=== PATIENT | male | born 1950 | race Caucasian/White ===

== ENCOUNTER 2021-10-27 07:47 | Outpatient (REF) | payer MEDICARE, SELFPAY ==
[2021-10-27 10:14] LABS: MANUAL DIFF FLAG NO
[2021-10-27 10:22] LABS: Basophils Percent Auto 0.7 % (0-2); Eosinophils Absolute Auto 0.3 X10*3/uL (0.0-0.4); Eosinophils Percent Auto 4.6 % (0-4); Hematocrit 43.5 % (42.0-52.0); Hemoglobin 14.7 g/dl (14.0-18.0); Imm Gran Abs Auto 0.02 X10*3/uL (0.00-0.03); Imm Gran Pct Auto 0.3 % (0.0-0.4); Lymphocytes Absolute Auto 2.2 X10*3/uL (1.2-4.9); Lymphocytes Percent Auto 37.7 % (20-40); Mean Corpuscular HGB Conc 33.8 g/dl (31.0-36.0); Mean Corpuscular Hemoglobin 32.2 pg (27.0-33.0); Mean Corpuscular Volume 95.4 fL (80.0-98.0); Mean Platelet Volume 9.1 fL (9.4-12.4); Monocytes Absolute Auto 0.6 X10*3/uL (0.1-1.2); Monocytes Percent Auto 9.5 % (2-11); Neutrophils Absolute Auto 2.8 x10*3/uL (2.0-8.3); Neutrophils Percent Auto 47.2 % (45-73); Platelet Count 215 X10*3/uL (160-400); Red Blood Count 4.56 X10*6/uL (4.60-5.80); Red Cell Distribution Width 12.5 % (11.0-16.0); White Blood Count 5.9 X10*3/uL (4.8-10.8)
[2021-10-27 10:26] LABS: Appearance Urine CLEAR; Color Urine YELLOW; Glucose Urine UA NEG (NEG); Leukocyte Esterase Urine NEG (NEG); Nitrite Urine NEG (NEG); Urine Blood 2+ (NEG); Urine Ketones NEG (NEG); Urine Protein TRACE MG/DL (NEG-TRACE)
[2021-10-27 11:01] LABS: WBC Urine 0-2 /HPF (0-4)
[2021-10-27 11:05] LABS: Alanine Aminotransferase 56 U/L (0-40); Alkaline Phosphatase 104 U/L (39-117); Anion Gap 11 (12-20); Aspartate Amino Transferase 33 U/L (5-37); Blood Urea Nitrogen 13 mg/dL (9-16); Calcium 9.2 mg/dL (8.4-10.2); Carbon Dioxide 26 mmol/L (22-29); Chloride 103 mmol/L (96-108); Cholesterol 181 mg/dL; Estimated Glomerular Filt Rate 50; Glucose Fasting 129 mg/dL (60-99); HDL Cholesterol 40 mg/dL; LDL Cholesterol Calculated 110 mg/dl; Potassium 4.4 mmol/L (3.3-5.1); Sodium 136 mmol/L (135-145); Total Protein 7.1 g/dL (6.5-8.0); Triglycerides 158 mg/dL
[2021-10-27 11:10] LABS: Vitamin D 25-OH Total 21.7 ng/mL (>30)
[2021-10-27 11:46] LABS: Prostate Specific Antigen Scr 4.31 ng/mL (<0.05-4.0)
== END 2021-10-27 07:48 | disposition home or self-care (01) ==
LOC: HO.10HDL 07:47
PROVIDERS: Visit Provider Internal Medicine
DX: Z00.00 Encounter for general adult medical examination without abnormal findings (principal); I10 Essential (primary) hypertension; N40.0 Benign prostatic hyperplasia without lower urinary tract symptoms; G47.33 Obstructive sleep apnea (adult) (pediatric); Z13.220 Encounter for screening for lipoid disorders; Z12.5 Encounter for screening for malignant neoplasm of prostate; Z87.891 Personal history of nicotine dependence
CPT/HCPCS: 36415; 80053; 80061; 81001; 82306; 84153; 85025

== ENCOUNTER 2021-11-03 10:47 | Outpatient (REF) | payer MEDICARE, SELFPAY ==
--- NOTE | ~2021-11-03 | XR_ITS ---
EXAMINATION: XR CHEST CLINICAL INFORMATION: Covid positive COMPARISON: None TECHNIQUE: 2 views of the chest were obtained. FINDINGS: The lungs are well expanded. Linear marking at the left base favors atelectasis. Mild central vascular prominence. No overt edema. No dense consolidation. No effusion. No pneumothorax. The cardiomediastinal silhouette is within normal limits. No acute osseous abnormality. Degenerative changes of the spine. XR/XR chest 2V IMPRESSION: Minimal linear left basilar atelectasis. No consolidation. Central vascular prominence without overt edema.
== END 2021-11-03 10:48 | disposition home or self-care (01) ==
LOC: HO.XRAY 10:47
PROVIDERS: PCP Internal Medicine; Visit Provider Internal Medicine
DX: U07.1 COVID-19 (principal)
CPT/HCPCS: 71046

== ENCOUNTER 2021-11-07 18:36 | Inpatient (IN) | payer MEDICARE, SELFPAY ==
[2021-11-07] VITALS (11 sets, daily range): BP systolic 135–209; BP diastolic 69–121; PULSE 74–89; RESP 20–34; TEMP 36.3–38.3; O2SAT 94–99; BMI 29.5
--- NOTE | ~2021-11-07 | CT_ITS ---
EXAMINATION: CT HEAD WITHOUT CONTRAST CLINICAL INFORMATION: Altered mental status COMPARISON: None TECHNIQUE: Contiguous axial imaging was performed from the skull base to vertex without intravenous administration of contrast. This CT examination was performed using dose optimization techniques as appropriate, variously including the following: *Automated exposure control *Adjustment of mA and/or kV according to patient size (this includes techniques or standardized protocols for targeted exams where dose is matched to indication/reason for exam; i.e. extremities or head) *Use of iterative reconstruction technique DLP: 831 mGy-cm FINDINGS: There is loss of jacob-white differentiation throughout the posterior LEFT temporal lobe, and LEFT occipital lobe. There is encephalomalacia within the right posterior parietal lobe. Patchy subcortical and periventricular white matter low-attenuation changes are present. Multiple infarcts present within the bilateral cerebellum, most which appear chronic, however some are age indeterminant. Ventricular system normal in size and configuration. No acute intracranial hemorrhage. No extra-axial collection. The osseous structures and soft tissues are normal. The mastoid air cells and visualized portions of the paranasal sinuses are well aerated. CT/CT head/brain wo con IMPRESSION: * Large acute to subacute infarct involving the left temporal parietal lobe. * Chronic appearing smaller infarct involving the right parietal lobe. * Multiple bilateral cerebellar lacunar infarcts, most of which appear chronic however some are age indeterminate * Mild white matter small vessel ischemic changes.
--- NOTE | ~2021-11-07 | MR_ITS ---
EXAMINATION: MRI BRAIN WITHOUT CONTRAST CLINICAL INFORMATION: Persistent encephalopathy. COMPARISON: CT scan of the head 11/17/2021. TECHNIQUE: Multiplanar MR imaging of the brain was performed without contrast. FINDINGS: There is an evolving acute to subacute cortical infarct involving left occipital lobe. There are smaller cortical infarcts within the right parietal lobe, right occipital lobe, cerebellar infarcts, and numerous foci of restricted diffusion primarily distributed between the major vascular territories of both cerebral hemispheres. The gradient recalled echo sequence demonstrates multiple small foci of susceptibility artifact within the right parietal lobe and the left occipital lobe consistent with hemorrhage. Intracranial vascular flow voids are grossly maintained. Mass effect related to cytotoxic edema causes regional sulcal effacement within the left occipital lobe. No midline shift or hydrocephalus. No abnormal extra-axial collection. Midline structures including the cervicomedullary junction are normal. No acute bone marrow signal changes. There are bilateral mastoid effusions. Mild/moderate paranasal sinus mucosal disease. Globes and orbits are symmetric. MR/MR head/brain wo con IMPRESSION: There is an evolving cortical infarcts within the vascular territory of left posterior cerebral artery and a few smaller cortical infarcts within the right parietal lobe, right occipital lobe, and cerebellum. There are also multiple tiny watershed infarcts within both cerebral hemispheres. No clear evidence of new or worsening infarct. Multiple tiny intraparenchymal hemorrhages are demonstrated within the left occipital lobe and the right parietal lobe. Cytotoxic edema causes regional mass effect within the left supratentorial compartment causing subtle sulcal effacement. No midline shift or uncal herniation.
--- NOTE | ~2021-11-07 | XR_ITS ---
EXAMINATION: XR CHEST CLINICAL INFORMATION: Hypoxia COMPARISON: 11/07/2021 TECHNIQUE: Frontal view of the chest was obtained. FINDINGS: Continued bilateral opacities. There is certainly no worsening in the left there may be some mild peripheral clearing but this is equivocal and could be projectional in nature. There is some increasing density in the right mid and lower lung zone and again this could be projectional as the patient's body habitus limits exam. Worsening here cannot be excluded The cardiac silhouette is felt to be unchanged. XR/XR chest 1V IMPRESSION: Continued bilateral opacities. Cannot exclude some increase on the right mid to lower lung field. Some possible mild clearing on the left. Attention to follow-up
--- NOTE | ~2021-11-07 | XR_ITS ---
EXAMINATION: XR CHEST CLINICAL INFORMATION: Respiratory distress. COMPARISON: Prior radiographs, the most recent on 11/13/2021. TECHNIQUE: Frontal view of the chest was obtained. FINDINGS: An endotracheal tube terminates approximately 5.6 cm above the lyric. A left internal jugular approach central venous catheter terminates in the proximal SVC as before. An enteric tube descends below the [id number]. Bilateral patchy pulmonary opacities are redemonstrated. No large effusions. No pneumothorax. XR/XR chest 1V IMPRESSION: ET tube terminates approximately 5.6 cm above the lyric. Persistent bilateral pulmonary opacities.
--- NOTE | ~2021-11-07 | XR_ITS ---
EXAMINATION: XR chest 1V CLINICAL INFORMATION: Reason for Exam NG t place COMPARISON: Chest radiograph 11/13/2021 TECHNIQUE: One view of the chest XR/XR chest 1V FINDINGS/IMPRESSION: Improved aeration with persistent patchy parenchymal airspace opacities which may reflect reflect sequelae of multifocal infection and/or edema. No pneumothorax. Possible trace right pleural effusion. Unchanged cardiomediastinal silhouette. Enteric tube tip terminating in the proximal stomach. Sidehole is difficult to visualize however is likely in the region of the gastroesophageal junction. Otherwise unchanged position of lines and tubes.
--- NOTE | ~2021-11-07 | US_ITS ---
EXAMINATION: US VENOUS ULTRASOUND WITH DOPPLER LOWER EXTREMITY, BILATERAL CLINICAL INFORMATION: Elevated d-dimer COMPARISON: None TECHNIQUE: Ultrasound of the deep veins is performed from the hip to the calf with compression sonography and color and pulse Doppler assessment. Spectral analysis with color-flow imaging is performed. FINDINGS: There is acute appearing thrombus in the bilateral posterior tibial veins. The bilateral common femoral, superficial femoral, popliteal and peroneal veins are patent. There is no Hernández's cyst.. US/US venous duplex LE BI IMPRESSION: Bilateral posterior tibial vein calf DVT.
--- NOTE | ~2021-11-07 | XR_ITS ---
EXAMINATION: XR chest 1V CLINICAL INFORMATION: Reason for Exam covid+ COMPARISON: None TECHNIQUE: XR chest 1V Tubes and lines: None Lungs and pleura: Interstitial opacification involving the lungs diffusely especially the left although nonspecific however compatible with patient history of atypical viral pneumonia. There is no pleural effusion. Heart and mediastinum: The mediastinum is within normal limits.. Bones/soft tissue: Skeletal structures included are normal for patient's age. XR/XR chest 1V IMPRESSION: Moderate diffuse interstitial opacification nonspecific however compatible with patient history of viral pneumonia. No pleural effusion.
--- NOTE | ~2021-11-07 | XR_ITS ---
EXAMINATION: XR CHEST CLINICAL INFORMATION: ETT placement COMPARISON: Chest 11/12/2021 TECHNIQUE: Frontal view of the chest was obtained. FINDINGS: The lungs are expanded with extensive bilateral opacities. The heart size and pulmonary vascularity is normal. The left central venous catheter tip is in proximal SVC. New endotracheal tube tip is about 4.7 cm above the lyric. Tip of endotracheal tube is in proximal esophagus. Gross bony abnormality seen. XR/XR chest 1V IMPRESSION: Diffuse bilateral infiltrates. Position of new enteric tube tip is in proximal esophagus and needs to be advanced significantly. Tip of new endotracheal tube and new left central venous catheter are in satisfactory position.
--- NOTE | ~2021-11-07 | CT_ITS ---
EXAMINATION: CT HEAD WITHOUT CONTRAST CLINICAL INFORMATION: New onset seizure COMPARISON: Previous head CT 11/13/2020 TECHNIQUE: Contiguous axial imaging was performed from the skull base to vertex without intravenous administration of contrast. This CT examination was performed using dose optimization techniques as appropriate, variously including the following: *Automated exposure control *Adjustment of mA and/or kV according to patient size (this includes techniques or standardized protocols for targeted exams where dose is matched to indication/reason for exam; i.e. extremities or head) *Use of iterative reconstruction technique DLP: 972 mGy-cm FINDINGS: There is no evidence of an extra-axial collection. There is no evidence of intra-axial or extra-axial hemorrhage. There is a large left parietal occipital infarct. This is recent appearing and does not appear appreciably changed. There is a smaller right posterior parietal infarct. This is recent appearing and does not appear appreciably changed. There is a smaller right occipital infarct. This is recent appearing and does not appear appreciably changed. There are multiple bilateral small cerebellar infarcts of uncertain age. There is a left basal ganglia lacunar infarct. There is nonspecific periventricular white matter disease. There is low-attenuation seen in the left side of the midbrain and medulla. This is questionable for infarct as well. There is no evidence of intra or extra-axial hemorrhage. There is slight mass effect on the posterior horn of the left lateral ventricle from the large left occipital parietal infarct. No other mass effect is seen. Review at bone windows demonstrates no skull fracture. There is soft tissue opacification of the bilateral mastoid air cells and middle ears questionable for otomastoiditis. The visualized paranasal sinuses are clear. CT/CT head/brain wo con IMPRESSION: Large recent appearing left occipital parietal infarct and smaller recent-appearing right posterior parietal and occipital infarcts. Left basal ganglia lacunar infarct and bilateral cerebellar infarcts of uncertain age. Low-attenuation in the left medulla and midbrain questionable for infarct versus artifact. No hemorrhage seen.
--- NOTE | 2021-11-07 18:49 | ECG_ITS ---
Test Reason : SOB Blood Pressure : / mmHG Vent. Rate : 089 BPM Atrial Rate : 089 BPM P-R Int : 152 ms QRS Dur : 104 ms QT Int : 374 ms P-R-T Axes : 050 009 038 degrees QTc Int : 455 ms Normal sinus rhythm Normal ECG When compared with ECG of 27-JUL-2017 06:29, No significant change was found Referred By: Gio Chiang Electronically Signed By:Andrew Alvarez
--- NOTE | 2021-11-07 18:49 | ED.SOB ---
HPI - SOB/Dyspnea General Chief Complaint: Upper Respiratory Symptoms Stated Complaint: COVID EXARCEBATION Time Seen by Provider: 11/07/21 18:49 Source: patient and EMS Mode of arrival: EMS Limitations: no limitations History of Present Illness HPI Narrative: Patient not vaccinated against COVID been symptomatic with COVID symptoms for last 1 week after 10/26 getting worse for last 2 days today was very short of breath when EMS reached was saturating in 60% placed on CPAP. Patient denies any chest pain complaining of body aches fever for poor oral intake MD elicited complaint: shortness of breath Related Data Allergies Allergy/AdvReac Type Severity Reaction Status Date / Time No Known Allergies Allergy Unverified 08/15/20 15:58 [No Known Allergies*] Review of Systems Review of Systems: Yes all other systems are reviewed and are negative [facility] Social History Social History Alcohol intake: current Patient Tobacco Use Status: Former Tobacco user Use of substances other than those prescribed or required for medical reasons: No Advance Directives: No Advance Directives Information Provided: Yes Physical Exam Vital Signs: Vital Signs: Last Vital Signs Temp 97.4 F 11/07/21 21:57 Pulse 75 11/07/21 23:31 Resp 20 11/07/21 23:36 BP 135/69 11/07/21 22:46 Pulse Ox 99 11/07/21 23:31 BMI result Body Mass Index 29.5 Appearance: Alert. Oriented X3. Severe respiratory distress on CPAP, obese patient Eyes: No pallor or icterus ENT: Pharynx normal. Oral Mucosa moist Neck: Normal inspection. Neck supple. CVS: Normal heart rate and rhythm. Pulses normal. Respiratory: No respiratory distress. Equal air entry bilateral, prolonged expiration with crackles bilateral diffuse Abdomen: Soft and nontender. Bowel sounds are present, no mass palpable, no CVA tenderness Skin: Skin warm and dry. Normal skin color. Normal skin turgor. Extremities: No lower extremity edema. No calf tenderness Neuro: Oriented X 3. MDM - SOB/Dyspnea MDM Narrative Medical decision making narrative: Patient with acute respiratory hypoxic failure with COVID 19 on CPAP now 65 % saturating 98% will give albuterol nebulizing treatment along with Decadron less likely to be responsive to any other management at this time 2200: Patient is placed on high-flow oxygen saturating 93 94%. Will admit to medical floor for oxygen supportive treatment patient alert oriented x3 ambulatory otherwise had dark urine in the ER with CKs high likely rhabdomyolysis secondary to COVID patient was given IV fluids in the ER. Patient does have elevated lactic acid 2.2 which is not for bacterial infection is from hypoxia type B. Lab Data Attestation: I reviewed the patient's lab results. Result diagrams: 11/07/21 19:18 11/07/21 19:19 Labs: Lab Results 11/07/21 11/07/21 11/07/21 Range/Units 19:18 19:18 19:19 WBC 5.4 (4.8-10.8) X10*3/uL RBC 4.14 L (4.60-5.80) X10*6/uL Hgb 13.7 L (14.0-18.0) g/dl Hct 36.6 L (42.0-52.0) % MCV 88.4 (80.0-98.0) fL MCH 33.1 H (27.0-33.0) pg MCHC 37.4 H (31.0-36.0) g/dl RDW 11.5 (11.0-16.0) % Plt Count 168 (160-400) X10*3/uL MPV 9.3 L (9.4-12.4) fL Immature Gran % (Auto) 0.4 (0.0-0.4) % Neut % (Auto) 83.7 H (45-73) % Lymph % (Auto) 8.3 L (20-40) % Dickenson % (Auto) 7.6 (2-11) % Eos % (Auto) 0.0 (0-4) % Baso % (Auto) 0.0 (0-2) % Lymph # (Auto) 0.5 L (1.2-4.9) X10*3/uL Dickenson # (Auto) 0.4 (0.1-1.2) X10*3/uL Eos # (Auto) 0.0 (0.0-0.4) X10*3/uL Baso # (Auto) 0.0 (0.0-0.2) X10*3/uL Abs Immat Gran (auto) 0.02 (0.00-0.03) X10*3/uL Absolute Neuts (auto) 4.5 (2.0-8.3) x10*3/uL Absolute Nucleated RBC 0.000 (0.0-0.012) X10*3/uL Nucleated RBC % (auto) 0.0 (0.0-0.2) /100WBC PT 13.5 H (9.9-13.0) SEC INR 1.2 H (0.9-1.1) APTT 28.9 (24.1-38.0) SEC D-Dimer High Sensitivty 595 NG/ML VBG pH (7.32-7.43) VBG pCO2 mmHg VBG pO2 mmHg VBG HCO3 (22-26) mmol/L VBG O2 Saturation % VBG Base Excess mmol/L Sodium (135-145) mmol/L Potassium (3.3-5.1) mmol/L Chloride (96-108) mmol/L Carbon Dioxide (22-29) mmol/L Anion Gap (12-20) BUN (9-16) mg/dL Creatinine (0.5-1.4) mg/dL Estim Creat Clear Calc Estimated GFR Random Glucose (60-115) mg/dL Lactic Acid 2.2 H* (0.5-2.0) mmol/L Calcium (8.4-10.2) mg/dL Total Bilirubin (0.0-1.0) mg/dL AST (5-37) U/L ALT (0-40) U/L Alkaline Phosphatase (39-117) U/L Total Creatine Kinase (38-174) U/L Total Protein (6.5-8.0) g/dL Albumin (3.5-5.0) g/dL Urine Color Urine Appearance Urine pH (5.0-8.0) Ur Specific [place] (1.005-1.025) Urine Protein (NEG-TRACE) MG/DL Urine Glucose (UA) (NEG) MG/DL Urine Ketones (NEG) MG/DL Urine Blood (NEG) Urine Nitrite (NEG) Ur Leukocyte Esterase (NEG) Urine RBC (0) /HPF Urine WBC (0-4) /HPF Ur Squamous Epith Cells /LPF Urine Bacteria /LPF 11/07/21 11/07/21 11/07/21 Range/Units 19:19 19:36 23:58 WBC (4.8-10.8) X10*3/uL RBC (4.60-5.80) X10*6/uL Hgb (14.0-18.0) g/dl Hct (42.0-52.0) % MCV (80.0-98.0) fL MCH (27.0-33.0) pg MCHC (31.0-36.0) g/dl RDW (11.0-16.0) % Plt Count (160-400) X10*3/uL MPV (9.4-12.4) fL Immature Gran % (Auto) (0.0-0.4) % Neut % (Auto) (45-73) % Lymph % (Auto) (20-40) % Dickenson % (Auto) (2-11) % Eos % (Auto) (0-4) % Baso % (Auto) (0-2) % Lymph # (Auto) (1.2-4.9) X10*3/uL [place]enson # (Auto) (0.1-1.2) X10*3/uL Eos # (Auto) (0.0-0.4) X10*3/uL Baso # (Auto) (0.0-0.2) X10*3/uL Abs Immat Gran (auto) (0.00-0.03) X10*3/uL Absolute Neuts (auto) (2.0-8.3) x10*3/uL Absolute Nucleated RBC (0.0-0.012) X10*3/uL Nucleated RBC % (auto) (0.0-0.2) /100WBC PT (9.9-13.0) SEC INR (0.9-1.1) APTT (24.1-38.0) SEC D-Dimer High Sensitivty NG/ML VBG pH 7.38 (7.32-7.43) VBG pCO2 37 mmHg VBG pO2 51 mmHg VBG HCO3 22 (22-26) mmol/L VBG O2 Saturation 76.0 % VBG Base Excess -1.9 mmol/L Sodium 122 L (135-145) mmol/L Potassium 4.1 (3.3-5.1) mmol/L Chloride 88 L (96-108) mmol/L Carbon Dioxide 22 (22-29) mmol/L Anion Gap 16 (12-20) BUN 23 H (9-16) mg/dL Creatinine 1.57 H (0.5-1.4) mg/dL Estim Creat Clear Calc 48.0 Estimated GFR 44 Random Glucose 195 H (60-115) mg/dL Lactic Acid (0.5-2.0) mmol/L Calcium 7.6 L D (8.4-10.2) mg/dL Total Bilirubin 1.2 H (0.0-1.0) mg/dL AST 98 H (5-37) U/L ALT 74 H (0-40) U/L Alkaline Phosphatase 69 D (39-117) U/L Total Creatine Kinase 3494 H (38-174) U/L Total Protein 6.4 L (6.5-8.0) g/dL Albumin 3.5 (3.5-5.0) g/dL Urine Color BROWN Urine Appearance CLOUDY Urine pH 6.5 (5.0-8.0) Ur Specific [place] >= 1.030 H (1.005-1.025) Urine Protein 2+ H (NEG-TRACE) MG/DL Urine Glucose (UA) 100 H (NEG) MG/DL Urine Ketones NEG (NEG) MG/DL Urine Blood 3+ H (NEG) Urine Nitrite NEG (NEG) Ur Leukocyte Esterase NEG (NEG) Urine RBC 76-150 H (0) /HPF Urine WBC 1-4 (0-4) /HPF Ur Squamous Epith Cells 1+ /LPF Urine Bacteria 2+ /LPF Critical Care Time Critical Care Time Critical Care Time: Yes Total Critical Care Time: 65 Attestation: I spent 65 minutes of critical care, with interventions, assessments, speaking to patient Discharge Plan Discharge Clinical Impression: Acute hypoxemic respiratory failure due to COVID-19 Rhabdomyolysis Qualifiers: Rhabdomyolysis type: non-traumatic Qualified Code(s): M62.82 - Rhabdomyolysis Acute renal failure superimposed on chronic kidney disease Qualifiers: Acute renal failure type: unspecified Chronic kidney disease stage: stage 2 (mild) Qualified Code(s): N17.9 - Acute kidney failure, unspecified Patient Disposition: Admitted As Inpatient
[2021-11-07] MEDS: dexAMETHasone sod phosphate 10 MG/ML VIAL IVPUSH (19:32)
[2021-11-07 19:36] LABS: MANUAL DIFF FLAG NO
[2021-11-07] MEDS: Albuterol/Iprat 2.5/0.5MG 3 ML AMPUL.NEB INHALE (19:36)
[2021-11-07 19:37] LABS: Hematocrit 36.6 % (42.0-52.0); Hemoglobin 13.7 g/dl (14.0-18.0); Imm Gran Abs Auto 0.02 X10*3/uL (0.00-0.03); Imm Gran Pct Auto 0.4 % (0.0-0.4); Lymphocytes Absolute Auto 0.5 X10*3/uL (1.2-4.9); Lymphocytes Percent Auto 8.3 % (20-40); Mean Corpuscular HGB Conc 37.4 g/dl (31.0-36.0); Mean Corpuscular Hemoglobin 33.1 pg (27.0-33.0); Mean Corpuscular Volume 88.4 fL (80.0-98.0); Mean Platelet Volume 9.3 fL (9.4-12.4); Monocytes Absolute Auto 0.4 X10*3/uL (0.1-1.2); Monocytes Percent Auto 7.6 % (2-11); Neutrophils Absolute Auto 4.5 x10*3/uL (2.0-8.3); Neutrophils Percent Auto 83.7 % (45-73); Platelet Count 168 X10*3/uL (160-400); Red Blood Count 4.14 X10*6/uL (4.60-5.80); Red Cell Distribution Width 11.5 % (11.0-16.0); White Blood Count 5.4 X10*3/uL (4.8-10.8)
[2021-11-07 19:42] LABS: INTERNATIONAL NORM RATIO 1.2 (0.9-1.1); Prothrombin Time 13.5 SEC (9.9-13.0)
[2021-11-07 19:44] LABS: VBG Base Excess -1.9 mmol/L; VBG HCO3 22 mmol/L (22-26); VBG pCO2 37 mmHg; VBG pH 7.38 (7.32-7.43); VBG pO2 51 mmHg
[2021-11-07 19:45] LABS: D Dimer High Sensitivity 595 NG/ML; Partial Thromboplastin Time 28.9 SEC (24.1-38.0)
[2021-11-07 19:47] LABS: Venous Blood Gas Refer to POC result
[2021-11-07 19:57] LABS: Lactic Acid 2.2 mmol/L (0.5-2.0)
[2021-11-07 20:07] LABS: Alanine Aminotransferase 74 U/L (0-40); Albumin Level 3.5 g/dL (3.5-5.0); Alkaline Phosphatase 69 U/L (39-117); Anion Gap 16 (12-20); Aspartate Amino Transferase 98 U/L (5-37); Bilirubin Total 1.2 mg/dL (0.0-1.0); Blood Urea Nitrogen 23 mg/dL (9-16); Calcium 7.6 mg/dL (8.4-10.2); Carbon Dioxide 22 mmol/L (22-29); Chloride 88 mmol/L (96-108); Estimated Glomerular Filt Rate 44; Glucose Random 195 mg/dL (60-115); Potassium 4.1 mmol/L (3.3-5.1); Sodium 122 mmol/L (135-145); Total Protein 6.4 g/dL (6.5-8.0)
[2021-11-07] MEDS: Acetaminophen 325 MG TABLET 650 MG PO (21:23)
[2021-11-07] MEDS: 0.9 % Sodium Chloride 1,000 ML 999 ML IVCONT (21:24)
[2021-11-07 21:35] LABS: Reflex Lactate? Lactic Acid Added
--- NOTE | 2021-11-07 21:41 | PC.NURSE ---
I assumed care of this pt at 1900 from RITESH Cedeño. The pt, when i met him, is sitting upright in bed with CPAP placed, sat's 97% with CPAP settings: 10 and 60%. Pt is alert, oriented x 3, calm and cooperative with a RR of 30-32. Skin warm to the touch, dry. Speech clear and appropriate. He denies chest pain. No cyanosis. SR rate 80's-90's on bedside monitor. Axillary temp is 101.0 (axillary performed in order to not interrupt CPAP and to not turn and roll patient while he is recovering from resp. distress). Burke TERRELL notified, Tylenol requested and administered. Pt was able to take PO meds with PO fluids without difficulity.
--- NOTE | 2021-11-07 21:54 | MHC.MBSS ---
RITESH IGNACIO AND PROVIDER JENNIFER SAID NOT TO DRAW LACTIC ACID AT THIS TIME .
[2021-11-08] VITALS (12 sets, daily range): BP systolic 125–171; BP diastolic 68–89; PULSE 59–87; RESP 17–28; TEMP 36.1–37.7; O2SAT 85–97
[2021-11-08] MEDS: 0.9 % Sodium Chloride 1,000 ML 999 ML IVCONT (00:03)
[2021-11-08 00:11] LABS: Appearance Urine CLOUDY; Glucose Urine UA 100 MG/DL (NEG); Leukocyte Esterase Urine NEG (NEG); PH 6.5 (5.0-8.0); Specific Gravity - Urine >= 1.030 (1.005-1.025); Urine Blood 3+ (NEG); Urine Ketones NEG (NEG); Urine Protein 2+ MG/DL (NEG-TRACE)
[2021-11-08 00:13] LABS: Color Urine BROWN; Nitrite Urine NEG (NEG); UACC Culture Trigger NO
[2021-11-08 00:14] LABS: Bacteria Urine 2+ /LPF; Squamous Epithelial Cell Urine 1+ /LPF
--- NOTE | 2021-11-08 00:50 | PM.IMHP ---
History of Present Illness Date of Service: 11/08/21 Chief Complaint: shortness of breath 70-year-old male with a past medical history of hypertension, obesity, KEY on CPAP presented to the hospital with a chief complaint of shortness of breath. Patient reports that he has been having COVID-19 symptoms for the past 7-10 days; for the past 2 days he has been having worsening shortness of breath and dyspnea on exertion. Also complains of generalized weakness. Complains of cough. Denies any chest pain palpitations lightheadedness or dizziness. Denies any nausea vomiting or diarrhea. Review of all other systems is negative except mentioned above ER course: Per ER team EMS noted the patient is saturating 60% on presentation; placed on CPAP and subsequently brought into the ER for further evaluation. Mentioned that patient on CCPAP oxygenation improved. chest x-ray showed diffuse interstitial opacities. Given Decadron. Admitted to the hospital for further management. PMFSH Pertinent family history: Reviewed Social History Alcohol intake: current Patient Tobacco Use Status: Former Tobacco user Use of substances other than those prescribed or required for medical reasons: No Advance Directives: No Advance Directives Information Provided: Yes Meds Allergies Allergy/AdvReac Type Severity Reaction Status Date / Time No Known Allergies Allergy Unverified 08/15/20 15:58 [No Known Allergies*] Active Medications: Current Medications Acetaminophen (Acetaminophen 325 Mg Tablet) 650 mg PO Q6H PRN PRN Reason: Pain, Mild (Pain Scale 1-3) Azithromycin (Azithromycin 250 Mg Tablet) 250 mg PO Q24H [facility] Dexamethasone (Dexamethasone 6 Mg Tablet) 6 mg PO DAILY [facility] Enoxaparin Sodium (Enoxaparin Sodium 40 Mg/0.4 Ml Syringe) 40 mg SUBCUT Q24H [facility] Ceftriaxone Sodium 1 gm/ (Sodium Chloride) 50 mls @ 100 mls/hr IV Q24H [facility] Sodium Chloride (Ns) 1,000 mls @ 50 mls/hr IVCONT .Q20H [facility] Melatonin (Melatonin 3 Mg Tablet) 6 mg PO BEDTIME PRN PRN Reason: Insomnia Morphine Sulfate (Morphine Sulfate 4 Mg/Ml Cartridge) 1 mg IVPUSH Q4H PRN; Protocol PRN Reason: Pain, SOB Senna (Sennosides 8.6 Mg Tablet) 17.2 mg PO BEDTIME PRN PRN Reason: Constipation Sodium Chloride (0.9 % Sodium Chloride Flush 3 Ml Syringe) 3 ml IVFLUSH QSHIFT [facility] Physical Exam Vital Signs and Narrative: Vital Signs: Last Vital Signs Temp 97.4 F 11/07/21 21:57 Pulse 75 11/07/21 23:31 Resp 20 11/07/21 23:36 BP 135/69 11/07/21 22:46 Pulse Ox 99 11/07/21 23:31 BMI result Body Mass Index 29.5 Gen: Appears be in no acute distress. On supplemental oxygen. Speaks in full sentences. HEENT: NCAT, Moist mucosa. Pulmonary: coarse breath sounds, fair air entry CVS: Normal S1-S2 Abdomen: BS+, Soft, Nontender Extremities: Warm well perfused Neuro: Alert and awake. Results Labs CBC and Chem 7: 11/07/21 19:18 11/07/21 19:19 Labs: Laboratory Results - last 24 hr 11/07/21 11/07/21 11/07/21 19:18 19:18 19:19 MCV 88.4 MCH 33.1 H MCHC 37.4 H RDW 11.5 Plt Count 168 MPV 9.3 L Immature Gran % (Auto) 0.4 Neut % (Auto) 83.7 H Lymph % (Auto) 8.3 L [place] % (Auto) 7.6 Eos % (Auto) 0.0 Baso % (Auto) 0.0 Lymph # (Auto) 0.5 L [place] # (Auto) 0.4 Eos # (Auto) 0.0 Baso # (Auto) 0.0 Abs Immat Gran (auto) 0.02 Absolute Neuts (auto) 4.5 Absolute Nucleated RBC 0.000 Nucleated RBC % (auto) 0.0 PT 13.5 H INR 1.2 H APTT 28.9 D-Dimer High Sensitivty 595 VBG pH VBG pCO2 VBG pO2 VBG HCO3 VBG O2 Saturation VBG Base Excess Anion Gap Estim Creat Clear Calc Estimated GFR Random Glucose Lactic Acid 2.2 H* Calcium Total Bilirubin AST ALT Alkaline Phosphatase Total Creatine Kinase Total Protein Albumin Urine Color Urine Appearance Urine pH Ur Specific [place] Urine Protein Urine Glucose (UA) Urine Ketones Urine Blood Urine Nitrite Ur Leukocyte Esterase Urine RBC Urine WBC Ur Squamous Epith Cells Urine Bacteria 11/07/21 11/07/21 11/07/21 19:19 19:36 23:58 MCV MCH MCHC RDW Plt Count MPV Immature Gran % (Auto) Neut % (Auto) Lymph % (Auto) [place] % (Auto) Eos % (Auto) Baso % (Auto) Lymph # (Auto) [place] # (Auto) Eos # (Auto) Baso # (Auto) Abs Immat Gran (auto) Absolute Neuts (auto) Absolute Nucleated RBC Nucleated RBC % (auto) PT INR APTT D-Dimer High Sensitivty VBG pH 7.38 VBG pCO2 37 VBG pO2 51 VBG HCO3 22 VBG O2 Saturation 76.0 VBG Base Excess -1.9 Anion Gap 16 Estim Creat Clear Calc 48.0 Estimated GFR 44 Random Glucose 195 H Lactic Acid Calcium 7.6 L D Total Bilirubin 1.2 H AST 98 H ALT 74 H Alkaline Phosphatase 69 D Total Creatine Kinase 3494 H Total Protein 6.4 L Albumin 3.5 Urine Color BROWN Urine Appearance CLOUDY Urine pH 6.5 Ur Specific [place] >= 1.030 H Urine Protein 2+ H Urine Glucose (UA) 100 H Urine Ketones NEG Urine Blood 3+ H Urine Nitrite NEG Ur Leukocyte Esterase NEG Urine RBC 76-150 H Urine WBC 1-4 Ur Squamous Epith Cells 1+ Urine Bacteria 2+ Imaging Radiologist's Impressions: Impressions Chest X-Ray 11/07/21 19:09 IMPRESSION: Moderate diffuse interstitial opacification nonspecific however compatible with patient history of viral pneumonia. No pleural effusion. Assessment and Plan 71-year-old male with a past medical history of hypertension , KEY on CPAP presented to the hospital with a chief complaint of shortness of breath. noted to have acute hypoxia secondary to COVID 19 pneumonia. Admitted for further management. Acute hypoxic respiratory failure: In the setting of COVID-19 pneumonia. Patient also uses CPAP at night. Currently on high-flow. Titrate oxygen requirements as needed. Patient currently speaks in full sentences, not in respiratory distress. Will continue to monitor. Pulmonology consult. COVID-19 pneumonia: Continue ceftriaxone, azithromycin. Will give the patient on Decadron. ID consult for further recommendations. hyponatremia: Likely low solute state. Normal saline at 50 cc/hour. Repeat sodium levels. Nephrology consult. DVT prophylaxis: Lovenox Code status: Full code off note: Things to follow up by the day hospitalist was cared of never at 7:00 a.m. on 11/08/2021: Monitor Respiratory status Pulmonary and ID consult inputs sodium levels Quality Stroke Does the patient have a stroke diagnosis?: No VTE Prior VTE?: No VTE Risk Level:: Medical - moderate - high VTE Device Contraindication: Treatment Not Indicated VTE Drug Contraindication: N/A - Med Ordered
[2021-11-08] MEDS: Azithromycin 250 MG TABLET PO ×2 (01:36→21:27)
[2021-11-08] MEDS: cefTRIAXone sodium 1 GM in 0.9 % Sodium Chloride 50 ML IV ×2 (01:37→21:27)
[2021-11-08 02:01] LABS: ~Lactic Acid-LAB USE ONLY 1.2 mmol/L (0.5-2.0)
--- NOTE | 2021-11-08 02:08 | PC.NURSE ---
Damian has stood at the bedside in order to void into bedside urinal. His urine appeared very dark brown and cloudy. Anwar notified, CK added on to labs and UA sent to lab. At this time the pt is sleeping, wakes to verbal stimuli. While asleep on HNC his O2 sat dcreased to 85%. I attempted to reposition the HFNC in order to determine if the placement was causing the low O2 sat. RT notified and to bedside. Pt now up to 93% on HFNC. Will continue to monitor.
[2021-11-08] MEDS: Enoxaparin Sodium 40 MG/0.4 ML SYRINGE SUBCUT (02:33)
[2021-11-08] MEDS: 0.9 % Sodium Chloride 1,000 ML 50 ML IVCONT ×2 (02:33→21:28)
[2021-11-08] MEDS: dexAMETHasone 6 MG TABLET PO (07:15)
[2021-11-08 08:03] LABS: MANUAL DIFF FLAG NO
[2021-11-08 08:07] LABS: Basophils Percent Auto 0.2 % (0-2); Hematocrit 37.2 % (42.0-52.0); Hemoglobin 13.4 g/dl (14.0-18.0); Imm Gran Abs Auto 0.02 X10*3/uL (0.00-0.03); Imm Gran Pct Auto 0.3 % (0.0-0.4); Lymphocytes Absolute Auto 0.6 X10*3/uL (1.2-4.9); Lymphocytes Percent Auto 10.8 % (20-40); Mean Corpuscular Hemoglobin 32.1 pg (27.0-33.0); Mean Corpuscular Volume 89.2 fL (80.0-98.0); Mean Platelet Volume 9.1 fL (9.4-12.4); Monocytes Absolute Auto 0.4 X10*3/uL (0.1-1.2); Monocytes Percent Auto 6.4 % (2-11); Neutrophils Absolute Auto 4.8 x10*3/uL (2.0-8.3); Neutrophils Percent Auto 82.3 % (45-73); Platelet Count 165 X10*3/uL (160-400); Red Blood Count 4.17 X10*6/uL (4.60-5.80); Red Cell Distribution Width 11.6 % (11.0-16.0); White Blood Count 5.8 X10*3/uL (4.8-10.8)
[2021-11-08 10:09] LABS: Influenza A PCR NEGATIVE (Negative); Influenza B PCR NEGATIVE (Negative); Resp Syncy Virus RNA Qual PCR NEGATIVE (Negative); SARS COV2 PCR INHOUSE POSITIVE (Negative)
--- NOTE | 2021-11-08 11:06 | P.CONNP_ITS ---
History of Present Illness Reason for Consult Consult date: 11/08/21 Reason for consult: Hyponatremia Chief Complaint Chief complaint: COVID pneumonia History of Present Illness Narrative: ?70-year-old male with a past medical history of hypertension, obesity, KEY on CPAP presented to the hospital with a chief complaint of shortness of breath.? Patient reports that he has been having COVID-19 symptoms for the past 7-10 days; for the past 2 days he has been having worsening shortness of breath and dyspnea on exertion.? Also complains of generalized weakness.? Sodium was low Cr has bumped up Review of Systems Review of Systems c/o BACK Pain Yes all other systems are reviewed and are negative PMFSH Past Medical History Medical History (Updated 11/26/21 @ 16:50 by Aditya Birch MD) Hyperkalemia Rhabdomyolysis Family History Pertinent family history: Reviewed Social History Social History Household Members: None Housing: House Do you presently have visiting nurse or other home services: No Alcohol intake: current Alcohol intake frequency: a few times a week Alcohol type: beer, wine and hard liquor Patient Tobacco Use Status: Former Tobacco user e-Cigarette/Vaping Use: Never Used service: No Current occupational status: retired Meds Allergies Allergy/AdvReac Type Severity Reaction Status Date / Time No Known Allergies Allergy Verified 11/09/21 01:04 [No Known Allergies*] Active Medications: Current Medications Acetaminophen (Acetaminophen 325 Mg Tablet) 650 mg PO Q6H PRN PRN Reason: Pain, Mild (Pain Scale 1-3) Azithromycin (Azithromycin 250 Mg Tablet) 250 mg PO Q24H [facility] Dexamethasone (Dexamethasone 6 Mg Tablet) 6 mg PO DAILY [facility] Last Admin: 11/08/21 07:15 Dose: 6 mg Documented by: Enoxaparin Sodium (Enoxaparin Sodium 40 Mg/0.4 Ml Syringe) 40 mg SUBCUT Q24H [facility] Last Admin: 11/08/21 02:33 Dose: 40 mg Documented by: Ceftriaxone Sodium 1 gm/ (Sodium Chloride) 50 mls @ 100 mls/hr IV Q24H [facility] Sodium Chloride (Ns) 1,000 mls @ 50 mls/hr IVCONT .Q20H [facility] Last Admin: 11/08/21 02:33 Dose: 50 mls/hr Documented by: Melatonin (Melatonin 3 Mg Tablet) 6 mg PO BEDTIME PRN PRN Reason: Insomnia Morphine Sulfate (Morphine Sulfate 4 Mg/Ml Cartridge) 1 mg IVPUSH Q4H PRN; Protocol PRN Reason: Pain, SOB Senna (Sennosides 8.6 Mg Tablet) 17.2 mg PO BEDTIME PRN PRN Reason: Constipation Sodium Chloride (0.9 % Sodium Chloride Flush 3 Ml Syringe) 3 ml IVFLUSH QSHIFT [facility] Last Admin: 11/08/21 07:15 Dose: Not Given Documented by: Home Medications Medication Instructions Recorded Confirmed Last Taken Type azithromycin 500 mg tablet 1 tab PO DAILY 11/08/21 11/08/21 Unknown History brimonidine 0.2 % eye drops 1 drp OPHTHALMIC (EYE) BID 11/08/21 11/08/21 Unknown History hydroxychloroquine 200 mg tablet 1 tab PO BID 11/08/21 11/08/21 Unknown History lisinopril 10 mg tablet 1 tab PO DAILY 11/08/21 11/08/21 Unknown History Physical Exam Vital Signs: Last Vital Signs Temp 98.4 F 11/08/21 07:17 Pulse 81 11/08/21 07:17 Resp 25 H 11/08/21 09:17 BP 163/85 H 11/08/21 07:17 Pulse Ox 93 11/08/21 07:17 Oxygen Flow Rate 10 11/08/21 07:17 BMI result Body Mass Index 29.5 Results Lab Results Result Diagrams: 11/26/21 05:15 11/26/21 05:15 Lab results: Chemistry 11/07/21 19:19 Sodium 122 L Potassium 4.1 Carbon Dioxide 22 BUN 23 H Creatinine 1.57 H Calcium 7.6 L D Hematology 11/07/21 11/08/21 19:18 07:59 WBC 5.4 5.8 Hgb 13.7 L 13.4 L Plt Count 168 165 Urinalysis 11/07/21 23:58 Urine Color BROWN Urine Appearance CLOUDY Urine pH 6.5 Ur Specific [place] >= 1.030 H Urine Protein 2+ H Urine Glucose (UA) 100 H Urine Ketones NEG Urine Blood 3+ H Urine Nitrite NEG Ur Leukocyte Esterase NEG Urine RBC 76-150 H Urine WBC 1-4 Ur Squamous Epith Cells 1+ Assessment and Plan (1) Acute renal failure superimposed on chronic kidney disease: Qualifiers: Acute renal failure type: unspecified Chronic kidney disease stage: stage 2 (mild) Qualified Code(s): N17.9 - Acute kidney failure, unspecified; N18.2 - Chronic kidney disease, stage 2 (mild) Status: Acute Hyponatremia in a setting of COVID -19 Possible SIADH EBER due to ATN in a setting of COVID 19 Suggest Check urine Na/Osm Serum Osm REstrict PO water intake Monitor pNa every 2 hrs Avoid rapid correction Goal 0.5mmol/L/hr Watch creatinine- Avoid hypotension/nephrotoxins Procedures Date of Service Date of Service: 11/08/21
--- NOTE | 2021-11-08 12:02 | P.EN_ITS ---
Event Note Date of Service: 11/09/21 Event Note: I saw and evaluated this patient with acute hypoxic respriatory f ailure d/t covid 19, requiring high flow. He is on the right treatment and additionally with baricitinib per pulmonology recommendation. Will need close monitoring and ICU care if not able to maitain sat abovee 88% on High. O/w A/P per H and P from this morning.
--- NOTE | 2021-11-08 12:20 | PM.CNPUL ---
History of Present Illness History of Present Illness Consult date: 11/08/21 Chief complaint: COVID pneumonia Narrative: 71-year-old gentleman with underlying history of obesity, KEY on CPAP, hypertension, unvaccinated for COVID, with COVID symptoms since 10/26/2021 requiring hospitalization on 11/07/2021 with worsening dyspnea. On ER evaluation noted to be significantly hypoxic requiring high-flow nasal cannula to maintain normoxemia. Patient has been started on systemic glucocorticoids and admitted to the telemetry [facility]. Review of Systems Constitutional: Constitutional: Denies daytime sleepiness, Denies excessive sweating, Denies fatigue, Denies fever(s), Denies lethargy, Denies malaise, Denies night sweats, Denies snoring and Denies weight loss Eyes: Eyes: Denies blurry vision and Denies itchy eyes ENT: Denies nasal congestion, Denies post nasal drip, Denies sinus pain, Denies sinus pressure and Denies other ( Thrush) Cardiovascular: Cardiovascular: Denies chest pain, Denies pedal edema, Reports dyspnea, Denies orthopnea and Denies paroxysmal nocturnal dyspnea Respiratory: Respiratory: Denies cough, Denies hemoptysis, Denies excessive phlegm production, Reports dyspnea, Denies snoring and Denies wheezing Gastrointestinal: Gastrointestinal: Denies abdominal pain and Denies heartburn Musculoskeletal: Musculoskeletal: Denies myalgias, Denies arthralgias and Denies joint swelling Integumentary/Breasts: Skin/Breast: Denies rash Neurologic: Denies memory loss and Denies seizure-like activity Psychiatric: Psychiatric: Denies abnormal sleep pattern, Denies anxiety and Denies memory loss Endocrine: Endocrine: Denies excessive sweating, Denies fatigue and Denies heat intolerance Hematologic/Lymphatic: Hematologic/Lymphatic: Denies easy bruising Allergic/Immunologic: Allergic/Immunologic: Denies itchy eyes, Denies seasonal rhinorrhea and Denies wheezing PMFSH Social History Social History Alcohol intake: current Alcohol intake frequency: a few times a week Alcohol type: beer, wine and hard liquor Patient Tobacco Use Status: Former Tobacco user Use of substances other than those prescribed or required for medical reasons: No Advance Directives: No Advance Directives Information Provided: Yes Meds Allergies Allergy/AdvReac Type Severity Reaction Status Date / Time No Known Allergies Allergy Unverified 08/15/20 15:58 [No Known Allergies*] Active Medications: Current Medications Acetaminophen (Acetaminophen 325 Mg Tablet) 650 mg PO Q6H PRN PRN Reason: Pain, Mild (Pain Scale 1-3) Azithromycin (Azithromycin 250 Mg Tablet) 250 mg PO Q24H [facility] Dexamethasone (Dexamethasone 6 Mg Tablet) 6 mg PO DAILY [facility] Last Admin: 11/08/21 07:15 Dose: 6 mg Documented by: Enoxaparin Sodium (Enoxaparin Sodium 40 Mg/0.4 Ml Syringe) 40 mg SUBCUT Q24H [facility] Last Admin: 11/08/21 02:33 Dose: 40 mg Documented by: Ceftriaxone Sodium 1 gm/ (Sodium Chloride) 50 mls @ 100 mls/hr IV Q24H [facility] Sodium Chloride (Ns) 1,000 mls @ 50 mls/hr IVCONT .Q20H [facility] Last Admin: 11/08/21 02:33 Dose: 50 mls/hr Documented by: Melatonin (Melatonin 3 Mg Tablet) 6 mg PO BEDTIME PRN PRN Reason: Insomnia Morphine Sulfate (Morphine Sulfate 4 Mg/Ml Cartridge) 1 mg IVPUSH Q4H PRN; Protocol PRN Reason: Pain, SOB Senna (Sennosides 8.6 Mg Tablet) 17.2 mg PO BEDTIME PRN PRN Reason: Constipation Sodium Chloride (0.9 % Sodium Chloride Flush 3 Ml Syringe) 3 ml IVFLUSH QSHIFT [facility] Last Admin: 11/08/21 07:15 Dose: Not Given Documented by: Physical Exam Vital Signs: Vital Signs: Last Vital Signs Temp 98.4 F 11/08/21 07:17 Pulse 81 11/08/21 07:17 Resp 17 11/08/21 12:12 BP 163/85 H 11/08/21 07:17 Pulse Ox 93 11/08/21 07:17 Oxygen Flow Rate 10 11/08/21 07:17 BMI result Body Mass Index 29.5 Const: General: no acute distress, alert and awake Nutritional Appearance: obese Eyes: Sclerae: sclerae normal EOM: EOMs intact bilaterally Neck: Neck: Yes no lymphadenopathy, Yes trachea midline and Yes supple Resp: Effort & Inspection: normal respiratory effort (On high-flow nasal cannula) and no respiratory distress Auscultation: crackles (Diffuse bilateral) Cardio: Rate: regular rate Rhythm: regular rhythm Heart sounds: no gallops, no murmurs and no rubs GI: Palpation (GI): Soft to palpation and Other GI palpation findings present ( Nontender) Auscultation: normal bowel sounds Extrem: General: Yes no pedal edema, No clubbing and No cyanosis Results Laboratory Findings CBC and BMP: 11/08/21 07:59 11/07/21 19:19 ABG, PT/INR, D-dimer: PT/INR, D-dimer PT 13.5 SEC (9.9-13.0) H 11/07/21 19:18 INR 1.2 (0.9-1.1) H 11/07/21 19:18 Abnormal lab findings: Abnormal Labs 11/07/21 11/07/21 11/07/21 19:18 19:18 19:19 RBC 4.14 L Hgb 13.7 L Hct 36.6 L MCH 33.1 H MCHC 37.4 H MPV 9.3 L Neut % (Auto) 83.7 H Lymph % (Auto) 8.3 L Lymph # (Auto) 0.5 L PT 13.5 H INR 1.2 H Sodium Chloride BUN Creatinine Random Glucose Lactic Acid 2.2 H* Calcium Total Bilirubin AST ALT Total Creatine Kinase Total Protein Ur Specific [place] Urine Protein Urine Glucose (UA) Urine Blood Urine RBC SARS-CoV-2 RNA (RT-PCR) 11/07/21 11/07/21 11/08/21 19:19 23:58 07:59 RBC 4.17 L Hgb 13.4 L Hct 37.2 L MCH MCHC MPV 9.1 L Neut % (Auto) 82.3 H Lymph % (Auto) 10.8 L Lymph # (Auto) 0.6 L PT INR Sodium 122 L Chloride 88 L BUN 23 H Creatinine 1.57 H Random Glucose 195 H Lactic Acid Calcium 7.6 L D Total Bilirubin 1.2 H AST 98 H ALT 74 H Total Creatine Kinase 3494 H Total Protein 6.4 L Ur Specific [place] >= 1.030 H Urine Protein 2+ H Urine Glucose (UA) 100 H Urine Blood 3+ H Urine RBC 76-150 H SARS-CoV-2 RNA (RT-PCR) 11/08/21 08:49 RBC Hgb Hct MCH MCHC MPV Neut % (Auto) Lymph % (Auto) Lymph # (Auto) PT INR Sodium Chloride BUN Creatinine Random Glucose Lactic Acid Calcium Total Bilirubin AST ALT Total Creatine Kinase Total Protein Ur Specific [place] Urine Protein Urine Glucose (UA) Urine Blood Urine RBC SARS-CoV-2 RNA (RT-PCR) POSITIVE A Assessment and Plan (1) Acute respiratory distress syndrome (ARDS) due to COVID-19 virus: Status: Acute (2) Acute hypoxemic respiratory failure due to COVID-19: Status: Acute Impression: 71-year-old gentleman unvaccinated for COVID-19, with COVID symptoms since 10/26/2021 admitted with worsening shortness of breath secondary to hypoxia, secondary to COVID-19 ARDS now requiring high-flow nasal cannula to maintain normoxemia. Recommendation: Will start on baricitinib. Continue systemic glucocorticoids. Consider remdesivir. Continue to titrate off supplemental oxygen as tolerated. Procedures Date of Service Date of Service: 11/08/21
--- NOTE | 2021-11-08 22:49 | P.CNID_ITS ---
History of Present Illness Data of Consult Service Date: 10/31/21 Requesting physician: Pete Ellis Primary Care Provider: Unknown Physician HPI Reason for consult: shortness of breath He presents to hospital with shortness of breath since 10/26. He says he became ill with cough and shortness of breath just after Thanksgiving He has no fever or chills Review of Systems Review of Systems: Yes all other systems are reviewed and are negative [facility] Family History Family history: reviewed and not pertinent Social History Social History Household Members: None Housing: House Do you presently have visiting nurse or other home services: No Alcohol intake: current Alcohol intake frequency: a few times a week Alcohol type: beer, wine and hard liquor Patient Tobacco Use Status: Former Tobacco user e-Cigarette/Vaping Use: Never Used Meds Allergies Allergy/AdvReac Type Severity Reaction Status Date / Time No Known Allergies Allergy Unverified 08/15/20 15:58 [No Known Allergies*] Active Medications: Current Medications Acetaminophen (Acetaminophen 325 Mg Tablet) 650 mg PO Q6H PRN PRN Reason: Pain, Mild (Pain Scale 1-3) Baricitinib (Baricitinib 2 Mg Tablet) 2 mg PO DAILY [facility] Stop: 11/21/21 09:01 Last Admin: 11/08/21 15:12 Dose: 2 mg Documented by: Dexamethasone (Dexamethasone 6 Mg Tablet) 6 mg PO DAILY [facility] Last Admin: 11/08/21 07:15 Dose: 6 mg Documented by: Enoxaparin Sodium (Enoxaparin Sodium 40 Mg/0.4 Ml Syringe) 40 mg SUBCUT Q24H [facility] Last Admin: 11/08/21 02:33 Dose: 40 mg Documented by: Sodium Chloride (Ns) 1,000 mls @ 50 mls/hr IVCONT .Q20H [facility] Last Admin: 11/08/21 21:28 Dose: 50 mls/hr Documented by: Melatonin (Melatonin 3 Mg Tablet) 6 mg PO BEDTIME PRN PRN Reason: Insomnia Morphine Sulfate (Morphine Sulfate 4 Mg/Ml Cartridge) 1 mg IVPUSH Q4H PRN; Protocol PRN Reason: Pain, SOB Pharmacy Consult (Consult Rx Perform Med Rec) 1 each MISCELLANE ONCE PRN PRN Reason: Consult order Senna (Sennosides 8.6 Mg Tablet) 17.2 mg PO BEDTIME PRN PRN Reason: Constipation Sodium Chloride (0.9 % Sodium Chloride Flush 3 Ml Syringe) 3 ml IVFLUSH QSHIFT [facility] Last Admin: 11/08/21 21:28 Dose: Not Given Documented by: Home Medications Medication Instructions Recorded Confirmed Last Taken Type azithromycin 500 mg tablet 1 tab PO DAILY 11/08/21 11/08/21 Unknown History brimonidine 0.2 % eye drops 1 drp OPHTHALMIC (EYE) BID 11/08/21 11/08/21 Unknown History hydroxychloroquine 200 mg tablet 1 tab PO BID 11/08/21 11/08/21 Unknown History lisinopril 10 mg tablet 1 tab PO DAILY 11/08/21 11/08/21 Unknown History Physical Exam Vital Signs: Vital Signs: Last Vital Signs Temp 98.0 F 11/08/21 19:15 Pulse 75 11/08/21 19:15 Resp 22 H 11/08/21 20:02 BP 154/82 H 11/08/21 19:15 Pulse Ox 90 L 11/08/21 19:15 Oxygen Flow Rate 10 11/08/21 14:46 BMI result Body Mass Index 29.5 Const: General: cooperative Eyes: Pupils: Equal, round and reactive pupils present Resp: Effort & Inspection: normal respiratory effort Cardio: Rate: regular rate Rhythm: regular rhythm GI: Palpation (GI): Soft to palpation and nontender Skin: General skin exam: no rashes or lesions noted Neuro: Cranial nerves: Yes Equal, round and reactive pupils present Results Labs CBC & Chem 7: 11/08/21 07:59 11/07/21 19:19 Labs: Short CBC 11/08/21 Range/Units 07:59 WBC 5.8 (4.8-10.8) X10*3/uL Hgb 13.4 L (14.0-18.0) g/dl Hct 37.2 L (42.0-52.0) % Plt Count 165 (160-400) X10*3/uL Cardiac Enzymes 11/07/21 Range/Units 19:19 Total Creatine Kinase 3494 H (38-174) U/L Urine 11/07/21 Range/Units 23:58 Urine Color BROWN Urine Appearance CLOUDY Urine pH 6.5 (5.0-8.0) Ur Specific [place] >= 1.030 H (1.005-1.025) Urine Protein 2+ H (NEG-TRACE) MG/DL Urine Glucose (UA) 100 H (NEG) MG/DL Microbiology Microbiology Results: Microbiology 11/07/21 18:50 Blood - Venous Blood Culture - Preliminary No growth after 24 hours. 11/07/21 19:45 Blood - Venous Blood Culture - Preliminary No growth after 24 hours. Assessment and Plan (1) Acute respiratory distress syndrome (ARDS) due to COVID-19 virus: Status: Acute He has had COVID symptoms between 10 and 14 days He is past stage for Remdesivir, over seven days He is still within fourteen days of onset of symptoms and has shortness of breath so agree with Pulmonary,baricitinib. He has no signs of opportunistic infection seen at this time Suggest Would continue baricitinib until resolving symptoms Stop Ceftriaxone and Zithromax as no signs of bacterial infection No Remdesivir Steroids and oxygen as needed (2) Rhabdomyolysis: Qualifiers: Rhabdomyolysis type: non-traumatic Qualified Code(s): M62.82 - Rhabdomyolysis Status: Acute
[2021-11-09] VITALS (11 sets, daily range): BP systolic 145–172; BP diastolic 76–89; PULSE 66–77; RESP 16–22; TEMP 36.3–36.8; O2SAT 89–95
[2021-11-09] MEDS: Enoxaparin Sodium 40 MG/0.4 ML SYRINGE SUBCUT (00:34)
[2021-11-09] MEDS: 0.9 % Sodium Chloride Flush 3 ML SYRINGE IVFLUSH ×3 (07:36→21:20)
[2021-11-09] MEDS: dexAMETHasone 6 MG TABLET PO (08:34)
--- NOTE | 2021-11-09 10:14 | P.PNIM_ITS ---
Subjective Subjective Date of Service: 11/09/21 Interval History: F/u covid with acute hypoxic resp failure, persistent hypoxia on high flow yet no distress, an Review of Systems no fever +sob Physical Exam Vital Signs: Vital Signs: Last Vital Signs Temp 98.0 F 11/09/21 08:00 Pulse 75 11/09/21 08:00 Resp 20 11/09/21 08:28 BP 145/76 H 11/09/21 08:00 Pulse Ox 90 L 11/09/21 08:00 Oxygen Flow Rate 10 11/08/21 14:46 BMI result Body Mass Index 29.5 Const: Other: General: AO X 3, no acute distress Resp: CTA bilateral CVS: S1,S2,RRR GI: +BS, NT, no distention Skin: No rash Neuro: motor grossly intact Psych: appropriate affect Objective Data Active Medications Acetaminophen (Acetaminophen 325 Mg Tablet) 650 mg PO Q6H PRN PRN Reason: Pain, Mild (Pain Scale 1-3) Baricitinib (Baricitinib 2 Mg Tablet) 2 mg PO DAILY [facility] Stop: 11/21/21 09:01 Last Admin: 11/09/21 08:34 Dose: 2 mg Documented by: VALENTINA Dexamethasone (Dexamethasone 6 Mg Tablet) 6 mg PO DAILY [facility] Last Admin: 11/09/21 08:34 Dose: 6 mg Documented by: VALENTINA Enoxaparin Sodium (Enoxaparin Sodium 40 Mg/0.4 Ml Syringe) 40 mg SUBCUT Q24H [facility] Last Admin: 11/09/21 00:34 Dose: 40 mg Documented by: LUL Sodium Chloride (Ns) 1,000 mls @ 50 mls/hr IVCONT .Q20H [facility] Last Admin: 11/08/21 21:28 Dose: 50 mls/hr Documented by: LUL Melatonin (Melatonin 3 Mg Tablet) 6 mg PO BEDTIME PRN PRN Reason: Insomnia Morphine Sulfate (Morphine Sulfate 4 Mg/Ml Cartridge) 1 mg IVPUSH Q4H PRN; Protocol PRN Reason: Pain, SOB Pharmacy Consult (Consult Rx Perform Med Rec) 1 each MISCELLANE ONCE PRN PRN Reason: Consult order Senna (Sennosides 8.6 Mg Tablet) 17.2 mg PO BEDTIME PRN PRN Reason: Constipation Sodium Chloride (0.9 % Sodium Chloride Flush 3 Ml Syringe) 3 ml IVFLUSH QSHIFT [facility] Last Admin: 11/09/21 07:36 Dose: 3 ml Documented by: VALENTINA Labs CBC & Chem 7: 11/08/21 07:59 11/10/21 05:33 Labs: Laboratory Results - last 24 hr 11/08/21 08:49 Influenza Type A (PCR) NEGATIVE Influenza Type B (PCR) NEGATIVE RSV RNA Qual (PCR) NEGATIVE SARS-CoV-2 RNA (RT-PCR) POSITIVE A Microbiology Microbiology Results: Microbiology 11/07/21 18:50 Blood Culture - Preliminary Blood - Venous No growth after 24 hours. 11/07/21 19:45 Blood Culture - Preliminary Blood - Venous No growth after 24 hours. Assessment and Plan (1) Acute respiratory distress syndrome (ARDS) due to COVID-19 virus: Status: Acute (2) Acute hypoxemic respiratory failure due to COVID-19: Status: Acute Assessment and Plan: 71-year-old male with a past medical history of hypertension , KEY on CPAP presented to the hospital with a chief complaint of shortness of breath. ? noted to have acute hypoxia secondary to COVID 19 pneumonia.? Admitted for further management. #Acute hypoxic respiratory failure:? In the setting of COVID-19 pneumonia. -continue Dexamethasone -Continue Baricitinib D2 -Titrate O2 to 90% -There is no indication for antibiotics #KEY/Hypoventilation syndrome, CPAP at night and PRN during the day ? ?Hyponatremia--Check sodium level has increased and sp dc NS and daily level for now ? DVT prophylaxis:? Lovenox Code status:? Full code Quality Stroke Does the patient have a stroke diagnosis?: No VTE Prior VTE?: No VTE Risk Level:: Medical - moderate - high VTE Device Contraindication: Treatment Not Indicated VTE Drug Contraindication: N/A - Med Ordered
[2021-11-09 11:28] LABS: Anion Gap 13 (12-20); Blood Urea Nitrogen 21 mg/dL (9-16); Calcium 8.1 mg/dL (8.4-10.2); Carbon Dioxide 24 mmol/L (22-29); Chloride 98 mmol/L (96-108); Estimated Glomerular Filt Rate > 60; Glucose Random 173 mg/dL (60-115); Sodium 131 mmol/L (135-145)
--- NOTE | 2021-11-09 12:01 | P.PNNP_ITS ---
Subjective Subjective Date of Service: 12/02/21 Interval history: Events noted Physical Exam Vital Signs: Vital Signs: Last Vital Signs Temp 98.0 F 11/09/21 08:00 Pulse 75 11/09/21 08:00 Resp 20 11/09/21 11:22 BP 145/76 H 11/09/21 08:00 Pulse Ox 90 L 11/09/21 08:00 Oxygen Flow Rate 10 11/08/21 14:46 BMI result Body Mass Index 29.5 Const: Other: General: AO X 3, no acute distress Resp: CTA bilateral CVS: S1,S2,RRR GI: +BS, NT, no distention Skin: No rash Neuro: motor grossly intact Psych: appropriate affect General: cooperative, no acute distress, alert and awake Nutritional Appearance: obese Eyes: Sclerae: sclerae normal Pupils: Equal, round and reactive pupils present EOM: EOMs intact bilaterally Neck: Neck: Yes no lymphadenopathy, Yes trachea midline and Yes supple Resp: Effort & Inspection: normal respiratory effort and no respiratory distress Auscultation: crackles (Diffuse bilateral) Cardio: Rate: regular rate Rhythm: regular rhythm Heart sounds: no gal lops, no murmurs and no rubs GI: Palpation (GI): Soft to palpation, nontender and Other GI palpation findings present ( Nontender) Auscultation: normal bowel sounds Skin: General skin exam: no rashes or lesions noted Neuro: Cranial nerves: Yes Equal, round and reactive pupils present Extrem: General: Yes no pedal edema, No clubbing and No cyanosis Objective Data Labs CBC & Chem 7: 11/26/21 05:15 11/26/21 05:15 Labs: Laboratory Results - last 24 hr 11/09/21 10:42 Sodium 131 L Potassium 4.0 Chloride 98 Carbon Dioxide 24 Anion Gap 13 BUN 21 H Creatinine 1.16 Estim Creat Clear Calc 65.0 Estimated GFR > 60 Random Glucose 173 H Calcium 8.1 L D Microbiology Microbiology Results: Microbiology 11/07/21 18:50 Blood - Venous Blood Culture - Preliminary No growth after 24 hours. 11/07/21 19:45 Blood - Venous Blood Culture - Preliminary No growth after 24 hours. Procedures Date of Service Date of Service: 11/09/21 Assessment & Plan Assessment and plan (1) Acute respiratory distress syndrome (ARDS) due to COVID-19 virus: Status: Acute (2) Rhabdomyolysis: Status: Inactive Assessment and Plan: 71-year-old male with a past medical history of hypertension , KEY on CPAP presented to the hospital with a chief complaint of shortness of breath. ? noted to have acute hypoxia secondary to COVID 19 pneumonia.? Admitted for further management. Hyponatremia due to SIADH Keep on PO water restriction Rate of correction not more than 0.5mmol/L/hr EBER - resolving Time Spent With Patient Time: Total time spent is greater than 50% in coordination of care (as documented) at patient's floor/unit and/or counseling patient: Time with patient: 15 - 24 minutes Progress Note: Quality Stroke Does the patient have a stroke diagnosis?: No
--- NOTE | 2021-11-09 12:07 | MHC.CM.PN ---
Called patient; went to . Called contact #1: not a good time for her, she asked that she be contacted at a later time. Will have to make second attempt at a later date/time.
[2021-11-10] VITALS (14 sets, daily range): BP systolic 165–183; BP diastolic 82–94; PULSE 65–78; RESP 18–24; TEMP 36–37; O2SAT 84–95
--- NOTE | 2021-11-10 00:50 | PC.NURSE ---
pt desatting to 80-84% on HFNC at 55L 85%. at 0025 Pt repositioned to high fowlers with sats only recovering to 86%. Respiratory called to bedside and she increased HF to 55L 100%. Pt continues to sat 86-87%. Placed NRB at 15L on at 0045 with sats increasing to 90-93%. Pt is not complaining of any shortness of breath. Respirations remain easy and unlabored at 18-20. Educated that if sats continue to drop proning is the next step. PT is agreeable to all procedures.
[2021-11-10] MEDS: Enoxaparin Sodium 40 MG/0.4 ML SYRINGE SUBCUT (01:41)
[2021-11-10 06:40] LABS: Anion Gap 13 (12-20); Blood Urea Nitrogen 23 mg/dL (9-16); Calcium 8.4 mg/dL (8.4-10.2); Carbon Dioxide 25 mmol/L (22-29); Chloride 101 mmol/L (96-108); Creatinine Clr Calc Pharmacy 69.8; Estimated Glomerular Filt Rate > 60; Glucose Random 131 mg/dL (60-115); Potassium 4.2 mmol/L (3.3-5.1); Sodium 135 mmol/L (135-145)
[2021-11-10] MEDS: dexAMETHasone 6 MG TABLET PO (08:07)
[2021-11-10] MEDS: 0.9 % Sodium Chloride Flush 3 ML SYRINGE IVFLUSH ×3 (08:07→23:55)
[2021-11-10] MEDS: lisinopriL 10 MG TABLET PO ×2 (08:08→13:29)
[2021-11-10 08:15] LABS: ~HepC Num1 0.11 S/CO (0.00-0.79); ~Hepatitis B Surface Antibody NONREACTIVE (Nonreactive); ~Hepatitis C Antibody Nonreactive (Nonreactive)
[2021-11-10 08:31] LABS: Hepatitis B Core Antibody Nonreactive (Nonreactive); Hepatitis B Surface Antigen Negative (Negative)
--- NOTE | 2021-11-10 08:57 | MHC.CM.PN ---
Patient is Covid (+)and CM was unable to reach Patient on his cell [phone], nor his room extension at [phone]; CM spoke with Sister/Catherine @ [phone]. Patient lives alone in a house and he had no services nor DME [employer]. Home is the goal for dc and CM has initiated and will follow for dc planning. IMM addressed with Catherine and the original will be mailed out certified letter to her and a copy placed on the chart. At this time, PCP is unknown. Daughter/HCP/Tena from [place] is at [phone], and Daughter/HCP/Leslie from [place] is at [phone].
[2021-11-10] MEDS: Brimonidine Tartrate 0.2% Oph 5 ML BOTTLE 1 DROP EYE-BOTH ×2 (11:31→20:20)
--- NOTE | 2021-11-10 12:16 | P.PNIM_ITS ---
Subjective Subjective Date of Service: 11/10/21 Interval History: F/u covid with acute hypoxic resp failure, persistent hypoxia on high flow yet no distress, an Review of Systems no fever +sob Physical Exam Verdana 4l Vital Signs: Verdana 4d Verdana 4d Vital Signs: Verdana 4d Verdana 4Bd Last Vital Signs Verdana 4d Record Pressman New 4d Record Pressman New 4d Temp 97.0 F 11/10/21 11:36 Record Pressman New 4d Pulse 75 11/10/21 11:36 Record Pressman NewNew 4d Resp 18 11/10/21 11:40 BP 180/82 H 11/10/21 11:36 Pulse Ox 90 L 11/10/21 11:36 Oxygen Flow Rate 10 11/08/21 14:46 BMI result Body Mass Index 29.5 Const: Other: General: AO X 3, no acute distress Resp: CTA bilateral CVS: S1,S2,RRR GI: +BS, NT, no distention Skin: No rash Neuro: motor grossly intact Psych: appropriate affect Objective Data Active Medications Acetaminophen (Acetaminophen 325 Mg Tablet) 650 mg PO Q6H PRN PRN Reason: Pain, Mild (Pain Scale 1-3) Baricitinib (Baricitinib 2 Mg Tablet) 2 mg PO DAILY [facility] Stop: 11/21/21 09:01 Last Admin: 11/10/21 08:08 Dose: 2 mg Documented by: RYANNE Brimonidine Tartrate (Brimonidine Tartrate 0.2% Oph 5 Ml Bottle) 1 drop EYE- BOTH BID [facility] Last Admin: 11/10/21 11:31 Dose: 1 drop Documented by: RYANNE Dexamethasone (Dexamethasone 6 Mg Tablet) 6 mg PO DAILY [facility] Last Admin: 11/10/21 08:07 Dose: 6 mg Documented by: RYANNE Enoxaparin Sodium (Enoxaparin Sodium 40 Mg/0.4 Ml Syringe) 40 mg SUBCUT Q24H [facility] Last Admin: 11/10/21 01:41 Dose: 40 mg Documented by: NATALIE Lisinopril (Lisinopril 10 Mg Tablet) 10 mg PO DAILY [facility]; Protocol Last Admin: 11/10/21 08:08 Dose: 10 mg Documented by: RYANNE Melatonin (Melatonin 3 Mg Tablet) 6 mg PO BEDTIME PRN PRN Reason: Insomnia Morphine Sulfate (Morphine Sulfate 4 Mg/Ml Cartridge) 1 mg IVPUSH Q4H PRN; Protocol PRN Reason: Pain, SOB Pharmacy Consult (Consult Rx Perform Med Rec) 1 each MISCELLANE ONCE PRN PRN Reason: Consult order Senna (Sennosides 8.6 Mg Tablet) 17.2 mg PO BEDTIME PRN PRN Reason: Constipation Sodium Chloride (0.9 % Sodium Chloride Flush 3 Ml Syringe) 3 ml IVFLUSH QSHIFT [facility] Last Admin: 11/10/21 08:07 Dose: 3 ml Documented by: RYANNE Labs CBC & Chem 7: 11/08/21 07:59 11/10/21 05:33 Labs: Laboratory Results - last 24 hr 11/08/21 11/10/21 07:59 05:33 Anion Gap 13 Estim Creat Clear Calc 69.8 Estimated GFR > 60 Random Glucose 131 H Calcium 8.4 Hep Bs Antigen Negative Hep Bs Antibody NONREACTIVE Hep B Core Total Ab Nonreactive Hepatitis C Ab (EIA) Nonreactive Microbiology Microbiology Results: Microbiology 11/07/21 18:50 Blood Culture - Preliminary Blood - Venous No growth after 48 hours. 11/07/21 19:45 Blood Culture - Preliminary Blood - Venous No growth after 48 hours. Assessment and Plan (1) Acute respiratory distress syndrome (ARDS) due to COVID-19 virus: Status: Acute (2) Acute hypoxemic respiratory failure due to COVID-19: Status: Acute Assessment and Plan: 71-year-old male with a past medical history of hypertension , KEY on CPAP presented to the hospital with a chief complaint of shortness of breath. ? noted to have acute hypoxia secondary to COVID 19 pneumonia.? Admitted for further management. #Acute hypoxic respiratory failure:? In the setting of COVID-19 pneumonia. -continue Dexamethasone -Continue Baricitinib D2 -Titrate O2 to 90% -There is no indication for antibiotics #KEY/Hypoventilation syndrome, CPAP at night and PRN during the day ? ?Hyponatremia--Check sodium level has increased and sp dc NS and daily level for now #HTN--BPs are high, he takes Lisinopril 10, increase to 20 and if persitently high start Norvasc at 5 daily ? DVT prophylaxis:? Lovenox Code status:? Full code Quality Stroke Does the patient have a stroke diagnosis?: No VTE Prior VTE?: No VTE Risk Level:: Medical - moderate - high VTE Device Contraindication: Treatment Not Indicated VTE Drug Contraindication: N/A - Med Ordered
--- NOTE | 2021-11-10 13:14 | PC.NURSE ---
Could not get o2 sats above 82% with good pleth despite repositioning and deep breathing. no real SOB noted at this time. I just want to take a nap. Dr. Ellis made aware. NRB partial placed on patient per RT suggestion. o2 sat 95%
[2021-11-10] MEDS: Acetaminophen 325 MG TABLET 650 MG PO (20:20)
[2021-11-11] VITALS (13 sets, daily range): BP systolic 151–177; BP diastolic 74–98; PULSE 74–84; RESP 18–24; TEMP 36.1–37.3; O2SAT 92–99
[2021-11-11] MEDS: Enoxaparin Sodium 40 MG/0.4 ML SYRINGE SUBCUT (02:28)
[2021-11-11 07:23] LABS: Anion Gap 14 (12-20); Blood Urea Nitrogen 25 mg/dL (9-16); Calcium 8.4 mg/dL (8.4-10.2); Carbon Dioxide 26 mmol/L (22-29); Chloride 101 mmol/L (96-108); Creatinine Clr Calc Pharmacy 64.4; Estimated Glomerular Filt Rate > 60; Glucose Random 114 mg/dL (60-115); Potassium 4.2 mmol/L (3.3-5.1); Sodium 137 mmol/L (135-145)
[2021-11-11] MEDS: 0.9 % Sodium Chloride Flush 3 ML SYRINGE IVFLUSH ×2 (09:51→16:37)
[2021-11-11] MEDS: Zinc Sulfate 220 MG CAPSULE PO (09:51)
[2021-11-11] MEDS: Famotidine 20 MG TABLET PO ×2 (09:52→20:50)
[2021-11-11] MEDS: dexAMETHasone 6 MG TABLET PO (09:52)
[2021-11-11] MEDS: amLODIPine Besylate 5 MG TABLET PO (09:52)
[2021-11-11] MEDS: Acetaminophen 325 MG TABLET 650 MG PO (09:52)
[2021-11-11] MEDS: Brimonidine Tartrate 0.2% Oph 5 ML BOTTLE 1 DROP EYE-BOTH ×2 (09:55→20:54)
--- NOTE | 2021-11-11 12:12 | HO.PM.IMPN ---
Subjective Subjective Date of Service: 11/11/21 Interval History: acute hypoxemic respiratory failure secondary to COVID. Review of Systems Patient shortness of breath seems slightly better than yesterday, denies any cough or nausea or vomiting or fever chills. Physical Exam Vital Signs: Vital Signs: Last Vital Signs Temp 97.0 F 11/11/21 11:20 Pulse 74 11/11/21 11:20 Resp 24 H 11/11/21 11:20 BP 177/86 H 11/11/21 11:20 Pulse Ox 99 11/11/21 11:20 Oxygen Flow Rate 10 11/08/21 14:46 BMI result Body Mass Index 29.5 General: AO X 3, no acute distress Resp:?fair air entry , no rales or wheezin CVS: S1,S2,RRR GI: +BS, NT, no distention Skin: No rash Neuro:? motor grossly intact Psych: appropriate affect ? Objective Data Active Medications Acetaminophen (Acetaminophen 325 Mg Tablet) 650 mg PO Q6H PRN PRN Reason: Pain, Mild (Pain Scale 1-3) Last Admin: 11/11/21 09:52 Dose: 650 mg Documented by: RYANNE Amlodipine Besylate (Amlodipine Besylate 5 Mg Tablet) 5 mg PO DAILY [facility]; Protocol Last Admin: 11/11/21 09:52 Dose: 5 mg Documented by: RYANNE Baricitinib (Baricitinib 2 Mg Tablet) 2 mg PO DAILY [facility] Stop: 11/21/21 09:01 Last Admin: 11/11/21 09:52 Dose: 2 mg Documented by: RYANNE Brimonidine Tartrate (Brimonidine Tartrate 0.2% Oph 5 Ml Bottle) 1 drop EYE-BOTH BID [facility] Last Admin: 11/11/21 09:55 Dose: 1 drop Documented by: RYANNE Dexamethasone (Dexamethasone 6 Mg Tablet) 6 mg PO DAILY [facility] Last Admin: 11/11/21 09:52 Dose: 6 mg Documented by: RYANNE Enoxaparin Sodium (Enoxaparin Sodium 40 Mg/0.4 Ml Syringe) 40 mg SUBCUT Q24H [facility] Last Admin: 11/11/21 02:28 Dose: 40 mg Documented by: JOSE Famotidine (Famotidine 20 Mg Tablet) 20 mg PO BID [facility] Last Admin: 11/11/21 09:52 Dose: 20 mg Documented by: RYANNE Melatonin (Melatonin 3 Mg Tablet) 6 mg PO BEDTIME PRN PRN Reason: Insomnia Morphine Sulfate (Morphine Sulfate 4 Mg/Ml Cartridge) 1 mg IVPUSH Q4H PRN; Protocol PRN Reason: Pain, SOB Pharmacy Consult (Consult Rx Perform Med Rec) 1 each MISCELLANE ONCE PRN PRN Reason: Consult order Senna (Sennosides 8.6 Mg Tablet) 17.2 mg PO BEDTIME PRN PRN Reason: Constipation Sodium Chloride (0.9 % Sodium Chloride Flush 3 Ml Syringe) 3 ml IVFLUSH QSHIFT [facility] Last Admin: 11/11/21 09:51 Dose: 3 ml Documented by: RYANNE Zinc Sulfate (Zinc Sulfate 220 Mg Capsule) 220 mg PO DAILY [facility] Last Admin: 11/11/21 09:51 Dose: 220 mg Documented by: RYANNE Labs CBC & Chem 7: 11/08/21 07:59 11/11/21 06:38 Labs: Laboratory Results - last 24 hr 11/11/21 06:38 Anion Gap 14 Estim Creat Clear Calc 64.4 Estimated GFR > 60 Random Glucose 114 Calcium 8.4 Assessment and Plan (1) Acute respiratory distress syndrome (ARDS) due to COVID-19 virus: Status: Acute Assessment and Plan: 71-year-old male with a past medical history of hypertension , KEY on CPAP presented to the hospital with a chief complaint of shortness of breath. ? noted to have acute hypoxia secondary to COVID 19 pneumonia.? Admitted for further management. 1.Acute hypoxic respiratory failure:? In the setting of COVID-19 pneumonia. -continue Dexamethasone -Continue Baricitinib D3,Titrate O2 to 90% -There is no indication for antibiotics 2.KEY/Hypoventilation syndrome, CPAP at night and PRN during the day ? ?3.Hyponatremia--Check sodium level has increased and? sp dc NS and daily level? for now 4.HTN--BPs are high, added Norvasc at 5 daily ? DVT prophylaxis:? Lovenox Code status:? Full code Quality Stroke Does the patient have a stroke diagnosis?: No VTE Prior VTE?: No VTE Risk Level:: Medical - moderate - high VTE Device Contraindication: Treatment Not Indicated VTE Drug Contraindication: N/A - Med Ordered
[2021-11-12] VITALS (14 sets, daily range): BP systolic 126–186; BP diastolic 55–90; PULSE 58–93; RESP 19–27; TEMP 35.7–37.7; O2SAT 88–100
[2021-11-12] MEDS: Enoxaparin Sodium 40 MG/0.4 ML SYRINGE SUBCUT (00:17)
[2021-11-12] MEDS: 0.9 % Sodium Chloride Flush 3 ML SYRINGE IVFLUSH ×4 (00:18→19:57)
[2021-11-12 07:27] LABS: Anion Gap 15 (12-20); Blood Urea Nitrogen 25 mg/dL (9-16); Calcium 8.4 mg/dL (8.4-10.2); Carbon Dioxide 25 mmol/L (22-29); Chloride 100 mmol/L (96-108); Creatinine Clr Calc Pharmacy 61.8; Estimated Glomerular Filt Rate 59; Glucose Random 129 mg/dL (60-115); Potassium 4.2 mmol/L (3.3-5.1); Sodium 136 mmol/L (135-145)
[2021-11-12 08:35] LABS: Hepatitis A Antibody IgM 0.11 Index (0-0.79); ~Hepatitis A Antibody IgM Nonreactive (Nonreactive)
[2021-11-12] MEDS: amLODIPine Besylate 10 MG TABLET PO (10:08)
[2021-11-12] MEDS: dexAMETHasone 6 MG TABLET PO (10:08)
[2021-11-12] MEDS: Famotidine 20 MG TABLET PO ×2 (10:09→19:57)
[2021-11-12] MEDS: Zinc Sulfate 220 MG CAPSULE PO (10:09)
[2021-11-12] MEDS: Brimonidine Tartrate 0.2% Oph 5 ML BOTTLE 1 DROP EYE-BOTH ×2 (10:10→20:09)
[2021-11-12 12:14] LABS: Hematocrit 38.9 % (42.0-52.0); Hemoglobin 13.4 g/dl (14.0-18.0)
[2021-11-12 12:29] LABS: Appearance Urine CLOUDY; Color Urine BROWN; Glucose Urine UA NEG (NEG); Nitrite Urine NEG (NEG); Specific Gravity - Urine 1.025 (1.005-1.025); Urine Blood 3+ (NEG); Urine Ketones 15 MG/DL (NEG); Urine Protein 2+ MG/DL (NEG-TRACE)
[2021-11-12 12:30] LABS: Leukocyte Esterase Urine NEG (NEG)
[2021-11-12 12:31] LABS: RBC Urine TNTC /HPF (0)
[2021-11-12 12:32] LABS: Bacteria Urine TRACE /LPF; WBC Urine 0 /HPF (0-4)
--- NOTE | 2021-11-12 13:51 | MHC.CM.PN ---
Male 71 DX Covid+ No discharge today. Patient is on High flow NC15% as well as a NRB 55L. DP home no services. Family will provide transportation. CM will follow to assess for a changes needed to Pts discharge plan.
[2021-11-12] MEDS: Nystatin Oral Susp 500,000 UNIT/5 ML ORAL.SUSP 500000 UNIT PO ×2 (14:17→19:57)
--- NOTE | 2021-11-12 14:41 | P.PNIM_ITS ---
Subjective Subjective Date of Service: 11/12/21 Interval History: acute hypoxemic respiratory failure secondary to COVID. Review of Systems shortness of breath seems slightly better than yesterday, denies any cough or nausea or vomiting or fever chills. Physical Exam Vital Signs: Vital Signs: Last Vital Signs Temp 99.4 F 11/12/21 10:58 Pulse 91 11/12/21 10:58 Resp 24 H 11/12/21 11:43 BP 126/55 L 11/12/21 10:58 Pulse Ox 100 11/12/21 10:58 Oxygen Flow Rate 10 11/08/21 14:46 BMI result Body Mass Index 29.5 ? General: AO X 3, no acute distress Resp:?fair air entry , no rales or wheezin CVS: S1,S2,RRR GI: +BS, NT, no distention Skin: No rash Neuro:? motor grossly intact Psych: appropriate affect Objective Data Active Medications Acetaminophen (Acetaminophen 325 Mg Tablet) 650 mg PO Q6H PRN PRN Reason: Pain, Mild (Pain Scale 1-3) Last Admin: 11/11/21 09:52 Dose: 650 mg Documented by: RYANNE Amlodipine Besylate (Amlodipine Besylate 10 Mg Tablet) 10 mg PO DAILY [facility]; Protocol Last Admin: 11/12/21 10:08 Dose: 10 mg Documented by: GASPER Baricitinib (Baricitinib 2 Mg Tablet) 2 mg PO DAILY [facility] Stop: 11/21/21 09:01 Last Admin: 11/12/21 10:09 Dose: 2 mg Documented by: GASPER Brimonidine Tartrate (Brimonidine Tartrate 0.2% Oph 5 Ml Bottle) 1 drop EYE- BOTH BID [facility] Last Admin: 11/12/21 10:10 Dose: 1 drop Documented by: GASPER Dexamethasone (Dexamethasone 6 Mg Tablet) 6 mg PO DAILY [facility] Last Admin: 11/12/21 10:08 Dose: 6 mg Documented by: GASPER Enoxaparin Sodium (Enoxaparin Sodium 40 Mg/0.4 Ml Syringe) 40 mg SUBCUT Q24H [facility] Last Admin: 11/12/21 00:17 Dose: 40 mg Documented by: ZENIA Famotidine (Famotidine 20 Mg Tablet) 20 mg PO BID [facility] Last Admin: 11/12/21 10:09 Dose: 20 mg Documented by: GASPER Melatonin (Melatonin 3 Mg Tablet) 6 mg PO BEDTIME PRN PRN Reason: Insomnia Morphine Sulfate (Morphine Sulfate 4 Mg/Ml Cartridge) 1 mg IVPUSH Q4H [facility]; Protocol PRN Reason: Pain, SOB Nystatin (Nystatin Oral Susp 500,000 Unit/5 Ml Oral.Susp) 500,000 unit PO QID [facility]; Protocol Last Admin: 11/12/21 14:17 Dose: 500,000 unit Documented by: GASPER Pharmacy Consult (Consult Rx Perform Med Rec) 1 each MISCELLANE ONCE PRN PRN Reason: Consult order Senna (Sennosides 8.6 Mg Tablet) 17.2 mg PO BEDTIME PRN PRN Reason: Constipation Sodium Chloride (0.9 % Sodium Chloride Flush 3 Ml Syringe) 3 ml IVFLUSH QSHIFT [facility] Last Admin: 11/12/21 10:07 Dose: 3 ml Documented by: GASPER Zinc Sulfate (Zinc Sulfate 220 Mg Capsule) 220 mg PO DAILY [facility] Last Admin: 11/12/21 10:09 Dose: 220 mg Documented by: GASPER Labs CBC & Chem 7: 11/12/21 12:01 11/12/21 06:19 Labs: Laboratory Results - last 24 hr 11/08/21 11/12/21 11/12/21 07:59 06:19 11:54 Anion Gap 15 Estim Creat Clear Calc 61.8 Estimated GFR 59 Random Glucose 129 H Calcium 8.4 Urine Color Urine Appearance Urine pH Ur Specific [place] Urine Protein Urine Glucose (UA) Urine Ketones Urine Blood Urine Nitrite Ur Leukocyte Esterase Urine RBC Urine WBC Ur Squamous Epith Cells Urine Bacteria Hepatitis A IgM Ab Nonreactive Blood Type O Negative Antibody Screen NEGATIVE 11/12/21 12:00 Anion Gap Estim Creat Clear Calc Estimated GFR Random Glucose Calcium Urine Color BROWN Urine Appearance CLOUDY Urine pH 6.0 Ur Specific [place] 1.025 Urine Protein 2+ H Urine Glucose (UA) NEG Urine Ketones 15 Urine Blood 3+ H Urine Nitrite NEG Ur Leukocyte Esterase NEG Urine RBC TNTC H Urine WBC 0 Ur Squamous Epith Cells NONE Urine Bacteria TRACE Hepatitis A IgM Ab Blood Type Antibody Screen Assessment and Plan (1) Acute hypoxemic respiratory failure due to COVID-19: Status: Acute Assessment and Plan: 1-year-old male with a past medical history of hypertension , KEY on CPAP presented to the hospital with a chief complaint of shortness of breath. ? noted to have acute hypoxia secondary to COVID 19 pneumonia.? Admitted for further management. 1.Acute hypoxic respiratory failure:? In the setting of COVID-19 pneumonia. still on high flox max/nbrm -continue Dexamethasone -Continue Baricitinib D4,Titrate O2 to 90% -There is no indication for antibiotics patient so far maintaining saturation with high-flow oxygen and NBRM- if patient condition worsen may need ICU evaluation. 2.KEY/Hypoventilation syndrome, CPAP at night and PRN during the day ? ?3.Hyponatremia--Check sodium level has increased and? sp dc NS and daily level? for now 4.HTN--BPs are high, added? Norvasc at 5 daily 5. hematuria: unclaer etiology moniter h/h stable urology eval ? DVT prophylaxis:?[facility] devices Code status:? Full code Quality Stroke Does the patient have a stroke diagnosis?: No VTE Prior VTE?: No VTE Risk Level:: Medical - moderate - high VTE Device Contraindication: Treatment Not Indicated VTE Drug Contraindication: N/A - Med Ordered
--- NOTE | 2021-11-12 18:56 | PC.NURSE ---
At 18:20 was notified by aid that pt appeared to be rambling incoherently to her while talking to someone on the phone. Pt does not appear to have any focal deficits, but is confused about situation, time and place, which is a marked difference from just an hour before.
--- NOTE | 2021-11-12 19:07 | PM.EVENT ---
Event Note Date of Service: 11/12/21 Event Note: Called by RN for AMS. 71yo on HFNC+NRB for severe COVID-19 PNA with hypoxia on steroids + baracitinib Pt alert, oriented only to self, thinks he's in a theatre and that it's 2013. Knows he's in the hospital for resp issues. No facial droop, no pronator drift, strength x4ext normal. Tachypneic in the mid 20s. SaO2 is 93-95%. Lungs clear. Plan: ABG, CXR, CT head.
[2021-11-12 19:59] LABS: ABG Refer to POC result
[2021-11-12 20:02] LABS: ABG Base Excess 3.3 mmol/L; ABG HCO3 25 mmol/L (22-26); ABG pCO2 29 mmHg (32-45); ABG pCO2 TC 29 mmHg (32-45); ABG pH 7.53 (7.35-7.45); ABG pH TC 7.54 (7.35-7.45); ABG pO2 60 mmHg (83-108); ABG pO2 TC 58 (83-108)
[2021-11-13] VITALS (22 sets, daily range): BP systolic 56–179; BP diastolic 28–94; PULSE 60–108; RESP 14–26; TEMP 34.5–37.4; O2SAT 83–98
--- NOTE | 2021-11-13 06:53 | PM.EVENT ---
Event Note Date of Service: 11/13/21 Event Note: pt with AMS ABG showed no hypercapnia cxr [place] UA positive for UTI - started on abx
[2021-11-13] MEDS: cefTRIAXone sodium 1 GM in 0.9 % Sodium Chloride 50 ML IV (08:08)
[2021-11-13] MEDS: Zinc Sulfate 220 MG CAPSULE PO (08:09)
[2021-11-13] MEDS: dexAMETHasone 6 MG TABLET PO (08:09)
[2021-11-13] MEDS: amLODIPine Besylate 10 MG TABLET PO (08:09)
[2021-11-13] MEDS: Famotidine 20 MG TABLET PO (08:09)
[2021-11-13] MEDS: Nystatin Oral Susp 500,000 UNIT/5 ML ORAL.SUSP 500000 UNIT PO (08:09)
[2021-11-13 08:28] LABS: Ammonia 33 umol/L (13-55)
[2021-11-13 08:31] LABS: Hematocrit 39.4 % (42.0-52.0); Hemoglobin 13.6 g/dl (14.0-18.0); Mean Corpuscular HGB Conc 34.5 g/dl (31.0-36.0); Mean Corpuscular Hemoglobin 32.1 pg (27.0-33.0); Mean Corpuscular Volume 92.9 fL (80.0-98.0); Mean Platelet Volume 9.7 fL (9.4-12.4); Platelet Count 155 X10*3/uL (160-400); Red Blood Count 4.24 X10*6/uL (4.60-5.80); Red Cell Distribution Width 12.3 % (11.0-16.0); White Blood Count 13.7 X10*3/uL (4.8-10.8)
[2021-11-13 08:46] LABS: Alanine Aminotransferase 72 U/L (0-40); Albumin Level 3.3 g/dL (3.5-5.0); Alkaline Phosphatase 165 U/L (39-117); Anion Gap 16 (12-20); Aspartate Amino Transferase 50 U/L (5-37); Bilirubin Direct 0.6 mg/dL (0.0-0.5); Bilirubin Total 1.3 mg/dL (0.0-1.0); Blood Urea Nitrogen 32 mg/dL (9-16); Calcium 8.5 mg/dL (8.4-10.2); Carbon Dioxide 21 mmol/L (22-29); Chloride 102 mmol/L (96-108); Creatinine Clr Calc Pharmacy 62.3; Estimated Glomerular Filt Rate 59; Glucose Random 126 mg/dL (60-115); Potassium 4.4 mmol/L (3.3-5.1); Sodium 135 mmol/L (135-145); Total Protein 6.4 g/dL (6.5-8.0)
--- NOTE | 2021-11-13 10:18 | MHC.CM.PN ---
Male 71 DX Covid+ Mental status change from baseline. He has 2 DTR both are his HCP. We do not have the HCP on file. Tena BRAUN [phone], Leslie COLEMAN [phone].
--- NOTE | 2021-11-13 10:54 | W.PM.CCCN ---
History of Present Illness Data of Consult Service Date: 11/13/21 Requesting physician: Von Castelan Primary Care Provider: Unknown Physician HPI Reason for consult: Worsening hypoxemic respiratory failure 71-year-old male unvaccinated developed COVID-19 pneumonitis with ARDS and apparently work of breathing is been increasing and using accessory muscles he has extensive ARDS like picture bilaterally at bedside echo showed mild concentric left ventricular hypertrophy but normal biventricular systolic function with no primary valve or pericardial disease and looked like small inferior vena caval diameter likely the relative degree of hypovolemia and also noted was very dark tea-colored urine of diminished volume with numerous red blood cells and he also several days ago had an elevated CPK of 3800 so this could be the residual of none of rhabdomyolysis or this could be no reflect some early patchy glomerular disease But he clearly appears encephalopathic keeps repeating the same question as though he never heard the answer and he always gives the same answer which is incorrect no matter what question you ask him so there is definitely a degree of of confusion He was not up to smoking pipe coater ataxia and I did not note any nystagmoid movement of his eyes But given the encephalopathy without without a good understanding of background alcohol consumption other than we know that he does indulge but not too and any significant degree we empirically will treat him as a Wernicke ease encephalopathy and start him on thiamin but transfer down stairs because of his respiratory distress and at after 5 days of admission even potential out early alcohol withdrawal Review of Systems Review of Systems: Yes Unobtainable due to mental status PMFSH Family History Family history: reviewed and not pertinent Social History Social History Household Members: None Housing: House Do you presently have visiting nurse or other home services: No Alcohol intake: current Alcohol intake frequency: a few times a week Alcohol type: beer, wine and hard liquor Patient Tobacco Use Status: Former Tobacco user e-Cigarette/Vaping Use: Never Used service: No Current occupational status: retired Meds Allergies Allergy/AdvReac Type Severity Reaction Status Date / Time No Known Allergies Allergy Verified 11/09/21 01:04 [No Known Allergies*] Active Medications: Current Medications Acetaminophen (Acetaminophen 325 Mg Tablet) 650 mg PO Q6H PRN PRN Reason: Pain, Mild (Pain Scale 1-3) Last Admin: 11/11/21 09:52 Dose: 650 mg Documented by: Baricitinib (Baricitinib 2 Mg Tablet) 2 mg PO DAILY [facility] Stop: 11/21/21 09:01 Last Admin: 11/13/21 08:09 Dose: 2 mg Documented by: Brimonidine Tartrate (Brimonidine Tartrate 0.2% Oph 5 Ml Bottle) 1 drop EYE-BOTH BID [facility] Last Admin: 11/12/21 20:09 Dose: 1 drop Documented by: Dexamethasone (Dexamethasone 6 Mg Tablet) 6 mg PO DAILY [facility] Last Admin: 11/13/21 08:09 Dose: 6 mg Documented by: Enoxaparin Sodium (Enoxaparin Sodium 40 Mg/0.4 Ml Syringe) 40 mg SUBCUT Q24H [facility] Last Admin: 11/12/21 00:17 Dose: 40 mg Documented by: Famotidine (Famotidine 20 Mg Tablet) 20 mg PO BID [facility] Last Admin: 11/13/21 08:09 Dose: 20 mg Documented by: Folic Acid (Folic Acid 1 Mg Tablet) 1 mg PO DAILY [facility] Thiamine HCl 100 mg/ Sodium (Chloride) 101 mls @ 202 mls/hr IV DAILY [facility] Melatonin (Melatonin 3 Mg Tablet) 6 mg PO BEDTIME PRN PRN Reason: Insomnia Nystatin (Nystatin Oral Susp 500,000 Unit/5 Ml Oral.Susp) 500,000 unit PO QID [facility]; Protocol Last Admin: 11/13/21 08:09 Dose: 500,000 unit Documented by: Pharmacy Consult (Consult Rx Perform Med Rec) 1 each MISCELLANE ONCE PRN PRN Reason: Consult order Senna (Sennosides 8.6 Mg Tablet) 17.2 mg PO BEDTIME PRN PRN Reason: Constipation Sodium Chloride (0.9 % Sodium Chloride Flush 3 Ml Syringe) 3 ml IVFLUSH QSHIFT [facility] Last Admin: 11/12/21 19:57 Dose: 3 ml Documented by: Thiamine HCl (Thiamine Hcl 100 Mg Tablet) 100 mg PO DAILY [facility] Zinc Sulfate (Zinc Sulfate 220 Mg Capsule) 220 mg PO DAILY [facility] Last Admin: 11/13/21 08:09 Dose: 220 mg Documented by: Home Medications Medication Instructions Recorded Confirmed Last Taken Type azithromycin 500 mg tablet 1 tab PO DAILY 11/08/21 11/08/21 Unknown History brimonidine 0.2 % eye drops 1 drp OPHTHALMIC (EYE) BID 11/08/21 11/08/21 Unknown History hydroxychloroquine 200 mg tablet 1 tab PO BID 11/08/21 11/08/21 Unknown History lisinopril 10 mg tablet 1 tab PO DAILY 11/08/21 11/08/21 Unknown History Physical Exam Vital Signs: Vital Signs: Last Vital Signs Temp 99.3 F 11/13/21 07:32 Pulse 90 11/13/21 07:32 Resp 24 H 11/13/21 07:52 BP 172/94 H 11/13/21 07:32 Pulse Ox 95 11/13/21 07:32 Oxygen Flow Rate 10 11/08/21 14:46 BMI result Body Mass Index 29.5 He was awake and able to respond and was normotensive but oxygen saturations by the time we transferred him down stat as were in the high 70s at best with considerable effort Use of accessory muscles and diaphragm Cardiovascular was preserved systolic function by bedside echo Abdomen increased girth but no again a megaly Skin intact Results Labs CBC & Chem 7: 11/13/21 08:16 11/13/21 08:16 Labs: Short CBC 11/12/21 11/13/21 Range/Units 12:01 08:16 WBC 13.7 H (4.8-10.8) X10*3/uL Hgb 13.4 L 13.6 L (14.0-18.0) g/dl Hct 38.9 L 39.4 L (42.0-52.0) % Plt Count 155 L (160-400) X10*3/uL BMP 11/13/21 08:16 Sodium 135 Potassium 4.4 Chloride 102 Carbon Dioxide 21 L BUN 32 H Creatinine 1.21 Calcium 8.5 Cardiac Enzymes 11/13/21 Range/Units 08:16 Total Creatine Kinase 250 H D (38-174) U/L Liver Function 11/13/21 Range/Units 08:16 Total Bilirubin 1.3 H (0.0-1.0) mg/dL Direct Bilirubin 0.6 H (0.0-0.5) mg/dL AST 50 H D (5-37) U/L ALT 72 H (0-40) U/L Alkaline Phosphatase 165 H D (39-117) U/L Albumin 3.3 L (3.5-5.0) g/dL Urine 11/12/21 Range/Units 12:00 Urine Color BROWN Urine Appearance CLOUDY Urine pH 6.0 (5.0-8.0) Ur Specific [place] 1.025 (1.005-1.025) Urine Protein 2+ H (NEG-TRACE) MG/DL Urine Glucose (UA) NEG (NEG) MG/DL Microbiology Microbiology Results: Microbiology 11/07/21 18:50 Blood - Venous Blood Culture - Final No growth after 5 days. 11/07/21 19:45 Blood - Venous Blood Culture - Final No growth after 5 days. Assessment and Plan (1) Acute respiratory distress syndrome (ARDS) due to COVID-19 virus: Status: Acute (2) Acute hypoxemic respiratory failure due to COVID-19: Status: Acute (3) Rhabdomyolysis: Qualifiers: Rhabdomyolysis type: non-traumatic Qualified Code(s): M62.82 - Rhabdomyolysis Status: Acute (4) Acute renal failure superimposed on chronic kidney disease: Qualifiers: Acute renal failure type: unspecified Chronic kidney disease stage: stage 2 (mild) Qualified Code(s): N17.9 - Acute kidney failure, unspecified; N18.2 - Chronic kidney disease, stage 2 (mild) Status: Acute (5) Hematuria: Status: Acute (6) Acute metabolic encephalopathy: Status: Acute And intubated without complication and then reintubated because of a cuff leak and oxygen saturations stabilized at 98% blood pressure because of combined sedation with propofol and fentanyl reach required Levophed support currently 105/59 and Perez catheter is now been placed will start maintenance IV fluid and because of active hematuria I am just going to use mechanical DVT prophylaxis until we resolve this issue and will continue both his baricitinib as well as his Decadron
--- NOTE | 2021-11-13 11:16 | P.PNIM_ITS ---
Subjective Subjective Date of Service: 11/13/21 Interval History: ams , Acute hypoxemic respiratory failure secondary to COvid Review of Systems patient still oriented to his name follows simple commands, could able to tell his date of but not the year still short of breath using some accessory muscles otherwise denies any cough or chest pain Physical Exam Vital Signs: Vital Signs: Last Vital Signs Temp 99.3 F 11/13/21 07:32 Pulse 90 11/13/21 07:32 Resp 24 H 11/13/21 07:52 BP 172/94 H 11/13/21 07:32 Pulse Ox 95 11/13/21 07:32 Oxygen Flow Rate 10 11/08/21 14:46 BMI result Body Mass Index 29.5 ?General: AO X 1, sob Resp:?air entry similar as yesterday , no rales or wheezing CVS: S1,S2,RRR GI: +BS, NT, no distention Skin: No rash Neuro:?no pronator drift , no facial droop , moves all extermities , strength on ext normal. Psych: appropriate affect Objective Data Active Medications Acetaminophen (Acetaminophen 325 Mg Tablet) 650 mg PO Q6H PRN PRN Reason: Pain, Mild (Pain Scale 1-3) Last Admin: 11/11/21 09:52 Dose: 650 mg Documented by: RYANNE Baricitinib (Baricitinib 2 Mg Tablet) 2 mg PO DAILY [facility] Stop: 11/21/21 09:01 Last Admin: 11/13/21 08:09 Dose: 2 mg Documented by: CHRISTINE Brimonidine Tartrate (Brimonidine Tartrate 0.2% Oph 5 Ml Bottle) 1 drop EYE- BOTH BID [facility] Last Admin: 11/12/21 20:09 Dose: 1 drop Documented by: DENIZ Dexamethasone (Dexamethasone 6 Mg Tablet) 6 mg PO DAILY [facility] Last Admin: 11/13/21 08:09 Dose: 6 mg Documented by: CHRISTINE Enoxaparin Sodium (Enoxaparin Sodium 40 Mg/0.4 Ml Syringe) 40 mg SUBCUT Q24H [facility] Last Admin: 11/12/21 00:17 Dose: 40 mg Documented by: ZENIA Famotidine (Famotidine 20 Mg Tablet) 20 mg PO BID [facility] Last Admin: 11/13/21 08:09 Dose: 20 mg Documented by: CHRISTINE Folic Acid (Folic Acid 1 Mg Tablet) 1 mg PO DAILY [facility] Thiamine HCl 100 mg/ Sodium (Chloride) 101 mls @ 202 mls/hr IV DAILY [facility] Melatonin (Melatonin 3 Mg Tablet) 6 mg PO BEDTIME PRN PRN Reason: Insomnia Nystatin (Nystatin Oral Susp 500,000 Unit/5 Ml Oral.Susp) 500,000 unit PO QID [facility]; Protocol Last Admin: 11/13/21 08:09 Dose: 500,000 unit Documented by: CHRISTINE Pharmacy Consult (Consult Rx Perform Med Rec) 1 each MISCELLANE ONCE PRN PRN Reason: Consult order Senna (Sennosides 8.6 Mg Tablet) 17.2 mg PO BEDTIME PRN PRN Reason: Constipation Sodium Chloride (0.9 % Sodium Chloride Flush 3 Ml Syringe) 3 ml IVFLUSH QSHIFT [facility] Last Admin: 11/12/21 19:57 Dose: 3 ml Documented by: DENIZ Thiamine HCl (Thiamine Hcl 100 Mg Tablet) 100 mg PO DAILY [facility] Zinc Sulfate (Zinc Sulfate 220 Mg Capsule) 220 mg PO DAILY [facility] Last Admin: 11/13/21 08:09 Dose: 220 mg Documented by: CHRISTINE Labs CBC & Chem 7: 11/13/21 08:16 11/13/21 08:16 Labs: Laboratory Results - last 24 hr 11/12/21 11/12/21 11/12/21 11:54 12:00 19:55 MCV MCH MCHC RDW Plt Count MPV Absolute Nucleated RBC Nucleated RBC % (auto) O2 Saturation 88.0 ABG pH at Pt Temp 7.53 H ABG pH (Temp Correct) 7.54 H ABG pCO2 at Pt Temp 29 L ABG pCO2 (Temp Corrct 29 L ABG pO2 at Pt Temp 60 L ABG pO2 (Temp Correct 58 L ABG HCO3 25 ABG Base Excess (Actual) 3.3 Anion Gap Estim Creat Clear Calc Estimated GFR Random Glucose Calcium Total Bilirubin Direct Bilirubin AST ALT Alkaline Phosphatase Ammonia Total Creatine Kinase Total Protein Albumin Urine Color BROWN Urine Appearance CLOUDY Urine pH 6.0 Ur Specific [place] 1.025 Urine Protein 2+ H Urine Glucose (UA) NEG Urine Ketones 15 Urine Blood 3+ H Urine Nitrite NEG Ur Leukocyte Esterase NEG Urine RBC TNTC H Urine WBC 0 Ur Squamous Epith Cells NONE Urine Bacteria TRACE Blood Type O Negative Antibody Screen NEGATIVE 11/13/21 11/13/21 11/13/21 08:16 08:16 08:16 MCV 92.9 MCH 32.1 MCHC 34.5 RDW 12.3 Plt Count 155 L MPV 9.7 Absolute Nucleated RBC 0.000 Nucleated RBC % (auto) 0.0 O2 Saturation ABG pH at Pt Temp ABG pH (Temp Correct) ABG pCO2 at Pt Temp ABG pCO2 (Temp Corrct ABG pO2 at Pt Temp ABG pO2 (Temp Correct ABG HCO3 ABG Base Excess (Actual) Anion Gap 16 Estim Creat Clear Calc 62.3 Estimated GFR 59 Random Glucose 126 H Calcium 8.5 Total Bilirubin 1.3 H Direct Bilirubin 0.6 H AST 50 H D ALT 72 H Alkaline Phosphatase 165 H D Ammonia 33 Total Creatine Kinase 250 H D Total Protein 6.4 L Albumin 3.3 L Urine Color Urine Appearance Urine pH Ur Specific [place] Urine Protein Urine Glucose (UA) Urine Ketones Urine Blood Urine Nitrite Ur Leukocyte Esterase Urine RBC Urine WBC Ur Squamous Epith Cells Urine Bacteria Blood Type Antibody Screen Microbiology Microbiology Results: Microbiology 11/07/21 18:50 Blood Culture - Final Blood - Venous No growth after 5 days. 11/07/21 19:45 Blood Culture - Final Blood - Venous No growth after 5 days. Assessment and Plan (1) Acute respiratory distress syndrome (ARDS) due to COVID-19 virus: Status: Acute Assessment and Plan: 71-year-old male with a past medical history of hypertension , KEY on CPAP presented to the hospital with a chief complaint of shortness of breath. ? noted to have acute hypoxia secondary to COVID 19 pneumonia.? Admitted for further management. 1.Acute hypoxic respiratory failure:? In the setting of COVID-19 pneumonia. still on high flox max/nbrm continue Dexamethasone day6,Baricitinib D6/14,Titrate O2 to 90% ?patient so far maintaining saturation with high-flow oxygen and NBRM- if patient condition worsen may need ICU evaluation. 2. Encephalopathy -unclear etiology abg: alkalotic ph , no co2 retention cxr: seems similar to before mild elevated lft's but improving from before ammonia normal rhabdo improved. head Ct scan -oredered electrolytes seems fine 3.KEY/Hypoventilation syndrome, CPAP at night and PRN during the day ? ?4.Hyponatremia--Check sodium level has increased and? sp dc NS and daily level? for now 5..HTN--BPs are high, added? Norvasc at 5 daily 6. hematuria: unclaer etiology moniter h/h stable lovenox on hold. consider urology eval-if persisent 7.. mild leucocytosis : no fevers ua abnormal , on caftriaxone . 8 mild alberto: encourgaed for po hydration nephrology eval. ? DVT prophylaxis:?[facility] devices Code status:? Full code considering altered mental status and persistent hypoxemic respiratory failure secondary to COVID - patient will benefit from ICU level of care management. Above was discussed with ICU in detail length. Patient's daughter also updated in detail. Quality Stroke Does the patient have a stroke diagnosis?: No VTE Prior VTE?: No VTE Risk Level:: Medical - moderate - high VTE Device Contraindication: Treatment Not Indicated VTE Drug Contraindication: N/A - Med Ordered
--- NOTE | 2021-11-13 11:22 | PC.NURSE ---
1000 increasing confusion. Speech mumbled. Unable to do head CT secondary to unstable resp status. On high flow 100% 55K abd b
--- NOTE | 2021-11-13 11:24 | PC.NURSE ---
1000 Increasing confusion. Unable to do head CT, secondary to high 02 need. MD aware. Speech mumbled. On High Flow 100% 55L and nonrebreather. Voided in urinal. Urine dark hematuria. Rocephen started. Denies pain.
--- NOTE | 2021-11-13 11:47 | PC.NURSE ---
1130 Dtr Tena notified of transfer to ICU # [phone]
--- NOTE | 2021-11-13 12:03 | P.PNNP_ITS ---
Subjective Subjective Date of Service: 11/13/21 Interval history: Events noted. All recent data reviewed. D/W Hospitalist and ICU Attending Physical Exam Vital Signs: Vital Signs: Last Vital Signs Temp 98.2 F 11/13/21 11:40 Pulse 83 11/13/21 11:40 Resp 20 11/13/21 11:40 BP 179/77 H 11/13/21 11:40 Pulse Ox 93 11/13/21 11:40 Oxygen Flow Rate 10 11/08/21 14:46 BMI result Body Mass Index 29.5 Const: Other: Confused Neck: Neck: Yes supple Resp: Auscultation: diminished lung sounds Cardio: Rate: regular rate GI: Palpation (GI): Soft to palpation Neuro: Other: Confused Objective Data Labs CBC & Chem 7: 11/13/21 08:16 11/13/21 08:16 Labs: Laboratory Results - last 24 hr 11/12/21 11/12/21 11/12/21 11:54 12:00 12:01 WBC RBC Hgb 13.4 L Hct 38.9 L MCV MCH MCHC RDW Plt Count MPV Absolute Nucleated RBC Nucleated RBC % (auto) O2 Saturation ABG pH at Pt Temp ABG pH (Temp Correct) ABG pCO2 at Pt Temp ABG pCO2 (Temp Corrct ABG pO2 at Pt Temp ABG pO2 (Temp Correct ABG HCO3 ABG Base Excess (Actual) Sodium Potassium Chloride Carbon Dioxide Anion Gap BUN Creatinine Estim Creat Clear Calc Estimated GFR Random Glucose Calcium Total Bilirubin Direct Bilirubin AST ALT Alkaline Phosphatase Ammonia Total Creatine Kinase Total Protein Albumin Urine Color BROWN Urine Appearance CLOUDY Urine pH 6.0 Ur Specific [place] 1.025 Urine Protein 2+ H Urine Glucose (UA) NEG Urine Ketones 15 Urine Blood 3+ H Urine Nitrite NEG Ur Leukocyte Esterase NEG Urine RBC TNTC H Urine WBC 0 Ur Squamous Epith Cells NONE Urine Bacteria TRACE Blood Type O Negative Antibody Screen NEGATIVE 11/12/21 11/13/21 11/13/21 19:55 08:16 08:16 WBC 13.7 H RBC 4.24 L Hgb 13.6 L Hct 39.4 L MCV 92.9 MCH 32.1 MCHC 34.5 RDW 12.3 Plt Count 155 L MPV 9.7 Absolute Nucleated RBC 0.000 Nucleated RBC % (auto) 0.0 O2 Saturation 88.0 ABG pH at Pt Temp 7.53 H ABG pH (Temp Correct) 7.54 H ABG pCO2 at Pt Temp 29 L ABG pCO2 (Temp Corrct 29 L ABG pO2 at Pt Temp 60 L ABG pO2 (Temp Correct 58 L ABG HCO3 25 ABG Base Excess (Actual) 3.3 Sodium 135 Potassium 4.4 Chloride 102 Carbon Dioxide 21 L Anion Gap 16 BUN 32 H Creatinine 1.21 Estim Creat Clear Calc 62.3 Estimated GFR 59 Random Glucose 126 H Calcium 8.5 Total Bilirubin 1.3 H Direct Bilirubin 0.6 H AST 50 H D ALT 72 H Alkaline Phosphatase 165 H D Ammonia Total Creatine Kinase 250 H D Total Protein 6.4 L Albumin 3.3 L Urine Color Urine Appearance Urine pH Ur Specific [place] Urine Protein Urine Glucose (UA) Urine Ketones Urine Blood Urine Nitrite Ur Leukocyte Esterase Urine RBC Urine WBC Ur Squamous Epith Cells Urine Bacteria Blood Type Antibody Screen 11/13/21 08:16 WBC RBC Hgb Hct MCV MCH MCHC RDW Plt Count MPV Absolute Nucleated RBC Nucleated RBC % (auto) O2 Saturation ABG pH at Pt Temp ABG pH (Temp Correct) ABG pCO2 at Pt Temp ABG pCO2 (Temp Corrct ABG pO2 at Pt Temp ABG pO2 (Temp Correct ABG HCO3 ABG Base Excess (Actual) Sodium Potassium Chloride Carbon Dioxide Anion Gap BUN Creatinine Estim Creat Clear Calc Estimated GFR Random Glucose Calcium Total Bilirubin Direct Bilirubin AST ALT Alkaline Phosphatase Ammonia 33 Total Creatine Kinase Total Protein Albumin Urine Color Urine Appearance Urine pH Ur Specific [place] Urine Protein Urine Glucose (UA) Urine Ketones Urine Blood Urine Nitrite Ur Leukocyte Esterase Urine RBC Urine WBC Ur Squamous Epith Cells Urine Bacteria Blood Type Antibody Screen Microbiology Microbiology Results: Microbiology 11/07/21 18:50 Blood - Venous Blood Culture - Final No growth after 5 days. 11/07/21 19:45 Blood - Venous Blood Culture - Final No growth after 5 days. Procedures Date of Service Date of Service: 11/13/21 Assessment & Plan Assessment and plan (1) Acute renal failure superimposed on chronic kidney disease: Status: Acute Assessment and Plan: 71-year-old male with a past medical history of hypertension , KEY on CPAP presented to the hospital with a chief complaint of shortness of breath and found to have acute hypoxia secondary to COVID 19 pneumonia with EBER Renal functions stable C3/C4/Urine myoglobin CPK improving; Going to ICU C/W rest of current supportive care Time Spent With Patient Time: Total time spent is greater than 50% in coordination of care (as documented) at patient's floor/unit and/or counseling patient: Progress Note: Quality Stroke Does the patient have a stroke diagnosis?: No
[2021-11-13] MEDS: propofoL 1,000 MG/100 ML VIAL 27.22 MG IVCONT ×4 (12:45→22:58)
[2021-11-13] MEDS: propofoL 200 MG/20 ML VIAL 160 MG IVPUSH (12:45)
[2021-11-13] MEDS: Midazolam HCl/PF 2 MG/2 ML VIAL 3 MG IVPUSH (13:36)
[2021-11-13] MEDS: 0.9 % Sodium Chloride Flush 3 ML SYRINGE IVFLUSH ×2 (13:48→14:59)
[2021-11-13] MEDS: Rocuronium Bromide 50 MG/5 ML VIAL IVPUSH ×2 (14:15→15:25)
[2021-11-13] MEDS: fentaNYL citrate/PF 100 MCG/2 ML VIAL 50 MCG IVPUSH (14:20)
[2021-11-13] MEDS: fentaNYL citrate/NS 1,000 MCG/100 ML PLAST..BAG 2.5 MCG IVCONT (14:22)
[2021-11-13] MEDS: Midazolam HCl/PF 2 MG/2 ML VIAL 5 MG IVPUSH (15:25)
--- NOTE | 2021-11-13 15:28 | PC.NURSE ---
PT TRANSFERRED [place] [facility] [place] TO ICU AT APPROXIMATELY 1230. PT SATS WERE LOW 80s MAXED ON HFNC AND NON-REBREATHER, FAMILY CONTACTED BY PROVIDER AND PT INTUBATED AT 1305, TLC PLACED TO J, OGT ATTEMPTED BY RN AND PROVIDER WITHOUT SUCCESS-WILL RE-ATTEMPT AT A LATER TIME. XRAY CONFIRMED PLACEMENT. TERRELL CATHETER PLACED BY RN DRAINING DARK MAROON COLORED URINE-MD AWARE-UROLOGY CONSULTED. PERSISTENT CUFF LEAK NOTED BY RN AND RESPIRATORY. PT RE-INTUBATED WITH #8 ETT AT 1525 WITH GOOD AIR EXCHANGE NOTED. PT REQUIRING HEAVY SEDATION AT THIS TIME, WILL CONTINUE TO MONITOR.
[2021-11-13] MEDS: 0.9 % Sodium Chloride 500 ML 1000 ML IV (16:15)
--- NOTE | 2021-11-13 17:01 | W.PM.CCHP ---
Procedures Date of Service Date of Service: 11/13/21 Central Line Placement Left IJ: Central Line Comments: After sterile preparation and draping and utilizing ultrasound guidance a gained easy access to the left internal jugular vein passing retrograde with Seldinger technique AJ tipped guidewire and then a triple-lumen central venous pressure catheter with CVP measurement which after an IV bolus of 500 cc measured at 8 mmHg and chest x-ray showed no complication tip of the catheter in the superior vena cava Consent for Procedure: Emergent-no informed consent obtained Time out performed: Yes Sterile Technique Used: Yes Patient placed on monitor/pulse ox: Yes MD prep: mask, gown and gloves Central line prep: Chlorhexidine scrub Local anesthesia used: lidocaine 1% Ultrasound used for placement: Yes Central line lumen inserted: triple Post procedure: sutured in place, good blood return, all ports aspirated, flushed, capped and sterile dressing applied Post procedure x-ray: tip of catheter in good position and no pneumothorax seen Patient tolerated procedure: well and no complications Complications: none
--- NOTE | 2021-11-13 17:03 | W.PM.CCHP ---
Procedures Date of Service Date of Service: 11/13/21 Intubation Intubation Comments: Intubation performed with a glide scope with the easy visualization of vocal cords and excellent end-tidal CO2 response and placement above the lyric documented by chest x-ray and no evidence of any complication and no barotrauma Consent for Procedure: Elective - informed consent obtained Time out performed: Yes Sedative: propofol Paralytic: rocuronium Laryngoscope: fiber optic video scope ET tube size: 8 ET tube uncuffed: No Tube secured depth (cm): 26 Tube secured location: lips Tube placement confirmation: visualized tube passing through cords, equal breath sounds bilaterally, no breath sounds over epigastrium and confirmation by capnometry Patient tolerated procedure: well and no complications Intubation complications: none
[2021-11-13] MEDS: Lactated Ringers 1,000 ML 80 ML IVCONT (17:17)
[2021-11-13] MEDS: fentaNYL citrate/NS 1,000 MCG/100 ML PLAST..BAG 15 MCG IVCONT (19:36)
--- NOTE | 2021-11-13 22:12 | PM.IDPN ---
Subjective Subjective Date of Service: 11/13/21 Critical Care Time (minutes): 15 Comment: he is intubated,he has been on Baricitinib Objective Data Labs CBC & Chem 7: 11/13/21 08:16 11/13/21 08:16 Labs: Laboratory Results - last 24 hr 11/13/21 11/13/21 11/13/21 08:16 08:16 08:16 WBC 13.7 H RBC 4.24 L Hgb 13.6 L Hct 39.4 L MCV 92.9 MCH 32.1 MCHC 34.5 RDW 12.3 Plt Count 155 L MPV 9.7 Absolute Nucleated RBC 0.000 Nucleated RBC % (auto) 0.0 Sodium 135 Potassium 4.4 Chloride 102 Carbon Dioxide 21 L Anion Gap 16 BUN 32 H Creatinine 1.21 Estim Creat Clear Calc 62.3 Estimated GFR 59 Random Glucose 126 H Calcium 8.5 Total Bilirubin 1.3 H Direct Bilirubin 0.6 H AST 50 H D ALT 72 H Alkaline Phosphatase 165 H D Ammonia 33 Total Creatine Kinase 250 H D Total Protein 6.4 L Albumin 3.3 L Microbiology Microbiology Results: Microbiology 11/07/21 18:50 Blood - Venous Blood Culture - Final No growth after 5 days. 11/07/21 19:45 Blood - Venous Blood Culture - Final No growth after 5 days. Physical Exam Vital Signs: Vital Signs: Last Vital Signs Temp 98.4 F 11/13/21 20:49 Pulse 63 11/13/21 20:49 Resp 17 11/13/21 20:49 BP 102/58 L 11/13/21 20:49 Pulse Ox 98 11/13/21 20:49 Oxygen Flow Rate 10 11/08/21 14:46 BMI result Body Mass Index 29.5 Const: General: cooperative Resp: Effort & Inspection: normal respiratory effort Cardio: Rate: regular rate Rhythm: regular rhythm GI: Palpation (GI): nontender Extrem: General: Yes normal to inspection Assessment and Plan Assessment and plan (1) Acute respiratory distress syndrome (ARDS) due to COVID-19 virus: Problem details: He is now intubated There are no signs of underlying infection obvious at this time Status: Acute Assessment and Plan: Would continue Baricitinib for fourteen days Would investigate blood cultures and sputum if able and add antibiotics if needed Time Spent With Patient Time: Total time spent is greater than 50% in coordination of care (as documented) at patient's floor/unit and/or counseling patient: Time with patient: 15 - 24 minutes
[2021-11-14] VITALS (31 sets, daily range): BP systolic 86–124; BP diastolic 47–69; PULSE 50–80; RESP 13–19; TEMP 31.9–37.7; O2SAT 90–100; BMI 39.6
[2021-11-14] MEDS: Atorvastatin Calcium 80 MG TABLET PO ×2 (00:09→21:33)
[2021-11-14] MEDS: Aspirin Enteric Coated 81 MG TABLET.DR PO (00:10)
--- NOTE | 2021-11-14 00:56 | PM.EVENT ---
Event Note Date of Service: 11/14/21 Event Note: 11/13/21 patient is intubated had been transferred from the floor due to hypoxic respiratory failure in the setting of COVID.? I was asked to put a oral gastric tube which is very difficult due to his short neck and narrow oral passage.? I was however able to introduce a NG tube successfully and easily on his left naris which aspirated good gastric contents, air bubbles were noted at the level of the stomach.? A chest x-ray was ordered for follow-up placement. CXR FINDINGS/IMPRESSION: Improved aeration with persistent patchy parenchymal airspace opacities which may reflect reflect sequelae of multifocal infection and/or edema. No pneumothorax. Possible trace right pleural effusion. Unchanged cardiomediastinal silhouette. Enteric tube tip terminating in the proximal stomach. Sidehole is difficult to visualize however is likely in the region of the gastroesophageal junction. Otherwise unchanged position of lines and tubes. Subsequently? the patient went for a head CT which has been initially held, mainly a believe due to the patient's need of intubation, however I do believe the patient needs study to rule out organic causes of his mental status changes, his ammonia is not elevated and it is unlikely to me that he is suffering from delirium tremens even though there is a history of alcohol intake in a social manner. [address] [place] radiologist Dr. Lutz reported the following: HEAD CT IMPRESSION: *? Large acute to subacute infarct involving the left temporal parietal lobe. *? Chronic appearing smaller infarct involving the right parietal lobe. *? Multiple bilateral cerebellar lacunar infarcts, most of which appear chronic however some are age indeterminate *? Mild white matter small vessel ischemic changes. I will start the patient on a aspirin and full-dose statin, will contact Neurology Dr. Raymond. ?Given the fact that this is a subacute stroke, I do not think that the patient needs tPA.? Will allow liver lytes blood pressure, I will discontinue Lovenox given the largeness of the infarct and the risk of hemorrhagic conversion. Pneumatic stockings will be ordered.? Case was discussed with Dr. Vuong 11/14/2021 1250 am the case was discussed with Dr. Raymond neurologist who is aware of all the above and agrees with the current management.? Further decision whether not the patient will need an MRI will be made, the patient may also need an echo. Total amount of spent with this patient 35 minutes.
[2021-11-14] MEDS: fentaNYL citrate/NS 1,000 MCG/100 ML PLAST..BAG 12.5 MCG IVCONT (02:20)
[2021-11-14] MEDS: propofoL 1,000 MG/100 ML VIAL 21.77 MG IVCONT ×5 (02:21→17:48)
[2021-11-14] MEDS: Lactated Ringers 1,000 ML 80 ML IVCONT (05:34)
[2021-11-14 05:48] LABS: VBG Base Excess -3.1 mmol/L; VBG HCO3 22 mmol/L (22-26); VBG pCO2 38 mmHg; VBG pH 7.35 (7.32-7.43); VBG pO2 55 mmHg
[2021-11-14 05:49] LABS: Venous Blood Gas Refer to POC result
[2021-11-14 05:51] LABS: MANUAL DIFF FLAG NO
[2021-11-14 05:55] LABS: Basophils Percent Auto 0.1 % (0-2); Eosinophils Percent Auto 0.1 % (0-4); Hematocrit 35.2 % (42.0-52.0); Hemoglobin 11.9 g/dl (14.0-18.0); Imm Gran Abs Auto 0.12 X10*3/uL (0.00-0.03); Mean Corpuscular HGB Conc 33.8 g/dl (31.0-36.0); Mean Corpuscular Hemoglobin 32.2 pg (27.0-33.0); Mean Corpuscular Volume 95.4 fL (80.0-98.0); Monocytes Absolute Auto 0.7 X10*3/uL (0.1-1.2); Monocytes Percent Auto 5.6 % (2-11); Neutrophils Absolute Auto 10.6 x10*3/uL (2.0-8.3); Neutrophils Percent Auto 85.2 % (45-73); Platelet Count 154 X10*3/uL (160-400); Red Blood Count 3.69 X10*6/uL (4.60-5.80); Red Cell Distribution Width 12.4 % (11.0-16.0); White Blood Count 12.4 X10*3/uL (4.8-10.8)
[2021-11-14 06:34] LABS: Alanine Aminotransferase 74 U/L (0-40); Albumin Level 2.9 g/dL (3.5-5.0); Alkaline Phosphatase 131 U/L (39-117); Anion Gap 17 (12-20); Aspartate Amino Transferase 57 U/L (5-37); Bilirubin Total 0.7 mg/dL (0.0-1.0); Blood Urea Nitrogen 54 mg/dL (9-16); Carbon Dioxide 21 mmol/L (22-29); Chloride 103 mmol/L (96-108); Creatinine Clr Calc Pharmacy 28.1; Estimated Glomerular Filt Rate 24; Glucose Random 170 mg/dL (60-115); Potassium 4.8 mmol/L (3.3-5.1); Sodium 136 mmol/L (135-145); Total Protein 5.8 g/dL (6.5-8.0)
[2021-11-14] MEDS: Folic Acid 1 MG TABLET PO (08:37)
[2021-11-14] MEDS: 0.9 % Sodium Chloride Flush 3 ML SYRINGE IVFLUSH ×3 (08:37→23:45)
[2021-11-14] MEDS: Nystatin Oral Susp 500,000 UNIT/5 ML ORAL.SUSP 500000 UNIT PO ×4 (08:37→21:33)
[2021-11-14] MEDS: Famotidine 20 MG TABLET PO ×2 (08:37→21:33)
[2021-11-14] MEDS: dexAMETHasone 6 MG TABLET PO (08:37)
[2021-11-14] MEDS: Zinc Sulfate 220 MG CAPSULE PO (08:37)
[2021-11-14] MEDS: Brimonidine Tartrate 0.2% Oph 5 ML BOTTLE 1 DROP EYE-BOTH ×2 (08:37→22:12)
[2021-11-14] MEDS: Thiamine HCL 100 MG TABLET PO (08:39)
--- NOTE | 2021-11-14 10:05 | PM.CCPN ---
Subjective Subjective Date of Service: 11/14/21 Interval History: A 71-year-old hypertensive moderately obese with obstructive sleep apnea presents with acute hypoxemic respiratory failure from COVID-19 pneumonitis in ARDS and in in in unvaccinated state and developed altered mental status resulting in my call and he was clearly simultaneously in respiratory distress with oxygen saturations on maximum support at 76% me emergently intubated him subsequently in the evening CT scan of his head showed that there was a subacute and looks like left parietal lobe CVA and we continue to treat him metabolically of course with with propofol in case of alcohol withdrawal and with with I min in case of Wernicke ease encephalopathy because the Patricio of the history of drinking is unclear to us but clearly there has been central nervous system issue and in addition he has had very significant proteinuria and hematuria in the face of resolving rhabdomyolysis and these developing rapidly progressive oliguria with a doubling of his creatinine from 1-2 mg % so he has clearly got in 0 some form of 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 and therefore fluids are being held because his current CVP is 8 obviously will try to avoid fluid overload issues so he remains otherwise sedated and intubated on a combination of propofol and fentanyl baricitinib is being withheld because of the renal failure he continues to get his Decadron surveillance cultures have failed to yield anything Critical Care Time (minutes): 45 Physical Exam Vital Signs: Vital Signs: Last Vital Signs Temp 97.7 F 11/14/21 09:00 Pulse 61 11/14/21 09:00 Resp 13 11/14/21 09:00 BP 117/62 11/14/21 09:00 Pulse Ox 93 11/14/21 09:00 Oxygen Flow Rate 10 11/08/21 14:46 BMI result Body Mass Index 39.6 sedated and intubated and of course on phenylephrine with a CVP of 8 he maintains a pressure greater than 100 systolic abdomen soft with no organomegaly and a NG tube is in place and feedings are started cardiac exam showed mild concentric left ventricular hypertrophy but preserved systolic reserve no primary valve or pericardial disease Objective Data Labs CBC & Chem 7: 11/14/21 05:40 11/14/21 05:40 Labs: Laboratory Results - last 24 hr 11/14/21 11/14/21 11/14/21 05:40 05:40 05:42 WBC 12.4 H RBC 3.69 L Hgb 11.9 L Hct 35.2 L MCV 95.4 MCH 32.2 MCHC 33.8 RDW 12.4 Plt Count 154 L MPV 10.0 Immature Gran % (Auto) 1.0 H Neut % (Auto) 85.2 H Lymph % (Auto) 8.0 L [place] % (Auto) 5.6 Eos % (Auto) 0.1 Baso % (Auto) 0.1 Lymph # (Auto) 1.0 L [place] # (Auto) 0.7 Eos # (Auto) 0.0 Baso # (Auto) 0.0 Abs Immat Gran (auto) 0.12 H Absolute Neuts (auto) 10.6 H Absolute Nucleated RBC 0.000 Nucleated RBC % (auto) 0.0 VBG pH 7.35 VBG pCO2 38 VBG pO2 55 VBG HCO3 22 VBG O2 Saturation 81.0 VBG Base Excess -3.1 Sodium 136 Potassium 4.8 Chloride 103 Carbon Dioxide 21 L Anion Gap 17 BUN 54 H D Creatinine 2.68 H Estim Creat Clear Calc 28.1 Estimated GFR 24 Random Glucose 170 H Calcium 8.0 L Total Bilirubin 0.7 AST 57 H ALT 74 H Alkaline Phosphatase 131 H D Total Protein 5.8 L Albumin 2.9 L Microbiology Microbiology Results: Microbiology 11/07/21 18:50 Blood - Venous Blood Culture - Final No growth after 5 days. 11/07/21 19:45 Blood - Venous Blood Culture - Final No growth after 5 days. Progress Note: A&P Assessment and plan (1) Acute metabolic encephalopathy: Status: Acute (2) CVA (cerebrovascular accident): Status: Acute (3) Acute renal failure (ARF): Status: Acute (4) Hematuria: Status: Acute (5) Acute respiratory distress syndrome (ARDS) due to COVID-19 virus: Status: Acute (6) Acute hypoxemic respiratory failure due to COVID-19: Status: Acute (7) Rhabdomyolysis: Status: Acute (8) Acute renal failure superimposed on chronic kidney disease: Status: Acute Assessment and Plan: poor prognostic combination of issues with both acute hypoxemic respiratory failure and probably an acute glomerulopathy with proteinuria and hematuria and I feel all related to COVID-19 disease now of course withholding baricitinib in just giving him Decadron and supporting him on the ventilator following CVP and potentially renal replacement therapy Quality Stroke Does the patient have a stroke diagnosis?: No VTE Prior VTE?: No VTE Risk Level:: Medical - moderate - high VTE Device Contraindication: Treatment Not Indicated VTE Drug Contraindication: N/A - Med Ordered
--- NOTE | 2021-11-14 10:24 | MHC.CLN ---
PT IS NOW INTUBATED AND SEDATED PT RECEIVING JEVITY AT MAX GOAL RATE 50ML/HR WITH 120CC FREE WATER Q 4 HRS PT WITH INCREASED PROTEIN NEEDS R/T COVID RECOMMEND SWITCH IN FORMULA TO PROMOTE AT MAX GOAL RATE 45ML/HR WITH 240CC FREE WATER Q 6HRS TO PROVIDE 1080KCALS (1655KCALS WITH SEDATION; 23KCALS/KG), 68G PROTEIN, 1866CC TOTAL WATER FROM FORMULA AND FLUSHES (26ML/KG) MONITOR TOLERANCE, RESIDUALS AND LYTES SEE ALSO CLINICAL NUTRITION ASSESSMENT
[2021-11-14 10:46] LABS: Complement C3 113 mg/dL (82-185)
[2021-11-14] MEDS: fentaNYL citrate/NS 1,000 MCG/100 ML PLAST..BAG 10 MCG IVCONT (12:49)
--- NOTE | 2021-11-14 14:19 | P.CNNE_ITS ---
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 The patient is currently intubated and unable to give any information, or to be adequately examined Review of Systems Eyes: Eyes: Reports as per HPI and Denies blurry vision Cardiovascular: Comments: Unable to provide any information Integumentary/Breasts: Skin/Breast: Denies rash Neurologic: Comments: Unable to give any information PMFSH Family History Pertinent family history: Reviewed Family history: reviewed and not pertinent Social History Social History Household Members: None Housing: House Do you presently have visiting nurse or other home services: No Alcohol intake: current Alcohol intake frequency: a few times a week Alcohol type: beer, wine and hard liquor Patient Tobacco Use Status: Former Tobacco user e-Cigarette/Vaping Use: Never Used service: No Current occupational status: retired [employer] Allergies Allergy/AdvReac Type Severity Reaction Status Date / Time No Known Allergies Allergy Verified 11/09/21 01:04 [No Known Allergies*] Active Medications: Current Medications Acetaminophen (Acetaminophen 325 Mg Tablet) 650 mg PO Q6H PRN PRN Reason: Pain, Mild (Pain Scale 1-3) Last Admin: 11/11/21 09:52 Dose: 650 mg Documented by: Aspirin (Aspirin Enteric Coated 81 Mg Tablet.) 81 mg PO BEDTIME [facility] Last Admin: 11/14/21 00:10 Dose: 81 mg Documented by: Atorvastatin Calcium (Atorvastatin Calcium 80 Mg Tablet) 80 mg PO BEDTIME [facility] Last Admin: 11/14/21 00:09 Dose: 80 mg Documented by: Baricitinib (Baricitinib 2 Mg Tablet) 2 mg PO DAILY [facility] Last Admin: 11/14/21 08:37 Dose: 2 mg Documented by: Brimonidine Tartrate (Brimonidine Tartrate 0.2% Oph 5 Ml Bottle) 1 drop EYE- BOTH BID [facility] Last Admin: 11/14/21 08:37 Dose: 1 drop Documented by: Dexamethasone (Dexamethasone 6 Mg Tablet) 6 mg PO DAILY [facility] Last Admin: 11/14/21 08:37 Dose: 6 mg Documented by: Famotidine (Famotidine 20 Mg Tablet) 20 mg PO BID [facility] Last Admin: 11/14/21 08:37 Dose: 20 mg Documented by: Folic Acid (Folic Acid 1 Mg Tablet) 1 mg PO DAILY [facility] Last Admin: 11/14/21 08:37 Dose: 1 mg Documented by: Thiamine HCl 100 mg/ Sodium (Chloride) 101 mls @ 202 mls/hr IV DAILY [facility] Last Admin: 11/14/21 08:38 Dose: Not Given Documented by: Propofol (Diprivan) 1,000 mg in 100 mls @ 0 mls/hr IVCONT .Q0M [facility]; Protocol Last Admin: 11/14/21 11:22 Dose: 40 mcg/kg/min, 21.77 mls/hr Documented by: Fentanyl (Sublimaze/Ns) 1,000 mcg in 100 mls @ 0 mls/hr IVCONT .Q0M [facility]; Protocol Last Admin: 11/14/21 12:49 Dose: 100 mcg/hr, 10 mls/hr Documented by: Norepinephrine Bitartrate (Levophed) 8 mg in 250 mls @ 0 mls/hr IVCONT .Q0M [facility]; Protocol Last Titration: 11/14/21 11:23 Dose: 0.06 mcg/kg/min, 10.21 mls/hr Documented by: Lactated Ringer's (Lr) 1,000 mls @ 80 mls/hr IVCONT .[id number] [facility] Last Infusion: 11/14/21 11:22 Dose: Infused Documented by: Naloxone HCl (Naloxone Hcl 0.4 Mg/Ml Vial) 0.2 mg IVPUSH Q2M PRN PRN Reason: Excessive sedation or RR < 8 Nystatin (Nystatin Oral Susp 500,000 Unit/5 Ml Oral.Susp) 500,000 unit PO QID [facility]; Protocol Last Admin: 11/14/21 08:37 Dose: 500,000 unit Documented by: Pharmacy Consult (Consult Rx Perform Med Rec) 1 each MISCELLANE ONCE PRN PRN Reason: Consult order Senna (Sennosides 8.6 Mg Tablet) 17.2 mg PO BEDTIME PRN PRN Reason: Constipation Sodium Chloride (0.9 % Sodium Chloride Flush 3 Ml Syringe) 3 ml IVFLUSH QSHIFT [facility] Last Admin: 11/14/21 08:37 Dose: 3 ml Documented by: Home Medications Medication Instructions Recorded Confirmed Last Taken Type azithromycin 500 mg tablet 1 tab PO DAILY 11/08/21 11/08/21 Unknown History brimonidine 0.2 % eye drops 1 drp OPHTHALMIC (EYE) BID 11/08/21 11/08/21 Unknown History hydroxychloroquine 200 mg tablet 1 tab PO BID 11/08/21 11/08/21 Unknown History lisinopril 10 mg tablet 1 tab PO DAILY 11/08/21 11/08/21 Unknown History Physical Exam Vital Signs: Vital Signs: Last Vital Signs Temp 98.2 F 11/14/21 13:00 Pulse 54 11/14/21 13:00 Resp 17 11/14/21 13:00 BP 113/59 L 11/14/21 13:00 Pulse Ox 96 11/14/21 13:00 Oxygen Flow Rate 10 11/08/21 14:46 BMI result Body Mass Index 39.6 Const: Other: Confused General: cooperative, no acute distress, alert and aw scott Nutritional Appearance: obese Eyes: Sclerae: sclerae normal Pupils: Equal, round and reactive pupils present EOM: EOMs intact bilaterally Neck: Neck: Yes no lymphadenopathy, Yes trachea midline and Yes supple Resp: Effort & Inspection: normal respiratory effort and no respiratory distress Auscultation: crackles (Diffuse bilateral) and diminished lung sounds Cardio: Rate: regular rate Rhythm: regular rhythm Heart sounds: no gallops, no murmurs and no rubs GI: Palpation (GI): Soft to palpation, nontender and Other GI palpation findings present ( Nontender) Auscultation: normal bowel sounds Skin: General skin exam: no rashes or lesions noted Neuro: Other: Patient is intubated and unable to be adequately examined. Not following commands Cranial nerves: Yes Equal, round and reactive pupils present Extrem: General: Yes normal to inspection, Yes no pedal edema, No clubbing and No cyanosis Results Labs CBC & Chem 7: 11/14/21 05:40 11/14/21 05:40 Labs: Short CBC 11/14/21 Range/Units 05:40 WBC 12.4 H (4.8-10.8) X10*3/uL Hgb 11.9 L (14.0-18.0) g/dl Hct 35.2 L (42.0-52.0) % Plt Count 154 L (160-400) X10*3/uL BMP 11/14/21 05:40 Sodium 136 Potassium 4.8 Chloride 103 Carbon Dioxide 21 L BUN 54 H D Creatinine 2.68 H Calcium 8.0 L Liver Function 11/14/21 Range/Units 05:40 Total Bilirubin 0.7 (0.0-1.0) mg/dL AST 57 H (5-37) U/L ALT 74 H (0-40) U/L Alkaline Phosphatase 131 H D (39-117) U/L Albumin 2.9 L (3.5-5.0) g/dL Microbiology Microbiology Results: Microbiology 11/13/21 Unknown Urine Catheterized - Perez Catheter Urine Culture - Final No growth. 11/07/21 18:50 Blood - Venous Blood Culture - Final No growth after 5 days. 11/07/21 19:45 Blood - Venous Blood Culture - Final No growth after 5 days. Assessment and Plan (1) Acute metabolic encephalopathy: Status: Acute (2) CVA (cerebrovascular accident): Status: Acute He has multiple old cerebellar infarcts which is suggestive of an embolic process. He has bilateral acute to subacute parieto-occipital infarcts larger on the left accounting for his dysphasiaAnd confusion. This could be a complication of his Covid or may suggest embolic phenomena from a central source. Once his pulmonary status stabilizes. He will need echocardiogram and carotid Doppler. There is no neurological intervention at this point for his strokes. Wouuld keep him on aspirin 81 mg a day and DVT prophylaxis.. (3) Acute renal failure (ARF): Status: Acute (4) Hematuria: Status: Acute (5) Acute respiratory distress syndrome (ARDS) due to COVID-19 virus: Status: Acute (6) Acute hypoxemic respiratory failure due to COVID-19: Status: Acute (7) Rhabdomyolysis: Qualifiers: Rhabdomyolysis type: non-traumatic Qualified Code(s): M62.82 - Rhabdomyolysis Status: Acute (8) Acute renal failure superimposed on chronic kidney disease: Qualifiers: Acute renal failure type: unspecified Chronic kidney disease stage: stage 2 (mild) Qualified Code(s): N17.9 - Acute kidney failure, unspecified; N18.2 - Chronic kidney disease, stage 2 (mild) Status: Acute poor prognostic combination of issues with both acute hypoxemic respiratory failure and probably an acute glomerulopathy with proteinuria and hematuria and I feel all related to COVID-19 disease now of course withholding baricitinib in just giving him Decadron and supporting him on the ventilator following CVP and potentially renal replacement therapy Procedures Date of Service Date of Service: 11/14/21
--- NOTE | 2021-11-14 14:27 | PM.PNNEP ---
Subjective Subjective Date of Service: 11/14/21 Interval history: Events noted. All recent data reviewed. D/W ICU Attending Physical Exam Vital Signs: Vital Signs: Last Vital Signs Temp 98.2 F 11/14/21 13:00 Pulse 54 11/14/21 13:00 Resp 17 11/14/21 13:00 BP 113/59 L 11/14/21 13:00 Pulse Ox 96 11/14/21 13:00 Oxygen Flow Rate 10 11/08/21 14:46 BMI result Body Mass Index 39.6 Const: General: no acute distress Neck: Neck: Yes supple Resp: Auscultation: diminished lung sounds Cardio: Rate: regular rate GI: Palpation (GI): Soft to palpation Neuro: General: moves all extremities Objective Data Labs CBC & Chem 7: 11/14/21 05:40 11/14/21 05:40 Labs: Laboratory Results - last 24 hr 11/13/21 11/14/21 11/14/21 08:16 05:40 05:40 WBC 12.4 H RBC 3.69 L Hgb 11.9 L Hct 35.2 L MCV 95.4 MCH 32.2 MCHC 33.8 RDW 12.4 Plt Count 154 L MPV 10.0 Immature Gran % (Auto) 1.0 H Neut % (Auto) 85.2 H Lymph % (Auto) 8.0 L [place] % (Auto) 5.6 Eos % (Auto) 0.1 Baso % (Auto) 0.1 Lymph # (Auto) 1.0 L [place] # (Auto) 0.7 Eos # (Auto) 0.0 Baso # (Auto) 0.0 Abs Immat Gran (auto) 0.12 H Absolute Neuts (auto) 10.6 H Absolute Nucleated RBC 0.000 Nucleated RBC % (auto) 0.0 VBG pH VBG pCO2 VBG pO2 VBG HCO3 VBG O2 Saturation VBG Base Excess Sodium 136 Potassium 4.8 Chloride 103 Carbon Dioxide 21 L Anion Gap 17 BUN 54 H D Creatinine 2.68 H Estim Creat Clear Calc 28.1 Estimated GFR 24 Random Glucose 170 H Calcium 8.0 L Total Bilirubin 0.7 AST 57 H ALT 74 H Alkaline Phosphatase 131 H D Total Protein 5.8 L Albumin 2.9 L Complement C3 113 Complement C4 10 L 11/14/21 05:42 WBC RBC Hgb Hct MCV MCH MCHC RDW Plt Count MPV Immature Gran % (Auto) Neut % (Auto) Lymph % (Auto) [place] % (Auto) Eos % (Auto) Baso % (Auto) Lymph # (Auto) [place] # (Auto) Eos # (Auto) Baso # (Auto) Abs Immat Gran (auto) Absolute Neuts (auto) Absolute Nucleated RBC Nucleated RBC % (auto) VBG pH 7.35 VBG pCO2 38 VBG pO2 55 VBG HCO3 22 VBG O2 Saturation 81.0 VBG Base Excess -3.1 Sodium Potassium Chloride Carbon Dioxide Anion Gap BUN Creatinine Estim Creat Clear Calc Estimated GFR Random Glucose Calcium Total Bilirubin AST ALT Alkaline Phosphatase Total Protein Albumin Complement C3 Complement C4 Microbiology Microbiology Results: Microbiology 11/13/21 Unknown Urine Catheterized - Perez Catheter Urine Culture - Final No growth. 11/07/21 18:50 Blood - Venous Blood Culture - Final No growth after 5 days. 11/07/21 19:45 Blood - Venous Blood Culture - Final No growth after 5 days. Procedures Date of Service Date of Service: 11/14/21 Assessment & Plan Assessment and plan (1) Acute renal failure (ARF): Status: Acute Assessment and Plan: 71-year-old male with a past medical history of hypertension , KEY on CPAP presented to the hospital with a chief complaint of shortness of breath and found to have acute hypoxia secondary to COVID 19 pneumonia with EBER Renal functions worse C3/C4- reviewewed; Urine myoglobin pendng CPK improving; No indication for HD today C/W rest of current supportive care Time Spent With Patient Time: Total time spent is greater than 50% in coordination of care (as documented) at patient's floor/unit and/or counseling patient: Progress Note: Quality Stroke Does the patient have a stroke diagnosis?: No
[2021-11-14 15:16] LABS: Myoglobin, Quant. Random Urine 1160 mcg/L (<28)
--- NOTE | 2021-11-14 16:49 | PM.CCPN ---
Subjective Subjective Date of Service: 11/14/21 Interval History: This 71-year-old male with COVID-19 pneumonitis in ARDS and unvaccinated with the progressive hypoxemic respiratory failure ultimately requiring emergent intubation because on maximum support saturations fell into the mid 70s and and clearly had altered mental status but it appeared as though he had moved all 4 extremities and was estranged encephalopathy and we had concerns about Wernicke ease started him on thiamin after the intubation continued his baricitinib and steroids at this point to try to complete a 10 day course and we after stabilizing with the intubation rate able to get his CT scan and apparently there has been a subacute left parietal CVA which could be part and parcel of the coagulopathy her related to his underlying COVID and the he also has been developing renal failure and given the proteinuria and hematuria could easily have been part of the COVID complication as well but renal feels that he also could have an acute tubular injury and at this point creatinine has now doubled were were going to follow his CVP treat this expectantly we do not have too much other choice Critical Care Time (minutes): 45 Physical Exam Vital Signs: Vital Signs: Last Vital Signs Temp 98.4 F 11/14/21 16:00 Pulse 50 11/14/21 16:00 Resp 16 11/14/21 16:00 BP 86/49 L 11/14/21 16:00 Pulse Ox 94 11/14/21 16:00 Oxygen Flow Rate 10 11/08/21 14:46 BMI result Body Mass Index 39.6 Sedated and and intubated Lungs with bilateral coarse ventilatory sounds Cardiac exam by bedside echo with normal LV function Abdomen is soft with no organomegaly and is tolerating his feedings at this point Objective Data Labs CBC & Chem 7: 11/15/21 05:20 11/15/21 05:20 Labs: Laboratory Results - last 24 hr 11/13/21 11/13/21 11/14/21 08:16 Unknown 05:40 WBC 12.4 H RBC 3.69 L Hgb 11.9 L Hct 35.2 L MCV 95.4 MCH 32.2 MCHC 33.8 RDW 12.4 Plt Count 154 L MPV 10.0 Immature Gran % (Auto) 1.0 H Neut % (Auto) 85.2 H Lymph % (Auto) 8.0 L [place] % (Auto) 5.6 Eos % (Auto) 0.1 Baso % (Auto) 0.1 Lymph # (Auto) 1.0 L [place] # (Auto) 0.7 Eos # (Auto) 0.0 Baso # (Auto) 0.0 Abs Immat Gran (auto) 0.12 H Absolute Neuts (auto) 10.6 H Absolute Nucleated RBC 0.000 Nucleated RBC % (auto) 0.0 VBG pH VBG pCO2 VBG pO2 VBG HCO3 VBG O2 Saturation VBG Base Excess Sodium Potassium Chloride Carbon Dioxide Anion Gap BUN Creatinine Estim Creat Clear Calc Estimated GFR Random Glucose Calcium Total Bilirubin AST ALT Alkaline Phosphatase Total Protein Albumin Ur Myoglobin, Quant 1160 H Complement C3 113 Complement C4 10 L 11/14/21 11/14/21 05:40 05:42 WBC RBC Hgb Hct MCV MCH MCHC RDW Plt Count MPV Immature Gran % (Auto) Neut % (Auto) Lymph % (Auto) [place] % (Auto) Eos % (Auto) Baso % (Auto) Lymph # (Auto) [place] # (Auto) Eos # (Auto) Baso # (Auto) Abs Immat Gran (auto) Absolute Neuts (auto) Absolute Nucleated RBC Nucleated RBC % (auto) VBG pH 7.35 VBG pCO2 38 VBG pO2 55 VBG HCO3 22 VBG O2 Saturation 81.0 VBG Base Excess -3.1 Sodium 136 Potassium 4.8 Chloride 103 Carbon Dioxide 21 L Anion Gap 17 BUN 54 H D Creatinine 2.68 H Estim Creat Clear Calc 28.1 Estimated GFR 24 Random Glucose 170 H Calcium 8.0 L Total Bilirubin 0.7 AST 57 H ALT 74 H Alkaline Phosphatase 131 H D Total Protein 5.8 L Albumin 2.9 L Ur Myoglobin, Quant Complement C3 Complement C4 Microbiology Microbiology Results: Microbiology 11/13/21 Unknown Urine Catheterized - Perez Catheter Urine Culture - Final No growth. 11/07/21 18:50 Blood - Venous Blood Culture - Final No growth after 5 days. 11/07/21 19:45 Blood - Venous Blood Culture - Final No growth after 5 days. Progress Note: A&P Assessment and plan (1) Acute renal failure (ARF): Status: Acute (2) CVA (cerebrovascular accident): Status: Acute (3) Acute metabolic encephalopathy: Status: Acute (4) Acute respiratory distress syndrome (ARDS) due to COVID-19 virus: Status: Acute (5) Hematuria: Status: Acute (6) Acute hypoxemic respiratory failure due to COVID-19: Status: Acute (7) Rhabdomyolysis: Status: Acute (8) Acute renal failure superimposed on chronic kidney disease: Status: Acute Assessment and Plan: Plan is to maintain the ventilator and wean FiO2 as he allows careful follow-up of his central venous pressure as well so we can gauge his fluid management specially in the face of his renal failure and when a started to notice some blood coming back from airway suctioning we sent off a coagulation workup everything was normal stable platelets of his no DIC no evidence of coagulopathy Quality Stroke Does the patient have a stroke diagnosis?: No VTE Prior VTE?: No VTE Risk Level:: Medical - moderate - high VTE Device Contraindication: Treatment Not Indicated VTE Drug Contraindication: N/A - Med Ordered
[2021-11-14 19:31] LABS: MANUAL DIFF FLAG NO
[2021-11-14 19:32] LABS: Hematocrit 33.4 % (42.0-52.0); Hemoglobin 11.4 g/dl (14.0-18.0); Imm Gran Abs Auto 0.14 X10*3/uL (0.00-0.03); Imm Gran Pct Auto 1.2 % (0.0-0.4); Lymphocytes Absolute Auto 0.7 X10*3/uL (1.2-4.9); Lymphocytes Percent Auto 6.4 % (20-40); Mean Corpuscular HGB Conc 34.1 g/dl (31.0-36.0); Mean Corpuscular Hemoglobin 32.8 pg (27.0-33.0); Mean Platelet Volume 9.8 fL (9.4-12.4); Monocytes Absolute Auto 0.7 X10*3/uL (0.1-1.2); Neutrophils Percent Auto 86.4 % (45-73); Platelet Count 140 X10*3/uL (160-400); Red Blood Count 3.48 X10*6/uL (4.60-5.80); Red Cell Distribution Width 12.6 % (11.0-16.0); White Blood Count 11.6 X10*3/uL (4.8-10.8)
[2021-11-14 19:39] LABS: INTERNATIONAL NORM RATIO 1.2 (0.9-1.1); Prothrombin Time 13.4 SEC (9.9-13.0)
[2021-11-14 19:41] LABS: Partial Thromboplastin Time 27.9 SEC (24.1-38.0)
[2021-11-14] MEDS: fentaNYL citrate/NS 1,000 MCG/100 ML PLAST..BAG 17.5 MCG IVCONT (21:37)
[2021-11-14] MEDS: propofoL 1,000 MG/100 ML VIAL 27.22 MG IVCONT ×2 (21:37→23:45)
[2021-11-14] MEDS: Aspirin 81 MG TAB.CHEW PO (22:12)
[2021-11-15] VITALS (32 sets, daily range): BP systolic 95–143; BP diastolic 51–70; PULSE 49–78; RESP 15–22; TEMP 34–36.9; O2SAT 89–98; BMI 40.1
[2021-11-15] MEDS: 0.9 % Sodium Chloride 500 ML 100 ML IVCONT (02:31)
[2021-11-15] MEDS: fentaNYL citrate/NS 1,000 MCG/100 ML PLAST..BAG 17.5 MCG IVCONT ×3 (02:59→21:14)
[2021-11-15] MEDS: propofoL 1,000 MG/100 ML VIAL 27.22 MG IVCONT ×4 (02:59→17:38)
--- NOTE | 2021-11-15 03:42 | PC.NURSE ---
Assumed care from RITESH Zhang, at 15:00. Patient sedated on fentanyl 100 and propofol 40. Patient had cough/gag, pupils sluggish at 2-3 mm. Patient was waking during care and was dysynchronous repeatedly with vent, and was tachypenic in 30's, and sedation was eventually titrated up to propofol 50 and fentanyl 175. Patient was then synchronous. Patient remains intubated with #8 Ett 26 cm cyndi. AC settings rate 18; PEEP 12; TV 500; FiO2 was titrated up from 50-60% after repeated episodes of SpO2 dropping from 92-5% range down to 87-89% range and not rising without multiple 2 minute episodes of 100% FiO2. Much of this was resulting from nursing maneuvers and repositioning, which even slightly was not well tolerated, and patient with apparent orthopnea. LS clear with dim bases to auscultation. In-line and oral secretions calista bleeding, particularly from left posterior corner of mouth, and MD notified, and new order for stat coag studies, with CBCD and pT and PTT, and these were all stable and resulted in no imediate intervention. His telemetry was sinus bradycardia, mostly 50's with occasional drops to 40's. His blood pressures were soft and required low doses of levophed: 0.04-0.06 mcg/kg/min. Patient with large abdomen, distended mildly with hypoactive BS, and did have small amount of smearing of stool when bathed about 17:30. Patient urine outputs with apparent oliguria and about 15 cc/hour of very dark tea-colored sedimentous urine, of which the MD and the PA were made aware. Handover report to RITESH Chen at 23:00.
--- NOTE | 2021-11-15 04:12 | PC.NURSE ---
Addendum entered by Ryan Thayer RN 11/15/21 06:38: dr grajeda present on unit...update given...ns 0.9% fluid held by Addendum entered by Ryan Thayer RN 11/15/21 06:08: 4am-6am schneider drained 235ml property assessment monitor sedimented annabel urine...cvp 12 Original Note: CARE ASSUMED 23:15...REMAINS TUBED/VENT...VCV/AC MODE...VENT SYNCHRONY WITH PROFOL/FENTANYL DRIPS....PUPILS 2MM AND SLUGGISH...(+) GAG/COUGH...TUBE FEEDS 45 CC/HR AND H20 240ml FLUSH Q6H...SCHNEIDER REMAINED WITH DARK BRICK-BROWN SEDIMENTED URINE..INITIALLY APPROX 10 CC/HR OUTPUT....ICU PA AWARE OF OUTPUT AND CK/URINE MYOGLOBIN RESULTS...PA ORDERED NS 0.9% 100 CC/HR X5 HOURS...FOR AM LAB WORK AND REFINERY OPERATOR HELPER CRACKING UNIT TO DETERMINE FURTHER IV FLUIDS IN AM..SCHNEIDER OUTPUT IMPROVED TO 25 CC/HR...URINE LESS DARK..REMAINS SINUS BRADYCARDIA...HR 50-56
[2021-11-15 05:31] LABS: VBG Base Excess -2.3 mmol/L; VBG HCO3 23 mmol/L (22-26); VBG pCO2 44 mmHg; VBG pH 7.32 (7.32-7.43); VBG pO2 69 mmHg
[2021-11-15 06:01] LABS: MANUAL DIFF FLAG NO
[2021-11-15 06:26] LABS: Alanine Aminotransferase 65 U/L (0-40); Albumin Level 2.7 g/dL (3.5-5.0); Alkaline Phosphatase 110 U/L (39-117); Anion Gap 15 (12-20); Aspartate Amino Transferase 46 U/L (5-37); Bilirubin Total 0.5 mg/dL (0.0-1.0); Blood Urea Nitrogen 77 mg/dL (9-16); Calcium 7.6 mg/dL (8.4-10.2); Carbon Dioxide 22 mmol/L (22-29); Chloride 101 mmol/L (96-108); Creatinine Clr Calc Pharmacy 28.9; Estimated Glomerular Filt Rate 20; Glucose Random 180 mg/dL (60-115); Potassium 4.6 mmol/L (3.3-5.1); Sodium 133 mmol/L (135-145); Total Protein 5.5 g/dL (6.5-8.0)
[2021-11-15 06:32] LABS: Eosinophils Percent Auto 0.2 % (0-4); Hematocrit 31.7 % (42.0-52.0); Hemoglobin 10.7 g/dl (14.0-18.0); Imm Gran Abs Auto 0.15 X10*3/uL (0.00-0.03); Imm Gran Pct Auto 1.2 % (0.0-0.4); Lymphocytes Absolute Auto 1.2 X10*3/uL (1.2-4.9); Lymphocytes Percent Auto 9.9 % (20-40); Mean Corpuscular HGB Conc 33.8 g/dl (31.0-36.0); Mean Corpuscular Hemoglobin 32.7 pg (27.0-33.0); Mean Corpuscular Volume 96.9 fL (80.0-98.0); Mean Platelet Volume 10.2 fL (9.4-12.4); Monocytes Absolute Auto 0.9 X10*3/uL (0.1-1.2); Monocytes Percent Auto 6.8 % (2-11); Neutrophils Absolute Auto 10.3 x10*3/uL (2.0-8.3); Neutrophils Percent Auto 81.9 % (45-73); Platelet Count 153 X10*3/uL (160-400); Red Blood Count 3.27 X10*6/uL (4.60-5.80); Red Cell Distribution Width 12.4 % (11.0-16.0); White Blood Count 12.6 X10*3/uL (4.8-10.8)
[2021-11-15 08:35] LABS: Venous Blood Gas Refer to POC result
[2021-11-15] MEDS: dexAMETHasone 6 MG TABLET PO (08:55)
[2021-11-15] MEDS: Nystatin Oral Susp 500,000 UNIT/5 ML ORAL.SUSP 500000 UNIT PO ×4 (08:55→21:14)
[2021-11-15] MEDS: Folic Acid 1 MG TABLET PO (08:55)
[2021-11-15] MEDS: Famotidine 20 MG TABLET PO (08:55)
[2021-11-15] MEDS: Brimonidine Tartrate 0.2% Oph 5 ML BOTTLE 1 DROP EYE-BOTH ×2 (08:56→21:31)
[2021-11-15] MEDS: 0.9 % Sodium Chloride Flush 3 ML SYRINGE IVFLUSH ×2 (08:56→15:05)
--- NOTE | 2021-11-15 09:57 | PM.CCPN ---
Subjective Subjective Date of Service: 11/15/21 Interval History: 71-year-old with COVID-19 pneumonitis/ARDS and hypoxemic respiratory failure and intubated but FiO2 has been weaned to 50% His central venous pressure on the IV fluids given last night has risen to approximately 11-12 from its base of 7 8 so I held the fluids and continue to do so but urine output is improving so he is less oliguric and numb hoping that his BUN and creatinine have plateaued in now has a creatinine greater than 3 but the hematuria may also be diminishing so I am hoping that were seeing some resolution of his ATN as well as 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 a and will continue feeding him and reinstitute on a reduced dose basis the baricitinib but the him a going to hold any further IV fluids and if he starts to develop increasing respiratory difficulty a could always try him on a Lasix drip see if that would overcome that is an issue and he is already on aspirin and atorvastatin related to the CVA that he just sustained Critical Care Time (minutes): 45 Physical Exam Vital Signs: Vital Signs: Last Vital Signs Temp 97.9 F 11/15/21 09:00 Pulse 57 11/15/21 09:00 Resp 18 11/15/21 09:00 BP 103/57 L 11/15/21 09:00 Pulse Ox 91 L 11/15/21 09:00 Oxygen Flow Rate 10 11/08/21 14:46 BMI result Body Mass Index 40.1 Sedated and intubated Urine volume is picking up Abdomen is benign Bedside cardiac exam stable LV function Objective Data Labs CBC & Chem 7: 11/15/21 05:20 11/15/21 05:20 Labs: Laboratory Results - last 24 hr 11/13/21 11/13/21 11/14/21 08:16 Unknown 19:26 WBC 11.6 H RBC 3.48 L Hgb 11.4 L Hct 33.4 L MCV 96.0 MCH 32.8 MCHC 34.1 RDW 12.6 Plt Count 140 L MPV 9.8 Immature Gran % (Auto) 1.2 H Neut % (Auto) 86.4 H Lymph % (Auto) 6.4 L [place] % (Auto) 6.0 Eos % (Auto) 0.0 Baso % (Auto) 0.0 Lymph # (Auto) 0.7 L [place] # (Auto) 0.7 Eos # (Auto) 0.0 Baso # (Auto) 0.0 Abs Immat Gran (auto) 0.14 H Absolute Neuts (auto) 10.0 H Absolute Nucleated RBC 0.000 Nucleated RBC % (auto) 0.0 PT INR APTT VBG pH VBG pCO2 VBG pO2 VBG HCO3 VBG O2 Saturation VBG Base Excess Sodium Potassium Chloride Carbon Dioxide Anion Gap BUN Creatinine Estim Creat Clear Calc Estimated GFR Random Glucose Calcium Total Bilirubin AST ALT Alkaline Phosphatase Total Protein Albumin Ur Myoglobin, Quant 1160 H Complement C3 113 Complement C4 10 L 11/14/21 11/15/21 11/15/21 19:26 05:20 05:20 WBC 12.6 H RBC 3.27 L Hgb 10.7 L Hct 31.7 L MCV 96.9 MCH 32.7 MCHC 33.8 RDW 12.4 Plt Count 153 L MPV 10.2 Immature Gran % (Auto) 1.2 H Neut % (Auto) 81.9 H Lymph % (Auto) 9.9 L [place] % (Auto) 6.8 Eos % (Auto) 0.2 Baso % (Auto) 0.0 Lymph # (Auto) 1.2 [place] # (Auto) 0.9 Eos # (Auto) 0.0 Baso # (Auto) 0.0 Abs Immat Gran (auto) 0.15 H Absolute Neuts (auto) 10.3 H Absolute Nucleated RBC 0.000 Nucleated RBC % (auto) 0.0 PT 13.4 H INR 1.2 H APTT 27.9 VBG pH VBG pCO2 VBG pO2 VBG HCO3 VBG O2 Saturation VBG Base Excess Sodium 133 L Potassium 4.6 Chloride 101 Carbon Dioxide 22 Anion Gap 15 BUN 77 H Creatinine 3.04 H Estim Creat Clear Calc 28.9 Estimated GFR 20 Random Glucose 180 H Calcium 7.6 L Total Bilirubin 0.5 AST 46 H ALT 65 H Alkaline Phosphatase 110 Total Protein 5.5 L Albumin 2.7 L Ur Myoglobin, Quant Complement C3 Complement C4 11/15/21 05:24 WBC RBC Hgb Hct MCV MCH MCHC RDW Plt Count MPV Immature Gran % (Auto) Neut % (Auto) Lymph % (Auto) [place] % (Auto) Eos % (Auto) Baso % (Auto) Lymph # (Auto) [place] # (Auto) Eos # (Auto) Baso # (Auto) Abs Immat Gran (auto) Absolute Neuts (auto) Absolute Nucleated RBC Nucleated RBC % (auto) PT INR APTT VBG pH 7.32 VBG pCO2 44 VBG pO2 69 VBG HCO3 23 VBG O2 Saturation 89.0 VBG Base Excess -2.3 Sodium Potassium Chloride Carbon Dioxide Anion Gap BUN Creatinine Estim Creat Clear Calc Estimated GFR Random Glucose Calcium Total Bilirubin AST ALT Alkaline Phosphatase Total Protein Albumin Ur Myoglobin, Quant Complement C3 Complement C4 Microbiology Microbiology Results: Microbiology 11/13/21 Unknown Urine Catheterized - Perez Catheter Urine Culture - Final No growth. 11/07/21 18:50 Blood - Venous Blood Culture - Final No growth after 5 days. 11/07/21 19:45 Blood - Venous Blood Culture - Final No growth after 5 days. Progress Note: A&P Assessment and plan (1) Acute renal failure (ARF): Status: Acute (2) CVA (cerebrovascular accident): Status: Acute (3) Acute metabolic encephalopathy: Status: Acute (4) Hematuria: Status: Acute (5) Acute respiratory distress syndrome (ARDS) due to COVID-19 virus: Status: Acute (6) Acute hypoxemic respiratory failure due to COVID-19: Status: Acute (7) Rhabdomyolysis: Status: Acute (8) Acute renal failure superimposed on chronic kidney disease: Status: Acute Assessment and Plan: Again and we will observe CVP and off IV fluids will see if it comes down on its own but his FiO2 requirements go up he might need a Lasix drip Restoring the baricitinib been maintaining his feedings that he seems to be tolerating Quality Stroke Does the patient have a stroke diagnosis?: No VTE Prior VTE?: No VTE Risk Level:: Medical - moderate - high VTE Device Contraindication: Treatment Not Indicated VTE Drug Contraindication: N/A - Med Ordered
[2021-11-15] MEDS: Thiamine HCL 100 MG in 0.9 % Sodium Chloride 100 ML 202 MG IV (11:32)
[2021-11-15] MEDS: Furosemide 200 MG in 0.9 % Sodium Chloride 80 ML IVCONT (13:37)
[2021-11-15] MEDS: propofoL 1,000 MG/100 ML VIAL 21.77 MG IVCONT ×2 (13:39→22:35)
[2021-11-15] MEDS: fentaNYL citrate/NS 1,000 MCG/100 ML PLAST..BAG 15 MCG IVCONT (15:05)
--- NOTE | 2021-11-15 15:56 | PM.PNNEP ---
Subjective Subjective Date of Service: 11/15/21 Interval history: Events noted; All recent data reviewed; D/W ICU Attending Physical Exam Vital Signs: Vital Signs: Last Vital Signs Temp 98.2 F 11/15/21 15:00 Pulse 65 11/15/21 15:00 Resp 22 H 11/15/21 15:00 BP 137/68 11/15/21 15:23 Pulse Ox 90 L 11/15/21 15:00 Oxygen Flow Rate 10 11/08/21 14:46 BMI result Body Mass Index 40.1 Const: General: no acute distress Neck: Neck: Yes supple Resp: Auscultation: diminished lung sounds Cardio: Rate: regular rate GI: Palpation (GI): Soft to palpation Neuro: Other: Sedated Objective Data Labs CBC & Chem 7: 11/15/21 05:20 11/15/21 05:20 Labs: Laboratory Results - last 24 hr 11/14/21 11/14/21 11/15/21 19:26 19:26 05:20 WBC 11.6 H 12.6 H RBC 3.48 L 3.27 L Hgb 11.4 L 10.7 L Hct 33.4 L 31.7 L MCV 96.0 96.9 MCH 32.8 32.7 MCHC 34.1 33.8 RDW 12.6 12.4 Plt Count 140 L 153 L MPV 9.8 10.2 Immature Gran % (Auto) 1.2 H 1.2 H Neut % (Auto) 86.4 H 81.9 H Lymph % (Auto) 6.4 L 9.9 L [place] % (Auto) 6.0 6.8 Eos % (Auto) 0.0 0.2 Baso % (Auto) 0.0 0.0 Lymph # (Auto) 0.7 L 1.2 [place] # (Auto) 0.7 0.9 Eos # (Auto) 0.0 0.0 Baso # (Auto) 0.0 0.0 Abs Immat Gran (auto) 0.14 H 0.15 H Absolute Neuts (auto) 10.0 H 10.3 H Absolute Nucleated RBC 0.000 0.000 Nucleated RBC % (auto) 0.0 0.0 PT 13.4 H INR 1.2 H APTT 27.9 VBG pH VBG pCO2 VBG pO2 VBG HCO3 VBG O2 Saturation VBG Base Excess Sodium Potassium Chloride Carbon Dioxide Anion Gap BUN Creatinine Estim Creat Clear Calc Estimated GFR Random Glucose Calcium Total Bilirubin AST ALT Alkaline Phosphatase Total Protein Albumin 11/15/21 11/15/21 05:20 05:24 WBC RBC Hgb Hct MCV MCH MCHC RDW Plt Count MPV Immature Gran % (Auto) Neut % (Auto) Lymph % (Auto) [place] % (Auto) Eos % (Auto) Baso % (Auto) Lymph # (Auto) [place] # (Auto) Eos # (Auto) Baso # (Auto) Abs Immat Gran (auto) Absolute Neuts (auto) Absolute Nucleated RBC Nucleated RBC % (auto) PT INR APTT VBG pH 7.32 VBG pCO2 44 VBG pO2 69 VBG HCO3 23 VBG O2 Saturation 89.0 VBG Base Excess -2.3 Sodium 133 L Potassium 4.6 Chloride 101 Carbon Dioxide 22 Anion Gap 15 BUN 77 H Creatinine 3.04 H Estim Creat Clear Calc 28.9 Estimated GFR 20 Random Glucose 180 H Calcium 7.6 L Total Bilirubin 0.5 AST 46 H ALT 65 H Alkaline Phosphatase 110 Total Protein 5.5 L Albumin 2.7 L Microbiology Microbiology Results: Microbiology 11/13/21 Unknown Urine Catheterized - Perez Catheter Urine Culture - Final No growth. 11/07/21 18:50 Blood - Venous Blood Culture - Final No growth after 5 days. 11/07/21 19:45 Blood - Venous Blood Culture - Final No growth after 5 days. Procedures Date of Service Date of Service: 11/15/21 Assessment & Plan Assessment and plan (1) Acute renal failure (ARF): Status: Acute Assessment and Plan: 71-year-old male with a past medical history of hypertension , KEY on CPAP presented to the hospital with a chief complaint of shortness of breath and found to have acute hypoxia secondary to COVID 19 pneumonia with EBER Renal functions worse C3/C4- reviewed; Creatinine plateauing On diuretics; No indication for HD today C/W rest of current supportive care Time Spent With Patient Time: Total time spent is greater than 50% in coordination of care (as documented) at patient's floor/unit and/or counseling patient: Progress Note: Quality Stroke Does the patient have a stroke diagnosis?: No
[2021-11-15] MEDS: Atorvastatin Calcium 80 MG TABLET PO (21:14)
[2021-11-15] MEDS: Aspirin 81 MG TAB.CHEW PO (21:14)
[2021-11-15 22:14] LABS: Anion Gap 13 (12-20); Blood Urea Nitrogen 79 mg/dL (9-16); Calcium 7.5 mg/dL (8.4-10.2); Carbon Dioxide 24 mmol/L (22-29); Chloride 101 mmol/L (96-108); Creatinine Clr Calc Pharmacy 30.7; Estimated Glomerular Filt Rate 22; Glucose Random 181 mg/dL (60-115); Potassium 4.7 mmol/L (3.3-5.1); Sodium 133 mmol/L (135-145)
[2021-11-15 22:24] LABS: B Type Natriuretic Peptide 59 pg/mL (<100)
[2021-11-16] VITALS (32 sets, daily range): BP systolic 95–190; BP diastolic 47–82; PULSE 54–104; RESP 11–28; TEMP 34.4–38; O2SAT 88–97; BMI 40.5
[2021-11-16] MEDS: 0.9 % Sodium Chloride Flush 3 ML SYRINGE IVFLUSH ×3 (01:04→14:58)
[2021-11-16] MEDS: propofoL 1,000 MG/100 ML VIAL 21.77 MG IVCONT (01:04)
[2021-11-16] MEDS: fentaNYL citrate/NS 1,000 MCG/100 ML PLAST..BAG 17.5 MCG IVCONT (03:19)
[2021-11-16] MEDS: propofoL 1,000 MG/100 ML VIAL 27.22 MG IVCONT ×5 (04:34→22:09)
[2021-11-16 05:52] LABS: VBG Base Excess 0.8 mmol/L; VBG HCO3 26 mmol/L (22-26); VBG pCO2 45 mmHg; VBG pH 7.36 (7.32-7.43); VBG pO2 50 mmHg
[2021-11-16 06:22] LABS: MANUAL DIFF FLAG NO
[2021-11-16 06:36] LABS: Basophils Percent Auto 0.1 % (0-2); Eosinophils Percent Auto 0.3 % (0-4); Hematocrit 33.4 % (42.0-52.0); Hemoglobin 11.1 g/dl (14.0-18.0); Imm Gran Abs Auto 0.17 X10*3/uL (0.00-0.03); Imm Gran Pct Auto 1.4 % (0.0-0.4); Lymphocytes Absolute Auto 1.1 X10*3/uL (1.2-4.9); Lymphocytes Percent Auto 9.4 % (20-40); Mean Corpuscular HGB Conc 33.2 g/dl (31.0-36.0); Mean Corpuscular Hemoglobin 31.8 pg (27.0-33.0); Mean Corpuscular Volume 95.7 fL (80.0-98.0); Mean Platelet Volume 10.6 fL (9.4-12.4); Monocytes Absolute Auto 0.8 X10*3/uL (0.1-1.2); Monocytes Percent Auto 6.6 % (2-11); Neutrophils Absolute Auto 9.9 x10*3/uL (2.0-8.3); Neutrophils Percent Auto 82.2 % (45-73); Platelet Count 184 X10*3/uL (160-400); Red Blood Count 3.49 X10*6/uL (4.60-5.80); Red Cell Distribution Width 12.3 % (11.0-16.0); White Blood Count 12.1 X10*3/uL (4.8-10.8)
[2021-11-16 06:41] LABS: Venous Blood Gas Refer to POC result
--- NOTE | 2021-11-16 06:41 | PC.NURSE ---
Pt maintained on AC vent settings overnight. Would desat with any reposition. At one point, O2 sats dropped to 65%. Pt was on 100 % FIO2 for a few minutes and then was slowly decreased to 60% which is where it is at this time. Urine output was nil at 1900. Perez was irrigated and small clots with shreds of blood were released and then 900 ml of bloody urine. Lasix drip continues at 10 mg/hr. U/o was 75-300 ml/hr during the night. CVP started the shift at 13 and currently is 9. Pt needed increased sedation with propofol to 50 mcg but fentanyl decreased to 150 mcg. Afebrile. BP stable on Levo at 0.04 mcg.
[2021-11-16 07:03] LABS: Alanine Aminotransferase 61 U/L (0-40); Albumin Level 2.8 g/dL (3.5-5.0); Alkaline Phosphatase 112 U/L (39-117); Anion Gap 14 (12-20); Aspartate Amino Transferase 42 U/L (5-37); Bilirubin Total 0.5 mg/dL (0.0-1.0); Blood Urea Nitrogen 79 mg/dL (9-16); Calcium 7.5 mg/dL (8.4-10.2); Carbon Dioxide 24 mmol/L (22-29); Chloride 101 mmol/L (96-108); Creatinine Clr Calc Pharmacy 32.2; Estimated Glomerular Filt Rate 23; Glucose Random 139 mg/dL (60-115); Potassium 4.2 mmol/L (3.3-5.1); Sodium 135 mmol/L (135-145); Total Protein 5.7 g/dL (6.5-8.0)
[2021-11-16] MEDS: dexAMETHasone 6 MG TABLET PO (07:48)
[2021-11-16] MEDS: Nystatin Oral Susp 500,000 UNIT/5 ML ORAL.SUSP 500000 UNIT PO ×3 (07:48→22:09)
[2021-11-16] MEDS: Brimonidine Tartrate 0.2% Oph 5 ML BOTTLE 1 DROP EYE-BOTH ×2 (07:49→22:09)
[2021-11-16] MEDS: fentaNYL citrate/NS 1,000 MCG/100 ML PLAST..BAG 15 MCG IVCONT (07:49)
[2021-11-16] MEDS: Famotidine 20 MG TABLET PO (07:49)
[2021-11-16] MEDS: Folic Acid 1 MG TABLET PO (07:49)
[2021-11-16] MEDS: Furosemide 200 MG in 0.9 % Sodium Chloride 80 ML IVCONT (09:04)
--- NOTE | 2021-11-16 10:21 | PM.PNNEP ---
Subjective Subjective Date of Service: 11/16/21 Interval history: Events noted; All recent data reviewed; D/W ICU Attending Physical Exam Vital Signs: Vital Signs: Last Vital Signs Temp 100.4 F 11/16/21 10:00 Pulse 97 11/16/21 10:00 Resp 22 H 11/16/21 10:00 BP 190/80 H 11/16/21 10:00 Pulse Ox 96 11/16/21 10:00 Oxygen Flow Rate 10 11/08/21 14:46 BMI result Body Mass Index 40.5 Const: General: no acute distress Neck: Neck: Yes supple Resp: Auscultation: diminished lung sounds Cardio: Rate: regular rate GI: Palpation (GI): Soft to palpation Neuro: Other: Sedated Objective Data Labs CBC & Chem 7: 11/16/21 05:30 11/16/21 05:30 Labs: Laboratory Results - last 24 hr 11/15/21 11/15/21 11/16/21 21:50 21:50 05:30 WBC 12.1 H RBC 3.49 L Hgb 11.1 L Hct 33.4 L MCV 95.7 MCH 31.8 MCHC 33.2 RDW 12.3 Plt Count 184 MPV 10.6 Immature Gran % (Auto) 1.4 H Neut % (Auto) 82.2 H Lymph % (Auto) 9.4 L [place] % (Auto) 6.6 Eos % (Auto) 0.3 Baso % (Auto) 0.1 Lymph # (Auto) 1.1 L [place] # (Auto) 0.8 Eos # (Auto) 0.0 Baso # (Auto) 0.0 Abs Immat Gran (auto) 0.17 H Absolute Neuts (auto) 9.9 H Absolute Nucleated RBC 0.000 Nucleated RBC % (auto) 0.0 VBG pH VBG pCO2 VBG pO2 VBG HCO3 VBG O2 Saturation VBG Base Excess Sodium 133 L Potassium 4.7 Chloride 101 Carbon Dioxide 24 Anion Gap 13 BUN 79 H Creatinine 2.86 H Estim Creat Clear Calc 30.7 Estimated GFR 22 Random Glucose 181 H Calcium 7.5 L Total Bilirubin AST ALT Alkaline Phosphatase B-Natriuretic Peptide 59 Total Protein Albumin 11/16/21 11/16/21 05:30 05:45 WBC RBC Hgb Hct MCV MCH MCHC RDW Plt Count MPV Immature Gran % (Auto) Neut % (Auto) Lymph % (Auto) [place] % (Auto) Eos % (Auto) Baso % (Auto) Lymph # (Auto) [place] # (Auto) Eos # (Auto) Baso # (Auto) Abs Immat Gran (auto) Absolute Neuts (auto) Absolute Nucleated RBC Nucleated RBC % (auto) VBG pH 7.36 VBG pCO2 45 VBG pO2 50 VBG HCO3 26 VBG O2 Saturation 77.0 VBG Base Excess 0.8 Sodium 135 Potassium 4.2 Chloride 101 Carbon Dioxide 24 Anion Gap 14 BUN 79 H Creatinine 2.74 H Estim Creat Clear Calc 32.2 Estimated GFR 23 Random Glucose 139 H Calcium 7.5 L Total Bilirubin 0.5 AST 42 H ALT 61 H Alkaline Phosphatase 112 B-Natriuretic Peptide Total Protein 5.7 L Albumin 2.8 L Microbiology Microbiology Results: Microbiology 11/13/21 Unknown Urine Catheterized - Perez Catheter Urine Culture - Final No growth. 11/07/21 18:50 Blood - Venous Blood Culture - Final No growth after 5 days. 11/07/21 19:45 Blood - Venous Blood Culture - Final No growth after 5 days. Procedures Date of Service Date of Service: 11/16/21 Assessment & Plan Assessment and plan (1) Acute renal failure (ARF): Start date: 11/16/21 Status: Acute Assessment and Plan: 71-year-old male with a past medical history of hypertension , KEY on CPAP presented to the hospital with a chief complaint of shortness of breath and found to have acute hypoxia secondary to COVID 19 pneumonia with EBER Renal functions worse C3/C4- reviewed; Creatinine plateauing On diuretics; No indication for HD today C/W rest of current supportive care Time Spent With Patient Time: Total time spent is greater than 50% in coordination of care (as documented) at patient's floor/unit and/or counseling patient: Progress Note: Quality Stroke Does the patient have a stroke diagnosis?: No
[2021-11-16] MEDS: Midazolam HCl/PF 2 MG/2 ML VIAL 5 MG IVPUSH (11:26)
[2021-11-16] MEDS: Thiamine HCL 100 MG in 0.9 % Sodium Chloride 100 ML 202 MG IV (11:29)
[2021-11-16] MEDS: LORazepam 2 MG/ML VIAL IVPUSH (13:04)
[2021-11-16] MEDS: levETIRAcetam in NaCl (iso-os) 1,000 MG/100 ML PIGGYBACK 400 MG IV (13:08)
[2021-11-16] MEDS: Rocuronium Bromide 50 MG/5 ML VIAL IVPUSH ×3 (13:08→18:14)
[2021-11-16 13:36] LABS: Lactic Acid 1.1 mmol/L (0.5-2.0)
--- NOTE | 2021-11-16 15:05 | P.PNCC_ITS ---
Subjective Subjective Date of Service: 11/16/21 Interval History: a 71-year-old male unvaccinated admitted on the to the [facility] when he went up to the maximum noninvasive support then developed altered mental status was brought down on all his support oxygen saturations down to 76% markedly hyperplastic struggling and he was able to talk but it was an art encephalopathy with in a with a lot of repetition and there was a question of alcohol habit so I am more list treated him is at potential withdrawal started a month I min and course intubated him on propofol even holding his own is FiO2 had come down to 50% despite the extensive COVID-19 pneumonitis/ ARDS but he also had had a significant hematuria progressive acute on on chronic renal failure and became very oliguric on his urinalysis he had very significant red cells and proteinuria so 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 but renal felt there was also an element of ATN and then finally that night after intubation he had a CT scan of his head which showed a subacute left parietal CVA today he did awaken off the sedation but he had no cognitive function just a stair and then there was some rhythmic it looked like rhythmic motion of of both of his eyelids and no other issue 9 and his in 0 his body tone was otherwise okay pupils were small but nonetheless react reactive I still question the possibility that it could be nonconvulsive status epilepticus and I gave him Versed empirically and that his eyes closing looked more relaxed and I had made a decision because of the lack of EEG backup and on the weekend you to start him on Keppra a 1000 mg b.i.d. empirically especially given the recent CVA and 1 point he did develop some respiratory extremis but was all precipitated by some of the clotting off of his endotracheal tube which was then ball valving and many had the huge amount volatile any or swings in his and intrapleural pressure given his in a his degree of respiratory effort chest x-ray did not show any barotrauma just extensive bilateral scattered infiltrates at him as he did awaken and because of his distress I eventually switched him over be the because of this extensive air trapping to a pressure support mechanism and he was trying to draw in the volumes in excess of 1200 cc but I w as very concerned about the degree of transpulmonary pressure variation and gradient so eventually recent dated with propofol and pushes of IV Ativan and then p.r.n. use of rocuronium allowing him is 500 cc tidal volume with minimal excursion of intrapleural pressure and his CVP is now reading 3 and his feedings are turned off because of the rocuronium so I am starting him on IV fluids but he is beginning to diurese Critical Care Time (minutes): 45 Physical Exam Vital Signs: Vital Signs: Last Vital Signs Temp 100.4 F 11/16/21 12:00 Pulse 88 11/16/21 14:00 Resp 26 H 11/16/21 14:00 BP 137/70 11/16/21 14:00 Pulse Ox 90 L 11/16/21 14:00 Oxygen Flow Rate 10 11/08/21 14:46 BMI result Body Mass Index 40.5 so could not really evaluate neurologically his tone seem to be fine in all 4 extremities but he never regained and any level of cognitive function just had eyes that spontaneously open no response to pain or loud noise etc. bedside echo with preserved left ventricular function lungs without use of accessory muscles orde red nor diaphragmatic effort abdomen was soft with no organomegaly Objective Data Labs CBC & Chem 7: 11/16/21 05:30 11/16/21 05:30 Labs: Laboratory Results - last 24 hr 11/15/21 11/15/21 11/16/21 21:50 21:50 05:30 WBC 12.1 H RBC 3.49 L Hgb 11.1 L Hct 33.4 L MCV 95.7 MCH 31.8 MCHC 33.2 RDW 12.3 Plt Count 184 MPV 10.6 Immature Gran % (Auto) 1.4 H Neut % (Auto) 82.2 H Lymph % (Auto) 9.4 L [place] % (Auto) 6.6 Eos % (Auto) 0.3 Baso % (Auto) 0.1 Lymph # (Auto) 1.1 L [place] # (Auto) 0.8 Eos # (Auto) 0.0 Baso # (Auto) 0.0 Abs Immat Gran (auto) 0.17 H Absolute Neuts (auto) 9.9 H Absolute Nucleated RBC 0.000 Nucleated RBC % (auto) 0.0 VBG pH VBG pCO2 VBG pO2 VBG HCO3 VBG O2 Saturation VBG Base Excess Sodium 133 L Potassium 4.7 Chloride 101 Carbon Dioxide 24 Anion Gap 13 BUN 79 H Creatinine 2.86 H Estim Creat Clear Calc 30.7 Estimated GFR 22 Random Glucose 181 H Lactic Acid Calcium 7.5 L Total Bilirubin AST ALT Alkaline Phosphatase B-Natriuretic Peptide 59 Total Protein Albumin 11/16/21 11/16/21 11/16/21 05:30 05:45 13:06 WBC RBC Hgb Hct MCV MCH MCHC RDW Plt Count MPV Immature Gran % (Auto) Neut % (Auto) Lymph % (Auto) [place] % (Auto) Eos % (Auto) Baso % (Auto) Lymph # (Auto) [place] # (Auto) Eos # (Auto) Baso # (Auto) Abs Immat Gran (auto) Absolute Neuts (auto) Absolute Nucleated RBC Nucleated RBC % (auto) VBG pH 7.36 VBG pCO2 45 VBG pO2 50 VBG HCO3 26 VBG O2 Saturation 77.0 VBG Base Excess 0.8 Sodium 135 Potassium 4.2 Chloride 101 Carbon Dioxide 24 Anion Gap 14 BUN 79 H Creatinine 2.74 H Estim Creat Clear Calc 32.2 Estimated GFR 23 Random Glucose 139 H Lactic Acid 1.1 Calcium 7.5 L Total Bilirubin 0.5 AST 42 H ALT 61 H Alkaline Phosphatase 112 B-Natriuretic Peptide Total Protein 5.7 L Albumin 2.8 L Microbiology Microbiology Results: Microbiology 11/13/21 Unknown Urine Catheterized - Perez Catheter Urine Culture - Final No growth. 11/07/21 18:50 Blood - Venous Blood Culture - Final No growth after 5 days. 11/07/21 19:45 Blood - Venous Blood Culture - Final No growth after 5 days. Progress Note: A&P Assessment and plan (1) Acute renal failure (ARF): Status: Acute (2) CVA (cerebrovascular accident): Status: Acute (3) Acute metabolic encephalopathy: Status: Acute (4) Hematuria: Status: Acute (5) Acute respiratory distress syndrome (ARDS) due to COVID-19 virus: Status: Acute (6) Acute hypoxemic respiratory failure due to COVID-19: Status: Acute (7) Rhabdomyolysis: Status: Acute (8) Acute renal failure superimposed on chronic kidney disease: Status: Acute Assessment and Plan: so because of clotting off we had to replace his Perez catheter and say and we irrigated clots the no from the endotracheal tube and eventually respiratory effort did settle down and after the rocuronium he is just getting under low pressure is getting his 6 cc per a ideal weight kilos none and looks much more comfortable on the ventilator FiO2 requirements however climbed to 70% and will observe IV fluids for CVP of 3 before he becomes hypotensive and this is to replace his feedings until such time as he can come off the rocuronium Quality Stroke Does the patient have a stroke diagnosis?: No VTE Prior VTE?: No VTE Risk Level:: Medical - moderate - high VTE Device Contraindication: Treatment Not Indicated VTE Drug Contraindication: N/A - Med Ordered
[2021-11-16] MEDS: KCl 20 mEq in 5% Dex/0.45% Sod 20 MEQ/1,000 ML IV.SOLN 80 MEQ IVCONT (15:06)
--- NOTE | 2021-11-16 15:23 | PC.NURSE ---
0800 upon assessment patient sedated on propofol and fentanyl with vent settings: AC rate 18, tidal volume 500, peep 12 and fio2 of 60%. Patient noted to have eyes open. Pupils pinpoint. Positive cough and gag. Bloody inline secretions with small clots, MD made aware. Flaccid. MD at bedside and agreeable to sedation vacation. Tube feeds placed on hold. 0900 Patient becoming asynchronous with vent. RR increased into the 30s, HR one teens, and SBP 170s. Levophed drip held. MD and RT at bedside adjusting vent settings. Patient's eyes remained open. Pupils slightly more dilated to 3 mm, PERRLA. Unable to track or follow commands but noted by the MD to have an unusual blinking pattern, question concern for possible seizure activity per DM, also making small, limited movements with bilateral hands and feet. Head CT ordered, but because of instability on vent, CT to be postponed until tomorrow. Placed on IV Keppra. Numerous vent settings applied. Patient having difficulty synchronizing with vent. See RT documentation. Around 1200 Patient continuing to have labored respiratory effort. Placed back on above AC settings with Fio2 at 70% by RT per MD. Propofol restarted. Patient still asynchronous vent, IV Ativan and Rocuronium given. Patient synchronous with vent. Vitals mostly returned to baseline. Tube feeds still on hold. Around 1500 patient requiring second dose of Rocuronium for vent synch. Per MD, continue sedation vacation from Fentanyl to better assessment mental status tomorrow.
--- NOTE | 2021-11-16 16:05 | PC.NURSE ---
Addendum entered by Kamini Coe RN 11/16/21 16:32: to order empiric 1gm Meropenem. Original Note: 0800 Upon assessment, patient note to have continued significant hematuria, question worsening, thick red blood draining from 16F schneider catheter in addition to onset of poor urine output. CVP 4. Remains on Lasix drip. MD made aware and at bedside. Bladder scanned for 85 ml. Schneider catheter hand irrigated. Large clots removed with irrigation, however multiple large clots and irrigation fluid/urine also being passed through urethra around Schneider catheter. Schneider catheter balloon deflated for 10 ml (specified amount for Schneider). Schneider removed per MD. Additional clots passed. Urology consult placed. Unable to enter accurate I&Os, MD aware. Around 1400 Urologist, to bedside. 24F Coude placed with 30cc balloon by . MD hand irrigated, several blood clots removed. Catheter patent. Total of 900 ml bloody urine freely flowing by 1500. Schneider bag changed to urineometer for accurate I&Os. made aware. 1530 coude draining yellow urine.
--- NOTE | 2021-11-16 19:31 | PC.NURSE ---
Pt on AC vent settings. O2 sat only 87-89%. Resp therapist in with pt and had to increase Fio2 to 60% from 50% to maintain sat >90. Provider Irving aware.
[2021-11-17] VITALS (31 sets, daily range): BP systolic 90–176; BP diastolic 50–96; PULSE 57–102; RESP 15–35; TEMP 34.9–37.1; O2SAT 85–98; BMI 39.6
--- NOTE | 2021-11-17 | EEG_ITS ---
Background activity consists of a very low voltage 1-2 hertz diffuse delta that is seen throughout the record. No activation procedures were carried out. The patient is on propofol and fentanyl. He is intubated. IMPRESSION: Markedly abnormal EEG due to severe diffuse background slowing and voltage suppression. No epileptiform discharges are seen. MD ENMANUEL Johnson/CHARISMA / [phone]
[2021-11-17] MEDS: levETIRAcetam in NaCl (iso-os) 1,000 MG/100 ML PIGGYBACK 400 MG IV ×3 (00:29→23:56)
[2021-11-17] MEDS: propofoL 1,000 MG/100 ML VIAL 27.22 MG IVCONT ×6 (00:32→17:58)
[2021-11-17] MEDS: KCl 20 mEq in 5% Dex/0.45% Sod 20 MEQ/1,000 ML IV.SOLN 80 MEQ IVCONT ×2 (03:41→17:40)
[2021-11-17] MEDS: 0.9 % Sodium Chloride Flush 3 ML SYRINGE IVFLUSH ×4 (04:02→23:56)
[2021-11-17 05:57] LABS: VBG HCO3 28 mmol/L (22-26); VBG pCO2 41 mmHg; VBG pH 7.44 (7.32-7.43); VBG pO2 42 mmHg
[2021-11-17 05:57] LABS: MANUAL DIFF FLAG NO
[2021-11-17 05:59] LABS: Venous Blood Gas Refer to POC result
[2021-11-17 06:07] LABS: Basophils Percent Auto 0.1 % (0-2); Eosinophils Percent Auto 0.3 % (0-4); Hematocrit 31.1 % (42.0-52.0); Hemoglobin 10.3 g/dl (14.0-18.0); Imm Gran Abs Auto 0.16 X10*3/uL (0.00-0.03); Imm Gran Pct Auto 1.6 % (0.0-0.4); Lymphocytes Absolute Auto 1.1 X10*3/uL (1.2-4.9); Lymphocytes Percent Auto 10.7 % (20-40); Mean Corpuscular HGB Conc 33.1 g/dl (31.0-36.0); Mean Corpuscular Hemoglobin 31.6 pg (27.0-33.0); Mean Corpuscular Volume 95.4 fL (80.0-98.0); Mean Platelet Volume 9.9 fL (9.4-12.4); Monocytes Absolute Auto 0.5 X10*3/uL (0.1-1.2); Monocytes Percent Auto 5.2 % (2-11); Neutrophils Absolute Auto 8.3 x10*3/uL (2.0-8.3); Neutrophils Percent Auto 82.1 % (45-73); Platelet Count 174 X10*3/uL (160-400); Red Blood Count 3.26 X10*6/uL (4.60-5.80); Red Cell Distribution Width 12.3 % (11.0-16.0); White Blood Count 10.1 X10*3/uL (4.8-10.8)
[2021-11-17 06:28] LABS: Alanine Aminotransferase 55 U/L (0-40); Albumin Level 2.7 g/dL (3.5-5.0); Alkaline Phosphatase 118 U/L (39-117); Anion Gap 9 (12-20); Aspartate Amino Transferase 39 U/L (5-37); Bilirubin Total 0.6 mg/dL (0.0-1.0); Blood Urea Nitrogen 71 mg/dL (9-16); Calcium 7.5 mg/dL (8.4-10.2); Carbon Dioxide 28 mmol/L (22-29); Chloride 103 mmol/L (96-108); Creatinine Clr Calc Pharmacy 38.9; Estimated Glomerular Filt Rate 29; Glucose Random 142 mg/dL (60-115); Potassium 4.1 mmol/L (3.3-5.1); Sodium 136 mmol/L (135-145); Total Protein 5.5 g/dL (6.5-8.0)
[2021-11-17] MEDS: Folic Acid 1 MG TABLET PO (07:38)
[2021-11-17] MEDS: Thiamine HCL 100 MG in 0.9 % Sodium Chloride 100 ML 202 MG IV (07:39)
[2021-11-17] MEDS: Nystatin Oral Susp 500,000 UNIT/5 ML ORAL.SUSP 500000 UNIT PO ×4 (07:39→19:58)
[2021-11-17] MEDS: dexAMETHasone 6 MG TABLET PO (07:39)
[2021-11-17] MEDS: Famotidine 20 MG TABLET PO (07:39)
[2021-11-17] MEDS: Brimonidine Tartrate 0.2% Oph 5 ML BOTTLE 1 DROP EYE-BOTH ×2 (10:01→19:57)
[2021-11-17 10:19] LABS: Phosphorus 3.7 mg/dL (2.7-4.5)
--- NOTE | 2021-11-17 10:27 | MHC.CLN ---
F/U PT REMAINS INTUBATED AND SEDATED PT WITH INCREASED PROTEIN NEEDS R/T COVID PT RECEIVING PROMOTE AT MAX GOAL RATE 45ML/HR WITH 240CC FREE WATER Q 6HRS TO PROVIDE 1080KCALS (1799KCALS WITH SEDATION; 25KCALS/KG), 68G PROTEIN (.9G/KG), 1866CC TOTAL WATER FROM FORMULA AND FLUSHES (26ML/KG) MONITOR TOLERANCE, RESIDUALS AND LYTES
[2021-11-17] MEDS: fentaNYL citrate/PF 100 MCG/2 ML VIAL IVPUSH (10:40)
[2021-11-17] MEDS: Aspirin 81 MG TAB.CHEW OG-TUBE (11:58)
--- NOTE | 2021-11-17 12:11 | MHC.CM.PN ---
Pt remains intubated in ICU secondary to respiratory failure r/t COVID. No attempts at vent weaning: MD to closely monitor renal function. CM to follow for finalization of d/c planning
--- NOTE | 2021-11-17 15:05 | PM.CCPN ---
Subjective Subjective Date of Service: 11/17/21 Interval History: Mr. Constantino was transferred to ICU on November 13 because of respiratory distress secondary to COVID pneumonia. The patient is a 71-year-old man with past medical history of obesity, HTN, KEY on CPAP.? The patient does not use oxygen at home, and previous labs show no evidence of CO2 retention. HISTORY OF PRESENT ILLNESS:? The patient is unvaccinated against COVID-19. ?The patient started having COVID symptoms on about Oct 26.? On November 03, the patient had a chest x-ray ordered by his PMD, the reason being ?COVID positive?. ?(The day he turned COVID positive is unstated.) ?That chest x-ray shows mild diffuse increase in markings, along with central vascular prominence. On Nov 07, the patient called EMS bec of two days of progressive SOB.? EMS found SpO2 60% at the scene.? The patient was placed on CPAP and BIBA to the ED.? In the ED the patient was afebrile.? Respiratory rate was 30.? He was placed on HFNC, with sat 93%. ?WBC was normal.? Sodium was 122. BUN/creatinine were 17/1.1.? CPK was 3400.? D-dimer was 595.? Venous blood gas showed 7.38/37/-1 (?? On BiPAP).? Urine was brown with the urinalysis showing 3+ blood. ?Chest x-ray showed new moderate bilateral COVID disease in the lower half of both lungs. The patient was diagnosed with COVID pneumonia and rhabdomyolysis, was given ceftriaxone, Zithromax, and Decadron, and was admitted to Medicine.? Pulmonary started him on baricitinib.? Antibiotics were stopped. Over the next days, his oxygenation deteriorated.? The patient's mental status became altered on November 12.? Chest x-ray showed worsening disease.? ABG showed no hypercarbia. The patient was transferred to ICU on November 13 because of respiratory distress.? He was clearly encephalopathic.? Bedside echo showed mild concentric LVH w normal biventricular systolic function with no primary valve disease, and small inferior vena caval diameter.? The patient was intubated.? Baricitinib and Decadron were continued.? A central line was placed.? 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 He was started on ASA.? FiO2 was able to be reduced to as low as 50%. The patient?s renal indices valdez and peaked on Nov 15 with creat of 3.0.? Yesterday (Nov 16), his FiO2 was down to 40%.? He was given a sedation vacation .? He did wake up, eyes open, but showed no cognitive fxn.? He looked like he had some rhythmic motion of both of his eyelids, so the patient was given Versed which resolved that, and therefore the patient was started on Keppra.? An EEG was ordered for today.? His respiratory status got worse after the sedation holiday, with ventilator dyssynchrony that required prn rocuronium and an increase in the FiO2 to 60%.? Prolactin level yesterday was 29. Early this morning (Nov 17), FiO2 had to be increased to 80% and then 100%.? This afternoon, the patient is sedated on propofol at 50ug, and fentanyl at 50ug.? HR is 93, BP 148/72.? He?s been afebrile pretty much his entire hospital course.? On AC 18/500/100%/+8, RR is 24, Ve 11.5L, PIP 22cm, ETCO2 32mm, Sat 91%, with moderately increased WOB.? CVBG this morning showed 7.44/41/+4. ?He?s had bloody tracheal secretions.? No JVD at 20?.? Chest is CTA w normal exp phase.? Soft heart tones, I heard no murmur or gallops.? Abdomen is benign.? He has no peripheral edema. LABORATORY DATA:? Below.? Notably, BUN creatinine down to 71/2.2. Last chest x-ray done yesterday showed bilateral disease, similar to the film done November 13. Repeat Head CT today shows mult infarcts described above little changed, possibly slightly worse.? There is slight mass effect on the posterior horn of the left lateral ventricle from the large left parieto-occipital infarct.? There is no hemorrhagic conversion. MICROBIOLOGY:? Urine culture from November 13 was negative. IMPRESSION: 1. Underlying obesity, HTN, KEY. 2. Bilat pulmonary infiltrates secondary to COVID pneumonia.? I will discontinue Decadron and start the patient on the [facility] protocol.? Add ivermectin 36 mg daily x 5 days, along with Solu-Medrol 80mg bid, Vit C, Vit D, Atorvastatin, ASA 325mg, thiamine, melatonin.? Holding further anticoagulation bec of bloody tracheal secretions. 3. Hypoxemic resp failure w ARDS.? 2? to above.? Currently needs more opiate to control his WOB.? Currently compliance is not bad. 4. EBER.? Appears to have had rhabdomyolysis.? Hoping that his renal indices are cresting. 5. ID.? Needs a sputum gram stain. 6. Neuro:? Brain CT findings are likely secondary to COVID.? Need to review today's CT with Radiology to see if there is any real change.? We will also review with neurology.? EEG is pending to rule out seizures.? Continuing on Keppra for now. 7. Nutrition:? Jevity at goal rate, 45c/hr Prognosis looking guarded at this time. Critical care time (including full chart review and hospital course summary):? 2+ hrs. Critical Care Time (minutes): 120 Physical Exam Vital Signs: Vital Signs: Last Vital Signs Temp 98.8 F 11/17/21 08:00 Pulse 93 11/17/21 15:00 Resp 26 H 11/17/21 15:00 BP 134/68 11/17/21 15:00 Pulse Ox 92 11/17/21 15:00 Oxygen Flow Rate 10 11/08/21 14:46 BMI result Body Mass Index 39.6 Objective Data Labs CBC & Chem 7: 11/17/21 05:38 11/17/21 05:38 Labs: Laboratory Results - last 24 hr 11/17/21 11/17/21 11/17/21 05:38 05:38 05:51 WBC 10.1 RBC 3.26 L Hgb 10.3 L Hct 31.1 L MCV 95.4 MCH 31.6 MCHC 33.1 RDW 12.3 Plt Count 174 MPV 9.9 Immature Gran % (Auto) 1.6 H Neut % (Auto) 82.1 H Lymph % (Auto) 10.7 L [place] % (Auto) 5.2 Eos % (Auto) 0.3 Baso % (Auto) 0.1 Lymph # (Auto) 1.1 L [place] # (Auto) 0.5 Eos # (Auto) 0.0 Baso # (Auto) 0.0 Abs Immat Gran (auto) 0.16 H Absolute Neuts (auto) 8.3 Absolute Nucleated RBC 0.000 Nucleated RBC % (auto) 0.0 VBG pH 7.44 H VBG pCO2 41 VBG pO2 42 VBG HCO3 28 H VBG O2 Saturation 68.0 VBG Base Excess 4.0 Sodium 136 Potassium 4.1 Chloride 103 Carbon Dioxide 28 Anion Gap 9 L BUN 71 H Creatinine 2.24 H Estim Creat Clear Calc 38.9 Estimated GFR 29 Random Glucose 142 H Calcium 7.5 L Phosphorus 3.7 Total Bilirubin 0.6 AST 39 H ALT 55 H Alkaline Phosphatase 118 H Total Protein 5.5 L Albumin 2.7 L Microbiology Microbiology Results: Microbiology 11/13/21 Unknown Urine Catheterized - Perez Catheter Urine Culture - Final No growth. 11/07/21 18:50 Blood - Venous Blood Culture - Final No growth after 5 days. 11/07/21 19:45 Blood - Venous Blood Culture - Final No growth after 5 days. Quality Stroke Does the patient have a stroke diagnosis?: No VTE Prior VTE?: No VTE Risk Level:: Medical - moderate - high VTE Device Contraindication: Treatment Not Indicated VTE Drug Contraindication: N/A - Med Ordered Critical Care Time Critical Care Time (minutes): 120
--- NOTE | 2021-11-17 18:13 | PC.NURSE ---
Patient stable today, Levophed turned off. Transported to CT scan to follow up on CVA progress. Fentanyl restarted to assist with sedation as patient almost double breathing over vent settings. EEG done today. Tube feeds continue as ordered. Water boluses as well 240mL q6hrs. Perez now draining clear yellow urine, no clots, no streaks, no calista blood. Only blood secretions noted inline with ETT suctioning, tapering off this afternoon. Scheduled meds as ordered. Position change per protocol for pressure relief. Daughter and family update via telephone.
--- NOTE | 2021-11-17 18:45 | PM.PNNEP ---
Subjective Subjective Date of Service: 11/17/21 Principal diagnosis: COVID, EBER Interval history: Chart rviewed and case d/w ICU team Scr grad decreasing Physical Exam Vital Signs: Vital Signs: Last Vital Signs Temp 98.8 F 11/17/21 08:00 Pulse 63 11/17/21 18:00 Resp 18 11/17/21 18:00 BP 90/50 L 11/17/21 18:00 Pulse Ox 98 11/17/21 18:00 Oxygen Flow Rate 10 11/08/21 14:46 BMI result Body Mass Index 39.6 Const: Other: Confused General: cooperative, no acute distress, alert and awake Nutritional Appearance: obese Eyes: Sclerae: sclerae normal Pupils: Equal, round and reactive pupils present EOM: EOMs intact bilaterally Neck: Neck: Yes no lymphadenopathy, Yes trachea midline and Yes supple Resp: Effort & Inspection: normal respiratory effort and no respiratory distress Auscultation: crackles (Diffuse bilateral) and diminished lung sounds Cardio: Rate: regular rate Rhythm: regular rhythm Heart sounds: no gallops, no murmurs and no rubs GI: Palpation (GI): Soft to palpation, nontender and Other GI palpation findings present ( Nontender) Auscultation: normal bowel sounds Skin: General skin exam: no rashes or lesions noted Neuro: Other: Sedated General: moves all extremities Cranial nerves: Yes Equal, round and reactive pupils present Extrem: General: Yes no pedal edema, No clubbing and No cyanosis Objective Data Labs CBC & Chem 7: 11/17/21 05:38 11/17/21 05:38 Labs: Laboratory Results - last 24 hr 11/17/21 11/17/21 11/17/21 05:38 05:38 05:51 WBC 10.1 RBC 3.26 L Hgb 10.3 L Hct 31.1 L MCV 95.4 MCH 31.6 MCHC 33.1 RDW 12.3 Plt Count 174 MPV 9.9 Immature Gran % (Auto) 1.6 H Neut % (Auto) 82.1 H Lymph % (Auto) 10.7 L [place] % (Auto) 5.2 Eos % (Auto) 0.3 Baso % (Auto) 0.1 Lymph # (Auto) 1.1 L [place] # (Auto) 0.5 Eos # (Auto) 0.0 Baso # (Auto) 0.0 Abs Immat Gran (auto) 0.16 H Absolute Neuts (auto) 8.3 Absolute Nucleated RBC 0.000 Nucleated RBC % (auto) 0.0 VBG pH 7.44 H VBG pCO2 41 VBG pO2 42 VBG HCO3 28 H VBG O2 Saturation 68.0 VBG Base Excess 4.0 Sodium 136 Potassium 4.1 Chloride 103 Carbon Dioxide 28 Anion Gap 9 L BUN 71 H Creatinine 2.24 H Estim Creat Clear Calc 38.9 Estimated GFR 29 Random Glucose 142 H Calcium 7.5 L Phosphorus 3.7 Total Bilirubin 0.6 AST 39 H ALT 55 H Alkaline Phosphatase 118 H Total Protein 5.5 L Albumin 2.7 L Microbiology Microbiology Results: Microbiology 11/13/21 Unknown Urine Catheterized - Perez Catheter Urine Culture - Final No growth. 11/07/21 18:50 Blood - Venous Blood Culture - Final No growth after 5 days. 11/07/21 19:45 Blood - Venous Blood Culture - Final No growth after 5 days. Procedures Date of Service Date of Service: 11/17/21 Assessment & Plan Assessment and plan (1) Acute renal failure (ARF): Start date: 11/17/21 Start time: 18:48 Status: Acute Assessment and Plan: 1. EBER: multifact ATN with Scr grad decr; other possibilities seem less likely; decr C4 does raise ques of GN 2. Incr CPK REC:cnt to track UOP/darrian;func; avid NToxins Time Spent With Patient Time: Total time spent is greater than 50% in coordination of care (as documented) at patient's floor/unit and/or counseling patient: Progress Note: Quality Stroke Does the patient have a stroke diagnosis?: No
[2021-11-17 21:36] LABS: Prolactin 29.3 ng/mL (2.0-18.0)
[2021-11-17] MEDS: propofoL 1,000 MG/100 ML VIAL 21.77 MG IVCONT (22:03)
[2021-11-18] VITALS (34 sets, daily range): BP systolic 88–187; BP diastolic 45–86; PULSE 54–89; RESP 16–27; TEMP 30.6–37.7; O2SAT 88–96; BMI 39.6
[2021-11-18] MEDS: propofoL 1,000 MG/100 ML VIAL 21.77 MG IVCONT ×3 (01:46→09:28)
[2021-11-18] MEDS: fentaNYL citrate/NS 1,000 MCG/100 ML PLAST..BAG 5 MCG IVCONT (05:36)
[2021-11-18 05:49] LABS: VBG Base Excess 3.3 mmol/L; VBG HCO3 29 mmol/L (22-26); VBG pCO2 48 mmHg; VBG pH 7.38 (7.32-7.43); VBG pO2 51 mmHg
[2021-11-18 05:50] LABS: Venous Blood Gas Refer to POC result
[2021-11-18 05:51] LABS: Hematocrit 33.4 % (42.0-52.0); Mean Corpuscular HGB Conc 32.9 g/dl (31.0-36.0); Mean Corpuscular Hemoglobin 32.1 pg (27.0-33.0); Mean Corpuscular Volume 97.4 fL (80.0-98.0); Mean Platelet Volume 9.9 fL (9.4-12.4); Platelet Count 218 X10*3/uL (160-400); Red Blood Count 3.43 X10*6/uL (4.60-5.80); Red Cell Distribution Width 12.6 % (11.0-16.0); White Blood Count 14.1 X10*3/uL (4.8-10.8)
[2021-11-18 06:08] LABS: Anion Gap 11 (12-20); Blood Urea Nitrogen 64 mg/dL (9-16); Calcium 8.2 mg/dL (8.4-10.2); Carbon Dioxide 29 mmol/L (22-29); Chloride 104 mmol/L (96-108); Creatinine Clr Calc Pharmacy 49.9; Estimated Glomerular Filt Rate 39; Glucose Random 124 mg/dL (60-115); Potassium 5.7 mmol/L (3.3-5.1); Sodium 138 mmol/L (135-145)
[2021-11-18] MEDS: Ascorbic Acid 500 MG TABLET 1000 MG G-TUBE ×2 (07:42→19:59)
[2021-11-18] MEDS: Famotidine 20 MG TABLET PO (07:42)
[2021-11-18] MEDS: Folic Acid 1 MG TABLET PO (07:42)
[2021-11-18] MEDS: Cholecalciferol (Vitamin D3) 25 MCG TABLET 50 MCG G-TUBE (07:43)
[2021-11-18] MEDS: Chlorhexidine Gluc Oral Rinse 15 ML MOUTHWASH BUCCAL ×3 (07:43→19:59)
[2021-11-18] MEDS: Atorvastatin Calcium 40 MG TABLET PO (07:43)
[2021-11-18] MEDS: 0.9 % Sodium Chloride Flush 3 ML SYRINGE IVFLUSH ×2 (07:43→14:29)
[2021-11-18] MEDS: Nystatin Oral Susp 500,000 UNIT/5 ML ORAL.SUSP 500000 UNIT PO ×4 (07:43→19:59)
[2021-11-18] MEDS: Calcium Gluconate/NaCl,Iso-Osm 2 GM/100 ML PLAST..BAG IV (07:45)
[2021-11-18] MEDS: methylPREDNISolone Sod Succ 125 MG/2 ML VIAL 80 MG IVPUSH ×2 (07:45→19:59)
[2021-11-18] MEDS: Insulin Regular, Human 100 UNIT/ML 3 ML VIAL IVPUSH (07:46)
[2021-11-18] MEDS: Brimonidine Tartrate 0.2% Oph 5 ML BOTTLE 1 DROP EYE-BOTH ×2 (07:51→19:59)
[2021-11-18] MEDS: Aspirin 325 MG TABLET PO (07:59)
[2021-11-18] MEDS: fentaNYL citrate/PF 100 MCG/2 ML VIAL IVPUSH (09:08)
[2021-11-18] MEDS: Thiamine HCL 200 MG in 0.9 % Sodium Chloride 100 ML 202 MG IV ×2 (09:24→19:59)
--- NOTE | 2021-11-18 10:37 | P.PNCC_ITS ---
Subjective Subjective Date of Service: 11/18/21 Interval History: Mr. Constantino was transferred to ICU on November 13 because of respiratory distress secondary to COVID pneumonia. The patient is a 71-year-old man with past medical history of obesity, HTN, KEY on CPAP.? The patient does not use oxygen at home, and previous labs show no evidence of CO2 retention.? He refused to get the COVIC vaccinations.? He lives alone.? His sister Tena (cell [phone]) is his HCP. HISTORY OF PRESENT ILLNESS:? The patient started having COVID symptoms on about Oct 26.? On November 03, the patient had a chest x-ray ordered by his PMD, the reason being ?COVID positive?.? (The day he turned COVID positive is unstated.)? That chest x-ray shows subtle mild diffuse increase in markings, along with central vascular prominence. On Nov 07, the patient called EMS bec of two days of progressive SOB.? SpO2 was 60% at the scene.? The patient was BIBA to the ED.? In the ED the patient was afebrile.? Respiratory rate was 30.? He was placed on HFNC, with sat 93%.? WBC was normal.? Sodium was 122. BUN/creatinine were 17/1.1.? CPK was 3400.? D- dimer was 595.? Venous blood gas showed 7.38/37/-1 (?? On BiPAP).? Urine was brown with the urinalysis showing 3+ blood.? Chest x-ray showed new moderate bilateral COVID disease in the lower half of both lungs. The patient was diagnosed with COVID pneumonia and rhabdomyolysis, was given ceftriaxone, Zithromax, and Decadron, and was admitted to Medicine.? Baricitinib was added at Dr. Birch?s suggestion.? Antibiotics were stopped at Dr. Caldwell?s suggestion. Over the next days, his oxygenation deteriorated.? The patient's mental status became altered on November 12.? Chest x-ray showed worsening infiltrates.? ABG showed no hypercarbia. The patient was transferred to ICU on November 13 because of respiratory distress.? He was clearly encephalopathic.? Bedside echo showed mild concentric LVH w normal biventricular systolic function with no primary valve disease, and small inferior vena caval diameter.? The patient was intubated.? Baricitinib and Decadron were continued.? A central line was placed.? 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 He was started on ASA.? FiO2 was able to be reduced to as low as 50%. The patient?s renal indices valdez and peaked on Nov 15 with creat of 3.0.? On Nov 16, his FiO2 was down to 40%.? He was given a sedation vacation .? He did wake up, eyes open, but showed no cognitive fxn.? He looked like he had some rhythmic motion of both of his eyelids, so the patient was given Versed which resolved that, and therefore the patient was started on Keppra.? An EEG was ordered.? His respiratory status got worse after the sedation holiday, with ventilator dyssynchrony that required prn rocuronium and an increase in the FiO2 to 60%.? Prolactin level was 29. On Nov 17, FiO2 had to be increased to 80% and then 100%.? WOB was increased, with CVBG showing 7.44/41/+4.? He was started on Fentanyl.? He had bloody tracheal secretions.? Repeat head CT showed mult infarcts described above were little changed, possibly slightly worse.? There is slight mass effect on the posterior horn of the left lateral ventricle from the large left parieto- occipital infarct.? There was no hemorrhagic conversion. The patient had an EEG yesterday.? Dr Coulter wrote a note today saying that ?His EEG shows severe diffuse delta slowing at very low voltage. 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 Prognosis is poor. No further neuro w/u at this time. ?If he survives the covid, he will need echo and carotid Doppler.? This morning the patient still has increased WOB.? Adequately sedated on propofol 50 ug, with fentanyl 50ug.? There was no response to a bolus of fentanyl and increasing the fent drip to 100ug.? CVBG this morning showed 7.38/48/+3.? On , RR was 23, with an underlying spontaneous RR of 15 that marched through all the ventilatory modes that we tried.? He failed PSV bec RR slowed to about 15, with deep tidal vols that caused increased insp effort and abdominal paradox.? We wound up overdriving him with VC+ 22/500/85%/+8, which produced a RR of 22, Ve 11L, PIP 25cm, ETCO 26, Sat 95%.? Eventually, his spont respiratory efforts faded after 30-60 min and he wound up good ventilator synchrony.? HR is 64, BP 100/48/65.? Tmax 100.0?.? He continues to has mild bloody tracheal secretions.? No JVD at 20?.? Abdomen is benign.? He has trace central edema. LABORATORY DATA:? Below.? Notably, WBC bumped to 14, BUN creatinine down to 64/1.7 (from 71/2.2 yesterday).? Phos unchanged at 3.8.? But K is up to 5.7 (from 4.1).? Repeat plasma potassium at 11am was 6.2.? Lactic acid [place] 1.1.? [place] [address].? Ferritin 3181.? CRP 14.7.? PCT 0.2 LE Venous duplex scan showed Bilat posterior tibial vein calf DVT. IMPRESSION: 1. Underlying obesity, HTN, KEY. 2. COVID pneumonia.? Yesterday we discontinued Decadron and start the patient on the [facility] protocol.? Added ivermectin 36 mg daily x 5 days, along with Solu- Medrol 80mg bid, Vit C, Vit D, Atorvastatin, ASA 325mg, thiamine, melatonin.? Cantu d been holding further anticoagulation bec of bloody tracheal secretions.? Baricitinib is being continued altho it?s value is dubious. 3. Bilat pulmonary infiltrates w ARDS.? 2? to above. 4. Hypoxemic resp failure.? 2? to above.? Ventilatory pattern much smoother once we knocked out his spont resp efforts.? Currently compliance is not bad. 5. EBER.? Appears to have had rhabdomyolysis.? His renal indices appear to have crested. 6. Hyperkalemia.? Impossible to understand why he?s hyperkalemic -- in the face of improving renal indices and stable phos and bicarb levels.? Started him on Lokelma, Ca, glucose & insulin, albuterol neb, and Florinef. 7. Bilat DVT in the presence of severe hypoxemia.? Moreover, it?s possible, maybe even likely, that PE may have caused the deterioration in oxygenation over last two days.? Anticoagulation is indicated -- on multiple counts (including COVID and his strokes -- but is hazardous given his bloody tracheal secretions.? An alternative would be an IVC filter.? I discussed this at length with Dr. Campoverde.? The problem is that the patient is a proven clot/thrombus former, and an IVC filter would not prevent PE from the upper extrems. ??? After much deliberation, we decided on careful low level anticoagulation, and seeing how the patient responds.? Will use IV heparin.? If there?s a problem, it has a short half life and can be reversed.? If oxygenation worsens, we can put in the filter tomorrow. 8. Neuro:? It?s a virtual certainty that the brain CT findings are secondary to COVID.? Dr. Coulter has commented on the head CT and EEG.? Can probably d/c the Keppra.? Will d/w him tomorrow. 9. ID:? Sputum Gram stain today was unimpressive.? Blood cultures also drawn.? He?s not septic.? No antibiotics indicated at this time. 10, Nutrition:? Jevity at goal rate, 45c/hr Prognosis looking very guarded at this time. Spoke with two of his daughters at great length today, in two telephone conversations.? I first discussed with them the graveness of Damian?s situation, especially in view of the strokes, and that even if he got thru the COVID, he might never wake up again.? Then we talked about his clotting and the problem with anticoagulation.? At first we?d decided to place an IVC filter, and I o btained Tena?s permission for that.? But after discussion with IR, we changed strategies and I called back and we talked at further great length about the two choices and how neither was ?correct?, but rather it was a judgment call, balancing all the risks vs the benefits.? I left it with them that we will call if anything untoward happens, and I will f/u with them tomorrow. Critical care time (including mult d/w Dr. Oro and IR staff and operating room staff, Dr. Birch, and Dr. Lawson): 3+ hrs. Critical Care Time (minutes): 180 Physical Exam Vital Signs: Vital Signs: Last Vital Signs Temp 98.4 F 11/18/21 08:41 Pulse 65 11/18/21 10:00 Resp 19 11/18/21 10:00 BP 88/45 L 11/18/21 10:00 Pulse Ox 93 11/18/21 10:00 Oxygen Flow Rate 10 11/08/21 14:46 BMI result Body Mass Index 39.6 Objective Data Labs CBC & Chem 7: 11/18/21 05:35 11/18/21 16:01 Labs: Laboratory Results - last 24 hr 11/16/21 11/18/21 11/18/21 12:56 05:35 05:35 WBC 14.1 H RBC 3.43 L Hgb 11.0 L Hct 33.4 L MCV 97.4 MCH 32.1 MCHC 32.9 RDW 12.6 Plt Count 218 D MPV 9.9 Absolute Nucleated RBC 0.000 Nucleated RBC % (auto) 0.0 VBG pH VBG pCO2 VBG pO2 VBG HCO3 VBG O2 Saturation VBG Base Excess Sodium 138 Potassium 5.7 H D Chloride 104 Carbon Dioxide 29 Anion Gap 11 L BUN 64 H Creatinine 1.75 H Estim Creat Clear Calc 49.9 Estimated GFR 39 Random Glucose 124 H Calcium 8.2 L D Prolactin 29.3 H 11/18/21 05:43 WBC RBC Hgb Hct MCV MCH MCHC RDW Plt Count MPV Absolute Nucleated RBC Nucleated RBC % (auto) VBG pH 7.38 VBG pCO2 48 VBG pO2 51 VBG HCO3 29 H VBG O2 Saturation 78.0 VBG Base Excess 3.3 Sodium Potassium Chloride Carbon Dioxide Anion Gap BUN Creatinine Estim Creat Clear Calc Estimated GFR Random Glucose Calcium Prolactin Microbiology Microbiology Results: Microbiology 11/13/21 Unknown Urine Catheterized - Perez Catheter Urine Culture - Final No growth. 11/07/21 18:50 Blood - Venous Blood Culture - Final No growth after 5 days. 11/07/21 19:45 Blood - Venous Blood Culture - Final No growth after 5 days. Quality Stroke Does the patient have a stroke diagnosis?: No VTE Prior VTE?: No VTE Risk Level:: Medical - moderate - high VTE Device Contraindication: Treatment Not Indicated VTE Drug Contraindication: N/A - Med Ordered Critical Care Time Critical Care Time (minutes): 180
[2021-11-18] MEDS: Albumin Human 25 % 100 ML IV (10:44)
--- NOTE | 2021-11-18 10:45 | PM.PNNEP ---
Subjective Subjective Date of Service: 11/18/21 Principal diagnosis: COVID, EBER Interval history: Seen and examined, events noted Physical Exam Vital Signs: Vital Signs: Last Vital Signs Temp 98.4 F 11/18/21 08:41 Pulse 65 11/18/21 10:00 Resp 19 11/18/21 10:00 BP 88/45 L 11/18/21 10:00 Pulse Ox 93 11/18/21 10:00 Oxygen Flow Rate 10 11/08/21 14:46 BMI result Body Mass Index 39.6 Const: Other: Confused General: cooperative, no acute distress, alert and awake Nutritional Appearance: obese Eyes: Sclerae: sclerae normal Pupils: Equal, round and reactive pupils present EOM: EOMs intact bilaterally Neck: Neck: Yes no lymphadenopathy, Yes trachea midline and Yes supple Resp: Effort & Inspection: normal respiratory effort and no respiratory distress Auscultation: crackles (Diffuse bilateral) and diminished lung sounds Cardio: Rate: regular rate Rhythm: regular rhythm Heart sounds: no gallops, no murmurs and no rubs GI: Palpation (GI): Soft to palpation, nontender and Other GI palpation findings present ( Nontender) Auscultation: normal bowel sounds Skin: General skin exam: no rashes or lesions noted Neuro: Other: Sedated General: moves all extremities Cranial nerves: Yes Equal, round and reactive pupils present Extrem: General: Yes no pedal edema, No clubbing and No cyanosis Objective Data Labs CBC & Chem 7: 11/18/21 05:35 11/18/21 05:35 Labs: Laboratory Results - last 24 hr 11/16/21 11/18/21 11/18/21 12:56 05:35 05:35 WBC 14.1 H RBC 3.43 L Hgb 11.0 L Hct 33.4 L MCV 97.4 MCH 32.1 MCHC 32.9 RDW 12.6 Plt Count 218 D MPV 9.9 Absolute Nucleated RBC 0.000 Nucleated RBC % (auto) 0.0 VBG pH VBG pCO2 VBG pO2 VBG HCO3 VBG O2 Saturation VBG Base Excess Sodium 138 Potassium 5.7 H D Chloride 104 Carbon Dioxide 29 Anion Gap 11 L BUN 64 H Creatinine 1.75 H Estim Creat Clear Calc 49.9 Estimated GFR 39 Random Glucose 124 H Calcium 8.2 L D Prolactin 29.3 H 11/18/21 05:43 WBC RBC Hgb Hct MCV MCH MCHC RDW Plt Count MPV Absolute Nucleated RBC Nucleated RBC % (auto) VBG pH 7.38 VBG pCO2 48 VBG pO2 51 VBG HCO3 29 H VBG O2 Saturation 78.0 VBG Base Excess 3.3 Sodium Potassium Chloride Carbon Dioxide Anion Gap BUN Creatinine Estim Creat Clear Calc Estimated GFR Random Glucose Calcium Prolactin Microbiology Microbiology Results: Microbiology 11/13/21 Unknown Urine Catheterized - Perez Catheter Urine Culture - Final No growth. 11/07/21 18:50 Blood - Venous Blood Culture - Final No growth after 5 days. 11/07/21 19:45 Blood - Venous Blood Culture - Final No growth after 5 days. Procedures Date of Service Date of Service: 11/18/21 Assessment & Plan Assessment and plan (1) Acute renal failure (ARF): Status: Acute Assessment and Plan: 1. EBER: multifact ATN with Scr grad decr; other possibilities seem less likely; decr C4 does raise ques of GN 2. Incr K this am despite decr SCr: ques lab error vs heparin effect on tubnular K excetion ( anti-valeria effect) REC: lokelma to control K; check urine K/osm; cont to track UOP/darrian;func; avid NToxins Time Spent With Patient Time: Total time spent is greater than 50% in coordination of care (as documented) at patient's floor/unit and/or counseling patient: Progress Note: Quality Stroke Does the patient have a stroke diagnosis?: No
[2021-11-18 11:33] LABS: D Dimer High Sensitivity 42660 NG/ML
[2021-11-18 11:34] LABS: Lactic Acid 1.1 mmol/L (0.5-2.0)
[2021-11-18 11:53] LABS: Magnesium 2.5 mg/dL (1.6-2.6); Phosphorus 3.8 mg/dL (2.7-4.5); Potassium 6.2 mmol/L (3.3-5.1)
[2021-11-18 11:57] LABS: Procalcitonin 0.28 ng/mL
[2021-11-18] MEDS: levETIRAcetam in NaCl (iso-os) 1,000 MG/100 ML PIGGYBACK 400 MG IV (11:59)
[2021-11-18] MEDS: Sodium Zirconium Cyclosilicate 10 GM POWD.PACK PO ×4 (11:59→19:59)
[2021-11-18 12:38] LABS: Ferritin 3181 ng/mL (20-250)
[2021-11-18] MEDS: Albuterol Sulfate (0.083%) 2.5 MG/3 ML VIAL.NEB 10 MG INHALE (12:59)
[2021-11-18 14:14] LABS: Glucose, Whole Blood 227 mg/dL (60-115)
[2021-11-18] MEDS: Fludrocortisone Acetate 0.1 MG TABLET PO ×2 (14:15→20:00)
[2021-11-18] MEDS: Insulin Regular, Human 100 UNIT/ML 3 ML VIAL 10 UNIT IVPUSH (14:16)
[2021-11-18] MEDS: propofoL 1,000 MG/100 ML VIAL 16.33 MG IVCONT ×2 (14:28→18:33)
--- NOTE | 2021-11-18 15:12 | HO.ANESPROP2 ---
HPI - Anesthesia Eval Consult details Narrative: 71 M , COVID Pneumomia , intracranial infarcts , EBER with hyperkalemia , and acute bilateral LE DVT . [facility] Active Problems Active Problems: All Active Problems (Updated 11/14/21 @ 10:11 by Sofya Vuong MD) Acute renal failure (ARF) (Acute) CVA (cerebrovascular accident) (Acute) Acute metabolic encephalopathy (Acute) Hematuria (Acute) Acute respiratory distress syndrome (ARDS) due to COVID-19 virus (Acute) Acute hypoxemic respiratory failure due to COVID-19 (Acute) Rhabdomyolysis (Acute) Acute renal failure superimposed on chronic kidney disease (Acute) Family History Family history of problems with anesthesia: Unobtainable Surgical History History of Problems with Anesthesia: Unobtainable Social History Social History Household Members: None Housing: House Do you presently have visiting nurse or other home services: No Alcohol intake: current Alcohol intake frequency: a few times a week Alcohol type: beer, wine and hard liquor Patient Tobacco Use Status: Former Tobacco user e-Cigarette/Vaping Use: Never Used service: No Current occupational status: retired [employer] Allergies Allergy/AdvReac Type Severity Reaction Status Date / Time No Known Allergies Allergy Verified 11/09/21 01:04 [No Known Allergies*] Active Medications: Current Medications Albuterol/Ipratropium (Albuterol/Iprat 2.5/0.5mg 3 Ml Ampul.Neb) 3 ml INHALE RQ4H PRN PRN Reason: Ventilator synchrony Ascorbic Acid (Ascorbic Acid 500 Mg Tablet) 1,000 mg G-TUBE BID [facility] [place] Last Admin: 11/18/21 07:42 Dose: 1,000 mg Documented by: Aspirin (Aspirin 325 Mg Tablet) 325 mg PO DAILY [facility] [place] Last Admin: 11/18/21 07:59 Dose: 325 mg Documented by: Atorvastatin Calcium (Atorvastatin Calcium 40 Mg Tablet) 40 mg PO DAILY [facility] [place] Last Admin: 11/18/21 07:43 Dose: 40 mg Documented by: Baricitinib (Baricitinib 2 Mg Tablet) 2 mg PO DAILY [facility] [place] Stop: 11/22/21 09:01 Last Admin: 11/18/21 07:42 Dose: 2 mg Documented by: Brimonidine Tartrate (Brimonidine Tartrate 0.2% Oph 5 Ml Bottle) 1 drop EYE-BOTH BID [facility] [place] Last Admin: 11/18/21 07:51 Dose: 1 drop Documented by: Chlorhexidine Gluconate (Chlorhexidine Gluc Oral Rinse 15 Ml Mouthwash) 15 ml BUCCAL TID [facility] [place] Last Admin: 11/18/21 14:15 Dose: 15 ml Documented by: Famotidine (Famotidine 20 Mg Tablet) 20 mg PO DAILY [facility] [place] Last Admin: 11/18/21 07:42 Dose: 20 mg Documented by: Fentanyl (Fentanyl Citrate/Pf 100 Mcg/2 Ml Vial) 100 mcg IVPUSH Q5M PRN; Protocol PRN Reason: WOB Last Admin: 11/18/21 09:08 Dose: 100 mcg Documented by: Fludrocortisone Acetate (Fludrocortisone Acetate 0.1 Mg Tablet) 0.1 mg PO BID [facility] [place] Last Admin: 11/18/21 14:15 Dose: 0.1 mg Documented by: Folic Acid (Folic Acid 1 Mg Tablet) 1 mg PO DAILY [facility] [place] Last Admin: 11/18/21 07:42 Dose: 1 mg Documented by: Propofol (Diprivan) 1,000 mg in 100 mls @ 0 mls/hr IVCONT .Q0M [facility] [place]; Protocol Last Admin: 11/18/21 14:28 Dose: 30 mcg/kg/min, 16.33 mls/hr Documented by: Levetiracetam (Keppra) 1,000 mg in 100 mls @ 400 mls/hr IV Q12H [facility] [place] Last Infusion: 11/18/21 12:21 Dose: Infused Documented by: Thiamine HCl 200 mg/ Sodium (Chloride) 102 mls @ 202 mls/hr IV BID [facility] [place] Last Infusion: 11/18/21 09:57 Dose: Infused Documented by: Ivermectin (Ivermectin 3 Mg Tablet) 36 mg G-TUBE DAILY [facility] [place] Stop: 11/22/21 09:01 Last Admin: 11/18/21 09:08 Dose: 36 mg Documented by: Melatonin (Melatonin 3 Mg Tablet) 9 mg PO BEDTIME [facility] [place] Methylprednisolone Sodium Succinate (Methylprednisolone Sod Succ 125 Mg/2 Ml Vial) 80 mg IVPUSH Q12H [facility] [place] Last Admin: 11/18/21 07:45 Dose: 80 mg Documented by: Nystatin (Nystatin Oral Susp 500,000 Unit/5 Ml Oral.Susp) 500,000 unit PO QID [facility] [place]; Protocol Last Admin: 11/18/21 11:59 Dose: 500,000 unit Documented by: Senna (Sennosides 8.6 Mg Tablet) 17.2 mg PO BEDTIME PRN PRN Reason: Constipation Sodium Chloride (0.9 % Sodium Chloride Flush 3 Ml Syringe) 3 ml IVFLUSH QSHIFT [facility] [place] Last Admin: 11/18/21 14:29 Dose: 3 ml Documented by: Sodium Zirconium Cyclosilicate (Sodium Zirconium Cyclosilicate 10 Gm Powd.Pack) 10 gm PO TID [facility] [place] Stop: 11/19/21 21:01 Vitamin D (Cholecalciferol (Vitamin D3) 25 Mcg Tablet) 50 mcg G-TUBE DAILY [facility] [place] Last Admin: 11/18/21 07:43 Dose: 50 mcg Documented by: Home Medications Medication Instructions Recorded Confirmed Last Taken Type azithromycin 500 mg tablet 1 tab PO DAILY 11/08/21 11/08/21 Unknown History brimonidine 0.2 % eye drops 1 drp OPHTHALMIC (EYE) BID 11/08/21 11/08/21 Unknown History hydroxychloroquine 200 mg tablet 1 tab PO BID 11/08/21 11/08/21 Unknown History lisinopril 10 mg tablet 1 tab PO DAILY 11/08/21 11/08/21 Unknown History Exam Exam Date and Time: November 18, 2021 151 Height,Weight and Vital Signs: Height 5 ft 9 in Weight 121.8 kg Last Vital Signs Temp 98.4 F 11/18/21 14:00 Pulse 86 11/18/21 14:00 Resp 22 H 11/18/21 14:00 BP 187/86 H 11/18/21 14:00 Pulse Ox 95 11/18/21 14:00 Oxygen Flow Rate 10 11/08/21 14:46 Pertinent Lab Results Pertinent Lab Results: Laboratory Tests 11/07/21 11/07/21 11/07/21 19:18 19:18 19:19 WBC 5.4 RBC 4.14 L Hgb 13.7 L Hct 36.6 L MCV 88.4 MCH 33.1 H MCHC 37.4 H RDW 11.5 Plt Count 168 MPV 9.3 L Immature Gran % (Auto) 0.4 Neut % (Auto) 83.7 H Lymph % (Auto) 8.3 L Bell % (Auto) 7.6 Eos % (Auto) 0.0 Baso % (Auto) 0.0 Lymph # (Auto) 0.5 L Bell # (Auto) 0.4 Eos # (Auto) 0.0 Baso # (Auto) 0.0 Abs Immat Gran (auto) 0.02 Absolute Neuts (auto) 4.5 Absolute Nucleated RBC 0.000 Nucleated RBC % (auto) 0.0 PT 13.5 H INR 1.2 H APTT 28.9 D-Dimer High Sensitivty 595 O2 Saturation ABG pH at Pt Temp ABG pH (Temp Correct) ABG pCO2 at Pt Temp ABG pCO2 (Temp Corrct ABG pO2 at Pt Temp ABG pO2 (Temp Correct ABG HCO3 ABG Base Excess (Actual) VBG pH VBG pCO2 VBG pO2 VBG HCO3 VBG O2 Saturation VBG Base Excess Sodium Potassium Chloride Carbon Dioxide Anion Gap BUN Creatinine Estim Creat Clear Calc Estimated GFR POC Glucose Random Glucose Lactic Acid 2.2 H* Lactic Acid Fup @ 2Hr Calcium Phosphorus Magnesium Total Bilirubin Ferritin Direct Bilirubin AST ALT Alkaline Phosphatase Ammonia Total Creatine Kinase C-Reactive Protein B-Natriuretic Peptide Total Protein Albumin Procalcitonin Prolactin Urine Color Urine Appearance Urine pH Ur Specific [place] Urine Protein Urine Glucose (UA) Urine Ketones Urine Blood Urine Nitrite Ur Leukocyte Esterase Urine RBC Urine WBC Ur Squamous Epith Cells Urine Bacteria Ur Myoglobin, Quant Complement C3 Complement C4 Hepatitis A IgM Ab Hep Bs Antigen Hep Bs Antibody Hep B Core Total Ab Hepatitis C Ab (EIA) Influenza Type A (PCR) Influenza Type B (PCR) RSV RNA Qual (PCR) SARS-CoV-2 RNA (RT-PCR) Blood Type Antibody Screen 11/07/21 11/07/21 11/07/21 19:19 19:36 23:58 WBC RBC Hgb Hct MCV MCH MCHC RDW Plt Count MPV Immature Gran % (Auto) Neut % (Auto) Lymph % (Auto) Bell % (Auto) Eos % (Auto) Baso % (Auto) Lymph # (Auto) Bell # (Auto) Eos # (Auto) Baso # (Auto) Abs Immat Gran (auto) Absolute Neuts (auto) Absolute Nucleated RBC Nucleated RBC % (auto) PT INR APTT D-Dimer High Sensitivty O2 Saturation ABG pH at Pt Temp ABG pH (Temp Correct) ABG pCO2 at Pt Temp ABG pCO2 (Temp Corrct ABG pO2 at Pt Temp ABG pO2 (Temp Correct ABG HCO3 ABG Base Excess (Actual) VBG pH 7.38 VBG pCO2 37 VBG pO2 51 VBG HCO3 22 VBG O2 Saturation 76.0 VBG Base Excess -1.9 Sodium 122 L Potassium 4.1 Chloride 88 L Carbon Dioxide 22 Anion Gap 16 BUN 23 H Creatinine 1.57 H Estim Creat Clear Calc 48.0 Estimated GFR 44 POC Glucose Random Glucose 195 H Lactic Acid Lactic Acid Fup @ 2Hr Calcium 7.6 L D Phosphorus Magnesium Total Bilirubin 1.2 H Ferritin Direct Bilirubin AST 98 H ALT 74 H Alkaline Phosphatase 69 D Ammonia Total Creatine Kinase 3494 H C-Reactive Protein B-Natriuretic Peptide Total Protein 6.4 L Albumin 3.5 Procalcitonin Prolactin Urine Color BROWN Urine Appearance CLOUDY Urine pH 6.5 Ur Specific [place] >= 1.030 H Urine Protein 2+ H Urine Glucose (UA) 100 H Urine Ketones NEG Urine Blood 3+ H Urine Nitrite NEG Ur Leukocyte Esterase NEG Urine RBC 76-150 H Urine WBC 1-4 Ur Squamous Epith Cells 1+ Urine Bacteria 2+ Ur Myoglobin, Quant Complement C3 Complement C4 Hepatitis A IgM Ab Hep Bs Antigen Hep Bs Antibody Hep B Core Total Ab Hepatitis C Ab (EIA) Influenza Type A (PCR) Influenza Type B (PCR) RSV RNA Qual (PCR) SARS-CoV-2 RNA (RT-PCR) Blood Type Antibody Screen 11/08/21 11/08/21 11/08/21 01:42 07:59 07:59 WBC 5.8 RBC 4.17 L Hgb 13.4 L Hct 37.2 L MCV 89.2 MCH 32.1 MCHC 36.0 RDW 11.6 Plt Count 165 MPV 9.1 L Immature Gran % (Auto) 0.3 Neut % (Auto) 82.3 H Lymph % (Auto) 10.8 L Bell % (Auto) 6.4 Eos % (Auto) 0.0 Baso % (Auto) 0.2 Lymph # (Auto) 0.6 L Bell # (Auto) 0.4 Eos # (Auto) 0.0 Baso # (Auto) 0.0 Abs Immat Gran (auto) 0.02 Absolute Neuts (auto) 4.8 Absolute Nucleated RBC 0.000 Nucleated RBC % (auto) 0.0 PT INR APTT D-Dimer High Sensitivty O2 Saturation ABG pH at Pt Temp ABG pH (Temp Correct) ABG pCO2 at Pt Temp ABG pCO2 (Temp Corrct ABG pO2 at Pt Temp ABG pO2 (Temp Correct ABG HCO3 ABG Base Excess (Actual) VBG pH VBG pCO2 VBG pO2 VBG HCO3 VBG O2 Saturation VBG Base Excess Sodium Potassium Chloride Carbon Dioxide Anion Gap BUN Creatinine Estim Creat Clear Calc Estimated GFR POC Glucose Random Glucose Lactic Acid Lactic Acid Fup @ 2Hr 1.2 Calcium Phosphorus Magnesium Total Bilirubin Ferritin Direct Bilirubin AST ALT Alkaline Phosphatase Ammonia Total Creatine Kinase C-Reactive Protein B-Natriuretic Peptide Total Protein Albumin Procalcitonin Prolactin Urine Color Urine Appearance Urine pH Ur Specific [place] Urine Protein Urine Glucose (UA) Urine Ketones Urine Blood Urine Nitrite Ur Leukocyte Esterase Urine RBC Urine WBC Ur Squamous Epith Cells Urine Bacteria Ur Myoglobin, Quant Complement C3 Complement C4 Hepatitis A IgM Ab Nonreactive Hep Bs Antigen Negative Hep Bs Antibody NONREACTIVE Hep B Core Total Ab Nonreactive Hepatitis C Ab (EIA) Nonreactive Influenza Type A (PCR) Influenza Type B (PCR) RSV RNA Qual (PCR) SARS-CoV-2 RNA (RT-PCR) Blood Type Antibody Screen 11/08/21 11/09/21 11/10/21 08:49 10:42 05:33 WBC RBC Hgb Hct MCV MCH MCHC RDW Plt Count MPV Immature Gran % (Auto) Neut % (Auto) Lymph % (Auto) Bell % (Auto) Eos % (Auto) Baso % (Auto) Lymph # (Auto) Bell # (Auto) Eos # (Auto) Baso # (Auto) Abs Immat Gran (auto) Absolute Neuts (auto) Absolute Nucleated RBC Nucleated RBC % (auto) PT INR APTT D-Dimer High Sensitivty O2 Saturation ABG pH at Pt Temp ABG pH (Temp Correct) ABG pCO2 at Pt Temp ABG pCO2 (Temp Corrct ABG pO2 at Pt Temp ABG pO2 (Temp Correct ABG HCO3 ABG Base Excess (Actual) VBG pH VBG pCO2 VBG pO2 VBG HCO3 VBG O2 Saturation VBG Base Excess Sodium 131 L 135 Potassium 4.0 4.2 Chloride 98 101 Carbon Dioxide 24 25 Anion Gap 13 13 BUN 21 H 23 H Creatinine 1.16 1.08 Estim Creat Clear Calc 65.0 69.8 Estimated GFR > 60 > 60 POC Glucose Random Glucose 173 H 131 H Lactic Acid Lactic Acid Fup @ 2Hr Calcium 8.1 L D 8.4 Phosphorus Magnesium Total Bilirubin Ferritin Direct Bilirubin AST ALT Alkaline Phosphatase Ammonia Total Creatine Kinase C-Reactive Protein B-Natriuretic Peptide Total Protein Albumin Procalcitonin Prolactin Urine Color Urine Appearance Urine pH Ur Specific [place] Urine Protein Urine Glucose (UA) Urine Ketones Urine Blood Urine Nitrite Ur Leukocyte Esterase Urine RBC Urine WBC Ur Squamous Epith Cells Urine Bacteria Ur Myoglobin, Quant Complement C3 Complement C4 Hepatitis A IgM Ab Hep Bs Antigen Hep Bs Antibody Hep B Core Total Ab Hepatitis C Ab (EIA) Influenza Type A (PCR) NEGATIVE Influenza Type B (PCR) NEGATIVE RSV RNA Qual (PCR) NEGATIVE SARS-CoV-2 RNA (RT-PCR) POSITIVE A Blood Type Antibody Screen 11/11/21 11/12/21 11/12/21 06:38 06:19 11:54 WBC RBC Hgb Hct MCV MCH MCHC RDW Plt Count MPV Immature Gran % (Auto) Neut % (Auto) Lymph % (Auto) Bell % (Auto) Eos % (Auto) Baso % (Auto) Lymph # (Auto) Bell # (Auto) Eos # (Auto) Baso # (Auto) Abs Immat Gran (auto) Absolute Neuts (auto) Absolute Nucleated RBC Nucleated RBC % (auto) PT INR APTT D-Dimer High Sensitivty O2 Saturation ABG pH at Pt Temp ABG pH (Temp Correct) ABG pCO2 at Pt Temp ABG pCO2 (Temp Corrct ABG pO2 at Pt Temp ABG pO2 (Temp Correct ABG HCO3 ABG Base Excess (Actual) VBG pH VBG pCO2 VBG pO2 VBG HCO3 VBG O2 Saturation VBG Base Excess Sodium 137 136 Potassium 4.2 4.2 Chloride 101 100 Carbon Dioxide 26 25 Anion Gap 14 15 BUN 25 H 25 H Creatinine 1.17 1.22 Estim Creat Clear Calc 64.4 61.8 Estimated GFR > 60 59 POC Glucose Random Glucose 114 129 H Lactic Acid Lactic Acid Fup @ 2Hr Calcium 8.4 8.4 Phosphorus Magnesium Total Bilirubin Ferritin Direct Bilirubin AST ALT Alkaline Phosphatase Ammonia Total Creatine Kinase C-Reactive Protein B-Natriuretic Peptide Total Protein Albumin Procalcitonin Prolactin Urine Color Urine Appearance Urine pH Ur Specific [place] Urine Protein Urine Glucose (UA) Urine Ketones Urine Blood Urine Nitrite Ur Leukocyte Esterase Urine RBC Urine WBC Ur Squamous Epith Cells Urine Bacteria Ur Myoglobin, Quant Complement C3 Complement C4 Hepatitis A IgM Ab Hep Bs Antigen Hep Bs Antibody Hep B Core Total Ab Hepatitis C Ab (EIA) Influenza Type A (PCR) Influenza Type B (PCR) RSV RNA Qual (PCR) SARS-CoV-2 RNA (RT-PCR) Blood Type O Negative Antibody Screen NEGATIVE 11/12/21 11/12/21 11/12/21 12:00 12:01 19:55 WBC RBC Hgb 13.4 L Hct 38.9 L MCV MCH MCHC RDW Plt Count MPV Immature Gran % (Auto) Neut % (Auto) Lymph % (Auto) Bell % (Auto) Eos % (Auto) Baso % (Auto) Lymph # (Auto) Bell # (Auto) Eos # (Auto) Baso # (Auto) Abs Immat Gran (auto) Absolute Neuts (auto) Absolute Nucleated RBC Nucleated RBC % (auto) PT INR APTT D-Dimer High Sensitivty O2 Saturation 88.0 ABG pH at Pt Temp 7.53 H ABG pH (Temp Correct) 7.54 H ABG pCO2 at Pt Temp 29 L ABG pCO2 (Temp Corrct 29 L ABG pO2 at Pt Temp 60 L ABG pO2 (Temp Correct 58 L ABG HCO3 25 ABG Base Excess (Actual) 3.3 VBG pH VBG pCO2 VBG pO2 VBG HCO3 VBG O2 Saturation VBG Base Excess Sodium Potassium Chloride Carbon Dioxide Anion Gap BUN Creatinine Estim Creat Clear Calc Estimated GFR POC Glucose Random Glucose Lactic Acid Lactic Acid Fup @ 2Hr Calcium Phosphorus Magnesium Total Bilirubin Ferritin Direct Bilirubin AST ALT Alkaline Phosphatase Ammonia Total Creatine Kinase C-Reactive Protein B-Natriuretic Peptide Total Protein Albumin Procalcitonin Prolactin Urine Color BROWN Urine Appearance CLOUDY Urine pH 6.0 Ur Specific [place] 1.025 Urine Protein 2+ H Urine Glucose (UA) NEG Urine Ketones 15 Urine Blood 3+ H Urine Nitrite NEG Ur Leukocyte Esterase NEG Urine RBC TNTC H Urine WBC 0 Ur Squamous Epith Cells NONE Urine Bacteria TRACE Ur Myoglobin, Quant Complement C3 Complement C4 Hepatitis A IgM Ab Hep Bs Antigen Hep Bs Antibody Hep B Core Total Ab Hepatitis C Ab (EIA) Influenza Type A (PCR) Influenza Type B (PCR) RSV RNA Qual (PCR) SARS-CoV-2 RNA (RT-PCR) Blood Type Antibody Screen 11/13/21 11/13/21 11/13/21 08:16 08:16 08:16 WBC 13.7 H RBC 4.24 L Hgb 13.6 L Hct 39.4 L MCV 92.9 MCH 32.1 MCHC 34.5 RDW 12.3 Plt Count 155 L MPV 9.7 Immature Gran % (Auto) Neut % (Auto) Lymph % (Auto) Bell % (Auto) Eos % (Auto) Baso % (Auto) Lymph # (Auto) Bell # (Auto) Eos # (Auto) Baso # (Auto) Abs Immat Gran (auto) Absolute Neuts (auto) Absolute Nucleated RBC 0.000 Nucleated RBC % (auto) 0.0 PT INR APTT D-Dimer High Sensitivty O2 Saturation ABG pH at Pt Temp ABG pH (Temp Correct) ABG pCO2 at Pt Temp ABG pCO2 (Temp Corrct ABG pO2 at Pt Temp ABG pO2 (Temp Correct ABG HCO3 ABG Base Excess (Actual) VBG pH VBG pCO2 VBG pO2 VBG HCO3 VBG O2 Saturation VBG Base Excess Sodium 135 Potassium 4.4 Chloride 102 Carbon Dioxide 21 L Anion Gap 16 BUN 32 H Creatinine 1.21 Estim Creat Clear Calc 62.3 Estimated GFR 59 POC Glucose Random Glucose 126 H Lactic Acid Lactic Acid Fup @ 2Hr Calcium 8.5 Phosphorus Magnesium Total Bilirubin 1.3 H Ferritin Direct Bilirubin 0.6 H AST 50 H D ALT 72 H Alkaline Phosphatase 165 H D Ammonia 33 Total Creatine Kinase 250 H D C-Reactive Protein B-Natriuretic Peptide Total Protein 6.4 L Albumin 3.3 L Procalcitonin Prolactin Urine Color Urine Appearance Urine pH Ur Specific [place] Urine Protein Urine Glucose (UA) Urine Ketones Urine Blood Urine Nitrite Ur Leukocyte Esterase Urine RBC Urine WBC Ur Squamous Epith Cells Urine Bacteria Ur Myoglobin, Quant Complement C3 Complement C4 Hepatitis A IgM Ab Hep Bs Antigen Hep Bs Antibody Hep B Core Total Ab Hepatitis C Ab (EIA) Influenza Type A (PCR) Influenza Type B (PCR) RSV RNA Qual (PCR) SARS-CoV-2 RNA (RT-PCR) Blood Type Antibody Screen 11/13/21 11/13/21 11/14/21 08:16 Unknown 05:40 WBC 12.4 H RBC 3.69 L Hgb 11.9 L Hct 35.2 L MCV 95.4 MCH 32.2 MCHC 33.8 RDW 12.4 Plt Count 154 L MPV 10.0 Immature Gran % (Auto) 1.0 H Neut % (Auto) 85.2 H Lymph % (Auto) 8.0 L Bell % (Auto) 5.6 Eos % (Auto) 0.1 Baso % (Auto) 0.1 Lymph # (Auto) 1.0 L Bell # (Auto) 0.7 Eos # (Auto) 0.0 Baso # (Auto) 0.0 Abs Immat Gran (auto) 0.12 H Absolute Neuts (auto) 10.6 H Absolute Nucleated RBC 0.000 Nucleated RBC % (auto) 0.0 PT INR APTT D-Dimer High Sensitivty O2 Saturation ABG pH at Pt Temp ABG pH (Temp Correct) ABG pCO2 at Pt Temp ABG pCO2 (Temp Corrct ABG pO2 at Pt Temp ABG pO2 (Temp Correct ABG HCO3 ABG Base Excess (Actual) VBG pH VBG pCO2 VBG pO2 VBG HCO3 VBG O2 Saturation VBG Base Excess Sodium Potassium Chloride Carbon Dioxide Anion Gap BUN Creatinine Estim Creat Clear Calc Estimated GFR POC Glucose Random Glucose Lactic Acid Lactic Acid Fup @ 2Hr Calcium Phosphorus Magnesium Total Bilirubin Ferritin Direct Bilirubin AST ALT Alkaline Phosphatase Ammonia Total Creatine Kinase C-Reactive Protein B-Natriuretic Peptide Total Protein Albumin Procalcitonin Prolactin Urine Color Urine Appearance Urine pH Ur Specific [place] Urine Protein Urine Glucose (UA) Urine Ketones Urine Blood Urine Nitrite Ur Leukocyte Esterase Urine RBC Urine WBC Ur Squamous Epith Cells Urine Bacteria Ur Myoglobin, Quant 1160 H Complement C3 113 Complement C4 10 L Hepatitis A IgM Ab Hep Bs Antigen Hep Bs Antibody Hep B Core Total Ab Hepatitis C Ab (EIA) Influenza Type A (PCR) Influenza Type B (PCR) RSV RNA Qual (PCR) SARS-CoV-2 RNA (RT-PCR) Blood Type Antibody Screen 11/14/21 11/14/21 11/14/21 05:40 05:42 19:26 WBC 11.6 H RBC 3.48 L Hgb 11.4 L Hct 33.4 L MCV 96.0 MCH 32.8 MCHC 34.1 RDW 12.6 Plt Count 140 L MPV 9.8 Immature Gran % (Auto) 1.2 H Neut % (Auto) 86.4 H Lymph % (Auto) 6.4 L Bell % (Auto) 6.0 Eos % (Auto) 0.0 Baso % (Auto) 0.0 Lymph # (Auto) 0.7 L Bell # (Auto) 0.7 Eos # (Auto) 0.0 Baso # (Auto) 0.0 Abs Immat Gran (auto) 0.14 H Absolute Neuts (auto) 10.0 H Absolute Nucleated RBC 0.000 Nucleated RBC % (auto) 0.0 PT INR APTT D-Dimer High Sensitivty O2 Saturation ABG pH at Pt Temp ABG pH (Temp Correct) ABG pCO2 at Pt Temp ABG pCO2 (Temp Corrct ABG pO2 at Pt Temp ABG pO2 (Temp Correct ABG HCO3 ABG Base Excess (Actual) VBG pH 7.35 VBG pCO2 38 VBG pO2 55 VBG HCO3 22 VBG O2 Saturation 81.0 VBG Base Excess -3.1 Sodium 136 Potassium 4.8 Chloride 103 Carbon Dioxide 21 L Anion Gap 17 BUN 54 H D Creatinine 2.68 H Estim Creat Clear Calc 28.1 Estimated GFR 24 POC Glucose Random Glucose 170 H Lactic Acid Lactic Acid Fup @ 2Hr Calcium 8.0 L Phosphorus Magnesium Total Bilirubin 0.7 Ferritin Direct Bilirubin AST 57 H ALT 74 H Alkaline Phosphatase 131 H D Ammonia Total Creatine Kinase C-Reactive Protein B-Natriuretic Peptide Total Protein 5.8 L Albumin 2.9 L Procalcitonin Prolactin Urine Color Urine Appearance Urine pH Ur Specific [place] Urine Protein Urine Glucose (UA) Urine Ketones Urine Blood Urine Nitrite Ur Leukocyte Esterase Urine RBC Urine WBC Ur Squamous Epith Cells Urine Bacteria Ur Myoglobin, Quant Complement C3 Complement C4 Hepatitis A IgM Ab Hep Bs Antigen Hep Bs Antibody Hep B Core Total Ab Hepatitis C Ab (EIA) Influenza Type A (PCR) Influenza Type B (PCR) RSV RNA Qual (PCR) SARS-CoV-2 RNA (RT-PCR) Blood Type Antibody Screen 11/14/21 11/15/21 11/15/21 19:26 05:20 05:20 WBC 12.6 H RBC 3.27 L Hgb 10.7 L Hct 31.7 L MCV 96.9 MCH 32.7 MCHC 33.8 RDW 12.4 Plt Count 153 L MPV 10.2 Immature Gran % (Auto) 1.2 H Neut % (Auto) 81.9 H Lymph % (Auto) 9.9 L Bell % (Auto) 6.8 Eos % (Auto) 0.2 Baso % (Auto) 0.0 Lymph # (Auto) 1.2 Bell # (Auto) 0.9 Eos # (Auto) 0.0 Baso # (Auto) 0.0 Abs Immat Gran (auto) 0.15 H Absolute Neuts (auto) 10.3 H Absolute Nucleated RBC 0.000 Nucleated RBC % (auto) 0.0 PT 13.4 H INR 1.2 H APTT 27.9 D-Dimer High Sensitivty O2 Saturation ABG pH at Pt Temp ABG pH (Temp Correct) ABG pCO2 at Pt Temp ABG pCO2 (Temp Corrct ABG pO2 at Pt Temp ABG pO2 (Temp Correct ABG HCO3 ABG Base Excess (Actual) VBG pH VBG pCO2 VBG pO2 VBG HCO3 VBG O2 Saturation VBG Base Excess Sodium 133 L Potassium 4.6 Chloride 101 Carbon Dioxide 22 Anion Gap 15 BUN 77 H Creatinine 3.04 H Estim Creat Clear Calc 28.9 Estimated GFR 20 POC Glucose Random Glucose 180 H Lactic Acid Lactic Acid Fup @ 2Hr Calcium 7.6 L Phosphorus Magnesium Total Bilirubin 0.5 Ferritin Direct Bilirubin AST 46 H ALT 65 H Alkaline Phosphatase 110 Ammonia Total Creatine Kinase C-Reactive Protein B-Natriuretic Peptide Total Protein 5.5 L Albumin 2.7 L Procalcitonin Prolactin Urine Color Urine Appearance Urine pH Ur Specific [place] Urine Protein Urine Glucose (UA) Urine Ketones Urine Blood Urine Nitrite Ur Leukocyte Esterase Urine RBC Urine WBC Ur Squamous Epith Cells Urine Bacteria Ur Myoglobin, Quant Complement C3 Complement C4 Hepatitis A IgM Ab Hep Bs Antigen Hep Bs Antibody Hep B Core Total Ab Hepatitis C Ab (EIA) Influenza Type A (PCR) Influenza Type B (PCR) RSV RNA Qual (PCR) SARS-CoV-2 RNA (RT-PCR) Blood Type Antibody Screen 11/15/21 11/15/21 11/15/21 05:24 21:50 21:50 WBC RBC Hgb Hct MCV MCH MCHC RDW Plt Count MPV Immature Gran % (Auto) Neut % (Auto) Lymph % (Auto) Bell % (Auto) Eos % (Auto) Baso % (Auto) Lymph # (Auto) Bell # (Auto) Eos # (Auto) Baso # (Auto) Abs Immat Gran (auto) Absolute Neuts (auto) Absolute Nucleated RBC Nucleated RBC % (auto) PT INR APTT D-Dimer High Sensitivty O2 Saturation ABG pH at Pt Temp ABG pH (Temp Correct) ABG pCO2 at Pt Temp ABG pCO2 (Temp Corrct ABG pO2 at Pt Temp ABG pO2 (Temp Correct ABG HCO3 ABG Base Excess (Actual) VBG pH 7.32 VBG pCO2 44 VBG pO2 69 VBG HCO3 23 VBG O2 Saturation 89.0 VBG Base Excess -2.3 Sodium 133 L Potassium 4.7 Chloride 101 Carbon Dioxide 24 Anion Gap 13 BUN 79 H Creatinine 2.86 H Estim Creat Clear Calc 30.7 Estimated GFR 22 POC Glucose Random Glucose 181 H Lactic Acid Lactic Acid Fup @ 2Hr Calcium 7.5 L Phosphorus Magnesium Total Bilirubin Ferritin Direct Bilirubin AST ALT Alkaline Phosphatase Ammonia Total Creatine Kinase C-Reactive Protein B-Natriuretic Peptide 59 Total Protein Albumin Procalcitonin Prolactin Urine Color Urine Appearance Urine pH Ur Specific [place] Urine Protein Urine Glucose (UA) Urine Ketones Urine Blood Urine Nitrite Ur Leukocyte Esterase Urine RBC Urine WBC Ur Squamous Epith Cells Urine Bacteria Ur Myoglobin, Quant Complement C3 Complement C4 Hepatitis A IgM Ab Hep Bs Antigen Hep Bs Antibody Hep B Core Total Ab Hepatitis C Ab (EIA) Influenza Type A (PCR) Influenza Type B (PCR) RSV RNA Qual (PCR) SARS-CoV-2 RNA (RT-PCR) Blood Type Antibody Screen 11/16/21 11/16/21 11/16/21 05:30 05:30 05:45 WBC 12.1 H RBC 3.49 L Hgb 11.1 L Hct 33.4 L MCV 95.7 MCH 31.8 MCHC 33.2 RDW 12.3 Plt Count 184 MPV 10.6 Immature Gran % (Auto) 1.4 H Neut % (Auto) 82.2 H Lymph % (Auto) 9.4 L Bell % (Auto) 6.6 Eos % (Auto) 0.3 Baso % (Auto) 0.1 Lymph # (Auto) 1.1 L Bell # (Auto) 0.8 Eos # (Auto) 0.0 Baso # (Auto) 0.0 Abs Immat Gran (auto) 0.17 H Absolute Neuts (auto) 9.9 H Absolute Nucleated RBC 0.000 Nucleated RBC % (auto) 0.0 PT INR APTT D-Dimer High Sensitivty O2 Saturation ABG pH at Pt Temp ABG pH (Temp Correct) ABG pCO2 at Pt Temp ABG pCO2 (Temp Corrct ABG pO2 at Pt Temp ABG pO2 (Temp Correct ABG HCO3 ABG Base Excess (Actual) VBG pH 7.36 VBG pCO2 45 VBG pO2 50 VBG HCO3 26 VBG O2 Saturation 77.0 VBG Base Excess 0.8 Sodium 135 Potassium 4.2 Chloride 101 Carbon Dioxide 24 Anion Gap 14 BUN 79 H Creatinine 2.74 H Estim Creat Clear Calc 32.2 Estimated GFR 23 POC Glucose Random Glucose 139 H Lactic Acid Lactic Acid Fup @ 2Hr Calcium 7.5 L Phosphorus Magnesium Total Bilirubin 0.5 Ferritin Direct Bilirubin AST 42 H ALT 61 H Alkaline Phosphatase 112 Ammonia Total Creatine Kinase C-Reactive Protein B-Natriuretic Peptide Total Protein 5.7 L Albumin 2.8 L Procalcitonin Prolactin Urine Color Urine Appearance Urine pH Ur Specific [place] Urine Protein Urine Glucose (UA) Urine Ketones Urine Blood Urine Nitrite Ur Leukocyte Esterase Urine RBC Urine WBC Ur Squamous Epith Cells Urine Bacteria Ur Myoglobin, Quant Complement C3 Complement C4 Hepatitis A IgM Ab Hep Bs Antigen Hep Bs Antibody Hep B Core Total Ab Hepatitis C Ab (EIA) Influenza Type A (PCR) Influenza Type B (PCR) RSV RNA Qual (PCR) SARS-CoV-2 RNA (RT-PCR) Blood Type Antibody Screen 11/16/21 11/16/21 11/17/21 12:56 13:06 05:38 WBC 10.1 RBC 3.26 L Hgb 10.3 L Hct 31.1 L MCV 95.4 MCH 31.6 MCHC 33.1 RDW 12.3 Plt Count 174 MPV 9.9 Immature Gran % (Auto) 1.6 H Neut % (Auto) 82.1 H Lymph % (Auto) 10.7 L Bell % (Auto) 5.2 Eos % (Auto) 0.3 Baso % (Auto) 0.1 Lymph # (Auto) 1.1 L Bell # (Auto) 0.5 Eos # (Auto) 0.0 Baso # (Auto) 0.0 Abs Immat Gran (auto) 0.16 H Absolute Neuts (auto) 8.3 Absolute Nucleated RBC 0.000 Nucleated RBC % (auto) 0.0 PT INR APTT D-Dimer High Sensitivty O2 Saturation ABG pH at Pt Temp ABG pH (Temp Correct) ABG pCO2 at Pt Temp ABG pCO2 (Temp Corrct ABG pO2 at Pt Temp ABG pO2 (Temp Correct ABG HCO3 ABG Base Excess (Actual) VBG pH VBG pCO2 VBG pO2 VBG HCO3 VBG O2 Saturation VBG Base Excess Sodium Potassium Chloride Carbon Dioxide Anion Gap BUN Creatinine Estim Creat Clear Calc Estimated GFR POC Glucose Random Glucose Lactic Acid 1.1 Lactic Acid Fup @ 2Hr Calcium Phosphorus Magnesium Total Bilirubin Ferritin Direct Bilirubin AST ALT Alkaline Phosphatase Ammonia Total Creatine Kinase C-Reactive Protein B-Natriuretic Peptide Total Protein Albumin Procalcitonin Prolactin 29.3 H Urine Color Urine Appearance Urine pH Ur Specific [place] Urine Protein Urine Glucose (UA) Urine Ketones Urine Blood Urine Nitrite Ur Leukocyte Esterase Urine RBC Urine WBC Ur Squamous Epith Cells Urine Bacteria Ur Myoglobin, Quant Complement C3 Complement C4 Hepatitis A IgM Ab Hep Bs Antigen Hep Bs Antibody Hep B Core Total Ab Hepatitis C Ab (EIA) Influenza Type A (PCR) Influenza Type B (PCR) RSV RNA Qual (PCR) SARS-CoV-2 RNA (RT-PCR) Blood Type Antibody Screen 11/17/21 11/17/21 11/18/21 05:38 05:51 05:35 WBC 14.1 H RBC 3.43 L Hgb 11.0 L Hct 33.4 L MCV 97.4 MCH 32.1 MCHC 32.9 RDW 12.6 Plt Count 218 D MPV 9.9 Immature Gran % (Auto) Neut % (Auto) Lymph % (Auto) Bell % (Auto) Eos % (Auto) Baso % (Auto) Lymph # (Auto) Bell # (Auto) Eos # (Auto) Baso # (Auto) Abs Immat Gran (auto) Absolute Neuts (auto) Absolute Nucleated RBC 0.000 Nucleated RBC % (auto) 0.0 PT INR APTT D-Dimer High Sensitivty O2 Saturation ABG pH at Pt Temp ABG pH (Temp Correct) ABG pCO2 at Pt Temp ABG pCO2 (Temp Corrct ABG pO2 at Pt Temp ABG pO2 (Temp Correct ABG HCO3 ABG Base Excess (Actual) VBG pH 7.44 H VBG pCO2 41 VBG pO2 42 VBG HCO3 28 H VBG O2 Saturation 68.0 VBG Base Excess 4.0 Sodium 136 Potassium 4.1 Chloride 103 Carbon Dioxide 28 Anion Gap 9 L BUN 71 H Creatinine 2.24 H Estim Creat Clear Calc 38.9 Estimated GFR 29 POC Glucose Random Glucose 142 H Lactic Acid Lactic Acid Fup @ 2Hr Calcium 7.5 L Phosphorus 3.7 Magnesium Total Bilirubin 0.6 Ferritin Direct Bilirubin AST 39 H ALT 55 H Alkaline Phosphatase 118 H Ammonia Total Creatine Kinase C-Reactive Protein B-Natriuretic Peptide Total Protein 5.5 L Albumin 2.7 L Procalcitonin Prolactin Urine Color Urine Appearance Urine pH Ur Specific [place] Urine Protein Urine Glucose (UA) Urine Ketones Urine Blood Urine Nitrite Ur Leukocyte Esterase Urine RBC Urine WBC Ur Squamous Epith Cells Urine Bacteria Ur Myoglobin, Quant Complement C3 Complement C4 Hepatitis A IgM Ab Hep Bs Antigen Hep Bs Antibody Hep B Core Total Ab Hepatitis C Ab (EIA) Influenza Type A (PCR) Influenza Type B (PCR) RSV RNA Qual (PCR) SARS-CoV-2 RNA (RT-PCR) Blood Type Antibody Screen 11/18/21 11/18/21 11/18/21 05:35 05:43 11:10 WBC RBC Hgb Hct MCV MCH MCHC RDW Plt Count MPV Immature Gran % (Auto) Neut % (Auto) Lymph % (Auto) Bell % (Auto) Eos % (Auto) Baso % (Auto) Lymph # (Auto) Bell # (Auto) Eos # (Auto) Baso # (Auto) Abs Immat Gran (auto) Absolute Neuts (auto) Absolute Nucleated RBC Nucleated RBC % (auto) PT INR APTT D-Dimer High Sensitivty 88085 O2 Saturation ABG pH at Pt Temp ABG pH (Temp Correct) ABG pCO2 at Pt Temp ABG pCO2 (Temp Corrct ABG pO2 at Pt Temp ABG pO2 (Temp Correct ABG HCO3 ABG Base Excess (Actual) VBG pH 7.38 VBG pCO2 48 VBG pO2 51 VBG HCO3 29 H VBG O2 Saturation 78.0 VBG Base Excess 3.3 Sodium 138 Potassium 5.7 H D Chloride 104 Carbon Dioxide 29 Anion Gap 11 L BUN 64 H Creatinine 1.75 H Estim Creat Clear Calc 49.9 Estimated GFR 39 POC Glucose Random Glucose 124 H Lactic Acid Lactic Acid Fup @ 2Hr Calcium 8.2 L D Phosphorus Magnesium Total Bilirubin Ferritin Direct Bilirubin AST ALT Alkaline Phosphatase Ammonia Total Creatine Kinase C-Reactive Protein B-Natriuretic Peptide Total Protein Albumin Procalcitonin Prolactin Urine Color Urine Appearance Urine pH Ur Specific [place] Urine Protein Urine Glucose (UA) Urine Ketones Urine Blood Urine Nitrite Ur Leukocyte Esterase Urine RBC Urine WBC Ur Squamous Epith Cells Urine Bacteria Ur Myoglobin, Quant Complement C3 Complement C4 Hepatitis A IgM Ab Hep Bs Antigen Hep Bs Antibody Hep B Core Total Ab Hepatitis C Ab (EIA) Influenza Type A (PCR) Influenza Type B (PCR) RSV RNA Qual (PCR) SARS-CoV-2 RNA (RT-PCR) Blood Type Antibody Screen 11/18/21 11/18/21 11/18/21 11:10 11:10 11:10 WBC RBC Hgb Hct MCV MCH MCHC RDW Plt Count MPV Immature Gran % (Auto) Neut % (Auto) Lymph % (Auto) Bell % (Auto) Eos % (Auto) Baso % (Auto) Lymph # (Auto) Bell # (Auto) Eos # (Auto) Baso # (Auto) Abs Immat Gran (auto) Absolute Neuts (auto) Absolute Nucleated RBC Nucleated RBC % (auto) PT INR APTT D-Dimer High Sensitivty O2 Saturation ABG pH at Pt Temp ABG pH (Temp Correct) ABG pCO2 at Pt Temp ABG pCO2 (Temp Corrct ABG pO2 at Pt Temp ABG pO2 (Temp Correct ABG HCO3 ABG Base Excess (Actual) VBG pH VBG pCO2 VBG pO2 VBG HCO3 VBG O2 Saturation VBG Base Excess Sodium Potassium 6.2 H* Chloride Carbon Dioxide Anion Gap BUN Creatinine Estim Creat Clear Calc Estimated GFR POC Glucose Random Glucose Lactic Acid Lactic Acid Fup @ 2Hr Calcium Phosphorus 3.8 Magnesium 2.5 Total Bilirubin Ferritin 3181 H Direct Bilirubin AST ALT Alkaline Phosphatase Ammonia Total Creatine Kinase C-Reactive Protein 14.70 H B-Natriuretic Peptide Total Protein Albumin Procalcitonin 0.28 Prolactin Urine Color Urine Appearance Urine pH Ur Specific [place] Urine Protein Urine Glucose (UA) Urine Ketones Urine Blood Urine Nitrite Ur Leukocyte Esterase Urine RBC Urine WBC Ur Squamous Epith Cells Urine Bacteria Ur Myoglobin, Quant Complement C3 Complement C4 Hepatitis A IgM Ab Hep Bs Antigen Hep Bs Antibody Hep B Core Total Ab Hepatitis C Ab (EIA) Influenza Type A (PCR) Influenza Type B (PCR) RSV RNA Qual (PCR) SARS-CoV-2 RNA (RT-PCR) Blood Type Antibody Screen 11/18/21 11/18/21 11:10 14:09 WBC RBC Hgb Hct MCV MCH MCHC RDW Plt Count MPV Immature Gran % (Auto) Neut % (Auto) Lymph % (Auto) Bell % (Auto) Eos % (Auto) Baso % (Auto) Lymph # (Auto) Bell # (Auto) Eos # (Auto) Baso # (Auto) Abs Immat Gran (auto) Absolute Neuts (auto) Absolute Nucleated RBC Nucleated RBC % (auto) PT INR APTT D-Dimer High Sensitivty O2 Saturation ABG pH at Pt Temp ABG pH (Temp Correct) ABG pCO2 at Pt Temp ABG pCO2 (Temp Corrct ABG pO2 at Pt Temp ABG pO2 (Temp Correct ABG HCO3 ABG Base Excess (Actual) VBG pH VBG pCO2 VBG pO2 VBG HCO3 VBG O2 Saturation VBG Base Excess Sodium Potassium Chloride Carbon Dioxide Anion Gap BUN Creatinine Estim Creat Clear Calc Estimated GFR POC Glucose 227 H Random Glucose Lactic Acid 1.1 Lactic Acid Fup @ 2Hr Calcium Phosphorus Magnesium Total Bilirubin Ferritin Direct Bilirubin AST ALT Alkaline Phosphatase Ammonia Total Creatine Kinase C-Reactive Protein B-Natriuretic Peptide Total Protein Albumin Procalcitonin Prolactin Urine Color Urine Appearance Urine pH Ur Specific [place] Urine Protein Urine Glucose (UA) Urine Ketones Urine Blood Urine Nitrite Ur Leukocyte Esterase Urine RBC Urine WBC Ur Squamous Epith Cells Urine Bacteria Ur Myoglobin, Quant Complement C3 Complement C4 Hepatitis A IgM Ab Hep Bs Antigen Hep Bs Antibody Hep B Core Total Ab Hepatitis C Ab (EIA) Influenza Type A (PCR) Influenza Type B (PCR) RSV RNA Qual (PCR) SARS-CoV-2 RNA (RT-PCR) Blood Type Antibody Screen Assessment and Plan Final Anesthetic Review Family History of Problems with Anesthesia: Unobtainable History of Problems with Anesthesia: Unobtainable
[2021-11-18] MEDS: fentaNYL citrate/NS 1,000 MCG/100 ML PLAST..BAG 10 MCG IVCONT ×2 (15:43→22:27)
[2021-11-18 16:37] LABS: Anion Gap 12 (12-20); Blood Urea Nitrogen 68 mg/dL (9-16); Calcium 8.3 mg/dL (8.4-10.2); Carbon Dioxide 27 mmol/L (22-29); Chloride 104 mmol/L (96-108); Creatinine Clr Calc Pharmacy 49.6; Estimated Glomerular Filt Rate 38; Glucose Random 261 mg/dL (60-115); Potassium 5.6 mmol/L (3.3-5.1); Sodium 137 mmol/L (135-145)
[2021-11-18] MEDS: Heparin Sodium,Porcine/1/2NS 25,000 UNIT/250 ML IV.SOLN 11 UNIT IVCONT (16:49)
[2021-11-18] MEDS: Heparin Sodium,Porcine 5,000 UNIT/ML VIAL 4000 UNIT IVPUSH (16:49)
--- NOTE | 2021-11-18 17:59 | PM.NEUROPN ---
Subjective Subjective Date of Service: 11/18/21 Interval History: Vented on Propofol Comment: chart and tests reviewed Physical Exam Vital Signs: Vital Signs: Last Vital Signs Temp 98.4 F 11/18/21 14:00 Pulse 57 11/18/21 17:00 Resp 18 11/18/21 17:00 BP 102/47 L 11/18/21 17:00 Pulse Ox 96 11/18/21 17:00 Oxygen Flow Rate 10 11/08/21 14:46 BMI result Body Mass Index 39.6 Neuro: Other: Unable. Vented on Propofol Objective Data Labs CBC & Chem 7: 11/18/21 05:35 11/18/21 16:01 Labs: Laboratory Results - last 24 hr 11/16/21 11/18/21 11/18/21 12:56 05:35 05:35 WBC 14.1 H RBC 3.43 L Hgb 11.0 L Hct 33.4 L MCV 97.4 MCH 32.1 MCHC 32.9 RDW 12.6 Plt Count 218 D MPV 9.9 Absolute Nucleated RBC 0.000 Nucleated RBC % (auto) 0.0 D-Dimer High Sensitivty VBG pH VBG pCO2 VBG pO2 VBG HCO3 VBG O2 Saturation VBG Base Excess Sodium 138 Potassium 5.7 H D Chloride 104 Carbon Dioxide 29 Anion Gap 11 L BUN 64 H Creatinine 1.75 H Estim Creat Clear Calc 49.9 Estimated GFR 39 POC Glucose Random Glucose 124 H Lactic Acid Calcium 8.2 L D Phosphorus Magnesium Ferritin C-Reactive Protein Procalcitonin Prolactin 29.3 H 11/18/21 11/18/21 11/18/21 05:43 11:10 11:10 WBC RBC Hgb Hct MCV MCH MCHC RDW Plt Count MPV Absolute Nucleated RBC Nucleated RBC % (auto) D-Dimer High Sensitivty 30710 VBG pH 7.38 VBG pCO2 48 VBG pO2 51 VBG HCO3 29 H VBG O2 Saturation 78.0 VBG Base Excess 3.3 Sodium Potassium 6.2 H* Chloride Carbon Dioxide Anion Gap BUN Creatinine Estim Creat Clear Calc Estimated GFR POC Glucose Random Glucose Lactic Acid Calcium Phosphorus 3.8 Magnesium 2.5 Ferritin C-Reactive Protein 14.70 H Procalcitonin Prolactin 11/18/21 11/18/21 11/18/21 11:10 11:10 11:10 WBC RBC Hgb Hct MCV MCH MCHC RDW Plt Count MPV Absolute Nucleated RBC Nucleated RBC % (auto) D-Dimer High Sensitivty VBG pH VBG pCO2 VBG pO2 VBG HCO3 VBG O2 Saturation VBG Base Excess Sodium Potassium Chloride Carbon Dioxide Anion Gap BUN Creatinine Estim Creat Clear Calc Estimated GFR POC Glucose Random Glucose Lactic Acid 1.1 Calcium Phosphorus Magnesium Ferritin 3181 H C-Reactive Protein Procalcitonin 0.28 Prolactin 11/18/21 11/18/21 14:09 16:01 WBC RBC Hgb Hct MCV MCH MCHC RDW Plt Count MPV Absolute Nucleated RBC Nucleated RBC % (auto) D-Dimer High Sensitivty VBG pH VBG pCO2 VBG pO2 VBG HCO3 VBG O2 Saturation VBG Base Excess Sodium 137 Potassium 5.6 H Chloride 104 Carbon Dioxide 27 Anion Gap 12 BUN 68 H Creatinine 1.76 H Estim Creat Clear Calc 49.6 Estimated GFR 38 POC Glucose 227 H Random Glucose 261 H D Lactic Acid Calcium 8.3 L Phosphorus Magnesium Ferritin C-Reactive Protein Procalcitonin Prolactin Microbiology Microbiology Results: Microbiology 11/18/21 Unknown Sputum - Suctioned Gram Stain - Final 11/13/21 Unknown Urine Catheterized - Eprez Catheter Urine Culture - Final No growth. 11/07/21 18:50 Blood - Venous Blood Culture - Final No growth after 5 days. 11/07/21 19:45 Blood - Venous Blood Culture - Final No growth after 5 days. Progress Note: A&P Assessment and plan Assessment and Plan: His EEG shows severe diffuse delta slowing at very low voltage. 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 Prognosis is poor. No further neuro w/u at this time. If he survives the covid , he will need echo and carotid doppler Fall Risk Details Current Medications: Current Medications Albuterol/Ipratropium (Albuterol/Iprat 2.5/0.5mg 3 Ml Ampul.Neb) 3 ml INHALE RQ4H PRN PRN Reason: Ventilator synchrony Ascorbic Acid (Ascorbic Acid 500 Mg Tablet) 1,000 mg G-TUBE BID [facility] Last Admin: 11/18/21 07:42 Dose: 1,000 mg Documented by: Aspirin (Aspirin 325 Mg Tablet) 325 mg PO DAILY [facility] Last Admin: 11/18/21 07:59 Dose: 325 mg Documented by: Atorvastatin Calcium (Atorvastatin Calcium 40 Mg Tablet) 40 mg PO DAILY [facility] Last Admin: 11/18/21 07:43 Dose: 40 mg Documented by: Baricitinib (Baricitinib 2 Mg Tablet) 2 mg PO DAILY [facility] Stop: 11/22/21 09:01 Last Admin: 11/18/21 07:42 Dose: 2 mg Documented by: Brimonidine Tartrate (Brimonidine Tartrate 0.2% Oph 5 Ml Bottle) 1 drop EYE-BOTH BID [facility] Last Admin: 11/18/21 07:51 Dose: 1 drop Documented by: Chlorhexidine Gluconate (Chlorhexidine Gluc Oral Rinse 15 Ml Mouthwash) 15 ml BUCCAL TID [facility] Last Admin: 11/18/21 14:15 Dose: 15 ml Documented by: Famotidine (Famotidine 20 Mg Tablet) 20 mg PO DAILY [facility] Last Admin: 11/18/21 07:42 Dose: 20 mg Documented by: Fentanyl (Fentanyl Citrate/Pf 100 Mcg/2 Ml Vial) 100 mcg IVPUSH Q5M PRN; Protocol PRN Reason: WOB Last Admin: 11/18/21 09:08 Dose: 100 mcg Documented by: Fludrocortisone Acetate (Fludrocortisone Acetate 0.1 Mg Tablet) 0.1 mg PO BID [facility] Last Admin: 11/18/21 14:15 Dose: 0.1 mg Documented by: Folic Acid (Folic Acid 1 Mg Tablet) 1 mg PO DAILY [facility] Last Admin: 11/18/21 07:42 Dose: 1 mg Documented by: Propofol (Diprivan) 1,000 mg in 100 mls @ 0 mls/hr IVCONT .Q0M [facility]; Protocol Last Admin: 11/18/21 14:28 Dose: 30 mcg/kg/min, 16.33 mls/hr Documented by: Levetiracetam (Keppra) 1,000 mg in 100 mls @ 400 mls/hr IV Q12H [facility] Last Infusion: 11/18/21 12:21 Dose: Infused Documented by: Thiamine HCl 200 mg/ Sodium (Chloride) 102 mls @ 202 mls/hr IV BID [facility] Last Infusion: 11/18/21 09:57 Dose: Infused Documented by: Fentanyl (Sublimaze/Ns) 1,000 mcg in 100 mls @ 0 mls/hr IVCONT .Q0M [facility]; Protocol Last Admin: 11/18/21 15:43 Dose: 100 mcg/hr, 10 mls/hr Documented by: Heparin Sodium/Sodium Chloride () 25,000 unit in 250 mls @ 11 mls/hr IVCONT .[id number] [facility] Last Admin: 11/18/21 16:49 Dose: 1,100 units/hr, 11 mls/hr Documented by: Ivermectin (Ivermectin 3 Mg Tablet) 36 mg G-TUBE DAILY [facility] Stop: 11/22/21 09:01 Last Admin: 11/18/21 09:08 Dose: 36 mg Documented by: Melatonin (Melatonin 3 Mg Tablet) 9 mg PO BEDTIME [facility] Methylprednisolone Sodium Succinate (Methylprednisolone Sod Succ 125 Mg/2 Ml Vial) 80 mg IVPUSH Q12H [facility] Last Admin: 11/18/21 07:45 Dose: 80 mg Documented by: Nystatin (Nystatin Oral Susp 500,000 Unit/5 Ml Oral.Susp) 500,000 unit PO QID [facility]; Protocol Last Admin: 11/18/21 16:18 Dose: 500,000 unit Documented by: Senna (Sennosides 8.6 Mg Tablet) 17.2 mg PO BEDTIME PRN PRN Reason: Constipation Sodium Chloride (0.9 % Sodium Chloride Flush 3 Ml Syringe) 3 ml IVFLUSH QSHIFT [facility] Last Admin: 11/18/21 14:29 Dose: 3 ml Documented by: Sodium Zirconium Cyclosilicate (Sodium Zirconium Cyclosilicate 10 Gm Powd.Pack) 10 gm PO TID [facility] Stop: 11/19/21 21:01 Last Admin: 11/18/21 15:12 Dose: 10 gm Documented by: Vitamin D (Cholecalciferol (Vitamin D3) 25 Mcg Tablet) 50 mcg G-TUBE DAILY [facility] Last Admin: 11/18/21 07:43 Dose: 50 mcg Documented by: Time Spent With Patient Time: Total time spent is greater than 50% in coordination of care (as documented) at patient's floor/unit and/or counseling patient: Time with patient: 25 - 35 minutes Procedures Date of Service Date of Service: 11/18/21 Quality Stroke Does the patient have a stroke diagnosis?: Yes Reason for No Anti-thrombotic by Day Two: Contraindicated VTE Prior VTE?: No VTE Risk Level:: Medical - moderate - high VTE Device Contraindication: Treatment Not Indicated VTE Drug Contraindication: N/A - Med Ordered
[2021-11-18] MEDS: Melatonin 3 MG TABLET 9 MG PO (20:00)
[2021-11-18 20:23] LABS: Glucose, Whole Blood 240 mg/dL (60-115)
[2021-11-18 23:25] LABS: PTT Heparin Drip 61.2 SEC (53-77.9)
[2021-11-19] VITALS (34 sets, daily range): BP systolic 99–180; BP diastolic 47–95; PULSE 49–94; RESP 15–33; TEMP 34.9–36.5; O2SAT 90–97; BMI 39.2
[2021-11-19] MEDS: propofoL 1,000 MG/100 ML VIAL 16.33 MG IVCONT ×2 (00:13→12:49)
[2021-11-19] MEDS: 0.9 % Sodium Chloride Flush 3 ML SYRINGE IVFLUSH ×3 (00:13→14:37)
[2021-11-19 01:20] LABS: PTT Heparin Drip 40.5 SEC (53-77.9)
--- NOTE | 2021-11-19 01:57 | PC.NURSE ---
Heparin gtt titrated per Sabrina PA, see titration flowsheet. Heparin decreased to 6mls/hr, next ptt-hd 0500 per PA.
[2021-11-19] MEDS: propofoL 1,000 MG/100 ML VIAL 10.89 MG IVCONT (04:50)
[2021-11-19 05:34] LABS: VBG Base Excess 0.4 mmol/L; VBG HCO3 24 mmol/L (22-26); VBG pCO2 35 mmHg; VBG pH 7.43 (7.32-7.43); VBG pO2 60 mmHg
[2021-11-19 05:40] LABS: Venous Blood Gas Refer to POC result
[2021-11-19 05:42] LABS: Hematocrit 29.5 % (42.0-52.0); Hemoglobin 9.6 g/dl (14.0-18.0); Mean Corpuscular HGB Conc 32.5 g/dl (31.0-36.0); Mean Corpuscular Hemoglobin 31.7 pg (27.0-33.0); Mean Corpuscular Volume 97.4 fL (80.0-98.0); Mean Platelet Volume 10.3 fL (9.4-12.4); Platelet Count 232 X10*3/uL (160-400); Red Blood Count 3.03 X10*6/uL (4.60-5.80); Red Cell Distribution Width 12.4 % (11.0-16.0); White Blood Count 7.5 X10*3/uL (4.8-10.8)
[2021-11-19 05:48] LABS: Anion Gap 12 (12-20); Blood Urea Nitrogen 72 mg/dL (9-16); Calcium 8.3 mg/dL (8.4-10.2); Carbon Dioxide 27 mmol/L (22-29); Chloride 105 mmol/L (96-108); Creatinine Clr Calc Pharmacy 54.9; Estimated Glomerular Filt Rate 43; Glucose Random 194 mg/dL (60-115); Magnesium 2.8 mg/dL (1.6-2.6); Phosphorus 4.4 mg/dL (2.7-4.5); Potassium 5.6 mmol/L (3.3-5.1); Sodium 138 mmol/L (135-145)
[2021-11-19 05:52] LABS: PTT Heparin Drip 33.2 SEC (53-77.9)
[2021-11-19] MEDS: Calcium Gluconate/NaCl,Iso-Osm 2 GM/100 ML PLAST..BAG IV (06:32)
[2021-11-19] MEDS: Insulin Regular, Human 100 UNIT/ML 3 ML VIAL IVPUSH (06:32)
[2021-11-19] MEDS: Folic Acid 1 MG TABLET PO (07:52)
[2021-11-19] MEDS: Atorvastatin Calcium 40 MG TABLET PO (07:52)
[2021-11-19] MEDS: Aspirin 325 MG TABLET PO (07:52)
[2021-11-19] MEDS: Famotidine 20 MG TABLET PO (07:53)
[2021-11-19] MEDS: Fludrocortisone Acetate 0.1 MG TABLET PO ×2 (07:53→21:37)
[2021-11-19] MEDS: Cholecalciferol (Vitamin D3) 25 MCG TABLET 50 MCG G-TUBE (07:53)
[2021-11-19] MEDS: Brimonidine Tartrate 0.2% Oph 5 ML BOTTLE 1 DROP EYE-BOTH ×2 (07:54→21:36)
[2021-11-19] MEDS: Thiamine HCL 200 MG in 0.9 % Sodium Chloride 100 ML 202 MG IV ×2 (07:54→21:38)
[2021-11-19] MEDS: Chlorhexidine Gluc Oral Rinse 15 ML MOUTHWASH BUCCAL ×3 (07:54→21:36)
[2021-11-19] MEDS: Sodium Zirconium Cyclosilicate 10 GM POWD.PACK PO ×3 (07:54→21:37)
[2021-11-19] MEDS: Nystatin Oral Susp 500,000 UNIT/5 ML ORAL.SUSP 500000 UNIT PO ×4 (07:54→21:37)
[2021-11-19] MEDS: fentaNYL citrate/NS 1,000 MCG/100 ML PLAST..BAG 10 MCG IVCONT ×2 (07:55→17:13)
[2021-11-19] MEDS: methylPREDNISolone Sod Succ 125 MG/2 ML VIAL 80 MG IVPUSH ×2 (07:55→21:38)
[2021-11-19] MEDS: Ascorbic Acid 500 MG TABLET 1000 MG G-TUBE ×2 (07:56→21:37)
--- NOTE | 2021-11-19 10:07 | MHC.CLN ---
F/U PT REMAINS INTUBATED AND SEDATED PT WITH INCREASED PROTEIN NEEDS R/T COVID TF CURRENTLY PAUSED, ANTICIPATING PROCEDURE. PRIOR TO PAUSE RECEIVING PROMOTE AT MAX GOAL RATE 45ML/HR WITH 240CC FREE WATER Q 6HRS TO PROVIDE 1080KCALS (1367KCALS WITH SEDATION; 18.7KCALS/KG), 68G PROTEIN (.9G/KG), 1866CC TOTAL WATER FROM FORMULA AND FLUSHES (26ML/KG). TOLERATING WELL. MONITOR TOLERANCE, RESIDUALS AND LYTES
--- NOTE | 2021-11-19 10:24 | P.PNCC_ITS ---
Subjective Subjective Date of Service: 11/19/21 Interval History: Mr. Constantino was transferred to ICU on November 13 because of respiratory distress secondary to COVID pneumonia. The patient is a 71-year-old man with past medical history of obesity, HTN, KEY on CPAP.? The patient does not use oxygen at home, and previous labs show no evidence of CO2 retention.? The patient never had the COVID vaccinations.? He lives alone.? His sister Tena (cell [phone]) is his HCP. HISTORY OF PRESENT ILLNESS:? The patient started having COVID symptoms on about Oct 26.? On November 03, the patient had a chest x-ray ordered by his PMD, the reason being ?COVID positive?.? (The day he turned COVID positive is unstated.)? That chest x-ray shows subtle mild diffuse increase in markings, along with central vascular prominence. On Nov 07, the patient called EMS bec of two days of progressive SOB.? SpO2 wa s 60% at the scene.? The patient was BIBA to the ED.? In the ED the patient was afebrile.? Respiratory rate was 30.? He was placed on HFNC, with sat 93%.? WBC was normal.? Sodium was 122. BUN/creatinine were 17/1.1.? CPK was 3400.? D-dimer was 595.? Venous blood gas showed 7.38/37/-1 (?? On BiPAP).? Urine was brown with the urinalysis showing 3+ blood.? Chest x-ray showed new moderate bilateral COVID disease in the lower half of both lungs. The patient was diagnosed with COVID pneumonia and rhabdomyolysis, was given ceftriaxone, Zithromax, and Decadron, and was admitted to Medicine.? Baricitinib was added at Dr. Birch?s suggestion.? Antibiotics were stopped at Dr. Caldwell?s suggestion. Over the next days, his oxygenation deteriorated.? The patient's mental status became altered on November 12.? Chest x-ray showed worsening infiltrates.? ABG showed no hypercarbia. The patient was transferred to ICU on November 13 because of respiratory distress.? He was clearly encephalopathic.? Bedside echo showed mild concentric LVH w normal biventricular systolic function with no primary valve disease, and small inferior vena caval diameter.? The patient was intubated.? Baricitinib and Decadron were continued.? A central line was placed.? 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 He was started on ASA.? FiO2 was able to be reduced to as low as 50%. The patient?s renal indices valdez and peaked on Nov 15 with creat of 3.0.? On Nov 16, his FiO2 was down to 40%.? He was given a sedation vacation .? He did wake up, eyes open, but showed no cognitive fxn.? He looked like he had some rh ythmic motion of both of his eyelids, so the patient was given Versed which resolved that, and therefore the patient was started on Keppra.? An EEG was ordered.? His respiratory status got worse after the sedation holiday, with ventilator dyssynchrony that required prn rocuronium and an increase in the FiO2 to 60%.? Prolactin level was 29. On Nov 17, FiO2 had to be increased to 80% and then 100%.? WOB was increased, with CVBG showing 7.44/41/+4.? He was started on Fentanyl.? He had bloody tracheal secretions.? Repeat head CT showed mult infarcts described above were little changed, possibly slightly worse.? There is slight mass effect on the posterior horn of the left lateral ventricle from the large left parieto- occipital infarct.? There was no hemorrhagic conversion. An EEG was done Nov 17.? Dr Coulter wrote a note today saying that ?His EEG shows severe diffuse delta slowing at very low voltage. 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 Prognosis is poor. No further neuro w/u at this time. ?If he survives the covid, he will need echo and carotid Doppler.? Yesterday morning, bec of increased WOB and ventilator dyssynchrony, we tried a few different ventilator settings.? It became clear that no matter what we did, he had an underlying spontaneous RR of 15 that marched through all the ventilatory modes that we tried.? He failed PSV bec RR slowed to about 15, with deep tidal vols that caused increased insp effort and abdominal paradox.? We wound up overdriving him with VC+ 22/500/85%/+8, which produced a RR of 22, Ve 1 1L, PIP 25cm, ETCO 26, Sat 95%. His D-dimer yesterday morning came back at 42,000.? Because of that, we did a duplex scan of his lower extremities which showed bilateral posterior tibial vein calf DVTs.? We debated how to treat that, in view of the fact that the patient was having bloody tracheal secretions.? Initially we had decided to put a filter in, but after discussion with Dr. Mcfarland, it became clear that that would be insufficient, given that the patient would still be exposed to DVT from his upper extremities.? Therefore, in consultation with the patient's healthcare proxy, we decided to go with low-dose anticoagulation and to see how the patient tolerated that.? He was put on heparin drip with our target goal PTT of about 40. This morning, he?s adequately sedated with the propofol down to 20ug and fentanyl at 100 mcg.? Heart rate is 63, sinus rhythm.? Blood pressure 164/89.? He is afebrile.? On VC+ mode 21/500/50%/+8, RR is 20, Ve is 11L, PIP is 27cm, ETCO2 is 26, sat is 92%.? He still has his spont resp rate of about 15, but he?s more or less in sync with the ventilator, without signif WOB.? His tracheal secretions are minimally blood tinged, noticeably less than yesterday.? No JVD at 20?.? Abdomen is benign.? He has trace central edema. LABORATORY DATA:? Below.? Notably, WBC down to 7.5 this morning. ?BUN creatinine steady at 72/1.5 (from 68/1.7 yesterday).? Phos is up to 4.4.? Potassium is steady at 5.6.? DDimer is down to 29,000.? PTT this morning is 37 on heparin at 800u/hr. MICROBIOLOGY: ?Sputum Gram stain yesterday showed 1+ polys with no organisms.? Blood cultures drawn yesterday negative so far. IMPRESSION: 1. Underlying obesity, HTN, KEY. 2. COVID pneumonia.? On Nov 17, we discontinued Decadron and start the patient on the [facility] protocol.? Added ivermectin 36 mg daily x 5 days, along with Solu-Medrol 80mg bid, Vit C, Vit D, Atorvastatin, ASA 325mg, thiamine, melatonin.? (I informed the patient?s HCP of all these medications, and they were happy to hear it.)? Heparin drip was started yesterday (Nov 18).? Baricitinib is being continued altho it?s value (IMO) is dubious. 3. Bilat pulmonary infiltrates w ARDS.? 2? to above. 4. Hypoxemic resp failure.? 2? to above.? The patient's oxygenation has dramatically improved since yesterday.? Can not say whether it was due to the I firm actin or the anticoagulation. ?Ventilatory pattern is also smoother.? Compliance (as measured by his peak inspiratory pressure) is somewhat worse today. 5. EBER.? Appears to have had rhabdomyolysis.? His renal indices appear to have crested. 6. Hyperkalemia.? Impossible to understand why he?s hyperkalemic -- in the face of improving renal indices and stable phos and bicarb levels.? He?s now on Lokelma and Florinef.? Potassium level seems to have stabilized. 7. Bilat DVT in the presence of severe hypoxemia.? It?s possible, maybe even likely, that PE may have caused the deterioration in oxygenation over Nov 16- .? Anticoagulation yesterday has been associated with a marked drop in his oxygen requirement (altho ivermectin was also started yesterday).? And he hasn?t had any bleeding problem.? I will push our target PTT up to mid-40?s.? No indication for an IVC filter at this time. 8. Neuro:? It?s a virtual certainty that the brain CT findings are secondary to COVID.? Dr. Coulter has commented on the head CT and EEG.? No seizure pattern on the EEG.? I d/c?d the Keppra.? We won?t do a sedation holiday today.? I plan to do one tomorrow. 9. ID:? Sputum Gram stain unimpressive.? Blood cultures also drawn.? He?s not septic.? No antibiotics indicated at this time. 10, Nutrition:? Jevity at goal rate, 45c/hr Prognosis looking guarded at this time. Spoke with the HCP again today and updated her on the overnite progress and current condition. Critical Care Time (minutes): 70 Physical Exam Vital Signs: Vital Signs: Last Vital Signs Temp 96.6 F L 11/19/21 09:00 Pulse 69 11/19/21 10:00 Resp 21 H 11/19/21 10:00 BP 161/91 H 11/19/21 10:00 Pulse Ox 96 11/19/21 10:00 Oxygen Flow Rate 10 11/08/21 14:46 BMI result Body Mass Index 39.2 Objective Data Labs CBC & Chem 7: 11/19/21 05:18 11/19/21 05:18 Labs: Laboratory Results - last 24 hr 11/18/21 11/18/21 11/18/21 11:10 11:10 11:10 WBC RBC Hgb Hct MCV MCH MCHC RDW Plt Count MPV Absolute Nucleated RBC Nucleated RBC % (auto) PTT (Heparin Protocol) D-Dimer High Sensitivty 59117 VBG pH VBG pCO2 VBG pO2 VBG HCO3 VBG O2 Saturation VBG Base Excess Sodium Potassium 6.2 H* Chloride Carbon Dioxide Anion Gap BUN Creatinine Estim Creat Clear Calc Estimated GFR POC Glucose Random Glucose Lactic Acid Calcium Phosphorus 3.8 Magnesium 2.5 Ferritin 3181 H C-Reactive Protein 14.70 H Procalcitonin 11/18/21 11/18/21 11/18/21 11:10 11:10 14:09 WBC RBC Hgb Hct MCV MCH MCHC RDW Plt Count MPV Absolute Nucleated RBC Nucleated RBC % (auto) PTT (Heparin Protocol) D-Dimer High Sensitivty VBG pH VBG pCO2 VBG pO2 VBG HCO3 VBG O2 Saturation VBG Base Excess Sodium Potassium Chloride Carbon Dioxide Anion Gap BUN Creatinine Estim Creat Clear Calc Estimated GFR POC Glucose 227 H Random Glucose Lactic Acid 1.1 Calcium Phosphorus Magnesium Ferritin C-Reactive Protein Procalcitonin 0.28 11/18/21 11/18/21 11/18/21 15:48 16:01 22:59 WBC RBC Hgb Hct MCV MCH MCHC RDW Plt Count MPV Absolute Nucleated RBC Nucleated RBC % (auto) PTT (Heparin Protocol) 61.2 D-Dimer High Sensitivty VBG pH VBG pCO2 VBG pO2 VBG HCO3 VBG O2 Saturation VBG Base Excess Sodium 137 Potassium 5.6 H Chloride 104 Carbon Dioxide 27 Anion Gap 12 BUN 68 H Creatinine 1.76 H Estim Creat Clear Calc 49.6 Estimated GFR 38 POC Glucose 240 H Random Glucose 261 H D Lactic Acid Calcium 8.3 L Phosphorus Magnesium Ferritin C-Reactive Protein Procalcitonin 11/19/21 11/19/21 11/19/21 00:53 05:18 05:18 WBC RBC Hgb Hct MCV MCH MCHC RDW Plt Count MPV Absolute Nucleated RBC Nucleated RBC % (auto) PTT (Heparin Protocol) 40.5 L D 33.2 L D-Dimer High Sensitivty 96008 VBG pH VBG pCO2 VBG pO2 VBG HCO3 VBG O2 Saturation VBG Base Excess Sodium 138 Potassium 5.6 H Chloride 105 Carbon Dioxide 27 Anion Gap 12 BUN 72 H Creatinine 1.59 H Estim Creat Clear Calc 54.9 Estimated GFR 43 POC Glucose Random Glucose 194 H Lactic Acid Calcium 8.3 L Phosphorus 4.4 Magnesium 2.8 H Ferritin C-Reactive Protein Procalcitonin 11/19/21 11/19/21 05:18 05:25 WBC 7.5 RBC 3.03 L Hgb 9.6 L Hct 29.5 L MCV 97.4 MCH 31.7 MCHC 32.5 RDW 12.4 Plt Count 232 MPV 10.3 Absolute Nucleated RBC 0.000 Nucleated RBC % (auto) 0.0 PTT (Heparin Protocol) D-Dimer High Sensitivty VBG pH 7.43 VBG pCO2 35 VBG pO2 60 VBG HCO3 24 VBG O2 Saturation 88.0 VBG Base Excess 0.4 Sodium Potassium Chloride Carbon Dioxide Anion Gap BUN Creatinine Estim Creat Clear Calc Estimated GFR POC Glucose Random Glucose Lactic Acid Calcium Phosphorus Magnesium Ferritin C-Reactive Protein Procalcitonin Microbiology Microbiology Results: Microbiology 11/18/21 Unknown Sputum - Suctioned Gram Stain - Final 11/18/21 Unknown Sputum - Suctioned Sputum Culture - Preliminary Culture in progress. 11/13/21 Unknown Urine Catheterized - Perez Catheter Urine Culture - Final No growth. 11/07/21 18:50 Blood - Venous Blood Culture - Final No growth after 5 days. 11/07/21 19:45 Blood - Venous Blood Culture - Final No growth after 5 days. Quality Stroke Does the patient have a stroke diagnosis?: Yes Reason for No Anti-thrombotic by Day Two: Contraindicated VTE Prior VTE?: No VTE Risk Level:: Medical - moderate - high VTE Device Contraindication: Treatment Not Indicated VTE Drug Contraindication: N/A - Med Ordered Critical Care Time Critical Care Time (minutes): 60
[2021-11-19 10:34] LABS: PTT Heparin Drip 37.7 SEC (53-77.9)
[2021-11-19] MEDS: fentaNYL citrate/PF 100 MCG/2 ML VIAL IVPUSH ×3 (13:00→20:16)
--- NOTE | 2021-11-19 14:35 | PM.PNNEP ---
Subjective Subjective Date of Service: 11/19/21 Principal diagnosis: COVID, EBER Interval history: Chart reviewed and case d/w ICU team in detail and in particular the hyperK causes and treatment Physical Exam Vital Signs: Vital Signs: Last Vital Signs Temp 96.8 F 11/19/21 14:00 Pulse 53 11/19/21 14:00 Resp 21 H 11/19/21 14:00 BP 111/58 L 11/19/21 14:00 Pulse Ox 90 L 11/19/21 14:00 Oxygen Flow Rate 10 11/08/21 14:46 BMI result Body Mass Index 39.2 Const: Other: Confused General: cooperative, no acute distress, alert and awake Nutritional Appearance: obese Eyes: Sclerae: sclerae normal Pupils: Equal, round and reactive pupils present EOM: EOMs intact bilaterally Neck: Neck: Yes no lymphadenopathy, Yes trachea midline and Yes supple Resp: Effort & Inspection: normal respiratory effort and no respiratory distress Auscultation: crackles (Diffuse bilateral) and diminished lung sounds Cardio: Rate: regular rate Rhythm: regular rhythm Heart sounds: no gallops, no murmurs and no rubs GI: Palpation (GI): Soft to palpation, nontender and Other GI palpation findings present ( Nontender) Auscultation: normal bowel sounds Skin: General skin exam: no rashes or lesions noted Neuro: Other: Sedated General: moves all extremities Cranial nerves: Yes Equal, round and reactive pupils present Extrem: General: Yes no pedal edema, No clubbing and No cyanosis Objective Data Labs CBC & Chem 7: 11/19/21 05:18 11/19/21 05:18 Labs: Laboratory Results - last 24 hr 11/18/21 11/18/21 11/18/21 15:48 16:01 22:59 WBC RBC Hgb Hct MCV MCH MCHC RDW Plt Count MPV Absolute Nucleated RBC Nucleated RBC % (auto) PTT (Heparin Protocol) 61.2 D-Dimer High Sensitivty VBG pH VBG pCO2 VBG pO2 VBG HCO3 VBG O2 Saturation VBG Base Excess Sodium 137 Potassium 5.6 H Chloride 104 Carbon Dioxide 27 Anion Gap 12 BUN 68 H Creatinine 1.76 H Estim Creat Clear Calc 49.6 Estimated GFR 38 POC Glucose 240 H Random Glucose 261 H D Calcium 8.3 L Phosphorus Magnesium 11/19/21 11/19/21 11/19/21 00:53 05:18 05:18 WBC RBC Hgb Hct MCV MCH MCHC RDW Plt Count MPV Absolute Nucleated RBC Nucleated RBC % (auto) PTT (Heparin Protocol) 40.5 L D 33.2 L D-Dimer High Sensitivty 93243 VBG pH VBG pCO2 VBG pO2 VBG HCO3 VBG O2 Saturation VBG Base Excess Sodium 138 Potassium 5.6 H Chloride 105 Carbon Dioxide 27 Anion Gap 12 BUN 72 H Creatinine 1.59 H Estim Creat Clear Calc 54.9 Estimated GFR 43 POC Glucose Random Glucose 194 H Calcium 8.3 L Phosphorus 4.4 Magnesium 2.8 H 11/19/21 11/19/21 11/19/21 05:18 05:25 10:15 WBC 7.5 RBC 3.03 L Hgb 9.6 L Hct 29.5 L MCV 97.4 MCH 31.7 MCHC 32.5 RDW 12.4 Plt Count 232 MPV 10.3 Absolute Nucleated RBC 0.000 Nucleated RBC % (auto) 0.0 PTT (Heparin Protocol) 37.7 L D-Dimer High Sensitivty VBG pH 7.43 VBG pCO2 35 VBG pO2 60 VBG HCO3 24 VBG O2 Saturation 88.0 VBG Base Excess 0.4 Sodium Potassium Chloride Carbon Dioxide Anion Gap BUN Creatinine Estim Creat Clear Calc Estimated GFR POC Glucose Random Glucose Calcium Phosphorus Magnesium Microbiology Microbiology Results: Microbiology 11/18/21 11:10 Blood - Venous Blood Culture - Preliminary No growth after 24 hours. 11/18/21 11:10 Blood - Venous Blood Culture - Preliminary No growth after 24 hours. 11/18/21 Unknown Sputum - Suctioned Gram Stain - Final 11/18/21 Unknown Sputum - Suctioned Sputum Culture - Preliminary Culture in progress. 11/13/21 Unknown Urine Catheterized - Perez Catheter Urine Culture - Final No growth. 11/07/21 18:50 Blood - Venous Blood Culture - Final No growth after 5 days. 11/07/21 19:45 Blood - Venous Blood Culture - Final No growth after 5 days. Procedures Date of Service Date of Service: 11/19/21 Assessment & Plan Assessment and plan (1) Acute renal failure (ARF): Status: Acute Assessment and Plan: 1. EBER: multifact ATN with Scr grad decr; other possibilities seem less likely; decr C4 does raise ques of GNut this seems unlikley 2. Incr K this am despite decr SCr: yesterday Serum K peak at 6.2 and responded to Tx down to 5.6 etiol of hyperK remains unlclear given not on heparin or other meds know to interfere with urine K excetion and not getting K load from feeds COVID has been reported assoc with hyperK but more often assoc with hypoK --except when EBER ( his renal func has been stable/improving) REC: cont lokelma and track K; agree with addingflorinf 0.1 bid to help control K; may need to add lasix ifBP/intravascvol can handle it to incrurine K excretion; agani will order urine K/osm; cont to track UOP/darrian;func; avid NToxins Time Spent With Patient Time: Total time spent is greater than 50% in coordination of care (as documented) at patient's floor/unit and/or counseling patient: Progress Note: Quality Stroke Does the patient have a stroke diagnosis?: Yes Reason for No Anti-thrombotic by Day Two: Contraindicated
[2021-11-19 15:39] LABS: Sodium Urine Random < 20.0 mmol/L
[2021-11-19 15:42] LABS: Creatinine Urine 63.14 mg/dL
[2021-11-19 15:51] LABS: Osmolality Urine 698 mosm/kg (373-1093)
[2021-11-19] MEDS: Heparin Sodium,Porcine/1/2NS 25,000 UNIT/250 ML IV.SOLN 9 UNIT IVCONT (15:55)
--- NOTE | 2021-11-19 16:14 | MHC.CM.PN ---
Pt continues on ventilatory support without plans for extubation, secondary to COVID: D/C plans will depend on vent wean ability and pt's functional status. CM to follow
[2021-11-19] MEDS: propofoL 1,000 MG/100 ML VIAL 13.61 MG IVCONT (17:47)
[2021-11-19 20:04] LABS: PTT Heparin Drip 36.7 SEC (53-77.9)
[2021-11-19] MEDS: Melatonin 3 MG TABLET 9 MG PO (21:37)
[2021-11-19] MEDS: propofoL 1,000 MG/100 ML VIAL 21.77 MG IVCONT (23:04)
[2021-11-20] VITALS (32 sets, daily range): BP systolic 91–187; BP diastolic 49–93; PULSE 47–94; RESP 17–34; TEMP 34.7–36.4; O2SAT 90–98; BMI 39.1
[2021-11-20] MEDS: propofoL 1,000 MG/100 ML VIAL 21.77 MG IVCONT ×4 (02:21→22:48)
[2021-11-20] MEDS: fentaNYL citrate/NS 1,000 MCG/100 ML PLAST..BAG 10 MCG IVCONT (03:12)
[2021-11-20 05:50] LABS: Venous Blood Gas Refer to POC result
[2021-11-20 05:51] LABS: VBG Base Excess 6.7 mmol/L; VBG HCO3 32 mmol/L (22-26); VBG pCO2 50 mmHg; VBG pH 7.41 (7.32-7.43); VBG pO2 64 mmHg
[2021-11-20 06:08] LABS: PTT Heparin Drip 38.8 SEC (53-77.9)
[2021-11-20] MEDS: propofoL 1,000 MG/100 ML VIAL 13.61 MG IVCONT (06:08)
[2021-11-20 06:10] LABS: Anion Gap 11 (12-20); Blood Urea Nitrogen 71 mg/dL (9-16); Calcium 8.5 mg/dL (8.4-10.2); Carbon Dioxide 26 mmol/L (22-29); Chloride 107 mmol/L (96-108); Creatinine Clr Calc Pharmacy 61.5; Estimated Glomerular Filt Rate 50; Glucose Random 217 mg/dL (60-115); Potassium 5.3 mmol/L (3.3-5.1); Sodium 139 mmol/L (135-145)
[2021-11-20 06:44] LABS: D Dimer High Sensitivity 5883 NG/ML
[2021-11-20 06:47] LABS: Ferritin 2961 ng/mL (20-250)
[2021-11-20] MEDS: Thiamine HCL 200 MG in 0.9 % Sodium Chloride 100 ML 202 MG IV ×2 (07:57→21:57)
[2021-11-20] MEDS: Nystatin Oral Susp 500,000 UNIT/5 ML ORAL.SUSP 500000 UNIT PO ×4 (07:57→21:56)
[2021-11-20] MEDS: Calcium Gluconate/NaCl,Iso-Osm 2 GM/100 ML PLAST..BAG IV (07:57)
[2021-11-20] MEDS: Chlorhexidine Gluc Oral Rinse 15 ML MOUTHWASH BUCCAL ×3 (07:57→21:56)
[2021-11-20] MEDS: methylPREDNISolone Sod Succ 125 MG/2 ML VIAL 80 MG IVPUSH ×2 (07:57→21:56)
[2021-11-20] MEDS: Brimonidine Tartrate 0.2% Oph 5 ML BOTTLE 1 DROP EYE-BOTH ×2 (07:57→21:56)
[2021-11-20] MEDS: Atorvastatin Calcium 40 MG TABLET PO (07:58)
[2021-11-20] MEDS: fentaNYL citrate/PF 100 MCG/2 ML VIAL IVPUSH (07:58)
[2021-11-20] MEDS: Insulin Regular, Human 100 UNIT/ML 3 ML VIAL IVPUSH (07:58)
[2021-11-20] MEDS: Aspirin 325 MG TABLET PO (07:59)
[2021-11-20] MEDS: Folic Acid 1 MG TABLET PO (07:59)
[2021-11-20] MEDS: Fludrocortisone Acetate 0.1 MG TABLET PO ×2 (07:59→21:56)
[2021-11-20] MEDS: Cholecalciferol (Vitamin D3) 25 MCG TABLET 50 MCG G-TUBE (07:59)
[2021-11-20] MEDS: Famotidine 20 MG TABLET PO (07:59)
[2021-11-20] MEDS: Ascorbic Acid 500 MG TABLET 1000 MG G-TUBE ×2 (07:59→21:56)
[2021-11-20] MEDS: 0.9 % Sodium Chloride Flush 3 ML SYRINGE IVFLUSH ×2 (08:01→16:33)
--- NOTE | 2021-11-20 09:50 | PM.CCPN ---
Subjective Subjective Date of Service: 11/20/21 Interval History: Mr. Constantino was transferred to ICU on November 13 because of respiratory distress secondary to COVID pneumonia. The patient is a 71-year-old man with past medical history of obesity, HTN, KYE on CPAP.? The patient does not use oxygen at home, and previous labs show no evidence of CO2 retention.? The patient never had the COVID vaccinations.? He lives alone.? His sister Tena (cell [phone]) is his HCP. HISTORY OF PRESENT ILLNESS:? The patient started having COVID symptoms on about Oct 26.? The patient was BIBA to the ED on Nov 07 bec of two days of progressive SOB.? SpO2 was 60% at the scene.? The patient was diagnosed with COVID pneumonia and rhabdomyolysis, and was treated with Decadron and baricitinib. Over the next days, his oxygenation deteriorated.? The patient's mental status became altered on November 12.? He was transferred to ICU on November 13 and intubated.? 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 He was started on ASA.? FiO2 was able to be reduced to as low as 50%. The patient?s renal indices valdez and peaked on Nov 15 with creat of 3.0.? On Nov 16, his FiO2 was down to 40%.? He was given a sedation vacation .? He did wake up, eyes open, but showed no cognitive fxn.? His respiratory status got worse after the sedation holiday, with ventilator dyssynchrony that required prn rocuronium and an increase in the FiO2 to 60%.? Over the next day he required ?80-100% FiO2. Repeat head CT showed the mult infarcts described above were little changed, possibly slightly worse.? There was no hemorrhagic conversion. An EEG was done Nov 17.? Dr Coulter wrote a note today saying that ?His EEG shows severe diffuse delta slowing at very low voltage. 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 Prognosis is poor. No further neuro w/u at this time. ?If he survives the covid, he will need echo and carotid Doppler.? The D-dimer on Nov 18 came back at 42,000.? A duplex scan of his lower extremities showed bilateral posterior tibial vein calf DVTs.? We debated how to treat that, in view of the fact that the patient was having bloody tracheal secretions.? Utimately we decided on low dose Heparinization.? He did well, and subsequently his FiO2 has come down. This morning, CVBG showed 7.41/50/+6.? He was inadequately sedated with the propofol at 25ug and fentanyl at 50 mcg.? Heart rate is 85, sinus rhythm.? Blood pressure 187/88? He continues afebrile.? On VC+ mode 22/500/50%/+8, RR is 23, Ve is 13L, PIP is 17cm, ETCO2 is 26, sat is 93%.? He has mild ventilator dyssynchrony. ?His tracheal secretions are minimally blood tinged.? No JVD at 20?.? Abdomen is benign.? He has trace edema. We upped his fentanyl to 100 mcg and bolused fentanyl.? That did not help his respiratory pattern.? We upped his propofol eventually to 50 mcg, and he was finally well sedated, with an excellent resp pattern.? We then tried a sedation holiday. ?After ten minutes, he was agitated and dyssynchronous.? He was 100% noninteractive.? We had to go back up on the sedation. LABORATORY DATA:? Below.? Notably, renal indices, phos, and potassium down further.? DDimer down to 5883. MICROBIOLOGY: ?Sputum culture grew mixed resp abigail.? Blood cultures negative so far. IMPRESSION: 1. Underlying obesity, HTN, KEY. 2. COVID pneumonia.? On Nov 17, we discontinued Decadron and started the patient on the [facility] protocol.? Added ivermectin 36 mg daily x 5 days, along with Solu-Medrol 80mg bid, Vit C, Vit D, Atorvastatin, ASA 325mg, thiamine, melatonin.? (I informed the patient?s HCP of all these medications, and they were happy to hear it.)? Heparin drip was started Nov 18.? Baricitinib is being continued. 3. Bilat pulmonary infiltrates w ARDS.? 2? to above. 4. Hypoxemic resp failure.? 2? to above.? The patient's oxygenation has dramatically improved since 11/18.? Can not say whether it?s due to the anticoagulation (which is further suggestive that he had a PE) or the ivermectin, or both.? Ventilatory pattern demands higher sedation.? Compliance is good. 5. EBER.? Appears to have had rhabdomyolysis.? His renal indices appear to have crested. 6. Hyperkalemia.? Now on Lokelma and Florinef.? Potassium level seems to have stabilized. 7. Bilat DVT in the presence of severe hypoxemia.? It?s possible, even likely, that PE may have caused the deterioration in oxygenation over Nov 16.? Anticoagulation has been associated with a marked drop in his oxygen requirement.? And he hasn?t had any bleeding problem.? I will push our target PTT up to high 40?s.? No indication for an IVC filter at this time. 8. Neuro:? It?s a virtual certainty that the brain CT findings are secondary to COVID.? Dr. Coulter has commented on the head CT and EEG.? No seizure pattern on the EEG.? We tried a sedation holiday today and he failed bec of ventilator dysynchrony.? He?s almost certainly heading for a tracheostomy. 9. ID:? Sputum Gram stain unimpressive.? Blood cultures also drawn.? He?s not septic.? No antibiotics indicated at this time. 10, Nutrition:? Jevity at goal rate, 45c/hr Prognosis looking guarded at this time. Critical Care Time (minutes): 60 Physical Exam Vital Signs: Vital Signs: Last Vital Signs Temp 96.3 F L 11/20/21 09:00 Pulse 80 11/20/21 09:00 Resp 25 H 11/20/21 09:14 BP 187/88 H 11/20/21 09:00 Pulse Ox 93 11/20/21 09:00 Oxygen Flow Rate 10 11/08/21 14:46 BMI result Body Mass Index 39.1 Objective Data Labs CBC & Chem 7: 11/19/21 05:18 11/20/21 05:40 Labs: Laboratory Results - last 24 hr 11/19/21 11/19/21 11/19/21 10:15 15:06 15:06 PTT (Heparin Protocol) 37.7 L D-Dimer High Sensitivty VBG pH VBG pCO2 VBG pO2 VBG HCO3 VBG O2 Saturation VBG Base Excess Sodium Potassium Chloride Carbon Dioxide Anion Gap BUN Creatinine Estim Creat Clear Calc Estimated GFR Random Glucose Calcium Phosphorus Ferritin Urine Osmolality Ur Random Sodium < 20.0 Ur Random Potassium Urine Creatinine 63.14 11/19/21 11/19/21 11/19/21 15:06 15:06 19:50 PTT (Heparin Protocol) 36.7 L D-Dimer High Sensitivty VBG pH VBG pCO2 VBG pO2 VBG HCO3 VBG O2 Saturation VBG Base Excess Sodium Potassium Chloride Carbon Dioxide Anion Gap BUN Creatinine Estim Creat Clear Calc Estimated GFR Random Glucose Calcium Phosphorus Ferritin Urine Osmolality 698 Ur Random Sodium Ur Random Potassium 42.0 Urine Creatinine 11/20/21 11/20/21 11/20/21 05:40 05:40 05:43 PTT (Heparin Protocol) 38.8 L D-Dimer High Sensitivty 5883 VBG pH 7.41 VBG pCO2 50 VBG pO2 64 VBG HCO3 32 H VBG O2 Saturation 88.0 VBG Base Excess 6.7 Sodium 139 Potassium 5.3 H Chloride 107 Carbon Dioxide 26 Anion Gap 11 L BUN 71 H Creatinine 1.41 H Estim Creat Clear Calc 61.5 Estimated GFR 50 Random Glucose 217 H Calcium 8.5 Phosphorus 4.0 Ferritin 2961 H Urine Osmolality Ur Random Sodium Ur Random Potassium Urine Creatinine Microbiology Microbiology Results: Microbiology 11/18/21 Unknown Sputum - Suctioned Gram Stain - Final 11/18/21 Unknown Sputum - Suctioned Sputum Culture - Final 11/18/21 11:10 Blood - Venous Blood Culture - Preliminary No growth after 24 hours. 11/18/21 11:10 Blood - Venous Blood Culture - Preliminary No growth after 24 hours. 11/13/21 Unknown Urine Catheterized - Perez Catheter Urine Culture - Final No growth. 11/07/21 18:50 Blood - Venous Blood Culture - Final No growth after 5 days. 11/07/21 19:45 Blood - Venous Blood Culture - Final No growth after 5 days. Quality Stroke Does the patient have a stroke diagnosis?: Yes Reason for No Anti-thrombotic by Day Two: Contraindicated VTE Prior VTE?: No VTE Risk Level:: Medical - moderate - high VTE Device Contraindication: Treatment Not Indicated VTE Drug Contraindication: N/A - Med Ordered Critical Care Time Critical Care Time (minutes): 60
--- NOTE | 2021-11-20 11:22 | MHC.CLN ---
F/U PT REMAINS INTUBATED AND SEDATED PT WITH INCREASED PROTEIN NEEDS R/T COVID TUBE FEEDING CURRENTLY RUNNING AT 20 ML PER HOUR WITH MAX GOAL RATE OF PROMOTE AT 45 ML PER HOUR. MONITOR TOLERANCE, RESIDUALS AND LYTES
[2021-11-20] MEDS: propofoL 1,000 MG/100 ML VIAL 27.22 MG IVCONT (12:01)
[2021-11-20] MEDS: fentaNYL citrate/NS 1,000 MCG/100 ML PLAST..BAG 15 MCG IVCONT ×2 (12:01→18:26)
--- NOTE | 2021-11-20 12:06 | P.PNNP_ITS ---
Subjective Subjective Date of Service: 11/20/21 Principal diagnosis: COVID, EBER Interval history: Seen and exanamined, events noted Physical Exam Vital Signs: Vital Signs: Last Vital Signs Temp 97.0 F 11/20/21 12:00 Pulse 50 11/20/21 12:00 Resp 22 H 11/20/21 12:00 BP 100/57 L 11/20/21 12:00 Pulse Ox 93 11/20/21 12:00 Oxygen Flow Rate 10 11/08/21 14:46 BMI result Body Mass Index 39.1 Const: Other: Confused General: cooperative, no acute distress, alert and awake Nutritional Appearance: obese Eyes: Sclerae: sclerae normal Pupils: Equal, round and reactive pupils present EOM: EOMs intact bilaterally Neck: Neck: Yes no lymphadenopathy, Yes trachea midline and Yes supple Resp: Effort & Inspection: normal respiratory effort and no respiratory distress Auscultation: crackles (Diffuse bilateral) and diminished lung sounds Cardio: Rate: regular rate Rhythm: regular rhythm Heart sounds: no gallops, no murmurs and no rubs GI: Palpation (GI): Soft to palpation, nontender and Other GI palpation fin dings present ( Nontender) Auscultation: normal bowel sounds Skin: General skin exam: no rashes or lesions noted Neuro: Other: Sedated General: moves all extremities Cranial nerves: Yes Equal, round and reactive pupils present Extrem: General: Yes no pedal edema, No clubbing and No cyanosis Objective Data Labs CBC & Chem 7: 11/19/21 05:18 11/20/21 05:40 Labs: Laboratory Results - last 24 hr 11/19/21 11/19/21 11/19/21 15:06 15:06 15:06 PTT (Heparin Protocol) D-Dimer High Sensitivty VBG pH VBG pCO2 VBG pO2 VBG HCO3 VBG O2 Saturation VBG Base Excess Sodium Potassium Chloride Carbon Dioxide Anion Gap BUN Creatinine Estim Creat Clear Calc Estimated GFR Random Glucose Calcium Phosphorus Ferritin Urine Osmolality 698 Ur Random Sodium < 20.0 Ur Random Potassium Urine Creatinine 63.14 11/19/21 11/19/21 11/20/21 15:06 19:50 05:40 PTT (Heparin Protocol) 36.7 L 38.8 L D-Dimer High Sensitivty 5883 VBG pH VBG pCO2 VBG pO2 VBG HCO3 VBG O2 Saturation VBG Base Excess Sodium Potassium Chloride Carbon Dioxide Anion Gap BUN Creatinine Estim Creat Clear Calc Estimated GFR Random Glucose Calcium Phosphorus Ferritin Urine Osmolality Ur Random Sodium Ur Random Potassium 42.0 Urine Creatinine 11/20/21 11/20/21 05:40 05:43 PTT (Heparin Protocol) D-Dimer High Sensitivty VBG pH 7.41 VBG pCO2 50 VBG pO2 64 VBG HCO3 32 H VBG O2 Saturation 88.0 VBG Base Excess 6.7 Sodium 139 Potassium 5.3 H Chloride 107 Carbon Dioxide 26 Anion Gap 11 L BUN 71 H Creatinine 1.41 H Estim Creat Clear Calc 61.5 Estimated GFR 50 Random Glucose 217 H Calcium 8.5 Phosphorus 4.0 Ferritin 2961 H Urine Osmolality Ur Random Sodium Ur Random Potassium Urine Creatinine Microbiology Microbiology Results: Microbiology 11/18/21 Unknown Sputum - Suctioned Gram Stain - Final 11/18/21 Unknown Sputum - Suctioned Sputum Culture - Final 11/18/21 11:10 Blood - Venous Blood Culture - Preliminary No growth after 24 hours. 11/18/21 11:10 Blood - Venous Blood Culture - Preliminary No growth after 24 hours. 11/13/21 Unknown Urine Catheterized - Perez Catheter Urine Culture - Final No growth. 11/07/21 18:50 Blood - Venous Blood Culture - Final No growth after 5 days. 11/07/21 19:45 Blood - Venous Blood Culture - Final No growth after 5 days. Procedures Date of Service Date of Service: 11/20/21 Assessment & Plan Assessment and plan (1) Acute renal failure (ARF): Status: Acute Assessment and Plan: 1. EBER: multifact ATN with Scr grad decr; other possibilities seem less likely; decr C4 does raise ques of GNut this seems unlikley 2. Incr K this am despite decr SCr: yesterday Serum K peak at 6.2 and responded to Tx down to 5.6 etiol of hyperK remains unlclear given not on heparin or other meds know to interfere with urine K excetion and not getting K load from feeds COVID has been reported assoc with hyperK but more often assoc with hypoK --except when EBER ( his renal func has been stable/improving) REC: cont lokelma and track K; agree with adding florinf 0.1 bid to help control K; may need to add lasix if BP/intravasc vol can handle it to incr urine K excretion; cont to track UOP/darrian;func; avid NToxins Time Spent With Patient Time: Total time spent is greater than 50% in coordination of care (as do cumented) at patient's floor/unit and/or counseling patient: Progress Note: Quality Stroke Does the patient have a stroke diagnosis?: Yes Reason for No Anti-thrombotic by Day Two: Contraindicated
[2021-11-20] MEDS: Heparin Sodium,Porcine/1/2NS 25,000 UNIT/250 ML IV.SOLN 11 UNIT IVCONT (14:07)
--- NOTE | 2021-11-20 15:55 | MHC.CM.PN ---
Patient remains intubated/vented in ICU. Patient is currently on a heparin drip. Per Dr Falcon, sedation vacation will be attempted today. Patient is from home without services. Continue to monitor for d/c needs.
[2021-11-20] MEDS: Melatonin 3 MG TABLET 9 MG PO (21:56)
[2021-11-21] VITALS (31 sets, daily range): BP systolic 105–209; BP diastolic 52–94; PULSE 46–89; RESP 11–26; TEMP 34.9–36.7; O2SAT 85–98; BMI 39.6
[2021-11-21] MEDS: fentaNYL citrate/NS 1,000 MCG/100 ML PLAST..BAG 15 MCG IVCONT ×3 (01:08→16:24)
[2021-11-21] MEDS: propofoL 1,000 MG/100 ML VIAL 21.77 MG IVCONT ×5 (03:19→21:45)
[2021-11-21 05:34] LABS: VBG Base Excess 5.4 mmol/L; VBG HCO3 30 mmol/L (22-26); VBG pCO2 44 mmHg; VBG pH 7.44 (7.32-7.43); VBG pO2 54 mmHg
[2021-11-21 06:07] LABS: Hematocrit 28.2 % (42.0-52.0); Hemoglobin 9.2 g/dl (14.0-18.0); Mean Corpuscular HGB Conc 32.6 g/dl (31.0-36.0); Mean Corpuscular Hemoglobin 32.1 pg (27.0-33.0); Mean Corpuscular Volume 98.3 fL (80.0-98.0); Mean Platelet Volume 10.5 fL (9.4-12.4); Platelet Count 322 X10*3/uL (160-400); Red Blood Count 2.87 X10*6/uL (4.60-5.80); Red Cell Distribution Width 12.3 % (11.0-16.0); White Blood Count 7.7 X10*3/uL (4.8-10.8)
[2021-11-21 06:25] LABS: Albumin Level 2.7 g/dL (3.5-5.0); Anion Gap 11 (12-20); Blood Urea Nitrogen 70 mg/dL (9-16); C Reactive Protein 3.89 mg/dL (< or = 0.50); Calcium 8.6 mg/dL (8.4-10.2); Carbon Dioxide 27 mmol/L (22-29); Chloride 107 mmol/L (96-108); Creatinine Clr Calc Pharmacy 63.3; Estimated Glomerular Filt Rate 51; Glucose Random 229 mg/dL (60-115); Magnesium 2.4 mg/dL (1.6-2.6); Phosphorus 4.1 mg/dL (2.7-4.5); Potassium 5.2 mmol/L (3.3-5.1); Sodium 140 mmol/L (135-145)
[2021-11-21 06:29] LABS: D Dimer High Sensitivity 3641 NG/ML
[2021-11-21] MEDS: Brimonidine Tartrate 0.2% Oph 5 ML BOTTLE 1 DROP EYE-BOTH ×2 (07:40→20:22)
[2021-11-21] MEDS: 0.9 % Sodium Chloride Flush 3 ML SYRINGE IVFLUSH ×2 (07:40→14:55)
[2021-11-21] MEDS: Nystatin Oral Susp 500,000 UNIT/5 ML ORAL.SUSP 500000 UNIT PO ×2 (07:40→20:22)
[2021-11-21] MEDS: Aspirin 325 MG TABLET PO (07:41)
[2021-11-21] MEDS: Chlorhexidine Gluc Oral Rinse 15 ML MOUTHWASH BUCCAL ×3 (07:41→20:22)
[2021-11-21] MEDS: Fludrocortisone Acetate 0.1 MG TABLET PO ×2 (07:41→20:22)
[2021-11-21] MEDS: Folic Acid 1 MG TABLET PO (07:41)
[2021-11-21] MEDS: Cholecalciferol (Vitamin D3) 25 MCG TABLET 50 MCG G-TUBE (07:41)
[2021-11-21] MEDS: Ascorbic Acid 500 MG TABLET 1000 MG G-TUBE ×2 (07:42→20:22)
[2021-11-21] MEDS: Famotidine 20 MG TABLET PO (07:42)
[2021-11-21] MEDS: Atorvastatin Calcium 40 MG TABLET PO (08:26)
[2021-11-21] MEDS: methylPREDNISolone Sod Succ 125 MG/2 ML VIAL 80 MG IVPUSH ×2 (08:27→20:23)
[2021-11-21] MEDS: Thiamine HCL 200 MG in 0.9 % Sodium Chloride 100 ML 202 MG IV ×2 (08:28→20:23)
[2021-11-21 08:53] LABS: Venous Blood Gas Refer to POC result
--- NOTE | 2021-11-21 09:04 | PM.PNNEP ---
Subjective Subjective Date of Service: 11/21/21 Principal diagnosis: COVID, EBER Interval history: seen and examined vented Physical Exam Vital Signs: Vital Signs: Last Vital Signs Temp 96.8 F 11/21/21 08:00 Pulse 63 11/21/21 08:00 Resp 22 H 11/21/21 08:00 BP 111/59 L 11/21/21 08:00 Pulse Ox 96 11/21/21 08:00 Oxygen Flow Rate 10 11/08/21 14:46 BMI result Body Mass Index 39.6 Const: General: ill appearing HENMT: Head: Yes normocephalic and Yes atraumatic Neck: Neck: Yes supple Resp: Auscultation: diminished lung sounds Cardio: Heart sounds: S1 normal heart sound present and S2 normal heart sound present GI: Palpation (GI): Soft to palpation and no guarding Extrem: General: No edema Objective Data Labs CBC & Chem 7: 11/21/21 05:25 11/21/21 05:25 Labs: Laboratory Results - last 24 hr 11/20/21 11/21/21 11/21/21 15:08 05:25 05:25 WBC 7.7 RBC 2.87 L Hgb 9.2 L Hct 28.2 L MCV 98.3 H MCH 32.1 MCHC 32.6 RDW 12.3 Plt Count 322 D MPV 10.5 Absolute Nucleated RBC 0.000 Nucleated RBC % (auto) 0.0 PTT (Heparin Protocol) 46.0 L 40.0 L D-Dimer High Sensitivty 3641 VBG pH VBG pCO2 VBG pO2 VBG HCO3 VBG O2 Saturation VBG Base Excess Sodium Potassium Chloride Carbon Dioxide Anion Gap BUN Creatinine Estim Creat Clear Calc Estimated GFR Random Glucose Calcium Phosphorus Magnesium C-Reactive Protein Albumin 11/21/21 11/21/21 05:25 05:28 WBC RBC Hgb Hct MCV MCH MCHC RDW Plt Count MPV Absolute Nucleated RBC Nucleated RBC % (auto) PTT (Heparin Protocol) D-Dimer High Sensitivty VBG pH 7.44 H VBG pCO2 44 VBG pO2 54 VBG HCO3 30 H VBG O2 Saturation 78.0 VBG Base Excess 5.4 Sodium 140 Potassium 5.2 H Chloride 107 Carbon Dioxide 27 Anion Gap 11 L BUN 70 H Creatinine 1.38 Estim Creat Clear Calc 63.3 Estimated GFR 51 Random Glucose 229 H Calcium 8.6 Phosphorus 4.1 Magnesium 2.4 C-Reactive Protein 3.89 H Albumin 2.7 L Microbiology Microbiology Results: Microbiology 11/18/21 11:10 Blood - Venous Blood Culture - Preliminary No growth after 48 hours. 11/18/21 11:10 Blood - Venous Blood Culture - Preliminary No growth after 48 hours. 11/18/21 Unknown Sputum - Suctioned Gram Stain - Final 11/18/21 Unknown Sputum - Suctioned Sputum Culture - Final 11/13/21 Unknown Urine Catheterized - Perez Catheter Urine Culture - Final No growth. 11/07/21 18:50 Blood - Venous Blood Culture - Final No growth after 5 days. 11/07/21 19:45 Blood - Venous Blood Culture - Final No growth after 5 days. Procedures Date of Service Date of Service: 11/21/21 Assessment & Plan Assessment and plan (1) EBER (acute kidney injury): Status: Acute (2) Hyperkalemia: Status: Acute (3) SARS-CoV-2 antibody positive: Status: Acute (4) Respiratory failure: Status: Acute Assessment and Plan: Scr better at baseline EBER due to acute tubular injury in the setting of SARS COV 2 infection heparin can cause type IV RTA baseline Scr ~ 1.3 REC sodium zirconium as needed follow kidney function and electrolytes Time Spent With Patient Time: Total time spent is greater than 50% in coordination of care (as documented) at patient's floor/unit and/or counseling patient: Progress Note: Quality Stroke Does the patient have a stroke diagnosis?: Yes Reason for No Anti-thrombotic by Day Two: Contraindicated
--- NOTE | 2021-11-21 10:06 | MHC.CLN ---
F/U TUBE FEEDING RUNNING AT 35 ML PER HOUR AND PATIENT IS TOLERATING WELL. RECOMMENDED MAX GOAL RATE OF PROMOTE AT 45 ML PER HOUR. FOLLOWING WITH TEAM.
[2021-11-21] MEDS: Heparin Sodium,Porcine/1/2NS 25,000 UNIT/250 ML IV.SOLN 11 UNIT IVCONT (10:31)
[2021-11-21 11:26] LABS: PTT Heparin Drip 51.9 SEC (53-77.9)
--- NOTE | 2021-11-21 13:07 | P.PNCC_ITS ---
Subjective Subjective Date of Service: 11/21/21 Interval History: Mr. Constantino was transferred to ICU on November 13 because of respiratory distress secondary to COVID pneumonia. The patient is a 71-year-old man with past medical history of obesity, HTN, KEY on CPAP.? The patient?s old [email or web address] labs suggest that he has baseline mild CKD (baseline creat maybe 1.2-1.3). ?The patient does not use oxygen at home, and previous labs show no evidence of CO2 retention.? The patient never had the COVID vaccinations.? He lives alone.? His sister Tena (cell [phone]) is his HCP. The patient started having COVID symptoms on about Oct 26.? The patient was BIBA to the ED on Nov 07 bec of two days of progressive SOB.? The patient was diagnosed with COVID pneumonia and rhabdomyolysis, and was admitted and treated with Decadron and baricitinib. See my prior notes for full details of hospital course.? Briefly, the patient was tx to ICU on Nov 13 and intubated.? 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 ?Dr. Coulter has suggested that prognosis is poor. ?Course has been further complicated by lower extremity DVT and assumed PE.? The patient has been heparinized with subsequent improvement in his oxygenation. This morning, CVBG showed 7.44/44/+5.? He was adequately sedated with the propofol at 50ug and fentanyl at 150 mcg.? He remains afebrile.? Heart rate is 70, sinus rhythm.? Blood pressure 163/73.? On VC+ mode 22/500/45%/+8, RR is 22, Ve is 11L, PIP is 25cm, ETCO2 is 30, sat is 94%.? He has good ventilator synchrony. ?His tracheal secretions are no longer blood tinged (on nearly full anticoagulation.? No JVD at 20?.? Abdomen is benign.? He has trace edema. We successfully did a long sedation holiday today (without the patient becoming highly agitated and dysynchronus).? With the propofol and fentanyl both off for 1 and 3/4 hours, the patient was 100% noninteractive and completely unresponsive to commands.? He had no spontaneous eye opening.? He did have an occasional spontaneous leg movement.? He had no response to painful stimulation. LABORATORY DATA:? Below.? Notably, renal indices, phos, and potassium pretty much unchanged.? DDimer down to 3641.? PTT up to 51 with no bleeding. MICROBIOLOGY: ?Sputum culture from Nov 18 grew mixed resp abigail.? Blood cultures negative. IMPRESSION: 1. Underlying obesity, HTN, KEY. 2. COVID pneumonia.? On Nov 17, we discontinued Decadron and started the patient on the [facility] protocol.? Added ivermectin 36 mg daily x 5 days, along with Solu-Medrol 80mg bid, Vit C, Vit D, Atorvastatin, ASA 325mg, thiamine, melatonin.? (I informed the patient?s HCP of all these medications, and they were happy to hear it.)? Heparin drip was started Nov 18.? Baricitinib is being continued. 3. Bilat pulmonary infiltrates w ARDS.? 2? to above. 4. Hypoxemic resp failure.? 2? to above.? The patient's oxygenation has roz matically improved since we started the anticoagulation. ?Cannot say whether it?s due to the anticoagulation (which is further suggestive that he had a PE) or the ivermectin, or both.? Compliance is not bad. 5. EBER.? Appears to have had rhabdomyolysis.? His renal indices appear to have crested.? We?ll see if they get back to baseline. 6. Hyperkalemia.? Now on Lokelma and Florinef.? Potassium level seems to have stabilized. 7. Bilat DVT in the presence of severe hypoxemia.? It?s possible, even likely, that PE may have caused the deterioration in oxygenation over Nov 16.? Anticoagulation has been associated with a marked drop in his oxygen requirement.? And he hasn?t had any bleeding problem.? I will change him to Lovenox bid.? His weight is 121 kg.? I will start with 80 mg bid and slowly ramp up to full dose.? No indication for an IVC filter at this time. 8. Neuro:? It?s a virtual certainty that the brain CT findings are secondary to COVID.? Dr. Coulter has commented on the head CT and EEG, suggesting a poor prognosis. ?Exam today suggests that return of cognitive function is not going to happen soon (altho it?s certainly possible that he could be someone in whom it takes hours for the propofol to wear off).? Regardless, IMO, he?s going to need a tracheostomy.? I discussed with the thoracic surgery PA and I?ve asked him to put the patient on the schedule for next week. 9. ID:? Sputum Gram stain unimpressive.? Blood cultures also drawn.? He?s not septic.? No antibiotics indicated at this time. 10. Laxation.? I?ll start him on lactulose. 11, Nutrition:? Jevity at goal rate, altho having intermit problems with residuals.? I started him on Reglan Prognosis is guarded at this time.? I called the patient's daughter Elizabeth and we spoke for about 45 minutes.? I updated her on his condition.? In regards to his respiratory status, he is making decent progress, all things considered.? The main problem is his brain and the strokes that he?s had.? So far we haven?t seen any real cognitive function, although the propofol has not been off for an ho urs? long trial.? Either way, it appears that he is going to need a tracheostomy.? The question is, would he want that, and more so, is he the kind of person who would want to endure the long, arduous, burdensome, and even painful road that is sure to follow this episode.? And even if he does survive, he will never get back to the condition he was in before, and may well, if not probably, never get back to independent living.? She will d/w her family.? We will put him on the schedule for tracheostomy next week.? It can always be canceled. Critical care time: ?1:45+ hrs. Critical Care Time (minutes): 105 Physical Exam Vital Signs: Vital Signs: Last Vital Signs Temp 97.0 F 11/21/21 12:00 Pulse 89 11/21/21 12:00 Resp 23 H 11/21/21 12:00 BP 209/89 H 11/21/21 12:00 Pulse Ox 94 11/21/21 12:00 Oxygen Flow Rate 10 11/08/21 14:46 BMI result Body Mass Index 39.6 Objective Data Labs CBC & Chem 7: 11/21/21 05:25 11/21/21 05:25 Labs: Laboratory Results - last 24 hr 11/20/21 11/21/21 11/21/21 15:08 05:25 05:25 WBC 7.7 RBC 2.87 L Hgb 9.2 L Hct 28.2 L MCV 98.3 H MCH 32.1 MCHC 32.6 RDW 12.3 Plt Count 322 D MPV 10.5 Absolute Nucleated RBC 0.000 Nucleated RBC % (auto) 0.0 PTT (Heparin Protocol) 46.0 L 40.0 L D-Dimer High Sensitivty 3641 VBG pH VBG pCO2 VBG pO2 VBG HCO3 VBG O2 Saturation VBG Base Excess Sodium Potassium Chloride Carbon Dioxide Anion Gap BUN Creatinine Estim Creat Clear Calc Estimated GFR Random Glucose Calcium Phosphorus Magnesium C-Reactive Protein Albumin 11/21/21 11/21/21 11/21/21 05:25 05:28 10:56 WBC RBC Hgb Hct MCV MCH MCHC RDW Plt Count MPV Absolute Nucleated RBC Nucleated RBC % (auto) PTT (Heparin Protocol) 51.9 L D D-Dimer High Sensitivty VBG pH 7.44 H VBG pCO2 44 VBG pO2 54 VBG HCO3 30 H VBG O2 Saturation 78.0 VBG Base Excess 5.4 Sodium 140 Potassium 5.2 H Chloride 107 Carbon Dioxide 27 Anion Gap 11 L BUN 70 H Creatinine 1.38 Estim Creat Clear Calc 63.3 Estimated GFR 51 Random Glucose 229 H Calcium 8.6 Phosphorus 4.1 Magnesium 2.4 C-Reactive Protein 3.89 H Albumin 2.7 L Microbiology Microbiology Results: Microbiology 11/18/21 11:10 Blood - Venous Blood Culture - Preliminary No growth after 48 hours. 11/18/21 11:10 Blood - Venous Blood Culture - Preliminary No growth after 48 hours. 11/18/21 Unknown Sputum - Suctioned Gram Stain - Final 11/18/21 Unknown Sputum - Suctioned Sputum Culture - Final 11/13/21 Unknown Urine Catheterized - Perez Catheter Urine Culture - Final No growth. 11/07/21 18:50 Blood - Venous Blood Culture - Final No growth after 5 days. 11/07/21 19:45 Blood - Venous Blood Culture - Final No growth after 5 days. Quality Stroke Does the patient have a stroke diagnosis?: Yes Reason for No Anti-thrombotic by Day Two: Contraindicated VTE Prior VTE?: No VTE Risk Level:: Medical - moderate - high VTE Device Contraindication: Treatment Not Indicated VTE Drug Contraindication: N/A - Med Ordered Critical Care Time Critical Care Time (minutes): 120
--- NOTE | 2021-11-21 14:06 | MHC.CM.PN ---
Pt continues in ICU on ventilatory support: failed sedation vacation and MD feels pt will more than likely need trach and peg placement should he survive. CM to contact family after holiday to discuss options/VIBRA should the above prove necessary.
--- NOTE | 2021-11-21 14:27 | PC.NURSE ---
Around 10:45 this RN initiated sedation vacation from propofol and fentany. Baseline vitals: HR 74, BP 170/77, RR 14, o2 sat 94% on 45% fio2. Vent Settins: ACVC+ Rate 22, tidal vol 500, peep 8 and Fio2 45%. Patient remained mostly synchronous with the vent. BP elevated to 210/108 and RR up 27, MD aware. Pupils reactive and 3mm. At times opening spontaneously but not to command. No response to pain. Unable to follow commands. Small non-purposeful movements with bilateral feet noted. MD at beside for assessment. Around 12:45 sedation vacation ended per MD. Re-sedated with propofol and fentanyl.
[2021-11-21] MEDS: Metoclopramide HCl 10 MG/2 ML VIAL 5 MG IVPUSH ×2 (14:54→20:23)
[2021-11-21] MEDS: Lactulose 20 GM/30 ML SOLUTION G-TUBE ×2 (14:54→17:42)
[2021-11-21] MEDS: Enoxaparin Sodium 80 MG/0.8 ML SYRINGE SUBCUT (16:24)
[2021-11-21] MEDS: Melatonin 3 MG TABLET 9 MG PO (20:23)
[2021-11-22] VITALS (35 sets, daily range): BP systolic 76–195; BP diastolic 41–103; PULSE 52–103; RESP 16–26; TEMP 34.6–36.9; O2SAT 90–99; BMI 39.3
[2021-11-22] MEDS: 0.9 % Sodium Chloride Flush 3 ML SYRINGE IVFLUSH ×3 (00:38→14:13)
[2021-11-22] MEDS: propofoL 1,000 MG/100 ML VIAL 21.77 MG IVCONT ×2 (00:38→03:49)
[2021-11-22] MEDS: fentaNYL citrate/NS 1,000 MCG/100 ML PLAST..BAG 10 MCG IVCONT ×3 (00:39→21:49)
[2021-11-22] MEDS: Metoclopramide HCl 10 MG/2 ML VIAL 5 MG IVPUSH ×4 (03:48→19:30)
[2021-11-22] MEDS: fentaNYL citrate/NS 1,000 MCG/100 ML PLAST..BAG 20 MCG IVCONT (03:52)
[2021-11-22] MEDS: Enoxaparin Sodium 80 MG/0.8 ML SYRINGE SUBCUT (04:12)
[2021-11-22 05:15] LABS: VBG Base Excess 3.5 mmol/L; VBG HCO3 28 mmol/L (22-26); VBG pCO2 44 mmHg; VBG pH 7.41 (7.32-7.43); VBG pO2 40 mmHg
[2021-11-22 05:22] LABS: Venous Blood Gas Refer to POC result
[2021-11-22 05:35] LABS: MANUAL DIFF FLAG NO
[2021-11-22 05:36] LABS: Basophils Percent Auto 0.1 % (0-2); Hematocrit 29.4 % (42.0-52.0); Hemoglobin 9.6 g/dl (14.0-18.0); Imm Gran Abs Auto 0.14 X10*3/uL (0.00-0.03); Imm Gran Pct Auto 1.2 % (0.0-0.4); Lymphocytes Absolute Auto 0.5 X10*3/uL (1.2-4.9); Lymphocytes Percent Auto 3.8 % (20-40); Mean Corpuscular HGB Conc 32.7 g/dl (31.0-36.0); Mean Platelet Volume 10.1 fL (9.4-12.4); Monocytes Absolute Auto 0.7 X10*3/uL (0.1-1.2); Neutrophils Absolute Auto 10.5 x10*3/uL (2.0-8.3); Neutrophils Percent Auto 88.9 % (45-73); Platelet Count 341 X10*3/uL (160-400); Red Cell Distribution Width 12.4 % (11.0-16.0); White Blood Count 11.8 X10*3/uL (4.8-10.8)
[2021-11-22 05:42] LABS: Alanine Aminotransferase 119 U/L (0-40); Albumin Level 2.7 g/dL (3.5-5.0); Alkaline Phosphatase 102 U/L (39-117); Anion Gap 10 (12-20); Aspartate Amino Transferase 43 U/L (5-37); Bilirubin Total 0.7 mg/dL (0.0-1.0); Blood Urea Nitrogen 65 mg/dL (9-16); Calcium 8.5 mg/dL (8.4-10.2); Carbon Dioxide 28 mmol/L (22-29); Chloride 108 mmol/L (96-108); Creatinine Clr Calc Pharmacy 56.4; Estimated Glomerular Filt Rate 45; Glucose Random 246 mg/dL (60-115); Magnesium 2.4 mg/dL (1.6-2.6); Phosphorus 4.1 mg/dL (2.7-4.5); Potassium 5.2 mmol/L (3.3-5.1); Sodium 141 mmol/L (135-145); Total Protein 5.2 g/dL (6.5-8.0)
--- NOTE | 2021-11-22 06:39 | PC.NURSE ---
CARE ASSUMED 23:15...REMAINS TUBED/VENTED...PROPOFOL 40 MCG/KG/MIN & FENTANYL 100 MCG/HR....UNRESPONSIVE TO VERBAL STIMULI..EXTREMETIES FLACCID..(+) GAG/COUGH..OVERBREATHES VENT AND INTERMITTANT VENT DYSYNCHRONY..FENTANYL T0 200 MCG/HR...INCONTINANT COPIOUS AMOUNT LIQUIED BROWN STOOL..RECTAL TUBE PLACED...4-5AM SBP DROPPED TO 70-80...PROPOFOL WEANED TO 30 MCG/KG/MIN & FENTANYL TO 100 MCG/HR W/O EFFECT...ICU PA PRESENT...STARTED LEVOPHED DRIP..TITRATED TO 0.05 MCG/KG/MIN WITH SBP 120'S...S.RADHA TO NSR HR 50'S-60'S
[2021-11-22] MEDS: Chlorhexidine Gluc Oral Rinse 15 ML MOUTHWASH BUCCAL ×3 (08:19→19:30)
[2021-11-22] MEDS: Nystatin Oral Susp 500,000 UNIT/5 ML ORAL.SUSP 500000 UNIT PO ×4 (08:19→19:30)
[2021-11-22] MEDS: Thiamine HCL 200 MG in 0.9 % Sodium Chloride 100 ML 202 MG IV ×2 (08:20→19:32)
[2021-11-22] MEDS: methylPREDNISolone Sod Succ 125 MG/2 ML VIAL 80 MG IVPUSH ×2 (08:20→19:30)
[2021-11-22] MEDS: Fludrocortisone Acetate 0.1 MG TABLET PO ×2 (08:20→19:31)
[2021-11-22] MEDS: Atorvastatin Calcium 40 MG TABLET PO (08:20)
[2021-11-22] MEDS: Famotidine 20 MG TABLET PO (08:20)
[2021-11-22] MEDS: Folic Acid 1 MG TABLET PO (08:20)
[2021-11-22] MEDS: Ascorbic Acid 500 MG TABLET 1000 MG G-TUBE ×2 (08:20→19:31)
[2021-11-22] MEDS: Brimonidine Tartrate 0.2% Oph 5 ML BOTTLE 1 DROP EYE-BOTH ×2 (08:21→19:31)
[2021-11-22] MEDS: Cholecalciferol (Vitamin D3) 25 MCG TABLET 50 MCG G-TUBE (08:21)
[2021-11-22] MEDS: Aspirin 325 MG TABLET PO (08:21)
--- NOTE | 2021-11-22 08:47 | PM.PNNEP ---
Subjective Subjective Date of Service: 11/22/21 Principal diagnosis: COVID, EBER Interval history: seen and examined vented events reviewed Physical Exam Vital Signs: Vital Signs: Last Vital Signs Temp 97.3 F 11/22/21 07:00 Pulse 52 11/22/21 07:00 Resp 22 H 11/22/21 07:00 BP 122/66 11/22/21 07:00 Pulse Ox 99 11/22/21 07:00 Oxygen Flow Rate 10 11/08/21 14:46 BMI result Body Mass Index 39.3 Const: General: ill appearing HENMT: Head: Yes normocephalic and Yes atraumatic Neck: Neck: Yes supple Resp: Auscultation: diminished lung sounds Cardio: Heart sounds: S1 normal heart sound present and S2 normal heart sound present GI: Palpation (GI): Soft to palpation and no guarding Extrem: General: No edema Objective Data Labs CBC & Chem 7: 11/22/21 04:56 11/22/21 04:56 Labs: Laboratory Results - last 24 hr 11/21/21 11/22/21 11/22/21 10:56 04:56 04:56 WBC 11.8 H RBC 3.00 L Hgb 9.6 L Hct 29.4 L MCV 98.0 MCH 32.0 MCHC 32.7 RDW 12.4 Plt Count 341 MPV 10.1 Immature Gran % (Auto) 1.2 H Neut % (Auto) 88.9 H Lymph % (Auto) 3.8 L Miller % (Auto) 6.0 Eos % (Auto) 0.0 Baso % (Auto) 0.1 Lymph # (Auto) 0.5 L Miller # (Auto) 0.7 Eos # (Auto) 0.0 Baso # (Auto) 0.0 Abs Immat Gran (auto) 0.14 H Absolute Neuts (auto) 10.5 H Absolute Nucleated RBC 0.000 Nucleated RBC % (auto) 0.0 PTT (Heparin Protocol) 51.9 L D VBG pH VBG pCO2 VBG pO2 VBG HCO3 VBG O2 Saturation VBG Base Excess Sodium 141 Potassium 5.2 H Chloride 108 Carbon Dioxide 28 Anion Gap 10 L BUN 65 H Creatinine 1.54 H Estim Creat Clear Calc 56.4 Estimated GFR 45 Random Glucose 246 H Calcium 8.5 Phosphorus 4.1 Magnesium 2.4 Total Bilirubin 0.7 AST 43 H ALT 119 H Alkaline Phosphatase 102 Total Protein 5.2 L Albumin 2.7 L 11/22/21 05:06 WBC RBC Hgb Hct MCV MCH MCHC RDW Plt Count MPV Immature Gran % (Auto) Neut % (Auto) Lymph % (Auto) Miller % (Auto) Eos % (Auto) Baso % (Auto) Lymph # (Auto) Miller # (Auto) Eos # (Auto) Baso # (Auto) Abs Immat Gran (auto) Absolute Neuts (auto) Absolute Nucleated RBC Nucleated RBC % (auto) PTT (Heparin Protocol) VBG pH 7.41 VBG pCO2 44 VBG pO2 40 VBG HCO3 28 H VBG O2 Saturation 57.0 VBG Base Excess 3.5 Sodium Potassium Chloride Carbon Dioxide Anion Gap BUN Creatinine Estim Creat Clear Calc Estimated GFR Random Glucose Calcium Phosphorus Magnesium Total Bilirubin AST ALT Alkaline Phosphatase Total Protein Albumin Microbiology Microbiology Results: Microbiology 11/18/21 11:10 Blood - Venous Blood Culture - Preliminary No growth after 48 hours. 11/18/21 11:10 Blood - Venous Blood Culture - Preliminary No growth after 48 hours. 11/18/21 Unknown Sputum - Suctioned Gram Stain - Final 11/18/21 Unknown Sputum - Suctioned Sputum Culture - Final 11/13/21 Unknown Urine Catheterized - Perez Catheter Urine Culture - Final No growth. 11/07/21 18:50 Blood - Venous Blood Culture - Final No growth after 5 days. 11/07/21 19:45 Blood - Venous Blood Culture - Final No growth after 5 days. Procedures Date of Service Date of Service: 11/22/21 Assessment & Plan Assessment and plan (1) EBER (acute kidney injury): Status: Acute (2) Hyperkalemia: Status: Acute (3) SARS-CoV-2 antibody positive: Status: Acute (4) Respiratory failure: Status: Acute Assessment and Plan: kidney function close to baseline EBER due to acute tubular injury in the setting of SARS COV 2 infection potassium remains elevated heparin can cause type IV RTA baseline Scr ~ 1.3 REC sodium zirconium as needed monitor urine output follow kidney function and electrolytes Time Spent With Patient Time: Total time spent is greater than 50% in coordination of care (as documented) at patient's floor/unit and/or counseling patient: Progress Note: Quality Stroke Does the patient have a stroke diagnosis?: Yes Reason for No Anti-thrombotic by Day Two: Contraindicated
[2021-11-22] MEDS: propofoL 1,000 MG/100 ML VIAL 16.33 MG IVCONT ×2 (09:04→19:30)
--- NOTE | 2021-11-22 10:16 | PM.CCPN ---
Subjective Subjective Date of Service: 11/22/21 Interval History: Mr. Constantino was transferred to ICU on November 13 because of respiratory distress secondary to COVID pneumonia. The patient is a 71-year-old man with past medical history of obesity, HTN, KEY on CPAP.? The patient?s old [employer] labs suggest that he has baseline mild CKD (baseline creat maybe 1.2-1.3).? The patient does not use oxygen at home, and previous labs show no evidence of CO2 retention.? The patient never had the COVID vaccinations.? He lives alone.? His sister Tena (cell [phone]) is his HCP. The patient started having COVID symptoms on about Oct 26.? The patient was BIBA to the ED on Nov 07 bec of two days of progressive SOB.? The patient was diagnosed with COVID pneumonia and rhabdomyolysis, and was admitted and treated with Decadron and baricitinib. See my prior notes for full details of hospital course.? Briefly, the patient was tx to ICU on Nov 13 and intubated.? 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 ?Dr. Coulter has suggested that neurologic prognosis is poor. ?Yesterday we did a two-hour propofol and fentanyl holiday.? His BP and resp rate went up, he had eye opening to stimulation, and had some spont movement of his feet, but other than that he was 100% noninteractive/nonresponsive, and didn?t even have withdrawal or localization to painful stimuli.? Course has been further complicated by lower extremity DVT and assumed PE.? The patient has been heparinized with subsequent improvement in his oxygenation. This morning, he was adequately sedated with the propofol at 30ug and fentanyl at 100 mcg.? We turned the propofol off.? After about one hour with the propofol off, his eyes are closed and his respiratory rate and blood pressure picked up.? To noxious stimulation, he opens his eyes, his respiratory rate picks up a little more, and his blood pressure goes up a little more and he moves his feet a little.? But there is no localizing, no response to confrontation, no withdrawal to pain.? He remains 100% noninteractive. ?Pupils are equal, round, about 3 mm.? He remains afebrile.? Heart rate was high 50s when sedated, kristen up to 100 with stimulation.? Sinus rhythm.? Blood pressure was about 120/60.? Kristen to 195/103 with stimulation.? On VC+ mode 22/500/40%/+8, RR is 22 at baseline, kristen to 28 with Ve up to 16L with stimulation. ?PIP is 17cm, ETCO2 is 25, sat is 94%.? He has good ventilator synchrony. ?CVBG this morning showed 7.41/44/+3.? No problem with bloody tracheal secretions on Lovenox at 80 mg bid.? No JVD at 30?.? Chest is CTA.? Soft heart tones, I heard no murmur or gallops. ?Abdomen is benign.? He has trace central edema. LABORATORY DATA:? Below.? Notably, WBC up to 11.? Renal indices, phos, and potassium pretty much stable. MICROBIOLOGY: ?Sputum culture from Nov 18 grew mixed resp abigail.? Blood cultures negative. IMPRESSION: 1. Underlying obesity, HTN, KEY. 2. COVID pneumonia.? On Nov 17, we discontinued Decadron and started the patient on the [facility] protocol.? Added ivermectin 36 mg daily x 5 days, along with Solu-Medrol 80mg bid, Vit C, Vit D, Atorvastatin, ASA 325mg, thiamine, melatonin.? (I informed the patient?s HCP of all these medications, and they were happy to hear it.)? Heparin drip was started Nov 18, and yesterday converted to Lovenox.? Baricitinib course finished today. 3. Bilat pulmonary infiltrates w ARDS.? 2? to above. 4. Hypoxemic resp failure.? 2? to above.? The patient's oxygenation has dramatically improved since we started the anticoagulation. ?Cannot say whether it?s due to the anticoagulation (which is further suggestive that he had a PE) or the ivermectin, or both.? Compliance is good. 5. EBER.? Appears to have had rhabdomyolysis.? His renal indices appear to have crested.? We?ll see if they get back to baseline.? Need to watch his Lovenox dosing. 6. Hyperkalemia.? Now on Lokelma and Florinef.? Potassium level seems to have stabilized at 5.2, but it?s not coming down further.? We?ll change his tube feed to Nepro, see if that makes a difference. 7. Bilat DVT in the presence of severe hypoxemia.? PE may have caused the deterioration in oxygenation over Nov 16.? Anticoagulation on 11/18 was associated with a marked drop in his oxygen requirement.? And he hasn?t had any bleeding problem.? I changed him to Lovenox yesterday, but not full dose.? In the absence of bleeding complications, I?ll go up to 100mg bid today.? Need to watch his renal fxn. 8. Neuro:? It?s a virtual certainty that the brain CT findings are secondary to COVID.? Dr. Coulter has commented on the head CT and EEG, suggesting a poor prognosis.? Exam today suggests that return of cognitive function is not going to happen soon, altho it?s certainly possible that he might take hours to emerge from propofol sedation.? Regardless, IMO, he?s going to need a tracheostomy.? I discussed with the thoracic surgery PA yesterday and asked him to put the patient on the schedule for next week.? I spoke to the patient?s and she agreed. 9. ID:? Sputum Gram stain unimpressive.? Blood cultures also negative.? He?s not septic.? No antibiotics indicated at this time. 10. Laxation.? Started him on lactulose yesterday.? Had a big BM. 11, Nutrition:? Switch to Nepro.? Started him on Reglan yesterday. Prognosis is very guarded.? I called the patient's daughter Elizabeth yesterday and we spoke at length.? I updated her on his condition.? In regards to his respiratory status, he is making decent progress, all things considered.? The main problem is his brain and the strokes that he?s had.? So far we haven?t seen any real cognitive function, although the propofol has not been off for an hours? long trial.? Either way, it appears that he?s going to need a tracheostomy.? The question is, would he want that, and more so, is he the kind of person who would want to endure the long, arduous, burdensome, and even painful road that is sure to follow this critical illness.? And even if he does survive, he will never get back to the condition he was in before, and may well never get back to independent living.? She will d/w her family.? We will put him on the schedule for tracheostomy next week.? It can always be canceled. Critical Care Time (minutes): 60 Physical Exam Vital Signs: Vital Signs: Last Vital Signs Temp 97.5 F 11/22/21 10:00 Pulse 79 11/22/21 10:00 Resp 25 H 11/22/21 10:00 BP 195/103 H 11/22/21 10:00 Pulse Ox 95 11/22/21 10:00 Oxygen Flow Rate 10 11/08/21 14:46 BMI result Body Mass Index 39.3 Objective Data Labs CBC & Chem 7: 11/22/21 04:56 11/22/21 04:56 Labs: Laboratory Results - last 24 hr 11/21/21 11/22/21 11/22/21 10:56 04:56 04:56 WBC 11.8 H RBC 3.00 L Hgb 9.6 L Hct 29.4 L MCV 98.0 MCH 32.0 MCHC 32.7 RDW 12.4 Plt Count 341 MPV 10.1 Immature Gran % (Auto) 1.2 H Neut % (Auto) 88.9 H Lymph % (Auto) 3.8 L Blaine % (Auto) 6.0 Eos % (Auto) 0.0 Baso % (Auto) 0.1 Lymph # (Auto) 0.5 L Blaine # (Auto) 0.7 Eos # (Auto) 0.0 Baso # (Auto) 0.0 Abs Immat Gran (auto) 0.14 H Absolute Neuts (auto) 10.5 H Absolute Nucleated RBC 0.000 Nucleated RBC % (auto) 0.0 PTT (Heparin Protocol) 51.9 L D VBG pH VBG pCO2 VBG pO2 VBG HCO3 VBG O2 Saturation VBG Base Excess Sodium 141 Potassium 5.2 H Chloride 108 Carbon Dioxide 28 Anion Gap 10 L BUN 65 H Creatinine 1.54 H Estim Creat Clear Calc 56.4 Estimated GFR 45 Random Glucose 246 H Calcium 8.5 Phosphorus 4.1 Magnesium 2.4 Total Bilirubin 0.7 AST 43 H ALT 119 H Alkaline Phosphatase 102 Total Protein 5.2 L Albumin 2.7 L 11/22/21 05:06 WBC RBC Hgb Hct MCV MCH MCHC RDW Plt Count MPV Immature Gran % (Auto) Neut % (Auto) Lymph % (Auto) Blaine % (Auto) Eos % (Auto) Baso % (Auto) Lymph # (Auto) Blaine # (Auto) Eos # (Auto) Baso # (Auto) Abs Immat Gran (auto) Absolute Neuts (auto) Absolute Nucleated RBC Nucleated RBC % (auto) PTT (Heparin Protocol) VBG pH 7.41 VBG pCO2 44 VBG pO2 40 VBG HCO3 28 H VBG O2 Saturation 57.0 VBG Base Excess 3.5 Sodium Potassium Chloride Carbon Dioxide Anion Gap BUN Creatinine Estim Creat Clear Calc Estimated GFR Random Glucose Calcium Phosphorus Magnesium Total Bilirubin AST ALT Alkaline Phosphatase Total Protein Albumin Microbiology Microbiology Results: Microbiology 11/18/21 11:10 Blood - Venous Blood Culture - Preliminary No growth after 48 hours. 11/18/21 11:10 Blood - Venous Blood Culture - Preliminary No growth after 48 hours. 11/18/21 Unknown Sputum - Suctioned Gram Stain - Final 11/18/21 Unknown Sputum - Suctioned Sputum Culture - Final 11/13/21 Unknown Urine Catheterized - Perez Catheter Urine Culture - Final No growth. 11/07/21 18:50 Blood - Venous Blood Culture - Final No growth after 5 days. 11/07/21 19:45 Blood - Venous Blood Culture - Final No growth after 5 days. Quality Stroke Does the patient have a stroke diagnosis?: Yes Reason for No Anti-thrombotic by Day Two: Contraindicated VTE Prior VTE?: No VTE Risk Level:: Medical - moderate - high VTE Device Contraindication: Treatment Not Indicated VTE Drug Contraindication: N/A - Med Ordered Critical Care Time Critical Care Time (minutes): 60
[2021-11-22] MEDS: Nitroglycerin 2 % Oint 1 GM Packet 2 INCH TRANSDERMA ×3 (10:26→22:18)
[2021-11-22] MEDS: Insulin Glargine,Hum.rec.anlog 100 UNIT/ML 10 ML VIAL 15 UNIT SUBCUT (11:10)
[2021-11-22 11:22] LABS: Glucose, Whole Blood 215 mg/dL (60-115)
--- NOTE | 2021-11-22 16:10 | PC.NURSE ---
Addendum entered by Lara Garnica RN 11/22/21 18:41: URINE SAMPLE COLLECTED AND SENT TO LAB ORDERED. PTS DAUGHTER CESAR CALLED AND UPDATED BY THIS RN, ALSO SETUP FOR FACETIME. Addendum entered by Lara Garnica RN 11/22/21 16:56: MINIMAL OUTPUT NOTED. BLADDER SCANNED FOR 578 ML. TERRELL IRRIGATED AND A LARGE AMOUNT OF SAND LOOKING SEDIMENT CAME OUT AND TERRELL IMMEDIATELY BEGAN TO DRAIN. TOTAL OUTPUT = 1100 ML, VINICIO COLORED URINE. RE-BLADDER SCANNED FOR ZERO ML. URIMETER BAG CHANGED. MD NOTIFIED OF FINDINGS. WILL CONTINUE TO MONITOR. Original Note: LEVOPHED GTT TURNED OFF AT 0905. SEDATION VACATION FROM 0414-1228 PER MD. DURING SEDATION VACATION SBP 160-200S - MD AWARE. NITRO PASTE 2 INCH APPLIED WITH INTERMITTENT EFFECT. HR 80-110S. MD AWARE. NO CHANGE IN MENTAL STATUS, DID NOT FOLLOW COMMANDS. NO RESPONDS TO PAIN. +COUGH AND GAG, CLOSES EYES WITH ORAL CARE. TUBE TAMER CHANGED BY RT AND RN. TUBE FEED ORDER CHANGED TO NEPRO, STARTED AT 20 ML/HR AND INCREASED TO MAX OF 35 ML/HR. TOLERATING WELL AT THIS TIME. TOTAL BATH, Q2HR REPO, BARRIER CREAM, PREVALON, PILLOWS, WEDGES, AND HEELBOS UTILIZED.
[2021-11-22] MEDS: Enoxaparin Sodium 100 MG/ML SYRINGE SUBCUT (16:26)
[2021-11-22 17:54] LABS: Glucose, Whole Blood 212 mg/dL (60-115)
[2021-11-22 18:03] LABS: Appearance Urine CLOUDY; Color Urine RED; Glucose Urine UA 100 MG/DL (NEG); Leukocyte Esterase Urine 2+ (NEG); Nitrite Urine NEG (NEG); Specific Gravity - Urine 1.025 (1.005-1.025); Urine Blood 3+ (NEG); Urine Ketones NEG (NEG); Urine Protein 2+ MG/DL (NEG-TRACE)
[2021-11-22 18:37] LABS: Bacteria Urine 1+ /LPF; RBC Urine 50-75 /HPF (0); Squamous Epithelial Cell Urine TRACE /LPF
[2021-11-22] MEDS: Melatonin 3 MG TABLET 9 MG PO (19:31)
[2021-11-22] MEDS: Nystatin Powder 15 GM BOTTLE 1 APPL TOPICAL (21:47)
[2021-11-23] VITALS (32 sets, daily range): BP systolic 78–185; BP diastolic 41–89; PULSE 60–94; RESP 16–29; TEMP 34.8–37.4; O2SAT 91–98; BMI 37.6
[2021-11-23] MEDS: 0.9 % Sodium Chloride Flush 3 ML SYRINGE IVFLUSH ×4 (00:49→20:21)
[2021-11-23] MEDS: propofoL 1,000 MG/100 ML VIAL 16.33 MG IVCONT ×4 (01:05→22:09)
[2021-11-23 01:30] LABS: Glucose, Whole Blood 149 mg/dL (60-115)
[2021-11-23] MEDS: Enoxaparin Sodium 100 MG/ML SYRINGE SUBCUT (02:43)
[2021-11-23] MEDS: Metoclopramide HCl 10 MG/2 ML VIAL 5 MG IVPUSH ×4 (02:43→20:20)
[2021-11-23 05:22] LABS: MANUAL DIFF FLAG NO
[2021-11-23 05:24] LABS: Basophils Percent Auto 0.1 % (0-2); Eosinophils Absolute Auto 0.1 X10*3/uL (0.0-0.4); Eosinophils Percent Auto 0.8 % (0-4); Hemoglobin 10.5 g/dl (14.0-18.0); Imm Gran Abs Auto 0.21 X10*3/uL (0.00-0.03); Imm Gran Pct Auto 1.4 % (0.0-0.4); Lymphocytes Absolute Auto 1.4 X10*3/uL (1.2-4.9); Lymphocytes Percent Auto 8.8 % (20-40); Mean Corpuscular HGB Conc 32.8 g/dl (31.0-36.0); Mean Corpuscular Volume 97.6 fL (80.0-98.0); Mean Platelet Volume 9.4 fL (9.4-12.4); Monocytes Absolute Auto 1.1 X10*3/uL (0.1-1.2); Monocytes Percent Auto 7.1 % (2-11); Neutrophils Absolute Auto 12.7 x10*3/uL (2.0-8.3); Neutrophils Percent Auto 81.8 % (45-73); Platelet Count 371 X10*3/uL (160-400); Red Blood Count 3.28 X10*6/uL (4.60-5.80); Red Cell Distribution Width 12.5 % (11.0-16.0); White Blood Count 15.5 X10*3/uL (4.8-10.8)
[2021-11-23 05:25] LABS: VBG Base Excess 5.6 mmol/L; VBG HCO3 29 mmol/L (22-26); VBG pCO2 39 mmHg; VBG pH 7.48 (7.32-7.43); VBG pO2 49 mmHg
[2021-11-23 05:38] LABS: D Dimer High Sensitivity 5448 NG/ML
[2021-11-23 05:44] LABS: Anion Gap 10 (12-20); Blood Urea Nitrogen 63 mg/dL (9-16); Calcium 8.7 mg/dL (8.4-10.2); Carbon Dioxide 27 mmol/L (22-29); Chloride 109 mmol/L (96-108); Creatinine Clr Calc Pharmacy 62.5; Estimated Glomerular Filt Rate 52; Glucose Random 177 mg/dL (60-115); Magnesium 2.1 mg/dL (1.6-2.6); Phosphorus 2.9 mg/dL (2.7-4.5); Potassium 4.3 mmol/L (3.3-5.1); Sodium 142 mmol/L (135-145)
[2021-11-23 05:45] LABS: Alanine Aminotransferase 107 U/L (0-40); Albumin Level 2.9 g/dL (3.5-5.0); Alkaline Phosphatase 117 U/L (39-117); Aspartate Amino Transferase 38 U/L (5-37); Bilirubin Direct 0.4 mg/dL (0.0-0.5); Bilirubin Total 0.8 mg/dL (0.0-1.0); Total Protein 5.6 g/dL (6.5-8.0)
[2021-11-23 05:47] LABS: Venous Blood Gas Refer to POC result
[2021-11-23] MEDS: fentaNYL citrate/NS 1,000 MCG/100 ML PLAST..BAG 10 MCG IVCONT ×3 (06:05→21:00)
[2021-11-23 06:49] LABS: Ferritin 2354 ng/mL (20-250)
[2021-11-23] MEDS: Chlorhexidine Gluc Oral Rinse 15 ML MOUTHWASH BUCCAL ×3 (08:45→20:21)
[2021-11-23] MEDS: Aspirin 325 MG TABLET PO (08:45)
[2021-11-23] MEDS: Thiamine HCL 200 MG in 0.9 % Sodium Chloride 100 ML 202 MG IV (08:46)
[2021-11-23] MEDS: Atorvastatin Calcium 40 MG TABLET PO (08:46)
[2021-11-23] MEDS: Cholecalciferol (Vitamin D3) 25 MCG TABLET 50 MCG G-TUBE (08:46)
[2021-11-23] MEDS: Ascorbic Acid 500 MG TABLET 1000 MG G-TUBE ×2 (08:46→20:21)
[2021-11-23] MEDS: Folic Acid 1 MG TABLET PO (08:46)
[2021-11-23] MEDS: Famotidine 20 MG TABLET PO (08:46)
[2021-11-23] MEDS: Fludrocortisone Acetate 0.1 MG TABLET PO (08:46)
[2021-11-23] MEDS: methylPREDNISolone Sod Succ 125 MG/2 ML VIAL 80 MG IVPUSH ×2 (08:47→20:20)
[2021-11-23] MEDS: Insulin Glargine,Hum.rec.anlog 100 UNIT/ML 10 ML VIAL 15 UNIT SUBCUT (08:47)
[2021-11-23] MEDS: Brimonidine Tartrate 0.2% Oph 5 ML BOTTLE 1 DROP EYE-BOTH ×2 (08:48→20:29)
[2021-11-23] MEDS: Nystatin Powder 15 GM BOTTLE 1 APPL TOPICAL ×3 (08:48→20:19)
--- NOTE | 2021-11-23 09:56 | P.PNNP_ITS ---
Subjective Subjective Date of Service: 11/23/21 Principal diagnosis: COVID, EBER Interval history: seen and examined vented Physical Exam Vital Signs: Vital Signs: Last Vital Signs Temp 98.8 F 11/23/21 06:00 Pulse 88 11/23/21 09:00 Resp 23 H 11/23/21 09:00 BP 159/81 H 11/23/21 09:00 Pulse Ox 94 11/23/21 09:00 Oxygen Flow Rate 10 11/08/21 14:46 BMI result Body Mass Index 37.6 Const: General: ill appearing HENMT: Head: Yes normocephalic and Yes atraumatic Neck: Neck: Yes supple Resp: Auscultation: diminished lung sounds Cardio: Heart sounds: S1 normal heart sound present and S2 normal heart sound present GI: Palpation (GI): Soft to palpation and no guarding Extrem: General: No edema Objective Data Labs CBC & Chem 7: 11/23/21 05:10 11/23/21 05:10 Labs: Laboratory Results - last 24 hr 11/22/21 11/22/21 11/22/21 11:15 17:36 17:53 WBC RBC Hgb Hct MCV MCH MCHC RDW Plt Count MPV Immature Gran % (Auto) Neut % (Auto) Lymph % (Auto) [place] % (Auto) Eos % (Auto) Baso % (Auto) Lymph # (Auto) [place] # (Auto) Eos # (Auto) Baso # (Auto) Abs Immat Gran (auto) Absolute Neuts (auto) Absolute Nucleated RBC Nucleated RBC % (auto) D-Dimer High Sensitivty VBG pH VBG pCO2 VBG pO2 VBG HCO3 VBG O2 Saturation VBG Base Excess Sodium Potassium Chloride Carbon Dioxide Anion Gap BUN Creatinine Estim Creat Clear Calc Estimated GFR POC Glucose 215 H 212 H Random Glucose Calcium Phosphorus Magnesium Ferritin Total Bilirubin Direct Bilirubin AST ALT Alkaline Phosphatase Total Creatine Kinase Total Protein Albumin Urine Color RED Urine Appearance CLOUDY Urine pH 5.0 Ur Specific [place] 1.025 Urine Protein 2+ H Urine Glucose (UA) 100 H Urine Ketones NEG Urine Blood 3+ H Urine Nitrite NEG Ur Leukocyte Esterase 2+ H Urine RBC 50-75 H Urine WBC 5-9 H Ur Squamous Epith Cells TRACE Urine Bacteria 1+ Urine Yeast 3+ 11/23/21 11/23/21 11/23/21 01:09 05:10 05:10 WBC 15.5 H RBC 3.28 L Hgb 10.5 L Hct 32.0 L MCV 97.6 MCH 32.0 MCHC 32.8 RDW 12.5 Plt Count 371 MPV 9.4 Immature Gran % (Auto) 1.4 H Neut % (Auto) 81.8 H Lymph % (Auto) 8.8 L [place] % (Auto) 7.1 Eos % (Auto) 0.8 Baso % (Auto) 0.1 Lymph # (Auto) 1.4 [place] # (Auto) 1.1 Eos # (Auto) 0.1 Baso # (Auto) 0.0 Abs Immat Gran (auto) 0.21 H Absolute Neuts (auto) 12.7 H Absolute Nucleated RBC 0.000 Nucleated RBC % (auto) 0.0 D-Dimer High Sensitivty VBG pH VBG pCO2 VBG pO2 VBG HCO3 VBG O2 Saturation VBG Base Excess Sodium 142 Potassium 4.3 Chloride 109 H Carbon Dioxide 27 Anion Gap 10 L BUN 63 H Creatinine 1.36 Estim Creat Clear Calc 62.5 Estimated GFR 52 POC Glucose 149 H Random Glucose 177 H Calcium 8.7 Phosphorus 2.9 Magnesium 2.1 Ferritin Total Bilirubin Direct Bilirubin AST ALT Alkaline Phosphatase Total Creatine Kinase Total Protein Albumin Urine Color Urine Appearance Urine pH Ur Specific [place] Urine Protein Urine Glucose (UA) Urine Ketones Urine Blood Urine Nitrite Ur Leukocyte Esterase Urine RBC Urine WBC Ur Squamous Epith Cells Urine Bacteria Urine Yeast 11/23/21 11/23/21 11/23/21 05:10 05:10 05:18 WBC RBC Hgb Hct MCV MCH MCHC RDW Plt Count MPV Immature Gran % (Auto) Neut % (Auto) Lymph % (Auto) [place] % (Auto) Eos % (Auto) Baso % (Auto) Lymph # (Auto) [place] # (Auto) Eos # (Auto) Baso # (Auto) Abs Immat Gran (auto) Absolute Neuts (auto) Absolute Nucleated RBC Nucleated RBC % (auto) D-Dimer High Sensitivty 5448 VBG pH 7.48 H VBG pCO2 39 VBG pO2 49 VBG HCO3 29 H VBG O2 Saturation 75.0 VBG Base Excess 5.6 Sodium Potassium Chloride Carbon Dioxide Anion Gap BUN Creatinine Estim Creat Clear Calc Estimated GFR POC Glucose Random Glucose Calcium Phosphorus Magnesium Ferritin 2354 H Total Bilirubin 0.8 Direct Bilirubin 0.4 AST 38 H ALT 107 H Alkaline Phosphatase 117 Total Creatine Kinase 135 D Total Protein 5.6 L Albumin 2.9 L Urine Color Urine Appearance Urine pH Ur Specific [place] Urine Protein Urine Glucose (UA) Urine Ketones Urine Blood Urine Nitrite Ur Leukocyte Esterase Urine RBC Urine WBC Ur Squamous Epith Cells Urine Bacteria Urine Yeast Microbiology Microbiology Results: Microbiology 11/18/21 11:10 Blood - Venous Blood Culture - Preliminary No growth after 48 hours. 11/18/21 11:10 Blood - Venous Blood Culture - Preliminary No growth after 48 hours. 11/18/21 Unknown Sputum - Suctioned Gram Stain - Final 11/18/21 Unknown Sputum - Suctioned Sputum Culture - Final 11/13/21 Unknown Urine Catheterized - Perez Catheter Urine Culture - Final No growth. 11/07/21 18:50 Blood - Venous Blood Culture - Final No growth after 5 days. 11/07/21 19:45 Blood - Venous Blood Culture - Final No growth after 5 days. Procedures Date of Service Date of Service: 11/23/21 Assessment & Plan Assessment and plan (1) EBER (acute kidney injury): Status: Acute (2) Hyperkalemia: Status: Acute (3) SARS-CoV-2 antibody positive: Status: Acute (4) Respiratory failure: Status: Acute Assessment and Plan: kidney function at baseline EBER due to acute tubular injury in the setting of SARS COV 2 infection potassium remains elevated heparin can cause type IV RTA baseline Scr ~ 1.3 volume status above dry weight REC IV loop diuretic if hemodynamics allow sodium zirconium as needed monitor urine output follow kidney function and electrolytes Time Spent With Patient Time: Total time spent is greater than 50% in coordination of care (as documented) at patient's floor/unit and/or counseling patient: Progress Note: Quality Stroke Does the patient have a stroke diagnosis?: Yes Reason for No Anti-thrombotic by Day Two: Contraindicated
[2021-11-23 12:40] LABS: Glucose, Whole Blood 188 mg/dL (60-115)
--- NOTE | 2021-11-23 14:00 | P.PNCC_ITS ---
Subjective Subjective Date of Service: 11/23/21 Interval History: Mr. Constantino was transferred to ICU on November 13 because of respiratory distress secondary to COVID pneumonia. The patient is a 71-year-old man with past medical history of obesity, HTN, KEY on CPAP.? The patient?s old [employer] labs suggest that he has baseline mild CKD (baseline creat maybe 1.2-1.3).? The patient does not use oxygen at home, and previous labs show no evidence of CO2 retention.? The patient never had the COVID vaccinations.? He lives alone.? His sister Tena (cell [phone]) is his HCP. The patient started having COVID symptoms on about Oct 26.? The patient was BIBA to the ED on Nov 07 bec of two days of progressive SOB.? The patient was diagnosed with COVID pneumonia and rhabdomyolysis, and was admitted and treated with Decadron and baricitinib. See my prior note of 11/20 for full details of hospital course.? Briefly, the patient was tx to ICU on Nov 13 and intubated.? 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 ?Dr. Coulter has suggested that neurologic prognosis is poor.? Course has been further complicated by lower extremity DVT and assumed PE.? The patient was heparinized with subsequent improvement in his oxygenation.? We changed him over to Lovenox yesterday. Today we did a five-hour propofol holiday.? Towards the end, his BP and resp rate went up, he had spont eye opening (to the stimulation of not being sedated), and had some spont movement of his feet, but other than that he was 100% noninteractive/nonresponsive, no response to confrontation, no withdrawal or localization to painful stimuli. He remains afebrile.? When back on propofol at 30 ug, HR 80s, sinus rhythm.? Blood pressure 150/80.? On VC+ mode 22/500/35%/+8, RR is 25, Ve 12L, PIP is 15cm, ETCO2 is 33, sat is 91%.? He has good ventilator synchrony. ?CVBG this morning showed 7.48/39/+5.? No problem with bloody tracheal secretions on Lovenox at 100 mg bid, but he had hematuria last night and today.? Pupils are equal, round, about 3 mm.? ?No JVD at 30?.? Chest is CTA, normal exp phase.? Soft heart tones, I heard no murmur or gallops.? Abdomen is benign.? He has trace central edema. LABORATORY DATA:? Below.? Notably, WBC up to 15.? Renal indices steady.? Phos and potassium significantly down after switching tube feed to Nepro.? DDimer up to 5448. MICROBIOLOGY: ?Sputum and blood cultures from Nov 18 negative. IMPRESSION: 1. Underlying obesity, HTN, KEY. 2. COVID pneumonia.? On Nov 17, we discontinued Decadron and started the patient on the [facility] protocol.? Added ivermectin 36 mg daily x 5 days, along with Solu-Medrol 80mg bid, Vit C, Vit D, Atorvastatin, ASA 325mg, thiamine, melatonin.? (I informed the patient?s HCP of all these medications, and they were happy to hear it.)? Heparin drip was started Nov 18, and then converted to Lovenox.? Baricitinib course finished yesterday. 3. Bilat pulmonary infiltrates w ARDS.? 2? to above. 4. Hypoxemic resp failure.? 2? to above.? The patient's oxygenation has dramatically improved since we started the anticoagulation and the [facility] protocol. ?Cannot say whether it?s due to the anticoagulation (which is further suggestive that he had a PE) or the protocol, or both.? Compliance is good. 5. EBER.? Appears to have had rhabdomyolysis.? His renal indices appear to have crested.? Slowly coming down to his baseline. 6. Hyperkalemia.? Was on Lokelma and Florinef.? Potassium level down further on the Nepro.? Stopped Lokelma Wednesday and the Florinef today. 7. Bilat DVT in the presence of severe hypoxemia.? PE may have caused the deterioration in oxygenation over Nov 16.? On 11/18, DDimer was [id number].? DVT was found.? Was not stable enough to go for a scan, so he was anticoagulated, with subsequent marked drop in his oxygen requirement.? Yesterday went to Lovenox 100 mg bid, but he?s had hematuria.? I?ll drop the Lovenox to 80 mg bid. 8. Neuro:? It?s a virtual certainty that the brain CT findings are secondary to COVID.? Dr. Coulter has commented on the head CT and EEG, suggesting a poor prognosis.? Exam today suggests that return of cognitive function is not going to happen soon, if ever.? (It?s certainly possible that he might take many hours to emerge from propofol sedation.)? Regardless, he?ll need a tracheostomy.? Discussed with the thoracic surgery PA and with the patient's healthcare proxy (his daughter Tena). 9. Metabolic.? POCs were running 200s.? Started him on Lantus 15u daily.? POC now down to high 100s. 10. ID:? Sputum Gram stain unimpressive.? Blood cultures also negative.? He?s not septic.? No antibiotics indicated at this time. 11. Laxation.? Had a big BM yesterday after lactulose. 12, Nutrition:? Switch to Nepro.? Also on Reglan. Prognosis is very guarded.? I spoke at length with the patient's daughter Tena on Nov 21 (see that note.)? I spoke again with Tena and her sister Leslie today.? Tena told me that the patient had an advanced directive which they had dropped off at the hospital.? We were unable to find it in the chart or in the electronic record.? Tena is emailing the advanced directive and the healthcare proxy to Nelli Streeter today, and Nelli will put it into the electronic and the paper records.? Tena also told me about a conversation that her other sister in [place] had with Damian a couple of years ago when Damian told her about a friend of his who had cancer.? Damian told her that he would never do chemotherapy. From what Tena told me about Damian, about the advance directive, and about Damian?s feeling about treatment for cancer, it seems to me that Damian is the kind of person who would never have wanted to continue with critical care management and tracheostomy in his current situation, with the current bleak prognosis and, at best, a long, burdensome, arduous course ahead.? Tena has d iscussed this with her other siblings and family members and I believe they all feel similarly.? I indicated to them that with this new information, I would have recommended comfort measures earlier this week.? I asked them to sleep on it tonight and talk with Dr. Birch about it tomorrow. Critical care time: ?90+ min. Critical Care Time (minutes): 90 Physical Exam Vital Signs: Vital Signs: Last Vital Signs Temp 98.8 F 11/23/21 13:00 Pulse 90 11/23/21 13:00 Resp 28 H 11/23/21 13:00 BP 185/80 H 11/23/21 13:00 Pulse Ox 92 11/23/21 13:00 Oxygen Flow Rate 10 11/08/21 14:46 BMI result Body Mass Index 37.6 Objective Data Labs CBC & Chem 7: 11/23/21 05:10 11/23/21 05:10 Labs: Laboratory Results - last 24 hr 11/22/21 11/22/21 11/23/21 17:36 17:53 01:09 WBC RBC Hgb Hct MCV MCH MCHC RDW Plt Count MPV Immature Gran % (Auto) Neut % (Auto) Lymph % (Auto) [place] % (Auto) Eos % (Auto) Baso % (Auto) Lymph # (Auto) [place] # (Auto) Eos # (Auto) Baso # (Auto) Abs Immat Gran (auto) Absolute Neuts (auto) Absolute Nucleated RBC Nucleated RBC % (auto) D-Dimer High Sensitivty VBG pH VBG pCO2 VBG pO2 VBG HCO3 VBG O2 Saturation VBG Base Excess Sodium Potassium Chloride Carbon Dioxide Anion Gap BUN Creatinine Estim Creat Clear Calc Estimated GFR POC Glucose 212 H 149 H Random Glucose Calcium Phosphorus Magnesium Ferritin Total Bilirubin Direct Bilirubin AST ALT Alkaline Phosphatase Total Creatine Kinase Total Protein Albumin Urine Color RED Urine Appearance CLOUDY Urine pH 5.0 Ur Specific [place] 1.025 Urine Protein 2+ H Urine Glucose (UA) 100 H Urine Ketones NEG Urine Blood 3+ H Urine Nitrite NEG Ur Leukocyte Esterase 2+ H Urine RBC 50-75 H Urine WBC 5-9 H Ur Squamous Epith Cells TRACE Urine Bacteria 1+ Urine Yeast 3+ 11/23/21 11/23/21 11/23/21 05:10 05:10 05:10 WBC 15.5 H RBC 3.28 L Hgb 10.5 L Hct 32.0 L MCV 97.6 MCH 32.0 MCHC 32.8 RDW 12.5 Plt Count 371 MPV 9.4 Immature Gran % (Auto) 1.4 H Neut % (Auto) 81.8 H Lymph % (Auto) 8.8 L [place] % (Auto) 7.1 Eos % (Auto) 0.8 Baso % (Auto) 0.1 Lymph # (Auto) 1.4 [place] # (Auto) 1.1 Eos # (Auto) 0.1 Baso # (Auto) 0.0 Abs Immat Gran (auto) 0.21 H Absolute Neuts (auto) 12.7 H Absolute Nucleated RBC 0.000 Nucleated RBC % (auto) 0.0 D-Dimer High Sensitivty 5448 VBG pH VBG pCO2 VBG pO2 VBG HCO3 VBG O2 Saturation VBG Base Excess Sodium 142 Potassium 4.3 Chloride 109 H Carbon Dioxide 27 Anion Gap 10 L BUN 63 H Creatinine 1.36 Estim Creat Clear Calc 62.5 Estimated GFR 52 POC Glucose Random Glucose 177 H Calcium 8.7 Phosphorus 2.9 Magnesium 2.1 Ferritin Total Bilirubin Direct Bilirubin AST ALT Alkaline Phosphatase Total Creatine Kinase Total Protein Albumin Urine Color Urine Appearance Urine pH Ur Specific [place] Urine Protein Urine Glucose (UA) Urine Ketones Urine Blood Urine Nitrite Ur Leukocyte Esterase Urine RBC Urine WBC Ur Squamous Epith Cells Urine Bacteria Urine Yeast 11/23/21 11/23/21 11/23/21 05:10 05:18 12:30 WBC RBC Hgb Hct MCV MCH MCHC RDW Plt Count MPV Immature Gran % (Auto) Neut % (Auto) Lymph % (Auto) [place] % (Auto) Eos % (Auto) Baso % (Auto) Lymph # (Auto) [place] # (Auto) Eos # (Auto) Baso # (Auto) Abs Immat Gran (auto) Absolute Neuts (auto) Absolute Nucleated RBC Nucleated RBC % (auto) D-Dimer High Sensitivty VBG pH 7.48 H VBG pCO2 39 VBG pO2 49 VBG HCO3 29 H VBG O2 Saturation 75.0 VBG Base Excess 5.6 Sodium Potassium Chloride Carbon Dioxide Anion Gap BUN Creatinine Estim Creat Clear Calc Estimated GFR POC Glucose 188 H Random Glucose Calcium Phosphorus Magnesium Ferritin 2354 H Total Bilirubin 0.8 Direct Bilirubin 0.4 AST 38 H ALT 107 H Alkaline Phosphatase 117 Total Creatine Kinase 135 D Total Protein 5.6 L Albumin 2.9 L Urine Color Urine Appearance Urine pH Ur Specific [place] Urine Protein Urine Glucose (UA) Urine Ketones Urine Blood Urine Nitrite Ur Leukocyte Esterase Urine RBC Urine WBC Ur Squamous Epith Cells Urine Bacteria Urine Yeast Microbiology Microbiology Results: Microbiology 11/18/21 11:10 Blood - Venous Blood Culture - Final No growth after 5 days. 11/18/21 11:10 Blood - Venous Blood Culture - Final No growth after 5 days. 11/22/21 17:52 Urine Catheterized - Perez Catheter Urine Culture - Preli minary No growth to date. 11/18/21 Unknown Sputum - Suctioned Gram Stain - Final 11/18/21 Unknown Sputum - Suctioned Sputum Culture - Final 11/13/21 Unknown Urine Catheterized - [place] Catheter Urine Culture - Final No growth. 11/07/21 18:50 Blood - Venous Blood Culture - Final No growth after 5 days. 11/07/21 19:45 Blood - Venous Blood Culture - Final No growth after 5 days. Quality Stroke Does the patient have a stroke diagnosis?: Yes Reason for No Anti-thrombotic by Day Two: Contraindicated VTE Prior VTE?: No VTE Risk Level:: Medical - moderate - high VTE Device Contraindication: Treatment Not Indicated VTE Drug Contraindication: N/A - Med Ordered Critical Care Time Critical Care Time (minutes): 90
--- NOTE | 2021-11-23 14:09 | PC.NURSE ---
Tena- JULIA gave ok for Sister Danna Constantino to call to speak to pt. phone number is [phone]
--- NOTE | 2021-11-23 14:41 | MHC.CM.PN ---
Addendum entered by Nelli Streeter 11/23/21 15:11: Received callback from Tena: she will email the HCP to the confidential [facility] [place] where it can then be scanned and printed. Tena states both her and her sister, Danna will likely make pt CLINICAL EDUCATION ASSISTANT as his wishes were for non aggressive care management in light of a catastrophic illness/recovery. Family to contact MD on 11/24 with determination of next level of care vs CLINICAL EDUCATION ASSISTANT. Original Note: Pt continues care in ICU: may need a peg/trach placed this week as he is unable to vent wean. MD to discuss with pt's two dtrs, Danna and Tena. No HCP on file, scanned in or in old [employer]. Tena stated to ICU staff that she brought a copy in (to [facility] and gave it to a staff person. (unknown where/who) CM to contact Tena for re-remittal of copy and discussion about LTAC Level of care should they decide on peg/trach. If HCP cannot be located or produced, pt will need a guardian - his dtrs presumably, in order to transfer to [facility]. CM will follow
[2021-11-23] MEDS: Thiamine HCL 200 MG in 0.9 % Sodium Chloride 100 ML IV (20:21)
[2021-11-23] MEDS: Melatonin 3 MG TABLET 9 MG PO (20:21)
[2021-11-24] VITALS (31 sets, daily range): BP systolic 65–174; BP diastolic 38–88; PULSE 51–94; RESP 19–31; TEMP 34.9–37.2; O2SAT 5–98
[2021-11-24 00:20] LABS: Glucose, Whole Blood 204 mg/dL (60-115)
[2021-11-24] MEDS: Metoclopramide HCl 10 MG/2 ML VIAL 5 MG IVPUSH ×4 (01:49→19:29)
[2021-11-24] MEDS: fentaNYL citrate/NS 1,000 MCG/100 ML PLAST..BAG 10 MCG IVCONT ×2 (01:49→19:31)
[2021-11-24] MEDS: propofoL 1,000 MG/100 ML VIAL 10.89 MG IVCONT ×2 (03:03→19:31)
[2021-11-24 05:26] LABS: VBG Base Excess 4.2 mmol/L; VBG HCO3 28 mmol/L (22-26); VBG pCO2 38 mmHg; VBG pH 7.47 (7.32-7.43); VBG pO2 53 mmHg
[2021-11-24 05:28] LABS: MANUAL DIFF FLAG NO
[2021-11-24 05:30] LABS: Basophils Percent Auto 0.1 % (0-2); Eosinophils Percent Auto 0.1 % (0-4); Hematocrit 31.1 % (42.0-52.0); Hemoglobin 10.2 g/dl (14.0-18.0); Imm Gran Abs Auto 0.19 X10*3/uL (0.00-0.03); Imm Gran Pct Auto 1.2 % (0.0-0.4); Lymphocytes Absolute Auto 0.8 X10*3/uL (1.2-4.9); Mean Corpuscular HGB Conc 32.8 g/dl (31.0-36.0); Mean Corpuscular Hemoglobin 32.2 pg (27.0-33.0); Mean Corpuscular Volume 98.1 fL (80.0-98.0); Mean Platelet Volume 9.5 fL (9.4-12.4); Monocytes Absolute Auto 0.6 X10*3/uL (0.1-1.2); Monocytes Percent Auto 3.8 % (2-11); Neutrophils Absolute Auto 14.1 x10*3/uL (2.0-8.3); Neutrophils Percent Auto 89.8 % (45-73); Platelet Count 353 X10*3/uL (160-400); Red Blood Count 3.17 X10*6/uL (4.60-5.80); Red Cell Distribution Width 12.7 % (11.0-16.0); White Blood Count 15.7 X10*3/uL (4.8-10.8)
[2021-11-24 05:53] LABS: Alanine Aminotransferase 85 U/L (0-40); Albumin Level 2.8 g/dL (3.5-5.0); Alkaline Phosphatase 107 U/L (39-117); Anion Gap 13 (12-20); Aspartate Amino Transferase 31 U/L (5-37); Bilirubin Total 0.7 mg/dL (0.0-1.0); Blood Urea Nitrogen 60 mg/dL (9-16); Calcium 8.7 mg/dL (8.4-10.2); Carbon Dioxide 26 mmol/L (22-29); Chloride 109 mmol/L (96-108); Creatinine Clr Calc Pharmacy 62.9; Estimated Glomerular Filt Rate 52; Glucose Random 245 mg/dL (60-115); Magnesium 2.1 mg/dL (1.6-2.6); Phosphorus 4.6 mg/dL (2.7-4.5); Potassium 4.9 mmol/L (3.3-5.1); Sodium 143 mmol/L (135-145); Total Protein 5.5 g/dL (6.5-8.0)
[2021-11-24 06:03] LABS: Venous Blood Gas Refer to POC result
[2021-11-24] MEDS: methylPREDNISolone Sod Succ 125 MG/2 ML VIAL 80 MG IVPUSH (07:26)
[2021-11-24] MEDS: Chlorhexidine Gluc Oral Rinse 15 ML MOUTHWASH BUCCAL ×3 (07:26→19:29)
[2021-11-24] MEDS: Aspirin 325 MG TABLET PO (07:27)
[2021-11-24] MEDS: Famotidine 20 MG TABLET PO (07:27)
[2021-11-24] MEDS: Cholecalciferol (Vitamin D3) 25 MCG TABLET 50 MCG G-TUBE (07:27)
[2021-11-24] MEDS: Folic Acid 1 MG TABLET PO (07:27)
[2021-11-24] MEDS: Atorvastatin Calcium 40 MG TABLET PO (07:27)
[2021-11-24] MEDS: Thiamine HCL 200 MG in 0.9 % Sodium Chloride 100 ML 202 MG IV (07:28)
[2021-11-24] MEDS: Insulin Glargine,Hum.rec.anlog 100 UNIT/ML 10 ML VIAL 15 UNIT SUBCUT (07:28)
[2021-11-24] MEDS: Nystatin Powder 15 GM BOTTLE 1 APPL TOPICAL ×3 (07:29→19:29)
[2021-11-24] MEDS: Brimonidine Tartrate 0.2% Oph 5 ML BOTTLE 1 DROP EYE-BOTH ×2 (07:29→19:29)
[2021-11-24] MEDS: Ascorbic Acid 500 MG TABLET 1000 MG G-TUBE (08:03)
[2021-11-24] MEDS: Albumin Human 25 % 100 ML IV ×3 (09:53→19:30)
--- NOTE | 2021-11-24 10:09 | P.PNNP_ITS ---
Subjective Subjective Date of Service: 11/24/21 Principal diagnosis: COVID, EBRE Interval history: Mr. Constantino was transferred to ICU on November 13 because of respiratory distress secondary to COVID pneumonia. The patient is a 71-year-old man with past medical history of obesity, HTN, KEY on CPAP.? The patient?s old [employer] labs suggest that he has baseline mild CKD (baseline creat maybe 1.2-1.3).? The patient does not use oxygen at home, and previous labs show no evidence of CO2 retention.? The patient never had the C OVID vaccinations.? He lives alone.? His sister Tena (cell [phone]) is his HCP. The patient started having COVID symptoms on about Oct 26.? The patient was BIBA to the ED on Nov 07 bec of two days of progressive SOB.? The patient was diagnosed with COVID pneumonia and rhabdomyolysis, and was admitted and treated with Decadron and baricitinib. See my prior note of 11/20 for full details of hospital course.? Briefly, the patient was tx to ICU on Nov 13 and intubated.? 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 ?Dr. Coulter has suggested that neurologic prognosis is poor.? Course has been further complicated by lower extremity DVT and assumed PE.? The patient was heparinized with subsequent improvement in his oxygenation.? We changed him over to Lovenox yesterday. Today we did a five-hour propofol holiday.? Towards the end, his BP and resp rate went up, he had spont eye opening (to the stimulation of not being sedated), and had some spont movement of his feet, but other than that he was 100% noninteractive/nonresponsive, no response to confrontation, no withdrawal or localization to painful stimuli. He remains afebrile.? When back on propofol at 30 ug, HR 80s, sinus rhythm.? Blood pressure 150/80.? On VC+ mode 22/500/35%/+8, RR is 25, Ve 12L, PIP is 15cm, ETCO2 is 33, sat is 91%.? He has good ventilator synchrony. ?CVBG this morning showed 7.48/39/+5.? No problem with bloody tracheal secretions on Lovenox at 100 mg bid, but he had hematuria last night and today.? Pupils are equal, round, about 3 mm.? ?No JVD at 30?.? Chest is CTA, normal exp phase.? Soft heart tones, I heard no murmur or gallops.? Abdomen is benign.? He has trace central edema. LABORATORY DATA:? Below.? Notably, WBC up to 15.? Renal indices steady.? Phos and potassium significantly down after switching tube feed to Nepro.? DDimer up to [id number]. MICROBIOLOGY: ?Sputum and blood cultures from Nov 18 negative. IMPRESSION: 1. Underlying obesity, HTN, KEY. 2. COVID pneumonia.? On Nov 17, we discontinued Decadron and started the patient on the [facility] protocol.? Added ivermectin 36 mg daily x 5 days, along with Solu-Medrol 80mg bid, Vit C, Vit D, Atorvastatin, ASA 325mg, thiamine, melatonin.? (I informed the patient?s HCP of all these medications, and they were happy to hear it.)? Heparin drip was started Nov 18, and then converted to Lovenox.? Baricitinib course finished yesterday. 3. Bilat pulmonary infiltrates w ARDS.? 2? to above. 4. Hypoxemic resp failure.? 2? to above.? The patient's oxygenation has dram atically improved since we started the anticoagulation and the [facility] protocol. ?Cannot say whether it?s due to the anticoagulation (which is further suggestive that he had a PE) or the protocol, or both.? Compliance is good. 5. EBER.? Appears to have had rhabdomyolysis.? His renal indices appear to have crested.? Slowly coming down to his baseline. 6. Hyperkalemia.? Was on Lokelma and Florinef.? Potassium level down further on the Nepro.? Stopped Lokelma Wednesday and the Florinef today. 7. Bilat DVT in the presence of severe hypoxemia.? PE may have caused the deterioration in oxygenation over Nov 16.? On 11/18, DDimer was [id number].? DVT was found.? Was not stable enough to go for a scan, so he was anticoagulated, with subsequent marked drop in his oxygen requirement.? Yesterday went to Veda enox 100 mg bid, but he?s had hematuria.? I?ll drop the Lovenox to 80 mg bid. 8. Neuro:? It?s a virtual certainty that the brain CT findings are secondary to COVID.? Dr. Coulter has commented on the head CT and EEG, suggesting a poor prognosis.? Exam today suggests that return of cognitive function is not going to happen soon, if ever.? (It?s certainly possible that he might take many hours to emerge from propofol sedation.)? Regardless, he?ll need a tracheostomy.? Discussed with the thoracic surgery PA and with the patient's healthcare proxy (his daughter Tena). 9. Metabolic.? POCs were running 200s.? Started him on Lantus 15u daily.? POC now down to high 100s. 10. ID:? Sputum Gram stain unimpressive.? Blood cultures also negative.? He?s not septic.? No antibiotics indicated at this time. 11. Laxation.? Had a big BM yesterday after lactulose. 12, Nutrition:? Switch to Nepro.? Also on Reglan. Prognosis is very guarded.? I spoke at length with the patient's daughter Tena on Nov 21 (see that note.)? I spoke again with Tena and her sister Leslie today.? Tena told me that the patient had an advanced directive which they had dropped off at the hospital.? We were unable to find it in the chart or in the electronic record.? Tena is emailing the advanced directive and the healthcare proxy to Nelli Streeter today, and Nelli will put it into the electronic and the paper records.? Tena also told me about a conversation that her other sister in [place] had with Damian a couple of years ago when Damian told her about a friend of his who had cancer.? Damian told her that he would never do chemotherapy. From what Tena told me about Damian, about the advance directive, and about Damian?s feeling about treatment for cancer, it seems to me that Damian is the kind of person who would never have wanted to continue with critical care management and tracheostomy in his current situation, with the current bleak prognosis and, at best, a long, burdensome, arduous course ahead.? Tena has discussed this with her other siblings and family members and I believe they all feel similarly.? I indicated to them that with this new information, I would have recommended comfort measures earlier this week.? I asked them to sleep on it tonight and talk with Dr. Birch about it tomorrow. Critical care time: ?90+ min. Physical Exam Vital Signs: Vital Signs: Last Vital Signs Temp 97.9 F 11/24/21 09:00 Pulse 51 11/24/21 09:00 Resp 22 H 11/24/21 09:00 BP 108/62 11/24/21 09:00 Pulse Ox 95 11/24/21 09:00 Oxygen Flow Rate 10 11/08/21 14:46 BMI result Body Mass Index 37.6 Const: Other: Confused General: cooperative, no acute distress, alert, awake and ill appearing Nutritional Appearance: obese HENMT: Head: Yes normocephalic and Yes atraumatic Eyes: Sclerae: sclerae normal Pupils: Equal, round and reactive pupils pres ent EOM: EOMs intact bilaterally Neck: Neck: Yes no lymphadenopathy, Yes trachea midline and Yes supple Resp: Effort & Inspection: normal respiratory effort and no respiratory distress Auscultation: crackles (Diffuse bilateral) and diminished lung sounds Cardio: Rate: regular rate Rhythm: regular rhythm Heart sounds: S1 normal heart sound present, S2 normal heart sound present, no gallops, no murmurs and no rubs GI: Palpation (GI): Soft to palpation, nontender, no guarding and Other GI palpation findings present ( Nontender) Auscultation: normal bowel sounds Skin: General skin exam: no rashes or lesions noted Neuro: Other: Sedated General: moves all extremities Cranial nerves: Yes Equal, round and reactive pupils present Extrem: General: Yes normal to inspection, Yes no pedal edema, No clubbing, No cyanosis and No edema Objective Data Labs CBC & Chem 7: 11/24/21 05:27 11/24/21 05:27 Labs: Laboratory Results - last 24 hr 11/23/21 11/24/21 11/24/21 12:30 00:12 05:19 WBC RBC Hgb Hct MCV MCH MCHC RDW Plt Count MPV Immature Gran % (Auto) Neut % (Auto) Lymph % (Auto) [place] % (Auto) Eos % (Auto) Baso % (Auto) Lymph # (Auto) [place] # (Auto) Eos # (Auto) Baso # (Auto) Abs Immat Gran (auto) Absolute Neuts (auto) Absolute Nucleated RBC Nucleated RBC % (auto) VBG pH 7.47 H VBG pCO2 38 VBG pO2 53 VBG HCO3 28 H VBG O2 Saturation 81.0 VBG Base Excess 4.2 Sodium Potassium Chloride Carbon Dioxide Anion Gap BUN Creatinine Estim Creat Clear Calc Estimated GFR POC Glucose 188 H 204 H Random Glucose Calcium Phosphorus Magnesium Total Bilirubin AST ALT Alkaline Phosphatase Total Protein Albumin 11/24/21 11/24/21 05:27 05:27 WBC 15.7 H RBC 3.17 L Hgb 10.2 L Hct 31.1 L MCV 98.1 H MCH 32.2 MCHC 32.8 RDW 12.7 Plt Count 353 MPV 9.5 Immature Gran % (Auto) 1.2 H Neut % (Auto) 89.8 H Lymph % (Auto) 5.0 L [place] % (Auto) 3.8 Eos % (Auto) 0.1 Baso % (Auto) 0.1 Lymph # (Auto) 0.8 L [place] # (Auto) 0.6 Eos # (Auto) 0.0 Baso # (Auto) 0.0 Abs Immat Gran (auto) 0.19 H Absolute Neuts (auto) 14.1 H Absolute Nucleated RBC 0.000 Nucleated RBC % (auto) 0.0 VBG pH VBG pCO2 VBG pO2 VBG HCO3 VBG O2 Saturation VBG Base Excess Sodium 143 Potassium 4.9 Chloride 109 H Carbon Dioxide 26 Anion Gap 13 BUN 60 H Creatinine 1.35 Estim Creat Clear Calc 62.9 Estimated GFR 52 POC Glucose Random Glucose 245 H D Calcium 8.7 Phosphorus 4.6 H Magnesium 2.1 Total Bilirubin 0.7 AST 31 ALT 85 H Alkaline Phosphatase 107 Total Protein 5.5 L Albumin 2.8 L Microbiology Microbiology Results: Microbiology 11/18/21 11:10 Blood - Venous Blood Culture - Final No growth after 5 days. 11/18/21 11:10 Blood - Venous Blood Culture - Final No growth after 5 days. 11/22/21 17:52 Urine Catheterized - Perez Catheter Urine Culture - Prel iminary No growth to date. 11/18/21 Unknown Sputum - Suctioned Gram Stain - Final 11/18/21 Unknown Sputum - Suctioned Sputum Culture - Final 11/13/21 Unknown Urine Catheterized - Perez Catheter Urine Culture - Final No growth. 11/07/21 18:50 Blood - Venous Blood Culture - Final No growth after 5 days. 11/07/21 19:45 Blood - Venous Blood Culture - Final No growth after 5 days. Procedures Date of Service Date of Service: 11/24/21 Assessment & Plan Assessment and plan (1) EBER (acute kidney injury): Status: Acute Assessment and Plan: back to baseline (2) Hyperkalemia: Status: Acute Assessment and Plan: sable lokelma as needed (3) SARS-CoV-2 antibody positive: Status: Acute (4) Respiratory failure: Status: Acute Assessment and Plan: kidney function at baseline EBER due to acute tubular injury in the setting of SARS COV 2 infection potassium remains elevated heparin can cause type IV RTA baseline Scr ~ 1.3 volume status above dry weight REC IV loop diuretic if hemodynamics allow sodium zirconium as needed monitor urine output follow kidney function and electrolytes will check iron stores and give retacrit Time Spent With Patient Time: Total time spent is greater than 50% in coordination of care (as documented) at patient's floor/unit and/or counseling patient: Progress Note: Quality Stroke Does the patient have a stroke diagnosis?: Yes Reason for No Anti-thrombotic by Day Two: Contraindicated
--- NOTE | 2021-11-24 11:03 | MHC.CLN ---
F/U TUBE FEEDING CHANGED 11/22 BY FROM PROMOTE AT 45 ML PER HOUR TO NEPRO AT 35 ML PER HOUR. LABS SHOW ELEVATED BUN WITH 11/24=60. TUBE FEEDING RUNNING AT MAX GOAL RATE NEPRO 35 ML PER HOUR AND FLUSH 240 ML WATER Q 6 HOURS. TUBE FEEDING PROVIDES 1656 KCAL WITH SEDATION (23 KCALS/KG IBW); 68 G PROTEIN (.93 G/KG IBW); FORMULA PLUS FLUSH 1571 ML WATER (21.5 ML/KG IBW). TOLERATING TUBE FEEDING. FOLLOWING WITH TEAM
--- NOTE | 2021-11-24 11:37 | PM.CCPN ---
Subjective Subjective Date of Service: 11/24/21 Interval History: 71-year-old gentleman with underlying history of obesity, KEY on CPAP, hypertension, CKD, COVID symptomatic on 10/26/2021, admitted on 11/07/2021 with progressive shortness of breath and hypoxia further complicated by rhabdomyolysis. Hospital course significant for bilateral DVTs, COVID-19 ARDS, progressive hypoxemia requiring transfer to ICU and intubation on 11/13/2021, further complicated by multiple CVAs resulting in overall poor prognosis for meaningful neurologic recovery. discussions of goals of care in progress. No events overnight. Critical Care Time (minutes): 45 Physical Exam Vital Signs: Vital Signs: Last Vital Signs Temp 98.4 F 11/24/21 11:00 Pulse 93 11/24/21 11:00 Resp 31 H 11/24/21 11:00 BP 174/88 H 11/24/21 11:00 Pulse Ox 92 11/24/21 11:00 Oxygen Flow Rate 10 11/08/21 14:46 BMI result Body Mass Index 37.6 Const: General: no acute distress and other ( Sedated on the vent, no arousal with sedation vacation) Eyes: Sclerae: sclerae normal Neck: Neck: Yes no lymphadenopathy, Yes trachea midline and Yes supple Resp: Auscultation: clear to auscultation bilaterally Cardio: Rate: regular rate Rhythm: regular rhythm Heart sounds: no gallops, no murmurs and no rubs GI: Palpation (GI): Soft to palpation and Other GI palpation findings present ( Nontender) Auscultation: normal bowel sounds Extrem: General: No clubbing, No cyanosis and Yes pedal edema ( trace bilateral) Objective Data Labs CBC & Chem 7: 11/24/21 05:27 11/24/21 05:27 Labs: Laboratory Results - last 24 hr 11/23/21 11/24/21 11/24/21 12:30 00:12 05:19 WBC RBC Hgb Hct MCV MCH MCHC RDW Plt Count MPV Immature Gran % (Auto) Neut % (Auto) Lymph % (Auto) [place] % (Auto) Eos % (Auto) Baso % (Auto) Lymph # (Auto) [place] # (Auto) Eos # (Auto) Baso # (Auto) Abs Immat Gran (auto) Absolute Neuts (auto) Absolute Nucleated RBC Nucleated RBC % (auto) VBG pH 7.47 H VBG pCO2 38 VBG pO2 53 VBG HCO3 28 H VBG O2 Saturation 81.0 VBG Base Excess 4.2 Sodium Potassium Chloride Carbon Dioxide Anion Gap BUN Creatinine Estim Creat Clear Calc Estimated GFR POC Glucose 188 H 204 H Random Glucose Calcium Phosphorus Magnesium Total Bilirubin AST ALT Alkaline Phosphatase Total Protein Albumin 11/24/21 11/24/21 05:27 05:27 WBC 15.7 H RBC 3.17 L Hgb 10.2 L Hct 31.1 L MCV 98.1 H MCH 32.2 MCHC 32.8 RDW 12.7 Plt Count 353 MPV 9.5 Immature Gran % (Auto) 1.2 H Neut % (Auto) 89.8 H Lymph % (Auto) 5.0 L [place] % (Auto) 3.8 Eos % (Auto) 0.1 Baso % (Auto) 0.1 Lymph # (Auto) 0.8 L [place] # (Auto) 0.6 Eos # (Auto) 0.0 Baso # (Auto) 0.0 Abs Immat Gran (auto) 0.19 H Absolute Neuts (auto) 14.1 H Absolute Nucleated RBC 0.000 Nucleated RBC % (auto) 0.0 VBG pH VBG pCO2 VBG pO2 VBG HCO3 VBG O2 Saturation VBG Base Excess Sodium 143 Potassium 4.9 Chloride 109 H Carbon Dioxide 26 Anion Gap 13 BUN 60 H Creatinine 1.35 Estim Creat Clear Calc 62.9 Estimated GFR 52 POC Glucose Random Glucose 245 H D Calcium 8.7 Phosphorus 4.6 H Magnesium 2.1 Total Bilirubin 0.7 AST 31 ALT 85 H Alkaline Phosphatase 107 Total Protein 5.5 L Albumin 2.8 L Microbiology Microbiology Results: Microbiology 11/22/21 17:52 Urine Catheterized - Perez Catheter Urine Culture - Preliminary Yeast 11/18/21 11:10 Blood - Venous Blood Culture - Final No growth after 5 days. 11/18/21 11:10 Blood - Venous Blood Culture - Final No growth after 5 days. 11/18/21 Unknown Sputum - Suctioned Gram Stain - Final 11/18/21 Unknown Sputum - Suctioned Sputum Culture - Final 11/13/21 Unknown Urine Catheterized - Perez Catheter Urine Culture - Final No growth. 11/07/21 18:50 Blood - Venous Blood Culture - Final No growth after 5 days. 11/07/21 19:45 Blood - Venous Blood Culture - Final No growth after 5 days. Progress Note: A&P Assessment and plan (1) Acute respiratory distress syndrome (ARDS) due to COVID-19 virus: Status: Acute (2) Acute hypoxemic respiratory failure due to COVID-19: Status: Acute (3) Acute renal failure superimposed on chronic kidney disease: Status: Acute (4) CVA (cerebrovascular accident): Status: Acute (5) DVT (deep venous thrombosis): Status: Acute (6) Hematuria: Status: Acute Assessment and Plan: Assessment: 71-year-old gentleman admitted with dyspnea secondary to COVID-19 ARDS now requiring ventilatory support with hospital course further complicated by DVT and multiple CVAs resulting in persistent encephalopathy Plan: Neuro: multiple CVAs on the background of COVID-19. Neurology service care appreciated. Will hold very pulmonology prognosis. Will obtain MRI for further evaluation. Discussions of further goals of care are in progress. Cardiac: No acute issues. Pulmonary: COVID-19 ARDS requiring ventilatory support, FiO2 requirements improved. Fails pressure support trials. Renal: Acute kidney injury has improved. Continue to monitor renal indices and urine output. Endo: No acute issues. GI: No acute issues. ID: COVID-19 treated with dexamethasone and baricitinib. Heme/Onc: DVT on b.i.d. Lovenox, changed to prophylaxis dose secondary to development of hematuria. Psych: No acute issues. Miscellaneous: No acute issues. Prophylaxis: Lovenox, ppi Diet: tube feeds Critical care time spent: 45 minutes Quality Stroke Does the patient have a stroke diagnosis?: Yes Reason for No Anti-thrombotic by Day Two: Contraindicated VTE Prior VTE?: No VTE Risk Level:: Medical - moderate - high VTE Device Contraindication: Treatment Not Indicated VTE Drug Contraindication: N/A - Med Ordered
[2021-11-24] MEDS: propofoL 1,000 MG/100 ML VIAL 5.44 MG IVCONT (12:29)
[2021-11-24] MEDS: fentaNYL citrate/NS 1,000 MCG/100 ML PLAST..BAG 15 MCG IVCONT (12:30)
[2021-11-24 12:46] LABS: Glucose, Whole Blood 229 mg/dL (60-115)
[2021-11-24 18:16] LABS: Glucose, Whole Blood 184 mg/dL (60-115)
[2021-11-24] MEDS: Melatonin 3 MG TABLET 9 MG PO (19:29)
[2021-11-25] VITALS (32 sets, daily range): BP systolic 82–193; BP diastolic 37–99; PULSE 45–93; RESP 13–35; TEMP 35.1–38; O2SAT 91–98; BMI 38.0
[2021-11-25 01:42] LABS: Glucose, Whole Blood 118 mg/dL (60-115)
[2021-11-25] MEDS: Albumin Human 25 % 100 ML IV (01:52)
[2021-11-25] MEDS: Metoclopramide HCl 10 MG/2 ML VIAL 5 MG IVPUSH ×4 (01:53→21:04)
[2021-11-25] MEDS: fentaNYL citrate/NS 1,000 MCG/100 ML PLAST..BAG 15 MCG IVCONT ×2 (02:29→10:31)
[2021-11-25] MEDS: propofoL 1,000 MG/100 ML VIAL 16.33 MG IVCONT (02:29)
[2021-11-25 05:35] LABS: VBG Base Excess 4.8 mmol/L; VBG HCO3 28 mmol/L (22-26); VBG pCO2 39 mmHg; VBG pH 7.46 (7.32-7.43); VBG pO2 41 mmHg
[2021-11-25 05:41] LABS: MANUAL DIFF FLAG NO
[2021-11-25 05:43] LABS: Venous Blood Gas Refer to POC result
[2021-11-25 05:47] LABS: Basophils Percent Auto 0.2 % (0-2); Eosinophils Absolute Auto 0.2 X10*3/uL (0.0-0.4); Eosinophils Percent Auto 1.9 % (0-4); Hematocrit 26.7 % (42.0-52.0); Hemoglobin 8.6 g/dl (14.0-18.0); Imm Gran Abs Auto 0.14 X10*3/uL (0.00-0.03); Imm Gran Pct Auto 1.2 % (0.0-0.4); Lymphocytes Absolute Auto 1.4 X10*3/uL (1.2-4.9); Lymphocytes Percent Auto 11.6 % (20-40); Mean Corpuscular HGB Conc 32.2 g/dl (31.0-36.0); Mean Corpuscular Hemoglobin 31.9 pg (27.0-33.0); Mean Corpuscular Volume 98.9 fL (80.0-98.0); Mean Platelet Volume 9.7 fL (9.4-12.4); Monocytes Absolute Auto 0.7 X10*3/uL (0.1-1.2); Monocytes Percent Auto 5.5 % (2-11); Neutrophils Absolute Auto 9.5 x10*3/uL (2.0-8.3); Neutrophils Percent Auto 79.6 % (45-73); Platelet Count 329 X10*3/uL (160-400); Red Cell Distribution Width 12.7 % (11.0-16.0); White Blood Count 11.9 X10*3/uL (4.8-10.8)
[2021-11-25] MEDS: propofoL 1,000 MG/100 ML VIAL 21.77 MG IVCONT ×5 (06:12→21:04)
[2021-11-25 06:13] LABS: Anion Gap 8 (12-20); Blood Urea Nitrogen 59 mg/dL (9-16); Calcium 9.2 mg/dL (8.4-10.2); Carbon Dioxide 30 mmol/L (22-29); Chloride 109 mmol/L (96-108); Creatinine Clr Calc Pharmacy 66.2; Estimated Glomerular Filt Rate 55; Glucose Random 141 mg/dL (60-115); Phosphorus 3.1 mg/dL (2.7-4.5); Potassium 4.1 mmol/L (3.3-5.1); Sodium 143 mmol/L (135-145)
[2021-11-25 06:14] LABS: Albumin Level 3.6 g/dL (3.5-5.0)
--- NOTE | 2021-11-25 08:30 | MHC.CM.PN ---
Received copies of pt's HCP: copy in chart and in EMR. Awaiting decision from family on DOUGHNUT ICER vs peg/trach.
[2021-11-25] MEDS: Famotidine 20 MG TABLET PO (10:32)
[2021-11-25] MEDS: Brimonidine Tartrate 0.2% Oph 5 ML BOTTLE 1 DROP EYE-BOTH ×2 (10:32→21:05)
[2021-11-25] MEDS: Nystatin Powder 15 GM BOTTLE 1 APPL TOPICAL ×3 (10:32→21:05)
[2021-11-25] MEDS: Aspirin 325 MG TABLET PO (10:32)
[2021-11-25] MEDS: Atorvastatin Calcium 40 MG TABLET PO (10:33)
[2021-11-25] MEDS: methylPREDNISolone Sod Succ 125 MG/2 ML VIAL 40 MG IVPUSH (10:33)
[2021-11-25] MEDS: Folic Acid 1 MG TABLET PO (10:33)
[2021-11-25] MEDS: Enoxaparin Sodium 40 MG/0.4 ML SYRINGE SUBCUT (10:33)
[2021-11-25] MEDS: Chlorhexidine Gluc Oral Rinse 15 ML MOUTHWASH BUCCAL ×3 (10:34→21:04)
[2021-11-25] MEDS: Insulin Glargine,Hum.rec.anlog 100 UNIT/ML 10 ML VIAL 15 UNIT SUBCUT (10:42)
[2021-11-25 10:45] LABS: Glucose, Whole Blood 155 mg/dL (60-115)
--- NOTE | 2021-11-25 11:10 | P.PNCC_ITS ---
Subjective Subjective Date of Service: 11/25/21 Interval History: 71-year-old gentleman with underlying history of obesity, KEY on CPAP, hypertension, CKD, COVID symptomatic on 10/26/2021, admitted on 11/07/2021 with progressive shortness of breath and hypoxia further complicated by rhabdomyolysis. Hospital course significant for bilateral DVTs, COVID-19 ARDS, progressive hypoxemia requiring transfer to ICU and intubation on 11/13/2021, further complicated by multiple CVAs resulting in overall poor prognosis for meaningful neurologic recovery. discussions of goals of care in progress. No events overnight. No changes in neurologic status. Critical Care Time (minutes): 45 Physical Exam Vital Signs: Vital Signs: Last Vital Signs Temp 100.4 F 11/25/21 11:00 Pulse 87 11/25/21 11:00 Resp 28 H 11/25/21 11:00 BP 156/75 H 11/25/21 11:00 Pulse Ox 93 11/25/21 11:00 Oxygen Flow Rate 10 11/08/21 14:46 BMI result Body Mass Index 38.0 Const: General: no acute distress and other (Sedated on the vent, no arousal with sedation vacation) Eyes: Sclerae: sclerae normal Neck: Neck: Yes no lymphadenopathy, Yes trachea midline and Yes supple Resp: Auscultation: clear to auscultation bilaterally Cardio: Rate: regular rate Rhythm: regular rhythm Heart sounds: no gallops, no murmurs and no rubs GI: Palpation (GI): Soft to palpation and Other GI palpation findings present ( Nontender) Auscultation: normal bowel sounds Extrem: General: No clubbing, No cyanosis and Yes pedal edema (Trace simon ateral) Objective Data Labs CBC & Chem 7: 11/25/21 05:22 11/25/21 05:22 Labs: Laboratory Results - last 24 hr 11/24/21 11/24/21 11/25/21 12:35 18:12 00:58 WBC RBC Hgb Hct MCV MCH MCHC RDW Plt Count MPV Immature Gran % (Auto) Neut % (Auto) Lymph % (Auto) [place] % (Auto) Eos % (Auto) Baso % (Auto) Lymph # (Auto) [place] # (Auto) Eos # (Auto) Baso # (Auto) Abs Immat Gran (auto) Absolute Neuts (auto) Absolute Nucleated RBC Nucleated RBC % (auto) VBG pH VBG pCO2 VBG pO2 VBG HCO3 VBG O2 Saturation VBG Base Excess Sodium Potassium Chloride Carbon Dioxide Anion Gap BUN Creatinine Estim Creat Clear Calc Estimated GFR POC Glucose 229 H 184 H 118 H Random Glucose Calcium Phosphorus Magnesium Albumin 11/25/21 11/25/21 11/25/21 05:22 05:22 05:28 WBC 11.9 H RBC 2.70 L Hgb 8.6 L Hct 26.7 L MCV 98.9 H MCH 31.9 MCHC 32.2 RDW 12.7 Plt Count 329 MPV 9.7 Immature Gran % (Auto) 1.2 H Neut % (Auto) 79.6 H Lymph % (Auto) 11.6 L [place] % (Auto) 5.5 Eos % (Auto) 1.9 Baso % (Auto) 0.2 Lymph # (Auto) 1.4 [place] # (Auto) 0.7 Eos # (Auto) 0.2 Baso # (Auto) 0.0 Abs Immat Gran (auto) 0.14 H Absolute Neuts (auto) 9.5 H Absolute Nucleated RBC 0.000 Nucleated RBC % (auto) 0.0 VBG pH 7.46 H VBG pCO2 39 VBG pO2 41 VBG HCO3 28 H VBG O2 Saturation 65.0 VBG Base Excess 4.8 Sodium 143 Potassium 4.1 Chloride 109 H Carbon Dioxide 30 H Anion Gap 8 L BUN 59 H Creatinine 1.29 Estim Creat Clear Calc 66.2 Estimated GFR 55 POC Glucose Random Glucose 141 H D Calcium 9.2 Phosphorus 3.1 Magnesium 2.0 Albumin 3.6 D 11/25/21 10:36 WBC RBC Hgb Hct MCV MCH MCHC RDW Plt Count MPV Immature Gran % (Auto) Neut % (Auto) Lymph % (Auto) [place] % (Auto) Eos % (Auto) Baso % (Auto) Lymph # (Auto) [place] # (Auto) Eos # (Auto) Baso # (Auto) Abs Immat Gran (auto) Absolute Neuts (auto) Absolute Nucleated RBC Nucleated RBC % (auto) VBG pH VBG pCO2 VBG pO2 VBG HCO3 VBG O2 Saturation VBG Base Excess Sodium Potassium Chloride Carbon Dioxide Anion Gap BUN Creatinine Estim Creat Clear Calc Estimated GFR POC Glucose 155 H Random Glucose Calcium Phosphorus Magnesium Albumin Microbiology Microbiology Results: Microbiology 11/22/21 17:52 Urine Catheterized - Perez Catheter Urine Culture - Final Anu albicans 11/18/21 11:10 Blood - Venous Blood Culture - Final No growth after 5 days. 11/18/21 11:10 Blood - Venous Blood Culture - Final No growth after 5 days. 11/18/21 Unknown Sputum - Suctioned Gram Stain - Final 11/18/21 Unknown Sputum - Suctioned Sputum Culture - Final 11/13/21 Unknown Urine Catheterized - Perez Catheter Urine Culture - Final No growth. 11/07/21 18:50 Blood - Venous Blood Culture - Final No growth after 5 days. 11/07/21 19:45 Blood - Venous Blood Culture - Final No growth after 5 days. Progress Note: A&P Assessment and plan (1) DVT (deep venous thrombosis): Status: Acute (2) CVA (cerebrovascular accident): Status: Acute (3) Acute respiratory distress syndrome (ARDS) due to COVID-19 virus: Status: Acute (4) Acute hypoxemic respiratory failure due to COVID-19: Status: Acute Assessment and Plan: Assessment: 71-year-old gentleman admitted with dyspnea secondary to COVID-19 ARDS now requiring ventilatory support with hospital course further complicated by DVT and multiple CVAs resulting in persistent encephalopathy Plan: Neuro: multiple CVAs on the background of COVID-19. Neurology service care appreciated. Very poor prognosis for meaningful recovery. MRI is pending. Discussions of further goals of care are in progress. Cardiac: No acute issues. Pulmonary: COVID-19 ARDS requiring ventilatory support, FiO2 requirements improved. Fails pressure support trials. Renal: Acute kidney injury has improved. Continue to monitor renal indices and urine output. Endo: No acute issues. GI: No acute issues. ID: COVID-19 treated with dexamethasone and baricitinib. Heme/Onc: DVT initially on b.i.d. Lovenox, now on prophylaxis dose secondary to development of hematuria. Psych: No acute issues. Miscellaneous: No acute issues. Prophylaxis: Lovenox, ppi Diet: tube feeds Critical care time spent: 45 minutes Quality Stroke Does the patient have a stroke diagnosis?: Yes Reason for No Anti-thrombotic by Day Two: Contraindicated VTE Prior VTE?: No VTE Risk Level:: Medical - moderate - high VTE Device Contraindication: Treatment Not Indicated VTE Drug Contraindication: N/A - Med Ordered
[2021-11-25 12:45] LABS: Glucose, Whole Blood 175 mg/dL (60-115)
[2021-11-25] MEDS: fentaNYL citrate/NS 1,000 MCG/100 ML PLAST..BAG 17.5 MCG IVCONT ×2 (14:21→21:04)
--- NOTE | 2021-11-25 16:08 | MHC.CM.PN ---
Spoke with pt's dtr Tena: family has decided to transition to [facility]. Tena states her sisters are all coming in to [place] today and the plan will be for a hospital approved visit to allow them to say goodbye before he is extubated. Discussed plans with MD, RN washing and screening plant supervisor, and ICU staff. Permission granted for visit. Time to be confirmed on 11/26.
[2021-11-25] MEDS: 0.9 % Sodium Chloride Flush 3 ML SYRINGE IVFLUSH ×2 (17:02→21:05)
[2021-11-25 18:17] LABS: Glucose, Whole Blood 167 mg/dL (60-115)
--- NOTE | 2021-11-25 19:19 | PC.NURSE ---
VSS, pt on levophed gtt per emar. SR/SB on tele. Sedated on propofol and fentanyl. Opens eyes to noxious stimuli, flaccid, unable to follow commands. no gag. Vent settings remain the same. U/o wnl, rpeo q2hr. Family updated by RN and MD. Pt brought for MRI- MD called HCP with results, plan is for family to come in tomorrow. Private Chef and DOA gave permission.
[2021-11-25] MEDS: Melatonin 3 MG TABLET 9 MG PO (21:04)
[2021-11-26] VITALS (18 sets, daily range): BP systolic 87–132; BP diastolic 37–52; PULSE 44–96; RESP 18–23; TEMP 34.9–36.7; O2SAT 95–97; BMI 37.8
[2021-11-26 01:06] LABS: Glucose, Whole Blood 179 mg/dL (60-115)
[2021-11-26] MEDS: propofoL 1,000 MG/100 ML VIAL 21.77 MG IVCONT ×2 (01:42→06:00)
[2021-11-26] MEDS: Metoclopramide HCl 10 MG/2 ML VIAL 5 MG IVPUSH ×2 (01:59→08:25)
[2021-11-26] MEDS: fentaNYL citrate/NS 1,000 MCG/100 ML PLAST..BAG 17.5 MCG IVCONT (03:43)
[2021-11-26 05:31] LABS: VBG Base Excess 3.9 mmol/L; VBG HCO3 28 mmol/L (22-26); VBG pCO2 40 mmHg; VBG pH 7.44 (7.32-7.43); VBG pO2 43 mmHg
[2021-11-26 05:37] LABS: MANUAL DIFF FLAG NO
[2021-11-26 05:41] LABS: Basophils Percent Auto 0.1 % (0-2); Eosinophils Absolute Auto 0.2 X10*3/uL (0.0-0.4); Eosinophils Percent Auto 2.3 % (0-4); Hematocrit 27.2 % (42.0-52.0); Hemoglobin 8.9 g/dl (14.0-18.0); Lymphocytes Percent Auto 9.7 % (20-40); Mean Corpuscular HGB Conc 32.7 g/dl (31.0-36.0); Mean Corpuscular Hemoglobin 32.4 pg (27.0-33.0); Mean Corpuscular Volume 98.9 fL (80.0-98.0); Mean Platelet Volume 9.6 fL (9.4-12.4); Monocytes Absolute Auto 0.5 X10*3/uL (0.1-1.2); Monocytes Percent Auto 5.1 % (2-11); Neutrophils Absolute Auto 8.4 x10*3/uL (2.0-8.3); Neutrophils Percent Auto 81.8 % (45-73); Platelet Count 303 X10*3/uL (160-400); Red Blood Count 2.75 X10*6/uL (4.60-5.80); Red Cell Distribution Width 12.9 % (11.0-16.0); White Blood Count 10.3 X10*3/uL (4.8-10.8)
[2021-11-26 06:14] LABS: Albumin Level 3.3 g/dL (3.5-5.0); Anion Gap 11 (12-20); Blood Urea Nitrogen 53 mg/dL (9-16); Calcium 9.2 mg/dL (8.4-10.2); Carbon Dioxide 29 mmol/L (22-29); Chloride 106 mmol/L (96-108); Creatinine Clr Calc Pharmacy 71.1; Estimated Glomerular Filt Rate 60; Glucose Random 185 mg/dL (60-115); Magnesium 2.1 mg/dL (1.6-2.6); Phosphorus 3.8 mg/dL (2.7-4.5); Potassium 3.9 mmol/L (3.3-5.1); Sodium 142 mmol/L (135-145)
--- NOTE | 2021-11-26 06:33 | PC.NURSE ---
Assumed care at 19:00 from RITESH Mcdowell. Patient remains sedated on propofol, responds to deep pain, opens eyes spontaneously, blinks, may have moved left hand, no other motion. PERRL. Patient remains intubated with #8 ETT at 25 ROSHNI. AC/VC+ settings continue with TV 500; PEEP 5; Rate 22; FiO2 40%, SpO2 96%. Secretions minimal inline. Was essentially synchronous for the majority of the night, but this last 45 minutes, he has been dysynchronous, not getting his volumes, and a cc of air was added to the ETT cuff, and the Propofol was turned up to 50. Patient seems to be continuing with some dysynchrony. CLAIM INSPECTOR and RT aware. LS were dim at bilateral bases. SpO2 96%. Sinus bradycardia on monitor, often in 40's. BP soft, MAP >65 with requiring of Levophed to be uptitrated around 00:00 from 0.1 to 0.14 mcg/kg/min. Urine output was about 40 cc/hour, less dark than prior shifts and with no sediment noted. mild edema to bilateral upper and lower extremities. Patient with hypoactive bowel sounds. tolerating TF of nepro at 35 cc/hour and 240 ccs H2O Q6 hours, last given at 02:00.
[2021-11-26 06:53] LABS: Venous Blood Gas Refer to POC result
[2021-11-26 07:03] LABS: Glucose, Whole Blood 161 mg/dL (60-115)
--- NOTE | 2021-11-26 07:12 | PM.PNNEP ---
Subjective Subjective Date of Service: 11/26/21 Principal diagnosis: COVID, EBER Interval history: 71-year-old gentleman with underlying history of obesity, KEY on CPAP, hypertension, CKD, COVID symptomatic on 10/26/2021, admitted on 11/07/2021 with progressive shortness of breath and hypoxia further complicated by rhabdomyolysis. Hospital course significant for bilateral DVTs, COVID-19 ARDS, progressive hypoxemia requiring transfer to ICU and intubation on 11/13/2021, further complicated by multiple CVAs resulting in overall poor prognosis for meaningful neurologic recovery. discussions of goals of care in progress. No events overnight. No changes in neurologic status. Physical Exam Vital Signs: Vital Signs: Last Vital Signs Temp 98.1 F 11/26/21 06:00 Pulse 49 L 11/26/21 06:00 Resp 22 H 11/26/21 06:00 BP 115/52 L 11/26/21 06:00 Pulse Ox 97 11/26/21 06:00 Oxygen Flow Rate 10 11/08/21 14:46 BMI result Body Mass Index 38.0 Const: Other: Confused General: cooperative, no acute distress, alert, awake, ill appearing and other (Sedated on the vent, no arousal with sedation vacation) Nutritional Appearance: obese HENMT: Head: Yes normocephalic and Yes atraumatic Eyes: Sclerae: sclerae normal Pupils: Equal, round and reactive pupils present EOM: EOMs intact bilaterally Neck: Neck: Yes no lymphadenopathy, Yes trachea midline and Yes supple Resp: Effort & Inspection: normal respiratory effort and no respiratory distress Auscultation: clear to auscultation bilaterally, crackles (Diffuse bilateral) and diminished lung sounds Cardio: Rate: regular rate Rhythm: regular rhythm Heart sounds: S1 normal heart sound present, S2 normal heart sound present, no gallops, no murmurs and no rubs GI: Palpation (GI): Soft to palpation, nontender, no guarding and Other GI palpation findings present ( Nontender) Auscultation: normal bowel sounds Skin: General skin exam: no rashes or lesions noted Neuro: Other: Sedated General: moves all extremities Cranial nerves: Yes Equal, round and reactive pupils present Extrem: General: Yes normal to inspection, Yes no pedal edema, No clubbing, No cyanosis, No edema and Yes pedal edema (Trace bilateral) Objective Data Labs CBC & Chem 7: 11/26/21 05:15 11/26/21 05:15 Labs: Laboratory Results - last 24 hr 11/25/21 11/25/21 11/25/21 10:36 12:19 12:19 WBC RBC Hgb Hct MCV MCH MCHC RDW Plt Count MPV Immature Gran % (Auto) Neut % (Auto) Lymph % (Auto) [place] % (Auto) Eos % (Auto) Baso % (Auto) Lymph # (Auto) [place] # (Auto) Eos # (Auto) Baso # (Auto) Abs Immat Gran (auto) Absolute Neuts (auto) Absolute Nucleated RBC Nucleated RBC % (auto) VBG pH VBG pCO2 VBG pO2 VBG HCO3 VBG O2 Saturation VBG Base Excess Sodium Potassium Chloride Carbon Dioxide Anion Gap BUN Creatinine Estim Creat Clear Calc Estimated GFR POC Glucose 155 H 175 H 175 H Random Glucose Calcium Phosphorus Magnesium Albumin 11/25/21 11/26/21 11/26/21 18:13 01:00 05:15 WBC 10.3 RBC 2.75 L Hgb 8.9 L Hct 27.2 L MCV 98.9 H MCH 32.4 MCHC 32.7 RDW 12.9 Plt Count 303 MPV 9.6 Immature Gran % (Auto) 1.0 H Neut % (Auto) 81.8 H Lymph % (Auto) 9.7 L [place] % (Auto) 5.1 Eos % (Auto) 2.3 Baso % (Auto) 0.1 Lymph # (Auto) 1.0 L [place] # (Auto) 0.5 Eos # (Auto) 0.2 Baso # (Auto) 0.0 Abs Immat Gran (auto) 0.10 H Absolute Neuts (auto) 8.4 H Absolute Nucleated RBC 0.000 Nucleated RBC % (auto) 0.0 VBG pH VBG pCO2 VBG pO2 VBG HCO3 VBG O2 Saturation VBG Base Excess Sodium Potassium Chloride Carbon Dioxide Anion Gap BUN Creatinine Estim Creat Clear Calc Estimated GFR POC Glucose 167 H 179 H Random Glucose Calcium Phosphorus Magnesium Albumin 11/26/21 11/26/21 11/26/21 05:15 05:25 06:57 WBC RBC Hgb Hct MCV MCH MCHC RDW Plt Count MPV Immature Gran % (Auto) Neut % (Auto) Lymph % (Auto) [place] % (Auto) Eos % (Auto) Baso % (Auto) Lymph # (Auto) [place] # (Auto) Eos # (Auto) Baso # (Auto) Abs Immat Gran (auto) Absolute Neuts (auto) Absolute Nucleated RBC Nucleated RBC % (auto) VBG pH 7.44 H VBG pCO2 40 VBG pO2 43 VBG HCO3 28 H VBG O2 Saturation 68.0 VBG Base Excess 3.9 Sodium 142 Potassium 3.9 Chloride 106 Carbon Dioxide 29 Anion Gap 11 L BUN 53 H Creatinine 1.20 Estim Creat Clear Calc 71.1 Estimated GFR 60 POC Glucose 161 H Random Glucose 185 H Calcium 9.2 Phosphorus 3.8 Magnesium 2.1 Albumin 3.3 L Microbiology Microbiology Results: Microbiology 11/22/21 17:52 Urine Catheterized - Perez Catheter Urine Culture - Final Anu albicans 11/18/21 11:10 Blood - Venous Blood Culture - Final No growth after 5 days. 11/18/21 11:10 Blood - Venous Blood Culture - Final No growth after 5 days. 11/18/21 Unknown Sputum - Suctioned Gram Stain - Final 11/18/21 Unknown Sputum - Suctioned Sputum Culture - Final 11/13/21 Unknown Urine Catheterized - Perez Catheter Urine Culture - Final No growth. 11/07/21 18:50 Blood - Venous Blood Culture - Final No growth after 5 days. 11/07/21 19:45 Blood - Venous Blood Culture - Final No growth after 5 days. Procedures Date of Service Date of Service: 11/26/21 Assessment & Plan Assessment and plan (1) DVT (deep venous thrombosis): Status: Acute (2) CVA (cerebrovascular accident): Status: Acute (3) Acute respiratory distress syndrome (ARDS) due to COVID-19 virus: Status: Acute (4) Acute hypoxemic respiratory failure due to COVID-19: Status: Acute (5) Acute renal failure superimposed on chronic kidney disease: Status: Acute Assessment and Plan: eber resolved has subnephrotic proteinuria that could be 2nd to covid will sign off call for ? Assessment and Plan: Assessment: 71-year-old gentleman admitted with dyspnea secondary to COVID-19 ARDS now requiring ventilatory support with hospital course further complicated by DVT and multiple CVAs resulting in persistent encephalopathy Time Spent With Patient Time: Total time spent is greater than 50% in coordination of care (as documented) at patient's floor/unit and/or counseling patient: Progress Note: Quality Stroke Does the patient have a stroke diagnosis?: Yes Reason for No Anti-thrombotic by Day Two: Contraindicated
[2021-11-26] MEDS: 0.9 % Sodium Chloride Flush 3 ML SYRINGE IVFLUSH ×2 (08:24→12:33)
[2021-11-26] MEDS: Chlorhexidine Gluc Oral Rinse 15 ML MOUTHWASH BUCCAL (08:24)
[2021-11-26] MEDS: methylPREDNISolone Sod Succ 125 MG/2 ML VIAL 40 MG IVPUSH (08:24)
[2021-11-26] MEDS: Famotidine 20 MG TABLET PO (08:24)
[2021-11-26] MEDS: Atorvastatin Calcium 40 MG TABLET PO (08:24)
[2021-11-26] MEDS: Enoxaparin Sodium 40 MG/0.4 ML SYRINGE SUBCUT (08:24)
[2021-11-26] MEDS: Aspirin 325 MG TABLET PO (08:24)
[2021-11-26] MEDS: Folic Acid 1 MG TABLET PO (08:25)
[2021-11-26] MEDS: Insulin Glargine,Hum.rec.anlog 100 UNIT/ML 10 ML VIAL 15 UNIT SUBCUT (08:25)
[2021-11-26] MEDS: Brimonidine Tartrate 0.2% Oph 5 ML BOTTLE 1 DROP EYE-BOTH (08:25)
[2021-11-26] MEDS: Nystatin Powder 15 GM BOTTLE 1 APPL TOPICAL (08:26)
[2021-11-26 08:35] LABS: Creatinine Urine 142.79 mg/dL; Microalbum/Creatinine Ratio Ur 125.3 ug/mg cr
[2021-11-26] MEDS: fentaNYL citrate/NS 1,000 MCG/100 ML PLAST..BAG 20 MCG IVCONT ×2 (08:35→13:41)
[2021-11-26] MEDS: propofoL 1,000 MG/100 ML VIAL 27.22 MG IVCONT (10:14)
--- NOTE | 2021-11-26 10:20 | MHC.CLN ---
F/U TUBE FEEDING RUNNING AT MAX GOAL RATE NEPRO AT 35 ML PER HOUR. FLUSH 240 ML WATER EVERY 6 HOURS.TOLERATING WELL. TUBE FEEDING PROVIDIN KCAL WITH SEDATION (30.7 KCAL/KG IBW); 68 G PROTEIN (.93 G/KG IBW); 1571 ML FREE WATER FROM TUBE FEED AND FLUSH (21.5 ML/KG IBW) CONTINUE TO FOLLOW WITH TEAM.
--- NOTE | 2021-11-26 11:49 | MHC.CM.PN ---
Pt's family arrived for end of life visit: ICU staff and administration aware: authorization given by senior leadership given the terminal nature of the patient. CM to follow for any needs
--- NOTE | 2021-11-26 12:25 | PM.CCN ---
Critical Care Event Note Summary Date of Service: 11/26/21 Code activated: No Narrative: Family meeting held, overall extremity poor prognosis for any meaningful neurological recovery discussed and decision has been reached to switch goals of care to comfort measures only. Code status changed. Critical Care Time (minutes): 0
[2021-11-26] MEDS: Midazolam HCl/PF 2 MG/2 ML VIAL IVPUSH ×4 (12:33→15:39)
[2021-11-26] MEDS: fentaNYL citrate/PF 100 MCG/2 ML VIAL IVPUSH ×6 (12:33→15:56)
--- NOTE | 2021-11-26 16:48 | PM.DDS ---
Discharge Sum: Prov Provider Primary care physician: Chris Maher MD Consults: 11/08/21 00:37 Consult to Infectious Diseases Routine Consulting Provider: Lay Caldwell Reason for consultation: COVID PNA Consult to Nephrology Routine Consulting Provider: Bjorn Pedraza Reason for consultation: hyponatremia Consult to Pulmonology Routine Consulting Provider: Rossana Guerrero Reason for consultation: hypoxic respiratory failure in the setting of COVID 11/13/21 08:02 Consult to Nephrology Routine Consulting Provider: Zuhair Marte Reason for consultation: alberto , ams Has provider been notified: No 11/13/21 08:05 Consult to Critical Care Routine Consulting Provider: Sofya Vuong Reason for consultation: ams , acute hypoxemic respiratory failure due to covid Has provider been notified: No 11/14/21 00:44 Consult to Neurology Stat Consulting Provider: [facility] Reason for consultation: acute to sub acute stroke L temporal Has provider been notified: Yes 11/16/21 15:26 Consult to Infectious Diseases Routine Consulting Provider: Lay Caldwell Reason for consultation: RESTRICTED ANTIBIOTIC 11/18/21 01:27 Consult to Neurology Routine Consulting Provider: Chantale Raymond Reason for consultation: COVID with multiple acute strokes Has provider been notified: No 11/21/21 13:58 Consult to Thoracic Surgery Routine Consulting Provider: Ethel Kasper Reason for consultation: Covid patient, needs tracheostomy and PEG Has provider been notified: Yes Pronouncing clinician: Aditya Birch Discharge Sum: Diag Contributing Factors (1) DVT (deep venous thrombosis): (2) CVA (cerebrovascular accident): (3) Acute respiratory distress syndrome (ARDS) due to COVID-19 virus: (4) Acute hypoxemic respiratory failure due to COVID-19: (5) Acute renal failure superimposed on chronic kidney disease: (6) Obesity: (7) Hypertension: (8) KEY (obstructive sleep apnea): Discharge Sum: Summary Date and Time Date of admission: 11/08/21 00:37 Date of : 11/26/21 Time of : 16:20 Summary Details: 71-year-old gentleman with underlying history of obesity, KEY on CPAP, hypertension, CKD, COVID symptomatic on 10/18/2021 admitted on 11/07/2021 with progressive shortness of breath and hypoxia further complicated by acute kidney injury in rhabdomyolysis. Patient initially was admitted to telemetry and required high-flow supplemental oxygen. He has been started on dexamethasone and baricitinib. When he completed his dexamethasone treatment he was continued on Solu-Medrol. His hospital course was complicated by bilateral deep venous thrombosis of lower extremities, progressive hypoxemia requiring transfer to intensive care unit and intubation on 11/13/2021, and development of multiple CVAs ischemic/hemorrhagic. His rhabdomyolysis resolved and kidney function improved. His FiO2 requirements started to improve also. However, patient has developed persistent encephalopathy secondary to multiple CVAs. He has been evaluated by neurology service and deemed to have poor prognosis for meaningful recovery. Patient was further monitored and intensive care unit with no significant change in his neurologic status for 7 days. At that time meeting with family / healthcare proxy was held and extremity poor prognosis for meaningful neurologic recovery was discussed. Family decided to switch goals of care to comfort measures on 11/26/2021. Patient has been extubated and passed peacefully at 4:20 p.m.. Additional Data Confirmation of as documented by pronouncing clinician: no pulse, no respirations, no heart sounds and pupils fixed and dilated Family: at bedside Attending physician: Aditya Birch MD
--- NOTE | 2021-11-26 16:51 | PC.NURSE ---
FAMILY BEDSIDE TO SAY GOODBYE AT 1100. EXTUBATED AT 1238. TOD 1620. [facility] CALLED AND CASE DENIED #[id number] ([place]). FAMILY WILL CALL BACK WITH HOME INFORMATION. ALL BELONGINGS SENT HOME WITH DAUGHTER CESAR.
== END 2021-11-26 18:00 | disposition expired | DRG 207 ==
LOC: HO.ED 19:14 → HO.EDOVER 11-08 01:09 → HO.IMC 11-08 15:14 → HO.ICU 11-13 11:11
PROVIDERS: Anesthesiology; Family Medicine; Internal Medicine; Internal Medicine Cardiovascular Disease; Internal Medicine Nephrology; Physician Assistant; Physician Assistant Medical; Admitting Provider Hospitalist; Emergency Provider Internal Medicine; PCP Internal Medicine; Visit Provider Internal Medicine Pulmonary Disease
DX: U07.1 COVID-19 (principal); J12.82 Pneumonia due to coronavirus disease 2019; N17.0 Acute kidney failure with tubular necrosis; G93.41 Metabolic encephalopathy; I63.89 Other cerebral infarction; J80 Acute respiratory distress syndrome; T83.81XA Embolism due to genitourinary prosthetic devices, implants and grafts, initial encounter; M62.82 Rhabdomyolysis; E66.2 Morbid (severe) obesity with alveolar hypoventilation; E22.2 Syndrome of inappropriate secretion of antidiuretic hormone; N39.0 Urinary tract infection, site not specified; E51.2 Wernicke's encephalopathy; Z68.41 Body mass index [BMI] 40.0-44.9, adult; I82.493 Acute embolism and thrombosis of other specified deep vein of lower extremity, bilateral; E87.5 Hyperkalemia; R31.9 Hematuria, unspecified; N18.2 Chronic kidney disease, stage 2 (mild); Z79.899 Other long term (current) drug therapy; Z51.5 Encounter for palliative care
CPT/HCPCS: 0241U; 36415; 36600; 70450; 70551; 71045; 80048; 80053; 80076; 81001; 82040; 82043; 82140; 82550; 82728; 82803; 82947; 83605; 83735; 83874; 83880; 83935; 84100; 84132; 84133; 84145; 84146; 84300; 85014; 85018; 85025; 85027; 85379; 85610; 85730; 86140; 86160; 86704; 86706; 86709; 86803; 86850; 86900; 86901; 87040; 87070; 87086; 87088; 87205; 87340; 93005; 93970; 94002; 94003; 94640; 94644; 94660; 94799; 95816; 96361; 96374; 99285; 99291; C1758; J0610; J0696; J0885; J1100; J1650; J1940; J1953; J2060; J2185; J2250; J2765; J2930; J3010; J3411; J8540; P9047